=== PATIENT | male | born 1960 | race Caucasian/White ===

== ENCOUNTER 2019-11-01 19:48 | Emergency (ER) | payer MEDICARE, MEDICAID, SELFPAY ==
[2019-11-01 20:39] LABS: Basophils # 0.1 10^3/uL (0.0-0.1); Basophils % 1.2 %; Eosinophils # 0.1 10^3/uL (0.0-0.8); Eosinophils % 1.8 %; Hematocrit 47.7 % (42.0-52.0); Lymphocytes # 1.3 10^3/uL (0.8-4.8); Lymphocytes % 30.9 %; Mean Corpuscular HGB Conc 29.4 g/dL (30.0-36.0); Mean Corpuscular Hemoglobin 24.9 pg (28.0-34.0); Mean Corpuscular Volume 84.9 fL (80-94); Mean Platelet Volume 9.5 fL (7.4-10.4); Monocytes # 0.8 10^3/uL (0.2-0.9); Monocytes % 17.6 %; Neutrophils # 2.1 10^3/uL (1.8-7.7); Neutrophils % 48.3 %; Nucleated Red Blood Cells % 0 %; Platelet Count 266 10^3/cmm (130-400); Red Blood Count 5.62 10^6/uL (4.1-5.3); Red Cell Distribution Width 18.4 % (12.1-15.1); White Blood Count 4.3 10^3/uL (4.0-10.0)
[2019-11-01 20:47] VITALS: BP 120/90; PULSE 116; RESP 16; TEMP 37.1; O2SAT 93; BMI 28.0
--- NOTE | 2019-11-01 20:59 | ED_ITS ---
Entered by Nyasia Dolan, acting as scribe for Tori Aguirre Nov 01, 2019 19:48 HPI - Psych General: Chief Complaint: Abdominal Pain Stated Complaint: abd pain Time Seen by Provider: 11/01/19 20:58 Source: patient, family and RN notes reviewed Mode of arrival: ambulatory Limitations: no limitations History of Present Illness: HPI Narrative: 59 yo male presents to ED with complaints of abdominal pain, due to heavy drinking. The patient states he has been drinking heavy all his life. He said he can't stop drinking, that he needs help. He said he has tried to quit for years but he gets so sick with hallucinations, vomiting, shaking, nervousness and anger. He has run out of money and can buy no more alcohol so he needs help now. He states he has a hiata l hernia that is causing him pain. He said he normally drinks a 5th or more of whiskey every day by 1000 every morning but he has not drank as much today as he normally does, this confirmed by his son. MD complaint: feels depressed and other (wants to stop drinking) Onset (ago): day(s) (2) Duration: constant, changing over time and getting worse History of same: Yes Relieving factors: none Exacerbating factors: alcohol Context: recent alcohol abuse Associated psychiatric symptoms: depression, visual hallucinations and other (abdominal pain) Associated symptoms: Reports visual hallucinations, depression and other (abdominal pain) Treatments prior to arrival: none Review of Systems General: Reports: other (negative unless marked) Const: Denies: fever, chills, body aches, fatigue, malaise or diaphoresis Eyes: Denies: change in vision or blurry vision ENMT: Denies: throat pain, painful swallowing, hoarseness, ear pain, ear discharge, Change in hearing or nasal discharge Card: Denies: chest pain, palpitations, irregular heart rhythm, syncope, pre- syncope, shortness of breath on exertion or shortness of breath when lying down Resp: Denies: shortness of breath, productive cough, non-productive cough, wheezing, coughing up blood or chest congestion GI: Denies: nausea, vomiting, vomiting blood, coffee grounds in vomit, diarrhea, constipation, cramping, blood in stool or black tarry stool : Denies: flank pain, difficulty urinating, painful urination, urinary frequency, urinary urgency, decreased urine ouput, urinary incontinence or blood in urine Musc: Denies: neck pain, back pain, extremity pain, extremity swelling, joint pain, joint swelling, joint warmth or joint stiffness Skin/Breast: Denies: rash, skin tenderness or yellow skin Neuro: Denies: headache, numbness in extremities, weakness in extremities, changes in sensation, lack of coordination, difficulty walking, dizziness, vertigo or confusion Psych: Reports: depression and visual hallucinations Endo: Denies: excessive thirst, tired all the time, cold intolerance, excessive sweating, flushing or hot flashes Garrick/Lymph: Denies: easy bruising, easy bleeding, petechiae or enlarged lymph nodes All/Imm: Denies: hives, throat swelling, tongue swelling, facial swelling or acute wheezing PFSH ED PFSH: Social History Smoking and tobacco status: current every day smoker MDM - Psych MDM Narrative: Medical decision making narrative: Mr. Coronel is a 59-year-old male who comes in requesting to stop drinking. I have offered inpatient stay but he refuses. He states he had not had any alcohol since early this morning but I believe this to be a lie. He was given 1 mg of Ativan IV but does not appear any more intoxicated than when he arrived. Ultimately I do not believe he truly wants to quit drinking but is scared as he may be out of money to buy alcohol. I do believe he is at risk but he states in the past when he is tried to stop drinking he is not had symptoms of DTs only had anxiety. I will discharge him home with Ativan but his son who is with him agrees to controlled Ativan and will not let him have access to this. He will give it to him as I have prescribed and they will watch him so that he does not drink while taking it. There are multiple family members that live with him that can observe him. I did advise that if he does develop tremulousness, hallucinations or has a se izure he needs to be brought back to the ER immediately and they understand this. Lab Data: Attestation: I reviewed the patient's lab results. Labs: Lab Results 11/01/19 11/01/19 11/01/19 Range/Units 20:20 20:20 20:20 WBC 4.3 (4.0-10.0) 10^3/ uL RBC 5.62 H (4.1-5.3) 10^6/u L Hgb 14.0 (11.7-16.6) g/dL Hct 47.7 (42.0-52.0) % MCV 84.9 (80-94) fL MCH 24.9 L (28.0-34.0) pg MCHC 29.4 L (30.0-36.0) g/dL RDW 18.4 H (12.1-15.1) % Plt Count 266 (130-400) 10^3/c mm MPV 9.5 (7.4-10.4) fL Neut % (Auto) 48.3 % Lymph % (Auto) 30.9 % Davison % (Auto) 17.6 % Eos % (Auto) 1.8 % Baso % (Auto) 1.2 % Neut # (Auto) 2.1 (1.8-7.7) 10^3/u L Lymph # (Auto) 1.3 (0.8-4.8) 10^3/u L Davison # (Auto) 0.8 (0.2-0.9) 10^3/u L Eos # (Auto) 0.1 (0.0-0.8) 10^3/u L Baso # (Auto) 0.1 (0.0-0.1) 10^3/u L Nucleated RBC % (a uto) 0 % Nucleated RBCs # 0.0 /100WBC PT 13.10 (10.5-13.3) SECO NDS INR 0.99 (0.8-1.2) Sodium 143 (136-145) mmol/L Potassium 3.8 (3.5-5.1) mmol/L Chloride 103 (98-107) mmol/L Carbon Dioxide 27 (22-29) mmol/L Anion Gap 16.8 (5-19) BUN 9 (6-20) mg/dL Creatinine 0.9 (0.7-1.2) mg/dL GFR Calculation 86.7 L (90-130) mL/min Glucose 114 (65-115) mg/dL Calculated Osmolal ity 293 (285-295) mOsm/k g Calcium 9.0 (8.5-10.5) mg/dL Total Bilirubin 0.3 (0.15-1.2) mg/dL AST 93 H (0-40) U/L ALT 39 (0-41) U/L Alkaline Phosphata se 99 (40-130) IU/L Total Protein 7.5 (6.6-8.7) g/dL Albumin 4.1 (3.5-5.2) g/dL Globulin 3.4 (1.3-4.6) g/dL Lipase 21 (13-60) U/L Urine Opiates Scre en (Negative) ng/mL Ur Barbiturates Sc reen (Negative) ng/mL Ur Phencyclidine S crn (Negative) ng/mL Ur Amphetamines Sc reen (Negative) ng/mL U Benzodiazepines Scrn (Negative) ng/mL Urine Cocaine Scre en (Negative) ng/mL U Marijuana (THC) Screen (Negative) ng/mL Ethyl Alcohol (0-10) mg/dL 11/01/19 11/01/19 Range/Units 20:20 22:15 WBC (4.0-10.0) 10^3/ uL RBC (4.1-5.3) 10^6/u L Hgb (11.7-16.6) g/dL Hct (42.0-52.0) % MCV (80-94) fL MCH (28.0-34.0) pg MCHC (30.0-36.0) g/dL RDW (12.1-15.1) % Plt Count (130-400) 10^3/c mm MPV (7.4-10.4) fL Neut % (Auto) % Lymph % (Auto) % Davison % (Auto) % Eos % (Auto) % Baso % (Auto) % Neut # (Auto) (1.8-7.7) 10^3/u L Lymph # (Auto) (0.8-4.8) 10^3/u L Davison # (Auto) (0.2-0.9) 10^3/u L Eos # (Auto) (0.0-0.8) 10^3/u L Baso # (Auto) (0.0-0.1) 10^3/u L Nucleated RBC % (a uto) % Nucleated RBCs # /100WBC PT (10.5-13.3) SECO NDS INR (0.8-1.2) Sodium (136-145) mmol/L Potassium (3.5-5.1) mmol/L Chloride (98-107) mmol/L Carbon Dioxide (22-29) mmol/L Anion Gap (5-19) BUN (6-20) mg/dL Creatinine (0.7-1.2) mg/dL GFR Calculation (90-130) mL/min Glucose (65-115) mg/dL Calculated Osmolal ity (285-295) mOsm/k g Calcium (8.5-10.5) mg/dL Total Bilirubin (0.15-1.2) mg/dL AST (0-40) U/L ALT (0-41) U/L Alkaline Phosphata se (40-130) IU/L Total Protein (6.6-8.7) g/dL Albumin (3.5-5.2) g/dL Globulin (1.3-4.6) g/dL Lipase (13-60) U/L Urine Opiates Scre en Negative (Negative) ng/mL Ur Barbiturates Sc reen Negative (Negative) ng/mL Ur Phencyclidine S crn Negative (Negative) ng/mL Ur Amphetamines Sc reen Negative (Negative) ng/mL U Benzodiazepines Scrn Positive H (Negative) ng/mL Urine Cocaine Scre en Negative (Negative) ng/mL U Marijuana (THC) Screen Negative (Negative) ng/mL Ethyl Alcohol 339 H* (0-10) mg/dL Discharge Plan Discharge Patient Disposition: Home, Self-Care Clinical Impression: Alcohol intoxication Qualifiers: Complication of substance-induced condition: uncomplicated Qualified Code(s): F10.920 - Alcohol use, unspecified with intoxication, uncomplicated Condition: Stable Prescriptions: New Ativan 1 mg tablet 1 mg PO Q6H PRN (Reason: alcohol withdrawal) Qty: 20 RF: 0 Zofran 4 mg tablet 4 mg PO Q6H PRN (Reason: nausea and vomiting) Qty: 20 RF: 0 No Action doxepin 50 mg capsule 50 mg PO DAILY RF: 0 ropinirole 1 mg tablet 1 mg PO DAILY RF: 0 tramadol 50 mg tablet 50 - 100 mg PO Q4H PRN (Reason: Pain) RF: 0 lorazepam 0.5 mg tablet 0.5 mg PO DAILY RF: 0 tamsulosin 0.4 mg capsule 0.4 mg PO DAILY RF: 0 pantoprazole 40 mg tablet,delayed release (DR/EC) 40 mg PO DAILY RF: 0 albuterol sulfate 90 mcg/actuation HFA aerosol inhaler 1 puff INHALATION Q4H PRN (Reason: Shortness Of Breath) RF: 0 lisinopril 2.5 mg tablet 2.5 mg PO DAILY RF: 0 Referrals: Kamron Deshpande MD [Primary Care Provider] - 1-3 days Discharge Diet: Advance as tolerated Discharge Activity: Increase activity as tolerated Patient Instructions: Alcohol Intoxication (ED), Abuse of Alcohol (ED), Alcohol Withdrawal (ED) Activity Restrictions/Additional Instructions: Please return to the ER immediately for any of the signs or symptoms listed on your discharge instruction sheets, worsening/changing of your symptoms, you are not getting better as quickly as expected, or for ANY other cause or concerns. Be certain that family controls your Ativan as it is dangerous if you take Ativan and drink together. Be certain to follow-up with your doctor as soon as possible for recheck and further evaluation and care. Coding Level of Care Code ED Human Resources Benefits Coordinator for Bg Ramírez The documentation recorded by the Kelsi beasley Valerie R, accurately reflects the service I personally performed and the decisions made by , Tori Aguirre Nov 01, 2019 19:48
--- NOTE | 2019-11-01 21:07 | US_ITS ---
WS: [id number] Complete ABDOMINAL ULTRASOUND HISTORY: Abdominal Pain COMPARISON: 10/06/2018 Liver: 13.6 cm in length. Liver is normal size and echogenicity with no mass or intrahepatic dilatati on. Gallbladder: Prior cholecystectomy. Pancreas: Normal size and echogenicity. Anterior to the pancreas is mixed echogenic material. Could b e increasing fat or fluid-filled stomach with gastroparesis as there is no peristalsis noted. CBD: 0.5 cm. Right kidney: 11.9 cm x 6.3 cm x 5.8 cm. Normal size kidney. Simple cyst upper pole measures 2.9 cm maximum diameter. Left kidney: 11.0 cm x 6.1 cm x 6.6 cm. Normal size kidney. Calcification in the upper pole. Spleen: Not visualized. 1. Status post cholecystectomy. 2. Increasing mixed echogenic material anterior to the pancreas. This could be increasing omental fa t or material within the stomach and gastroparesis. No peristalsis was evident. For further evaluatio n CT of the abdomen may be helpful. 3. Stable RIGHT renal cyst. No ascites. US/US abdomen complete* [id number] IMPRESSION: Normal complete abdomen ultrasound.
[2019-11-01 21:09] LABS: Alanine Aminotransferase 39 U/L (0-41); Albumin Level 4.1 g/dL (3.5-5.2); Alkaline Phosphatase 99 IU/L (40-130); Anion Gap 16.8 (5-19); Aspartate Amino Transferase 93 U/L (0-40); Blood Urea Nitrogen 9 mg/dL (6-20); Carbon Dioxide 27 mmol/L (22-29); Chloride 103 mmol/L (98-107); Globulin 3.4 g/dL (1.3-4.6); Glomerular Filtration Rate 86.7 mL/min (90-130); Glucose 114 mg/dL (65-115); Lipase 21 U/L (13-60); Osmolality Calculated 293 mOsm/kg (285-295); Potassium 3.8 mmol/L (3.5-5.1); Sodium 143 mmol/L (136-145); Total Bilirubin 0.3 mg/dL (0.15-1.2); Total Protein 7.5 g/dL (6.6-8.7)
[2019-11-01 21:46] LABS: INR 0.99 (0.8-1.2)
[2019-11-01] MEDS: ondansetron 2 mg/ML SDV 2 mL 4 MG IVP ×2 (21:49)
[2019-11-01] MEDS: pantoprazole 40 mg SDV 80 MG IVP (21:49)
[2019-11-01] MEDS: famotidine 20 mg/2 mL INJ 40 MG IVP (21:49)
[2019-11-01] MEDS: LORazepam 2 mg/mL INJ 1 mL 1 MG IVP (21:50)
[2019-11-01] MEDS: folic acid 1 MG, multivitamin inj 10 ML, thiamine 100 MG in sodium chloride 0.9% 1,000 ML 252.8 MG IV (21:53)
[2019-11-01 22:02] LABS: Alcohol Level 339 mg/dL (0-10)
[2019-11-01 22:31] LABS: Amphetamines Screen Urine Negative (Negative); Barbiturates Screen Urine Negative (Negative); Benzodiazepines Screen Urine Positive (Negative); Cocaine Screen Urine Negative (Negative); Opiate Screen Urine Negative (Negative); PCP Screen Urine Negative (Negative); THC Screen Urine Negative (Negative)
[2019-11-01 22:34] LABS: Add Urine Culture? No; Bacteria Urine TRACE; Bilirubin Urine Neg (NEGATIVE); Blood Urine Neg (Negative); Glucose Urine UA Norm (Normal); Ketones Urine Negative (Negative); Leukocyte Esterase Urine Negative (Negative); Nitrate Urine Negative (Negative); Protein Urine Neg (Negative); RBC Urine RARE /hpf (0-2); Squamous Epithelial Cell Urine RARE (0-5); Urine Appearance Clear (CLEAR); Urine Color Yellow (Yellow); Urobilinogen Urine Norm (Negative); WBC Urine RARE /hpf (0-5); pH Urine 7 (5-7)
[2019-11-01 22:55] VITALS: BP 149/100; PULSE 101; RESP 16; O2SAT 98
[2019-11-01 23:24] VITALS: BP 170/135; PULSE 111; RESP 16; O2SAT 92
== END 2019-11-01 23:27 | disposition home or self-care (01) ==
PROVIDERS: Emergency Medicine; Emergency Provider Emergency Medicine; Family Provider Internal Medicine; PCP Internal Medicine
DX: F10.129 Alcohol abuse with intoxication, unspecified (principal); Y90.8 Blood alcohol level of 240 mg/100 ml or more; F17.200 Nicotine dependence, unspecified, uncomplicated; Z79.891 Long term (current) use of opiate analgesic
CPT/HCPCS: 12345; 36415; 76700; 80053; 80306; 80307; 81001; 83690; 85025; 85610; 96365; 96366; 96375; 99283; 99284; C9113; J2060; J2405; J3411; J3490; J7030

== ENCOUNTER 2019-11-25 14:01 | Inpatient (IN) | payer MEDICARE, MEDICAID, SELFPAY ==
[2019-11-25] VITALS (8 sets, daily range): BP systolic 134–158; BP diastolic 98–99; PULSE 72–92; RESP 17–20; TEMP 36.3–36.9; O2SAT 92–98; BMI 28.0
--- NOTE | 2019-11-25 14:06 | CT_ITS ---
WS: [id number] CT ABDOMEN AND PELVIS WITH CONTRAST HISTORY: Abdominal Pain TECHNIQUE: Imaging performed of the abdomen and pelvis with IV contrast. Single phase imaging of the abdomen. Coronal and sagittal reformats are submitted. All CT scans at [facility] use at least one of these dose optimization techniques: automated exposure control; mA and/or kV adjustment per patient size (includes targeted exams where dose is matched to clinical indication); or iterativ e reconstruction. IV CONTRAST: Omnipaque 300; 95 mL IV. Oral contrast: No DLP: 1484.37 mGy.cm COMPARISON: 03/26/2017 Lower thorax: Lung bases are clear. Heart is normal size. Large incarcerated hiatal hernia has been p resent on prior studies. No ischemic changes within the hernia. Liver/biliary system: Mild hepatic steatosis. No mass or bile duct dilatation. Gallbladder: Prior cholecystectomy. Pancreas: Normal. Spleen: Normal. Adrenal glands: Normal. Right kidney: Normal size kidney. There is a complex cyst in the upper pole measuring 2.[address] Very slight increase in size since 03/26/2017. There is also calcification in the wall of the cys t. There are numerous additional too small to characterize hypodensities throughout the kidney. No ob struction. RIGHT ureter is normal size. Left kidney: Normal size kidney. Exophytic complex cyst measuring 2.6 cm from the mid lateral kidney has slightly increased in size since 2017. There are additional too small to characterize scattered h ypodensities throughout the kidney. No obstruction. Aorta: Mild atherosclerosis with no aneurysm. Lymphadenopathy: None. Free fluid: None. GI tract: Numerous diverticula in the descending and sigmoid colon. There is also diffuse wall thicke max in the sigmoid measuring up to 9 mm in diameter. This has progressed since the prior study. Not a lot of adjacent infiltration fat. There is no fluid collection. The appendix is been removed. Abdominal wall: Unremarkable abdominal wall. No hernia. Pelvis: Well-distended urinary bladder. Bones: Slight increase in lumbar lordosis. T12, 50% compression fracture is stable. CT/CT abdomen pelvis w con* [id number] IMPRESSION: 1. Descending and sigmoid diverticulosis. No evidence for diverticulitis. 2. There is diffuse wall thickening which has progressed within the descending and sigmoid colon. Probably related to colitis or prior inflammatory changes o f diverticulitis. 3. Prior appendectomy. 4. Bilateral complex renal cysts. 5. Large hiatal hernia. 6. Prior cholecystectomy.
--- NOTE | 2019-11-25 14:06 | XR_ITS ---
WS: [id number] RIGHT HUMERUS: 2 VIEW(S) TECHNIQUE: AP and lateral. HISTORY: injury COMPARISON: None available. Incomplete visualization of the elbow. The remaining humerus is negative for fracture. Enchondroma in the proximal humerus. No foreign bodies and visualized upper thorax is unremarkable. XR/[place] [id number] IMPRESSION: No RIGHT humerus fracture.
--- NOTE | 2019-11-25 14:06 | XR_ITS ---
WS: [id number] PORTABLE CHEST HISTORY: cough COMPARISON: 02/01/2019 Lungs are clear and well expanded. No pleural effusion or pneumothorax. Cardiac size: Normal. Mediastinum/Aorta: Mild atherosclerosis aorta. No osseous abnormality seen. Small hiatal hernia. XR/XR chest 1V portable [id number] IMPRESSION: Small hiatal hernia. No acute cardiopulmonary disease.
--- NOTE | 2019-11-25 14:06 | CT_ITS ---
WS: [id number] CT HEAD NONCONTRAST HISTORY: MONGE/AMS TECHNIQUE: Contiguous axial imaging performed through the brain in 2.5 mm imaging. Bone and soft tiss ue windows. Sagittal and coronal reformats reviewed. All CT scans at [facility] use at ast one of these dose optimization techniques: automated exposure control; mA and/or kV adjustment pe r patient size (includes targeted exams where dose is matched to clinical indication); or iterative r econstruction. DLP: 1556.79 mGy.cm COMPARISON: 02/01/2019 No acute intracranial hemorrhage, midline shift or mass effect. Mild atrophy and mild chronic microvascular ischemic disease. Carrero-white matter differentiation is in tact. Ventricles: Normal size with no hydrocephalus. Paranasal sinuses: As visualized are clear. Mastoid air cells: Well pneumatized. Calvarium and scalp: Skull is intact with no soft tissue edema or swelling. CT/CT head wo con* [id number] IMPRESSION: 1. No acute intracranial hemorrhage. 2. Mild atrophy and chronic ischemic disease.
--- NOTE | 2019-11-25 14:06 | XR_ITS ---
WS: [id number] RIGHT SHOULDER: 3 VIEW(S) TECHNIQUE: Internal and external rotation with Y view. HISTORY: injury COMPARISON: 2014 No fracture or dislocation or soft tissue abnormality. Glenohumeral and AC joints are unremarkable. Sclerotic lesion proximal RIGHT humerus has been stable over multiple prior examinations and most lik henry an enchondroma. XR/XR shoulder RT min 2V* [id number] IMPRESSION: Negative RIGHT shoulder for fracture.
--- NOTE | 2019-11-25 14:08 | ECG_ITS ---
Measurements Intervals [place] Rate: 92 P: 51 OK: 155 QRS: -45 QRSD: 117 T: 15 QT: 394 QTc: 489 ELECTRONIC VENTRICULAR PACEMAKER ABNORMAL RHYTHM ECG Compared to ECG 12/25/2018 00:15:14 Sinus rhythm no longer present Left anterior fascicular block no longer present Electronically Signed On 11-25-2019 18:25:29 CDT by Festus Clemente M.D. [email or web address]
[2019-11-25 14:21] LABS: ABG PCO2 41.1 mmHg (35-45); ABG PH Result 7.33 (7.35-7.45); Arterial Blood Gas Hematocrit 42.3 % (42-52); Base Excess ABG -4.2 mmol/L (-2.0-2.0); Blood Gas Allen Test Pos; Blood Gas Sample Site Radial, left; Blood Gas Sample Type Arterial; HCO3 ABG 21.5 mmol/L (22-26); Oxygen Device NC; PO2 ABG 75.5 mmHg (80.0-100.0)
[2019-11-25 14:24] LABS: Basophils % 0.5 %; Eosinophils % 0.2 %; Hematocrit 48.2 % (42.0-52.0); Hemoglobin 13.9 g/dL (11.7-16.6); Lymphocytes # 1.5 10^3/uL (0.8-4.8); Lymphocytes % 22.4 %; Mean Corpuscular HGB Conc 28.8 g/dL (30.0-36.0); Mean Corpuscular Volume 86.8 fL (80-94); Monocytes % 14.9 %; Neutrophils % 61.4 %; Nucleated Red Blood Cells % 0 %; Platelet Count 225 10^3/cmm (130-400); Red Blood Count 5.55 10^6/uL (4.1-5.3); Red Cell Distribution Width 18.6 % (12.1-15.1); White Blood Count 6.5 10^3/uL (4.0-10.0)
[2019-11-25] MEDS: sodium chloride 0.9% 1,000 ML 999 ML IV (14:39)
[2019-11-25 14:40] LABS: INR 1.05 (0.8-1.2)
[2019-11-25] MEDS: metoclopramide 5 mg/mL SDV 2 mL 10 MG IV (14:41)
[2019-11-25] MEDS: pantoprazole 40 mg SDV 80 MG IVP (14:42)
[2019-11-25] MEDS: LORazepam 2 mg/mL INJ 1 mL 1 MG IVP (14:44)
[2019-11-25] MEDS: morphine 4 mg/mL SDV 1 mL IVP ×2 (14:46→17:40)
[2019-11-25 14:51] LABS: Alanine Aminotransferase 40 U/L (0-41); Albumin Level 4.3 g/dL (3.5-5.2); Alkaline Phosphatase 102 IU/L (40-130); Anion Gap 30.7 (5-19); Blood Urea Nitrogen 8 mg/dL (6-20); Calcium 9.3 mg/dL (8.5-10.5); Carbon Dioxide 14 mmol/L (22-29); Chloride 95 mmol/L (98-107); Creatine Phosphokinase 175 U/L (39-308); Globulin 3.5 g/dL (1.3-4.6); Glomerular Filtration Rate 76.7 mL/min (90-130); Glucose 181 mg/dL (65-115); Lipase 24 U/L (13-60); Magnesium 1.7 mg/dL (1.7-2.3); Osmolality Calculated 282 mOsm/kg (285-295); Potassium 3.7 mmol/L (3.5-5.1); Sodium 136 mmol/L (136-145); Total Bilirubin 1.1 mg/dL (0.15-1.2); Total Protein 7.8 g/dL (6.6-8.7)
[2019-11-25 14:53] LABS: Troponin(5th) Baseline 18 ng/mL (0-15)
[2019-11-25 15:02] LABS: Alcohol Level < 10 mg/dL (0-10); Aspartate Amino Transferase 98 U/L (0-40)
--- NOTE | 2019-11-25 15:03 | CT_ITS ---
WS: [id number] CT CERVICAL SPINE HISTORY: PAIN TECHNIQUE: Contiguous 2.5 mm axial imaging performed through the entire cervical spine. Sagittal and coronal reformats also performed. All CT scans at [facility] use at least one of these do se optimization techniques: automated exposure control; mA and/or kV adjustment per patient size (inc ludes targeted exams where dose is matched to clinical indication); or iterative reconstruction. DLP: 1308.16 mGy.cm COMPARISON: None available. Slight increase in cervical lordosis. C3 retrolisthesis by 2.6 cm. Craniocervical junction is intact. Lateral masses of C1 and C2 are aligned. The odontoid is normal. C2-C3: Normal. C3-C4: Mild osteophytic ridging with mild LEFT foraminal stenosis. C4-C5: Normal. C5-C6: Mild osteophytic ridging and bilateral foraminal narrowing. C6-C7: Mild osteophytic ridging with mild narrowing of the foramen. C7-T1: Normal. Emphysematous changes at the lung apices. No adenopathy along the cervical chains. CT/CT cervical spin wo con* [id number] IMPRESSION: 1. No cervical spine fracture. 2. 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
[2019-11-25 15:11] LABS: Lactic Sepsis W/Reflex 2.9 mmol/L (0.5-2.2)
[2019-11-25] MEDS: iohexol 300 mg/mL 100 mL Btl IV (15:16)
--- NOTE | 2019-11-25 15:30 | W.ED.GENADLT ---
HPI - General Adult General: Chief complaint: General Medical Stated complaint: SYNCOPE Time Seen by Provider: 11/25/19 14:02 History of Present Illness: HPI narrative: Mr. Coronel is a nice 59-year-old male who comes in complaining of right arm pain and left upper quadrant abdominal pain. Patient states that he woke up about 1 AM feeling sick to the stomach and then began vomiting about 5 AM. His pain is been in the left upper quadrant and is cramping and intermittent. He denies any diarrhea. He denies any fevers or chills. He states he got weak and lightheaded and fell hitting his right arm but denies any head or neck injury. He states it hurts to move his right arm since. Patient states he normally drinks a liter of alcohol daily but did not have anything since about 10:00 this morning. Drinking that alcohol made things worse. He denies any blood in his stools, black tarry stools, blood in his vomit or otherwise. Denies any chest pain or shortness of breath. Associated symptoms: Deny chest pain, confusion, diaphoresis, dyspnea, headache(s), malaise, rash, palpitations or syncope Review of Systems General: Reports: other (negative unless marked) Const: Denies: fever, chills, body aches, fatigue, malaise or diaphoresis Eyes: Denies: change in vision or blurry vision ENMT: Denies: throat pain, painful swallowing, hoarseness, ear pain, ear discharge, Change in hearing or nasal discharge Card: Denies: chest pain, palpitations, irregular heart rhythm, syncope, pre-syncope, shortness of breath on exertion or shortness of breath when lying down Resp: Denies: shortness of breath, productive cough, non-productive cough, wheezing, coughing up blood or chest congestion GI: Denies: vomiting blood, coffee grounds in vomit, diarrhea, constipation, cramping, blood in stool or black tarry stool : Denies: flank pain, difficulty urinating, painful urination, urinary frequency, urinary urgency, decreased urine ouput, urinary incontinence or blood in urine Musc: Denies: neck pain, back pain, extremity pain, extremity swelling, joint swelling, joint warmth or joint stiffness Skin/Breast: Denies: rash, skin tenderness or yellow skin Neuro: Denies: headache, numbness in extremities, weakness in extremities, changes in sensation, lack of coordination, difficulty walking, dizziness, vertigo or confusion Endo: Denies: excessive thirst, tired all the time, cold intolerance, excessive sweating, flushing or hot flashes Garrick/Lymph: Denies: easy bruising, easy bleeding, petechiae or enlarged lymph nodes All/Imm: Denies: hives, throat swelling, tongue swelling, facial swelling or acute wheezing PFSH ED PFSH: Medical History Alcoholism Anemia BPH (benign prostatic hyperplasia) COPD (chronic obstructive pulmonary disease) GERD (gastroesophageal reflux disease) Hiatal hernia Hypertension Restless leg syndrome Tobacco abuse Social History Smoking and tobacco status: current every day smoker Physical Exam Const: COMMON NORMALS: oriented x3, no limitations, healthy appearing and well nourished EXAM LIMITATIONS: no altered mental status GENERAL APPEARANCE: cooperative, well kempt and well developed ORIENTATION/CONSCIOUSNESS: Yes awake HENMT: COMMON NORMALS: normocephalic, head/scalp atraumatic, hearing grossly normal bilaterally, external ears normal, EAC's normal, external nose normal and moist oral mucous membranes HEAD & SCALP: normal to inspection, normocephalic and atraumatic FACE & SINUS: normal facial exam and face symmetric NOSE: external nose normal and nares normal EXTERNAL EAR: Yes external ears normal EXTERNAL AUDITORY CANAL: EAC's normal MOUTH: oral and palatal mucosa normal and tongue normal Eye: COMMON NORMALS: PERRL, EOMs intact bilaterally, conjunctivae normal and no scleral icterus GENERAL EYE: normal appearance of both eyes and normal light reflex CONJUNCTIVA: Yes conjunctivae normal SCLERA: sclerae normal CORNEA: Yes corneas normal PUPIL: Yes PERRL DIRECT OPHTHALMOSCOPY: Yes normal light reflex Neck/C-Spine: COMMON NORMALS: full ROM, no lymphadenopathy, supple, no meningeal signs and no JVD GENERAL: Yes normal visual inspection and Yes trachea midline CERVICAL SPINE: Yes cervical ROM normal Chest: COMMONS NORMALS: inspection of chest normal and palpation of chest normal Resp: COMMON NORMALS: normal respiratory effort, no retractions, no use of accessory muscles and clear to auscultation bilaterally EFFORT & INSPECTION: Yes able to speak in complete sentences AUSCULTATION: clear to auscultation bilaterally Cardio: COMMON NORMALS: no JVD, regular rate, regular rhythm, S1 normal heart sound, S2 normal heart sound, no gallops, no clicks, no murmurs and no rub JUGULAR VENOUS DISTENTION: no JVD RATE: regular rate RHYTHM: regular rhythm HEART SOUNDS: S1 normal and S2 normal GI: COMMON NORMALS: soft to palpation, no hepatosplenomegaly and no masses PALPATION: Yes soft, Yes tender Details: LUQ and Yes no hepatosplenomegaly : COMMON NORMALS: Yes no CVA tenderness BLADDER/KIDNEY EXAM: Yes no CVA tenderness Back/Pelvis: COMMON NORMALS: no CVA tenderness, thoracic and lumbar spine normal to inspection, no thoracic nor lumbar tenderness and thoraco-lumbar ROM normal Extremity: COMMON NORMALS: normal capillary refill, no joint enlargement, no clubbing, cyanosis or edema and no calf tenderness RIGHT UPPER EXTREMITY: Yes upper arm (Tender to palpation and with range of motion over the upper lateral and posterior shoulder) Neuro: COMMON NORMALS: oriented x3, CN's II-XII intact bilaterally, moves all extremities, no focal motor deficits and no sensory deficits noted MENINGEAL SIGNS: Yes no meningeal signs Psych: COMMON NORMALS: mental status grossly normal, thought process normal, cooperative, affect normal, speech normal and activity/motor behavior normal APPEARANCE: Yes well kempt SPEECH: Yes normal speech THOUGHT PROCESS: normal thought process Skin: COMMON NORMALS: no rashes or lesions noted, skin turgor normal, no jaundice, no petechiae and no mottling GENERAL SKIN EXAM: no rashes or lesions noted and turgor normal Course Vital Signs: Vital signs: Vital Signs Temperature 97.4 F L 11/25/19 20:00 Pulse Rate 87 11/25/19 20:00 Respiratory Rate 18 11/25/19 20:00 Blood Pressure 158/98 11/25/19 20:00 Pulse Oximetry 92 11/25/19 20:00 MDM - General Adult MDM Narrative: Medical decision making narrative: Patient comes in with a lactic acidosis. It is possible this is a ketoacidosis or just from being hypotensive as he has lost quite a bit of fluid. We are replacing his fluid losses with IV normal saline and banana bag. The patient is currently feeling much better after Ativan and morphine for his arm. We will give him a dose of Zosyn here in the case has been endorsed to Dr. Nash. He agrees to accept the patient on the floor we will place him on [facility] protocol Lab Data: Labs: Lab Results 11/25/19 11/25/19 11/25/19 Range/Units 13:22 13:22 13:22 WBC 6.5 (4.0-10.0) 10^3/ uL RBC 5.55 H (4.1-5.3) 10^6/u L Hgb 13.9 (11.7-16.6) g/dL Hct 48.2 (42.0-52.0) % MCV 86.8 (80-94) fL MCH 25.0 L (28.0-34.0) pg MCHC 28.8 L (30.0-36.0) g/dL RDW 18.6 H (12.1-15.1) % Plt Count 225 (130-400) 10^3/c mm MPV 11.0 H (7.4-10.4) fL Neut % (Auto) 61.4 % Lymph % (Auto) 22.4 % Blount % (Auto) 14.9 % Eos % (Auto) 0.2 % Baso % (Auto) 0.5 % Neut # (Auto) 4.0 (1.8-7.7) 10^3/u L Lymph # (Auto) 1.5 (0.8-4.8) 10^3/u L Blount # (Auto) 1.0 H (0.2-0.9) 10^3/u L Eos # (Auto) 0.0 (0.0-0.8) 10^3/u L Baso # (Auto) 0.0 (0.0-0.1) 10^3/u L Nucleated RBC % (a uto) 0 % Nucleated RBCs # 0.0 /100WBC PT 14.00 H (10.5-13.3) SECO NDS INR 1.05 (0.8-1.2) Specimen Type Sample Site ABG pH (7.35-7.45) ABG pCO2 (35-45) mmHg ABG pO2 (80.0-100.0) mmH g ABG HCO3 (22-26) mmol/L ABG Base Excess (-2.0-2.0) mmol/ L Tyler Test Hematocrit (42-52) % O2 Delivery Device O2 Liters/Min % FiO2 % Industrial [employer] Sales Assistant ID Sodium 136 (136-145) mmol/L Potassium 3.7 (3.5-5.1) mmol/L Chloride 95 L (98-107) mmol/L Carbon Dioxide 14 L (22-29) mmol/L Anion Gap 30.7 H (5-19) BUN 8 (6-20) mg/dL Creatinine 1.0 (0.7-1.2) mg/dL GFR Calculation 76.7 L (90-130) mL/min Glucose 181 H (65-115) mg/dL Calculated Osmolal ity 282 L (285-295) mOsm/k g Lactic Acid (0.5-2.2) mmol/L Calcium 9.3 (8.5-10.5) mg/dL Magnesium 1.7 (1.7-2.3) mg/dL Total Bilirubin 1.1 (0.15-1.2) mg/dL AST 98 H (0-40) U/L ALT 40 (0-41) U/L Alkaline Phosphata se 102 (40-130) IU/L Creatine Kinase 175 (39-308) U/L Troponin T Baselin e (0-15) ng/mL Troponin T 120 Min [place] (0-15) ng/mL Delta Troponin T (0-10) ABS# Total Protein 7.8 (6.6-8.7) g/dL Albumin 4.3 (3.5-5.2) g/dL Globulin 3.5 (1.3-4.6) g/dL Lipase 24 (13-60) U/L Urine Color (Yellow) Urine Appearance (CLEAR) Urine pH (5-7) Ur Specific Gravit y (1.005-1.030) Urine Protein (Negative) Urine Glucose (UA) (Normal) Urine Ketones (Negative) Urine Blood (Negative) Urine Nitrate (Negative) Urine Bilirubin (NEGATIVE) Urine Urobilinogen (Negative) mg/dL Ur Leukocyte Hollie ase (Negative) Urine RBC (0-2) /hpf Urine WBC (0-5) /hpf Ur Squamous Epith Cells (0-5) Urine Bacteria (NONE) Urine Opiates Scre en (Negative) ng/mL Ur Barbiturates Sc reen (Negative) ng/mL Ur Phencyclidine S crn (Negative) ng/mL Ur Amphetamines Sc reen (Negative) ng/mL U Benzodiazepines Scrn (Negative) ng/mL Urine Cocaine Scre en (Negative) ng/mL U Marijuana (THC) Screen (Negative) ng/mL Ethyl Alcohol < 10 (0-10) mg/dL Serum Ketones (Negative) 11/25/19 11/25/19 11/25/19 Range/Units 13:22 13:22 14:10 WBC (4.0-10.0) 10^3/ uL RBC (4.1-5.3) 10^6/u L Hgb (11.7-16.6) g/dL Hct (42.0-52.0) % MCV (80-94) fL MCH (28.0-34.0) pg MCHC (30.0-36.0) g/dL RDW (12.1-15.1) % Plt Count (130-400) 10^3/c mm MPV (7.4-10.4) fL Neut % (Auto) % Lymph % (Auto) % Blount % (Auto) % Eos % (Auto) % Baso % (Auto) % Neut # (Auto) (1.8-7.7) 10^3/u L Lymph # (Auto) (0.8-4.8) 10^3/u L Blount # (Auto) (0.2-0.9) 10^3/u L Eos # (Auto) (0.0-0.8) 10^3/u L Baso # (Auto) (0.0-0.1) 10^3/u L Nucleated RBC % (a uto) % Nucleated RBCs # /100WBC PT (10.5-13.3) SECO NDS INR (0.8-1.2) Specimen Type Arterial Sample Site Radial, left ABG pH 7.33 L (7.35-7.45) ABG pCO2 41.1 (35-45) mmHg ABG pO2 75.5 L (80.0-100.0) mmH g ABG HCO3 21.5 L (22-26) mmol/L ABG Base Excess -4.2 L (-2.0-2.0) mmol/ L Tyler Test Pos Hematocrit 42.3 (42-52) % O2 Delivery Device Nc O2 Liters/Min 2.0 % FiO2 28.0 % Industrial H[employer] Sales Assistant ID cak Sodium (136-145) mmol/L Potassium (3.5-5.1) mmol/L Chloride (98-107) mmol/L Carbon Dioxide (22-29) mmol/L Anion Gap (5-19) BUN (6-20) mg/dL Creatinine (0.7-1.2) mg/dL GFR Calculation (90-130) mL/min Glucose (65-115) mg/dL Calculated Osmolal ity (285-295) mOsm/k g Lactic Acid (0.5-2.2) mmol/L Calcium (8.5-10.5) mg/dL Magnesium (1.7-2.3) mg/dL Total Bilirubin (0.15-1.2) mg/dL AST (0-40) U/L ALT (0-41) U/L Alkaline Phosphata se (40-130) IU/L Creatine Kinase (39-308) U/L Troponin T Baselin e 18 H (0-15) ng/mL Troponin T 120 Min [place] (0-15) ng/mL Delta Troponin T (0-10) ABS# Total Protein (6.6-8.7) g/dL Albumin (3.5-5.2) g/dL Globulin (1.3-4.6) g/dL Lipase (13-60) U/L Urine Color (Yellow) Urine Appearance (CLEAR) Urine pH (5-7) Ur Specific Gravit y (1.005-1.030) Urine Protein (Negative) Urine Glucose (UA) (Normal) Urine Ketones (Negative) Urine Blood (Negative) Urine Nitrate (Negative) Urine Bilirubin (NEGATIVE) Urine Urobilinogen (Negative) mg/dL Ur Leukocyte Hollie ase (Negative) Urine RBC (0-2) /hpf Urine WBC (0-5) /hpf Ur Squamous Epith Cells (0-5) Urine Bacteria (NONE) Urine Opiates Scre en (Negative) ng/mL Ur Barbiturates Sc reen (Negative) ng/mL Ur Phencyclidine S crn (Negative) ng/mL Ur Amphetamines Sc reen (Negative) ng/mL U Benzodiazepines Scrn (Negative) ng/mL Urine Cocaine Scre en (Negative) ng/mL U Marijuana (THC) Screen (Negative) ng/mL Ethyl Alcohol (0-10) mg/dL Serum Ketones Negative (Negative) 11/25/19 11/25/19 11/25/19 Range/Units 14:38 15:33 15:33 WBC (4.0-10.0) 10^3/ uL RBC (4.1-5.3) 10^6/u L Hgb (11.7-16.6) g/dL Hct (42.0-52.0) % MCV (80-94) fL MCH (28.0-34.0) pg MCHC (30.0-36.0) g/dL RDW (12.1-15.1) % Plt Count (130-400) 10^3/c mm MPV (7.4-10.4) fL Neut % (Auto) % Lymph % (Auto) % Blount % (Auto) % Eos % (Auto) % Baso % (Auto) % Neut # (Auto) (1.8-7.7) 10^3/u L Lymph # (Auto) (0.8-4.8) 10^3/u L Blount # (Auto) (0.2-0.9) 10^3/u L Eos # (Auto) (0.0-0.8) 10^3/u L Baso # (Auto) (0.0-0.1) 10^3/u L Nucleated RBC % (a uto) % Nucleated RBCs # /100WBC PT (10.5-13.3) SECO NDS INR (0.8-1.2) Specimen Type Sample Site ABG pH (7.35-7.45) ABG pCO2 (35-45) mmHg ABG pO2 (80.0-100.0) mmH g ABG HCO3 (22-26) mmol/L ABG Base Excess (-2.0-2.0) mmol/ L Tyler Test Hematocrit (42-52) % O2 Delivery Device O2 Liters/Min % FiO2 % [employer] Sales Assistant ID Sodium (136-145) mmol/L Potassium (3.5-5.1) mmol/L Chloride (98-107) mmol/L Carbon Dioxide (22-29) mmol/L Anion Gap (5-19) BUN (6-20) mg/dL Creatinine (0.7-1.2) mg/dL GFR Calculation (90-130) mL/min Glucose (65-115) mg/dL Calculated Osmolal ity (285-295) mOsm/k g Lactic Acid 2.9 H (0.5-2.2) mmol/L Calcium (8.5-10.5) mg/dL Magnesium (1.7-2.3) mg/dL Total Bilirubin (0.15-1.2) mg/dL AST (0-40) U/L ALT (0-41) U/L Alkaline Phosphata se (40-130) IU/L Creatine Kinase (39-308) U/L Troponin T Baselin e (0-15) ng/mL Troponin T 120 Min [place] (0-15) ng/mL Delta Troponin T (0-10) ABS# Total Protein (6.6-8.7) g/dL Albumin (3.5-5.2) g/dL Globulin (1.3-4.6) g/dL Lipase (13-60) U/L Urine Color Yellow (Yellow) Urine Appearance Hazy A (CLEAR) Urine pH 6.5 (5-7) Ur Specific Gravit y 1.010 (1.005-1.030) Urine Protein 1+ H (Negative) Urine Glucose (UA) Norm (Normal) Urine Ketones Negative (Negative) Urine Blood Neg (Negative) Urine Nitrate Negative (Negative) Urine Bilirubin Neg (NEGATIVE) Urine Urobilinogen Norm (Negative) mg/dL Ur Leukocyte Hollie ase Negative (Negative) Urine RBC None (0-2) /hpf Urine WBC 0-4 H (0-5) /hpf Ur Squamous Epith Cells 0-4 H (0-5) Urine Bacteria Trace (NONE) Urine Opiates Scre en Negative (Negative) ng/mL Ur Barbiturates Sc reen Negative (Negative) ng/mL Ur Phencyclidine S crn Negative (Negative) ng/mL Ur Amphetamines Sc reen Negative (Negative) ng/mL U Benzodiazepines Scrn Negative (Negative) ng/mL Urine Cocaine Scre en Negative (Negative) ng/mL U Marijuana (THC) Screen Negative (Negative) ng/mL Ethyl Alcohol (0-10) mg/dL Serum Ketones (Negative) 11/25/19 11/25/19 Range/Units 15:38 15:38 WBC (4.0-10.0) 10^3/ uL RBC (4.1-5.3) 10^6/u L Hgb (11.7-16.6) g/dL Hct (42.0-52.0) % MCV (80-94) fL MCH (28.0-34.0) pg MCHC (30.0-36.0) g/dL RDW (12.1-15.1) % Plt Count (130-400) 10^3/c mm MPV (7.4-10.4) fL Neut % (Auto) % Lymph % (Auto) % Blount % (Auto) % Eos % (Auto) % Baso % (Auto) % Neut # (Auto) (1.8-7.7) 10^3/u L Lymph # (Auto) (0.8-4.8) 10^3/u L Blount # (Auto) (0.2-0.9) 10^3/u L Eos # (Auto) (0.0-0.8) 10^3/u L Baso # (Auto) (0.0-0.1) 10^3/u L Nucleated RBC % (a uto) % Nucleated RBCs # /100WBC PT (10.5-13.3) SECO NDS INR (0.8-1.2) Specimen Type Sample Site ABG pH (7.35-7.45) ABG pCO2 (35-45) mmHg ABG pO2 (80.0-100.0) mmH g ABG HCO3 (22-26) mmol/L ABG Base Excess (-2.0-2.0) mmol/ L Tyler Test Hematocrit (42-52) % O2 Delivery Device O2 Liters/Min % FiO2 % [employer] Sales Assistant ID Sodium (136-145) mmol/L Potassium (3.5-5.1) mmol/L Chloride (98-107) mmol/L Carbon Dioxide (22-29) mmol/L Anion Gap (5-19) BUN (6-20) mg/dL Creatinine (0.7-1.2) mg/dL GFR Calculation (90-130) mL/min Glucose (65-115) mg/dL Calculated Osmolal ity (285-295) mOsm/k g Lactic Acid (0.5-2.2) mmol/L Calcium (8.5-10.5) mg/dL Magnesium (1.7-2.3) mg/dL Total Bilirubin (0.15-1.2) mg/dL AST (0-40) U/L ALT (0-41) U/L Alkaline Phosphata se (40-130) IU/L Creatine Kinase 180 (39-308) U/L Troponin T Baselin e (0-15) ng/mL Troponin T 120 Min [place] 17.71 H (0-15) ng/mL Delta Troponin T -0.29 L (0-10) ABS# Total Protein (6.6-8.7) g/dL Albumin (3.5-5.2) g/dL Globulin (1.3-4.6) g/dL Lipase (13-60) U/L Urine Color (Yellow) Urine Appearance (CLEAR) Urine pH (5-7) Ur Specific Gravit y (1.005-1.030) Urine Protein (Negative) Urine Glucose (UA) (Normal) Urine Ketones (Negative) Urine Blood (Negative) Urine Nitrate (Negative) Urine Bilirubin (NEGATIVE) Urine Urobilinogen (Negative) mg/dL Ur Leukocyte Hollie ase (Negative) Urine RBC (0-2) /hpf Urine WBC (0-5) /hpf Ur Squamous Epith Cells (0-5) Urine Bacteria (NONE) Urine Opiates Scre en (Negative) ng/mL Ur Barbiturates Sc reen (Negative) ng/mL Ur Phencyclidine S crn (Negative) ng/mL Ur Amphetamines Sc reen (Negative) ng/mL U Benzodiazepines Scrn (Negative) ng/mL Urine Cocaine Scre en (Negative) ng/mL U Marijuana (THC) Screen (Negative) ng/mL Ethyl Alcohol (0-10) mg/dL Serum Ketones (Negative) Imaging Data^: CT Head: Radiologist's impression: [address] [address] [address] Scan Report Signed Patient: Raymond Coronel Unit #: [id number] : 1960 Age/Sex: 59 / M ADM Date: 11/25/19 Loc: ER Room/Bed: Attending Dr: Ordering Provider/Ordering MD: Tmiothy,Tori N DO Date of Service: 11/25/19 Procedure(s): CT head wo con* [id number] Accession Number(s): [id number] Report Number: [id number] WS: [id number] CT HEAD NONCONTRAST HISTORY: MONGE/AMS TECHNIQUE: Contiguous axial imaging performed through the brain in 2.5 mm imaging. Bone and soft tissue windows. Sagittal and coronal reformats reviewed. All CT scans at [facility] use at least one of these dose optimization techniques: automated exposure control; mA and/or kV adjustment per patient size (includes targeted exams where dose is matched to clinical indication); or iterative reconstruction. DLP: 1556.79 mGy.cm COMPARISON: 02/01/2019 No acute intracranial hemorrhage, midline shift or mass effect. Mild atrophy and mild chronic microvascular ischemic disease. Carrero-white matter differentiation is intact. Ventricles: Normal size with no hydrocephalus. Paranasal sinuses: As visualized are clear. Mastoid air cells: Well pneumatized. Calvarium and scalp: Skull is intact with no soft tissue edema or swelling. CT/CT head wo con* [id number] IMPRESSION: 1. No acute intracranial hemorrhage. 2. Mild atrophy and chronic ischemic disease. Dictated By: Danielle Espinosa DO Signed By: Danielle Espinosa DO Signed Date/Time: 11/25/191517 DD/ 151 CT Cervical Spine: Radiologist's impression: [address] [address] [address] Scan Report Signed Patient: Raymond Coronel Unit #: [id number] : 1960 Age/Sex: 59 / M ADM Date: 11/25/19 Loc: ER Room/Bed: Attending Dr: Ordering Provider/Ordering MD: Tori Aguirre DO Date of Service: 11/25/19 Procedure(s): CT cervical spin wo con* [id number] Accession Number(s): [id number] Report Number: [id number] WS: [id number] CT CERVICAL SPINE HISTORY: PAIN TECHNIQUE: Contiguous 2.5 mm axial imaging performed through the entire cervical spine. Sagittal and coronal reformats also performed. All CT scans at [facility] use at least one of these dose optimization techniques: automated exposure control; mA and/or kV adjustment per patient size (includes targeted exams where dose is matched to clinical indication); or iterative reconstruction. DLP: 1308.16 mGy.cm COMPARISON: None available. Slight increase in cervical lordosis. C3 retrolisthesis by 2.6 cm. Craniocervical junction is intact. Lateral masses of C1 and C2 are aligned. The odontoid is normal. C2-C3: Normal. C3-C4: Mild osteophytic ridging with mild LEFT foraminal stenosis. C4-C5: Normal. C5-C6: Mild osteophytic ridging and bilateral foraminal narrowing. C6-C7: Mild osteophytic ridging with mild narrowing of the foramen. C7-T1: Normal. Emphysematous changes at the lung apices. No adenopathy along the cervical chains. CT/CT cervical spin wo con* [id number] IMPRESSION: 1. No cervical spine fracture. 2. 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 Dictated By: Danielle Espinosa DO Signed By: Danielle Espinosa DO Signed Date/Time: 11/25/19 1522 DD/ 1518 CXR: My impression: Borderline cardiomegaly, no acute cardiopulmonary findings. EKG Data^: EKG 1: Attestation: I personally reviewed and interpreted this EKG as follows: EKG interpretation date: 11/25/19 EKG interpretation time: 14:16 Interpretation: Normal sinus rhythm at 92 beats a minute, left axis deviation, no acute ST or T wave changes. Computer generated interpretation: Abdomen/Pelvis CT 11/25/19 14:06 IMPRESSION: 1. Descending and sigmoid diverticulosis. No evidence for diverticulitis. 2. There is diffuse wall thickening which has progressed within the descending and sigmoid colon. Probably related to colitis or prior inflammatory changes of diverticulitis. 3. Prior appendectomy. 4. Bilateral complex renal cysts. 5. Large hiatal hernia. 6. Prior cholecystectomy. Chest X-Ray 11/25/19 14:06 IMPRESSION: Small hiatal hernia. No acute cardiopulmonary disease. Head CT 11/25/19 14:06 IMPRESSION: 1. No acute intracranial hemorrhage. 2. Mild atrophy and chronic ischemic disease. Humerus X-Ray 11/25/19 14:06 IMPRESSION: No RIGHT humerus fracture. Shoulder X-Ray 11/25/19 14:06 IMPRESSION: Negative RIGHT shoulder for fracture. Cervical Spine CT 11/25/19 15:03 IMPRESSION: 1. No cervical spine fracture. 2. 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 Venous Duplex 11/25/19 16:57 IMPRESSION: No acute findings. No evidence of deep vein thrombosis. 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
[2019-11-25 15:39] LABS: Ketone (Acetest) Serum Negative (Negative)
[2019-11-25] MEDS: folic acid 1 MG, multivitamin inj 10 ML, thiamine 100 MG in sodium chloride 0.9% 1,000 ML 252.8 MG IV (16:05)
--- NOTE | 2019-11-25 16:08 | ECG_ITS ---
Measurements Intervals [place] Rate: 83 P: 64 OR: 166 QRS: -38 QRSD: 122 T: -3 QT: 402 QTc: 474 SINUS RHYTHM LEFT AXIS DEVIATION [QRS AXIS < -30] MINIMAL VOLTAGE CRITERIA FOR LVH, CONSIDER NORMAL VARIANT [MEETS CRITERIA IN ONE OF: R(aVL), S(V1), R(V5), R(V5/V6)+S(V1)] PROBABLE LATERAL MYOCARDIAL INFARCTION , OF INDETERMINATE AGE [35 ms Q WAVE IN I/ I/aVL/V5/V6] Compared to ECG 12/25/2018 00:15:14 Left-axis deviation now present Myocardial infarct finding now present Left anterior fascicular block no longer present Electronically Signed On 11-25-2019 18:27:08 CDT by Festus Clemente M.D. [email or web address]
[2019-11-25 16:30] LABS: Add Urine Culture? No; Bacteria Urine TRACE; Bilirubin Urine Neg (NEGATIVE); Blood Urine Neg (Negative); Glucose Urine UA Norm (Normal); Ketones Urine Negative (Negative); Leukocyte Esterase Urine Negative (Negative); Nitrate Urine Negative (Negative); Protein Urine 1+ (Negative); Squamous Epithelial Cell Urine 0-4 (0-5); Urine Appearance Hazy (CLEAR); Urine Color Yellow (Yellow); Urobilinogen Urine Norm (Negative); WBC Urine 0-4 /hpf (0-5); pH Urine 6.5 (5-7)
[2019-11-25 16:31] LABS: Reflex Lactate Order REFLEX LACTIC ORDERD
--- NOTE | 2019-11-25 16:45 | P.HP_ITS ---
Providers/Chief Complaint Admitting Physician: Jason aMbry Primary Care Provider: Kamron Deshpande MD Chief Complaint: COLITIS History of Present Illness Raymond Coronel is a 59 year old male presents to emergency room with complaints of generalized abdominal pain and several episodes of vomiting since early this morning. CT of the abdomen revealed the followin. Descending and sigmoid diverticulosis. No evidence for diverticulitis. 2. There is diffuse wall thickening which has progressed within the descending and sigmoid colon. Probably related to colitis or prior inflammatory changes of diverticulitis. 3. Prior appendectomy. 4. Bilateral complex renal cysts. 5. Large hiatal hernia. 6. Prior cholecystectomy. The patient reports that the pain is well controlled currently. He denies fever, chills, diarrhea. He had 3 or 4 episodes of vomiting since this morning. Mostly liquids. No blood. The patient denies any similar episodes in the past. He denies associated chest pain, palpitations, diaphoresis. The patient drinks alcohol every day. Drinks large amount of liquor on daily basis. His last drink of was last night. The patient probably was intoxicated when his symptoms begun. He does not remember, however there was a report by the ED staff that the patient probably had seizure. The patient fell. Due to complaints of right shoulder pain several imaging studies were performed. No fractures or dislocations were identified. Also, CT of the head and neck were without any acute findings. Review of systems otherwise is unremarkable. Review of Systems General: Reports: 10 or more systems reviewed and unremarkable except in HPI and below Medications/Allergies Allergies Allergy/AdvReac Type Severity Reaction Status Date / Time No Known Allergies Allergy Verified 11/25/19 14:10 PFSH Acute PFSH: Medical History Alcoholism Anemia BPH (benign prostatic hyperplasia) COPD (chronic obstructive pulmonary disease) GERD (gastroesophageal reflux disease) Hiatal hernia Hypertension Restless leg syndrome Tobacco abuse Social History Smoking and tobacco status: current every day smoker Vitals/I&O/Wt Last Vital Signs Temp 98.4 F 11/25/19 14:04 Pulse 92 11/25/19 14:04 Resp 17 11/25/19 14:46 BP 143/98 11/25/19 14:04 Pulse Ox 98 11/25/19 14:46 Weight last 48 hrs Weight 86.183 kg Physical Exam Narrative: EXAM NARRATIVE: The patient is currently awake alert and oriented x3. No acute distress. Mood and affect are appropriate. Responses are adequate. Skin is warm and dry. Moist mucous membranes. Eyes PERRLA, extraocular muscles intact. No icterus. Neck is supple. No JVD. Lungs clear bilaterally. No respiratory distress Heart S1, S2, regular. Abdomen is obese, nontender, bowel sounds are present, no guarding. Extremities right upper extremity is in sling. Palpation does not reveal any significant swelling. Area in the mid and proximal humeral area is slightly tender. He reports decreased range of motion's. Peripheral pulses are sym metric and normal. Normal capillary refill. He has chronic venous stasis changes and pedal edema. No peripheral cyanosis. Nonfocal neuro exam. Data : 11/25/19 13:22 11/25/19 13:22 Other Labs: Laboratory Results WBC 6.5 10^3/uL (4.0-10.0) 11/25/19 13:22 RBC 5.55 10^6/uL (4.1-5.3) H 11/25/19 13:22 Hgb 13.9 g/dL (11.7-16.6) 11/25/19 13:22 Hct 48.2 % (42.0-52.0) 11/25/19 13:22 MCV 86.8 fL (80-94) 11/25/19 13:22 MCH 25.0 pg (28.0-34.0) L 11/25/19 13:22 MCHC 28.8 g/dL (30.0-36.0) L 11/25/19 13:22 RDW 18.6 % (12.1-15.1) H 11/25/19 13:22 Plt Count 225 10^3/cmm (130-400) 11/25/19 13:22 MPV 11.0 fL (7.4-10.4) H 11/25/19 13:22 Neut % (Auto) 61.4 % 11/25/19 13:22 Lymph % (Auto) 22.4 % 11/25/19 13:22 Floyd % (Auto) 14.9 % 11/25/19 13:22 Eos % (Auto) 0.2 % 11/25/19 13:22 Baso % (Auto) 0.5 % 11/25/19 13:22 Neut # (Auto) 4.0 10^3/uL (1.8-7.7) 11/25/19 13:22 Lymph # (Auto) 1.5 10^3/uL (0.8-4.8) 11/25/19 13:22 Floyd # (Auto) 1.0 10^3/uL (0.2-0.9) H 11/25/19 13:22 Eos # (Auto) 0.0 10^3/uL (0.0-0.8) 11/25/19 13:22 Baso # (Auto) 0.0 10^3/uL (0.0-0.1) 11/25/19 13: Nucleated RBC % (auto) 0 % 11/25/19 13: Nucleated RBCs # 0.0 /100WBC 11/25/19 13: PT 14.00 SECONDS (10.5-13.3) H 11/25/19 13:22 INR 1.05 (0.8-1.2) 11/25/19 13:22 Specimen Type Arterial 11/25/19 14:10 Sample Site Radial, left 11/25/19 14:10 ABG pH 7.33 (7.35-7.45) L 11/25/19 14:10 ABG pCO2 41.1 mmHg (35-45) 11/25/19 14:10 ABG pO2 75.5 mmHg (80.0-100.0) L 11/25/19 14:10 ABG HCO3 21.5 mmol/L (22-26) L 11/25/19 14:10 ABG Base Excess -4.2 mmol/L (-2.0-2.0) L 11/25/19 14:10 Tyler Test Pos 11/25/19 14:10 Hematocrit 42.3 % (42-52) 11/25/19 14:10 O2 Delivery Device Nc 11/25/19 14:10 O2 Liters/Min 2.0 % 11/25/19 14:10 FiO2 28.0 % 11/25/19 14:10 Wafer Fabrication Technician ID cak 11/25/19 14:10 Sodium 136 mmol/L (136-145) 11/25/19 13:22 Potassium 3.7 mmol/L (3.5-5.1) 11/25/19 13:22 Chloride 95 mmol/L (98-107) L 11/25/19 13:22 Carbon Dioxide 14 mmol/L (22-29) L 11/25/19 13:22 Anion Gap 30.7 (5-19) H 11/25/19 13:22 BUN 8 mg/dL (6-20) 11/25/19 13:22 Creatinine 1.0 mg/dL (0.7-1.2) 11/25/19 13:22 GFR Calculation 76.7 mL/min (90-130) L 11/25/19 13:22 Glucose 181 mg/dL (65-115) H 11/25/19 13:22 Calculated Osmolality 282 mOsm/kg (285-295) L 11/25/19 13:22 Lactic Acid 2.9 mmol/L (0.5-2.2) H 11/25/19 14:38 Calcium 9.3 mg/dL (8.5-10.5) 11/25/19 13:22 Magnesium 1.7 mg/dL (1.7-2.3) 11/25/19 13:22 Total Bilirubin 1.1 mg/dL (0.15-1.2) 11/25/19 13:22 AST 98 U/L (0-40) H 11/25/19 13:22 ALT 40 U/L (0-41) 11/25/19 13:22 Alkaline Phosphatase 102 IU/L (40-130) 11/25/19 13:22 Creatine Kinase 175 U/L (39-308) 11/25/19 13:22 Troponin T Baseline 18 ng/mL (0-15) H 11/25/19 13:22 Total Protein 7.8 g/dL (6.6-8.7) 11/25/19 13:22 Albumin 4.3 g/dL (3.5-5.2) 11/25/19 13:22 Globulin 3.5 g/dL (1.3-4.6) 11/25/19 13:22 Lipase 24 U/L (13-60) 11/25/19 13:22 Urine Color Yellow (Yellow) 11/25/19 15:33 Urine Appearance Hazy (CLEAR) A 11/25/19 15:33 Urine pH 6.5 (5-7) 11/25/19 15:33 Ur Specific [place] 1.010 (1.005-1.030) 11/25/19 15:33 Urine Protein 1+ (Negative) H 11/25/19 15:33 Urine Glucose (UA) Norm (Normal) 11/25/19 15:33 Urine Ketones Negative (Negative) 11/25/19 15:33 Urine Blood Neg (Negative) 11/25/19 15:33 Urine Nitrate Negative (Negative) 11/25/19 15:33 Urine Bilirubin Neg (NEGATIVE) 11/25/19 15:33 Urine Urobilinogen Norm mg/dL (Negative) 11/25/19 15:33 Ur Leukocyte Esterase Negative (Negative) 11/25/19 15:33 Urine RBC None /hpf (0-2) 11/25/19 15:33 Urine WBC 0-4 /hpf (0-5) H 11/25/19 15:33 Ur Squamous Epith Cells 0-4 (0-5) H 11/25/19 15:33 Urine Bacteria Trace (NONE) 11/25/19 15:33 Ethyl Alcohol < 10 mg/dL (0-10) 11/25/19 13:22 Serum Ketones Negative (Negative) 11/25/19 13:22 Impressions Abdomen/Pelvis CT 11/25/19 14:06 IMPRESSION: 1. Descending and sigmoid diverticulosis. No evidence for diverticulitis. 2. There is diffuse wall thickening which has progressed within the descending and sigmoid colon. Probably related to colitis or prior inflammatory changes of diverticulitis. 3. Prior appendectomy. 4. Bilateral complex renal cysts. 5. Large hiatal hernia. 6. Prior cholecystectomy. Chest X-Ray 11/25/19 14:06 IMPRESSION: Small hiatal hernia. No acute cardiopulmonary disease. Head CT 11/25/19 14:06 IMPRESSION: 1. No acute intracranial hemorrhage. 2. Mild atrophy and chronic ischemic disease. Humerus X-Ray 11/25/19 14:06 IMPRESSION: No RIGHT humerus fracture. Shoulder X-Ray 11/25/19 14:06 IMPRESSION: Negative RIGHT shoulder for fracture. Cervical Spine CT 11/25/19 15:03 IMPRESSION: 1. No cervical spine fracture. 2. 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 Micro: Microbiology 11/25/19 14:38 Blood Culture - Preliminary Blood SPECIMEN COLLECTED 11/25/19 14:41 Blood Culture - Preliminary Blood SPECIMEN COLLECTED A&P Additional A&P Information Colitis or diverticulitis. Started on Rocephin and metronidazole. Clear liquid diet. Pain medications as needed. Acute problem metabolic acidosis probably secondary to EtOH. Will manage with IV fluids. Will recheck in the morning. Probable seizures/EtOH withdrawals. Received lorazepam in ED. Currently seems to be stable. He wants to quit. I will start him on Librium and CIWA protocol. Vitamin replacement. Will monitor and replace electrolytes as needed. DVT prophylaxis. Teds and SCDs. No anticoagulation due to concerns of fall or trauma leading to bleeding complications. Right shoulder pain. Will ask PT OT evaluate him. I will also order Doppler ultrasound to rule out DVT. It is possible that the patient passed out and his right upper extremity got trapped between the floor and his body. I will also check CPK level. Pain medications as needed. History of GERD. We will continue his home PPI. Sclerotic lesion proximal RIGHT humerus has been stable over multiple prior examinations and most likely an enchondroma. Will be deferred to primary care team for outpatient follow-up and additional testing if necessary. The patient was to be full code. The plan of care was discussed with the patient. He verbalized understanding and agreement. Attestations Medical Necessity Statement*: I expect that the patient will require more than 2 midnights in the hospital. He meets criteria for inpatient hospitalization. Coding Level of Care Code Acute Electronic Intelligence Officer for Bg Ramírez
--- NOTE | 2019-11-25 16:57 | USR_ITS ---
PROCEDURE INFORMATION: Exam: US Duplex Right Lower Extremity Veins, Limited Exam date and time: 11/25/2019 5:03 PM Age: 59 years old Clinical indication: Swelling (edema) of limb; Upper extremity, left; Additional info: Rue dvt? Pain and swelling TECHNIQUE: Imaging protocol: Real-time Duplex ultrasound of the Right Lower Extremity with 2-D thomas scale, color Doppler flow and spectral waveform analysis with image documentation. Limited exam was focused on the right lower extremity veins. COMPARISON: No relevant prior studies available. FINDINGS: Right deep veins: Unremarkable. The common femoral, femoral, proximal profunda femoral and popliteal veins are patent without thrombus. Normal Doppler waveforms. Normal compressibility and/or augmentation response. Right superficial veins: Unremarkable. Saphenofemoral junction is patent without thrombus. Soft tissues: Unremarkable. US/[place] [id number] IMPRESSION: No acute findings. No evidence of deep vein thrombosis.
[2019-11-25] MEDS: piperacillin-tazobactam 3.375 GM in sodium chloride 0.9% (plus) 50 ML IV (17:17)
[2019-11-25] MEDS: cefTRIAXone 1,000 MG in sodium chloride 0.9% (plus) 50 ML 100 MG IV (17:22)
[2019-11-25 17:46] LABS: Troponin 5 2HR 17.71 ng/mL (0-15)
[2019-11-25 17:55] LABS: Amphetamines Screen Urine Negative (Negative); Barbiturates Screen Urine Negative (Negative); Benzodiazepines Screen Urine Negative (Negative); Cocaine Screen Urine Negative (Negative); Opiate Screen Urine Negative (Negative); PCP Screen Urine Negative (Negative); THC Screen Urine Negative (Negative)
[2019-11-25 18:00] LABS: Creatine Phosphokinase 180 U/L (39-308)
[2019-11-25 18:05] LABS: Troponin 5 2HR Delta -0.29 ABS# (0-10)
[2019-11-25] MEDS: sodium chloride 0.9% 1,000 ML 100 ML IV (18:24)
[2019-11-25 18:40] LABS: Influenza A by IFA Negative (Negative); Influenza B by IFA Negative (Negative)
[2019-11-25] MEDS: chlordiazePOXIDE 25 mg Capsule 50 MG PO ×2 (18:48→21:59)
[2019-11-25] MEDS: oxyCODONE-APAP 5-325 mg Tablet 1 TAB PO (18:48)
[2019-11-25] MEDS: docusate sodium 100 mg Capsule PO (18:48)
[2019-11-25] MEDS: metroNIDAZOLE IV 500 MG/100 ML PREMIX 100 MG IV (18:49)
--- NOTE | 2019-11-25 19:38 | PC.NURSE ---
Med Rec Home med bottles are in pyxis. Pt stated he is not taking Ativan aymore for about a week. Pt stated i need to throw it away. 15 capsules noted in the bottle. I told pt i cannot throw away his Ativan bottle but Notified pt that all his med bottles are locked in his pyxis. Pt verbalizes understanding.
[2019-11-25] MEDS: dextrose 5%-sod chloride 0.45% 1,000 ML 125 ML IV (19:49)
--- NOTE | 2019-11-25 20:08 | ECG_ITS ---
Measurements Intervals [place] Rate: 69 P: 46 KS: 178 QRS: -34 QRSD: 119 T: -10 QT: 409 QTc: 439 SINUS RHYTHM POSSIBLE LEFT ATRIAL ENLARGEMENT [-0.1mV P WAVE IN V1/V2] MARKED LEFT AXIS DEVIATION [QRS AXIS < -30] POSSIBLE LEFT VENTRICULAR HYPERTROPHY [VOLTAGE CRITERIA PLUS LAE OR QRS WIDENING] POSSIBLE LATERAL MYOCARDIAL INFARCTION [30 ms Q WAVE IN I/aVL/V5/V6], PROBABLY OLD artifact Compared to ECG 11/25/2019 16:31:09 Ventricular premature complex(es) now present Myocardial infarct finding still present Electronically Signed On 11-26-2019 14:05:34 CDT by Debi Arroyo M.D. [email or web address]
[2019-11-25 20:56] LABS: Lactic Acid level (Lactate) 2.4 mmol/L (0.5-2.2); Lactic Sepsis W/Reflex 2.4 mmol/L (0.5-2.2); Troponin 5 6HR 18.18 ng/mL (0-15); Troponin 5 6HR Delta 0.18 ng/L (0-12)
[2019-11-25 21:51] LABS: Reflex Lactate Order REFLEX LACTIC ORDERD
[2019-11-25] MEDS: morphine 4 mg/mL SDV 1 mL 2 MG IVP (21:51)
[2019-11-26] VITALS (19 sets, daily range): BP systolic 120–143; BP diastolic 77–83; PULSE 78–104; RESP 14–20; TEMP 36.6–36.9; O2SAT 89–96
[2019-11-26] MEDS: oxyCODONE-APAP 5-325 mg Tablet 1 TAB PO ×4 (01:15→23:35)
[2019-11-26] MEDS: metroNIDAZOLE IV 500 MG/100 ML PREMIX 100 MG IV ×3 (01:16→17:40)
[2019-11-26] MEDS: morphine 4 mg/mL SDV 1 mL 2 MG IVP ×2 (02:15→06:14)
[2019-11-26] MEDS: chlordiazePOXIDE 25 mg Capsule 50 MG PO ×4 (04:52→23:29)
[2019-11-26 06:08] LABS: Basophils % 0.3 %; Eosinophils # 0.1 10^3/uL (0.0-0.8); Eosinophils % 2.1 %; Hematocrit 39.7 % (42.0-52.0); Hemoglobin 11.3 g/dL (11.7-16.6); Lymphocytes # 1.1 10^3/uL (0.8-4.8); Lymphocytes % 16.3 %; Mean Corpuscular HGB Conc 28.5 g/dL (30.0-36.0); Mean Corpuscular Hemoglobin 24.9 pg (28.0-34.0); Mean Corpuscular Volume 87.6 fL (80-94); Mean Platelet Volume 10.2 fL (7.4-10.4); Monocytes # 0.7 10^3/uL (0.2-0.9); Monocytes % 9.9 %; Neutrophils # 4.8 10^3/uL (1.8-7.7); Nucleated Red Blood Cells % 0 %; Platelet Count 183 10^3/cmm (130-400); Red Blood Count 4.53 10^6/uL (4.1-5.3); Red Cell Distribution Width 18.3 % (12.1-15.1); White Blood Count 6.8 10^3/uL (4.0-10.0)
[2019-11-26] MEDS: dextrose 5%-sod chloride 0.45% 1,000 ML 125 ML IV (06:14)
[2019-11-26 06:57] LABS: Alanine Aminotransferase 32 U/L (0-41); Albumin Level 3.5 g/dL (3.5-5.2); Alkaline Phosphatase 71 IU/L (40-130); Anion Gap 13.6 (5-19); Blood Urea Nitrogen 4 mg/dL (6-20); Calcium 8.3 mg/dL (8.5-10.5); Carbon Dioxide 23 mmol/L (22-29); Chloride 101 mmol/L (98-107); Globulin 2.8 g/dL (1.3-4.6); Glomerular Filtration Rate 138.4 mL/min (90-130); Glucose 111 mg/dL (65-115); Osmolality Calculated 274 mOsm/kg (285-295); Potassium 3.6 mmol/L (3.5-5.1); Sodium 134 mmol/L (136-145); Total Bilirubin 1.1 mg/dL (0.15-1.2); Total Protein 6.3 g/dL (6.6-8.7)
[2019-11-26 07:05] LABS: Aspartate Amino Transferase 72 U/L (0-40)
[2019-11-26 07:18] LABS: Magnesium 1.6 mg/dL (1.7-2.3); Phosphorus 2.9 mg/dL (2.5-4.5)
[2019-11-26] MEDS: ipratropium-albuterol 3 mL Neb INHALATION ×2 (08:51→14:23)
[2019-11-26] MEDS: tamsulosin 0.4 mg Capsule PO (08:55)
[2019-11-26] MEDS: folic acid 1 mg Tablet PO (08:55)
[2019-11-26] MEDS: docusate sodium 100 mg Capsule PO ×2 (08:55→17:35)
[2019-11-26] MEDS: lisinopril 2.5 mg Tablet PO (08:55)
[2019-11-26] MEDS: multivitamin therapeutic Tablet 1 TAB PO (08:55)
[2019-11-26] MEDS: pantoprazole DR 40 mg Tablet PO (08:55)
[2019-11-26] MEDS: thiamine 100 mg Tablet PO (08:55)
--- NOTE | 2019-11-26 12:46 | P.PN_ITS ---
Subjective Subjective: Interval history: The patient reports feeling well. Complains off pain in the right shoulder and difficulties with movements in the right shoulder area due to pain. Denies swelling or redness in the right upper extremity. He denies any chest pain, shortness of breath, diaphoresis, palpitations. No dizziness or lightheadedness. No nausea or vomiting. No tremors or seizures. Denies diarrhea. Abdominal pain is much improved. Medications: Reviewed: Yes Medication Review Details: Generic Name Dose Route Start Last Admin Trade Name Delores PRN Reason Stop Dose Admin Albuterol/Ipratrop ium 3 ml 11/25/19 22:25 11/26/19 08:51 Duoneb INHALATION 3 ml Q6H.RESPIRATORY P RN Administration SHORTNESS OF KELLY TH Chlordiazepoxide 50 mg 11/25/19 16:45 11/26/19 11:27 Librium PO 50 mg Q6H VICKEY Administration Docusate Sodium 100 mg 11/25/19 18:00 11/26/19 08:55 Colace PO 100 mg BID VICKEY Administration Folic Acid 1 mg 11/26/19 09:00 11/26/19 08:55 Folic Acid PO 1 mg DAILY VICKEY Administration Ceftriaxone Sodium 1,000 mg/ 50 mls @ 100 mls/ hr 11/25/19 16:45 11/25/19 17:22 Sodium Chloride IV 100 mls/hr Q24H VICKEY Administration Protocol Metronidazole 500 mg in 100 mls @ 100 mls/hr 11/25/19 16:45 11/26/19 08:55 Flagyl Iv IV 100 mls/hr Q8H VICKEY Administration Protocol Dextrose/Sodium Ch loride 1,000 mls @ 125 m ls/hr 11/25/19 18:11 11/26/19 06:14 Dextrose 5%-Sod Chloride 0.45% IV 125 mls/hr .Q8H VICKEY Administration Lisinopril 2.5 mg 11/26/19 09:00 11/26/19 08:55 Prinivil PO 2.5 mg DAILY VICKEY Administration Morphine Sulfate 2 mg 11/25/19 16:32 11/26/19 06:14 Morphine IVP 2 mg Q4H PRN Administration SEVERE PAIN Multivitamins Ther apeutic 1 tab 11/26/19 09:00 11/26/19 08:55 Multivitamin Tab PO 1 tab DAILY VICKEY Administration Oxycodone/Acetamin ophen 1 tab 11/25/19 16:32 11/26/19 08:55 Percocet 5-325 M g PO 1 tab Q4H PRN Administration SEVERE PAIN Pantoprazole Sodiu m 40 mg 11/26/19 09:00 11/26/19 08:55 Protonix PO 40 mg DAILY VICKEY Administration Tamsulosin HCl 0.4 mg 11/26/19 09:00 11/26/19 08:55 Flomax PO 0.4 mg DAILY VICKEY Administration Thiamine Mononitra te 100 mg 11/26/19 09:00 11/26/19 08:55 Vitamin B-1 PO 100 mg DAILY VICKEY Administration Vitals/I&O/Wt Last Vital Signs Temp 97.8 F 11/26/19 11:54 Pulse 85 11/26/19 11:54 Resp 18 11/26/19 11:54 BP 137/83 11/26/19 11:54 Pulse Ox 91 11/26/19 11:54 11/25/19 11/26/19 11/26/19 22:59 06:59 14:59 Intake Total 1100 / 1100 1100 / 2200 240 / 240 Output Total 0 / 0 1350 / 1350 400 / 400 Balance 1100 / 1100 -250 / 850 -160 / -160 Weight last 48 hrs Weight 86.183 kg Physical Exam Narrative: EXAM NARRATIVE: Colitis or diverticulitis. Started on Rocephin and metronidazole. Pain is well controlled. We will start advancing the diet. Acute problem metabolic acidosis probably secondary to EtOH. Improving. Continue hydration. Monitor. Probable seizures/EtOH withdrawals. Received lorazepam in ED. Currently seems to be stable. He wants to quit. Continue Librium and CIWA protocol. No evidence of withdrawal at this time. DVT prophylaxis. Teds and SCDs. Will start Lovenox Right shoulder pain. Probably rotator cuff injury. Will refer him to see orthopedic surgeon after discharge. History of GERD. We will continue his home PPI. Abnormal troponin. Currently no chest pain. He also has frequent PVCs. Starting the patient on aspirin and small dose of beta-ole. We will check his fasting lipids in the morning. Hypomagnesemia. Will replace and monitor. Sclerotic lesion proximal RIGHT humerus has been stable over multiple prior exam inations and most likely an enchondroma. Will be deferred to primary care team for outpatient follow-up and additional testing if necessary. Full code. The plan of care was discussed with the patient. He verbalized understanding and agreement. Data : 11/26/19 05:31 11/26/19 05:31 Micro: Microbiology 11/25/19 14:38 Blood Culture - Preliminary Blood SPECIMEN COLLECTED 11/25/19 14:41 Blood Culture - Preliminary Blood SPECIMEN COLLECTED Attestations Medical Necessity Statement*: I expect that the patient will need to stay another day or 2. Coding Level of Care Code Acute Java [id number] Application Developer for Bg Ramírez
[2019-11-26] MEDS: magnesium sulfate premix 2 GM/50 ML PIGGYBACK IV (14:31)
[2019-11-26] MEDS: aspirin 81 mg EC Tablet PO (14:32)
[2019-11-26] MEDS: enoxaparin 40 mg/0.4 mL Syringe SUBCUT (14:32)
--- NOTE | 2019-11-26 14:37 | PC.CHAP ---
Pastoral Care Encounter/Spiritual Assessment Type of Contact [] Declined careers counsellor visit [] Patient/Family/Request visit [] Outpatient visit [] Follow-up visit [] Physician referral [] Code/Alert [X] Routine visit [] Staff referral [] Actively dying [] Patient sleeping [] Family support [] [] Out of room [] Palliative care [] [] Receiving care in room [] Pre-surgical visit [] Trauma [] Long length of stay [] ICU visit [] Other: Relational/Emotional Strength [] Patient feels connected with others/family/visitors/staff [] Distress [] Loneliness/isolation [] Abandonment Spirituality of Patient [] Person of Felisa [] Attends Taoist of their Felisa [] Believes in Prayer [] Reads Bible or Mormon materials [] There are Spiritual issues to be addressed Senior Controls Analyst Interventions [] Prayer [] Active listening [] Non-anxious presence [] Spiritual/emotional support [] Crisis/trauma care [] Spiritual counseling [] Bereavement support [] Provided bereavement packet [] Provided Bible/devotional materials [] Provided toy/stuffed animal, coloring book to patient or family member [] Provided Communion [] Anointing/[place] [] Salvation [] Completed spiritual assessment [] Other: Impact on Illness or Injury [] Angry [] Fearful [] Anxious [] Often cries [] Exhaustion [] Unable to work [] Unable to attend buddhist [] Unable to walk/stand [] Unable to read [] Unable to drive [] Unable to eat/drink [] Unable to sleep [] Unable to be with family [] Patient intubated [] Other: Summary Time spent with patient
[2019-11-26] MEDS: cefTRIAXone 1,000 MG in sodium chloride 0.9% (plus) 50 ML 100 MG IV (17:36)
[2019-11-26] MEDS: metoprolol tartrate 25 mg Tablet PO (18:22)
[2019-11-27] VITALS (7 sets, daily range): BP systolic 126–151; BP diastolic 80–90; PULSE 75–87; RESP 17–18; TEMP 36.4–37.1; O2SAT 93–96
[2019-11-27] MEDS: metroNIDAZOLE IV 500 MG/100 ML PREMIX 100 MG IV ×2 (00:04→08:15)
[2019-11-27] MEDS: chlordiazePOXIDE 25 mg Capsule 50 MG PO ×2 (05:43→11:19)
[2019-11-27 05:51] LABS: Basophils % 0.5 %; Eosinophils # 0.2 10^3/uL (0.0-0.8); Eosinophils % 2.7 %; Hematocrit 39.9 % (42.0-52.0); Hemoglobin 11.6 g/dL (11.7-16.6); Lymphocytes # 1.3 10^3/uL (0.8-4.8); Lymphocytes % 19.8 %; Mean Corpuscular HGB Conc 29.1 g/dL (30.0-36.0); Mean Corpuscular Hemoglobin 25.9 pg (28.0-34.0); Mean Corpuscular Volume 89.1 fL (80-94); Mean Platelet Volume 10.8 fL (7.4-10.4); Monocytes # 0.9 10^3/uL (0.2-0.9); Monocytes % 12.9 %; Neutrophils # 4.2 10^3/uL (1.8-7.7); Neutrophils % 63.8 %; Nucleated Red Blood Cells % 0 %; Platelet Count 168 10^3/cmm (130-400); Red Blood Count 4.48 10^6/uL (4.1-5.3); Red Cell Distribution Width 18.6 % (12.1-15.1); White Blood Count 6.7 10^3/uL (4.0-10.0)
[2019-11-27 06:20] LABS: Albumin Level 3.7 g/dL (3.5-5.2); Anion Gap 13.7 (5-19); Blood Urea Nitrogen 3 mg/dL (6-20); Calcium 8.8 mg/dL (8.5-10.5); Carbon Dioxide 27 mmol/L (22-29); Chloride 104 mmol/L (98-107); Chol HDL Ratio 2.38 mg/dL (1.0-5.00); Cholesterol 138 mg/dL (0-200); Glomerular Filtration Rate 138.4 mL/min (90-130); Glucose 99 mg/dL (65-115); HDL Cholesterol 58 mg/dL (60-100); LDL Cholesterol Calculated 67 mg/dL (50-129); LDL HDL Ratio 1.16 RATIO (0.00-3.22); Potassium 3.7 mmol/L (3.5-5.1); Sodium 141 mmol/L (136-145); Triglycerides 65 mg/dL (0-150)
[2019-11-27 06:23] LABS: Anion Gap 12.6 (5-19); Blood Urea Nitrogen 3 mg/dL (6-20); Calcium 8.9 mg/dL (8.5-10.5); Carbon Dioxide 27 mmol/L (22-29); Chloride 105 mmol/L (98-107); Glomerular Filtration Rate 138.4 mL/min (90-130); Glucose 103 mg/dL (65-115); Magnesium 2.1 mg/dL (1.7-2.3); Osmolality Calculated 288 mOsm/kg (285-295); Potassium 3.6 mmol/L (3.5-5.1); Sodium 141 mmol/L (136-145)
[2019-11-27] MEDS: oxyCODONE-APAP 5-325 mg Tablet 1 TAB PO (08:13)
[2019-11-27] MEDS: lisinopril 2.5 mg Tablet PO (08:13)
[2019-11-27] MEDS: thiamine 100 mg Tablet PO (08:13)
[2019-11-27] MEDS: folic acid 1 mg Tablet PO (08:14)
[2019-11-27] MEDS: aspirin 81 mg EC Tablet PO (08:14)
[2019-11-27] MEDS: tamsulosin 0.4 mg Capsule PO (08:14)
[2019-11-27] MEDS: metoprolol tartrate 25 mg Tablet PO (08:14)
[2019-11-27] MEDS: docusate sodium 100 mg Capsule PO (08:14)
[2019-11-27] MEDS: pantoprazole DR 40 mg Tablet PO (08:14)
[2019-11-27] MEDS: multivitamin therapeutic Tablet 1 TAB PO (08:14)
--- NOTE | 2019-11-27 11:28 | PM.DCS ---
Discharge Providers Date of Admission: 11/25/19 15:52 Date of Discharge: November 27, 2019 Attending Provider at Admission: Jason Mabry Attending Provider at Discharge: Jason Mabry Primary Care Provider: Kamron Deshpande MD Reason for Visit Reason for Visit: Reason For Visit: COLITIS Hospital Course Discharge Summary: The patient is a 59-year-old gentleman with past medical history of alcohol use, COPD, hypertension, BPH who was admitted to [facility] due to the following problems: Colitis or diverticulitis. Was started on Rocephin and metronidazole. At discharge he is switched to Cipro and metronidazole p.o. for additional 5 days. Currently he is doing very well. Pain is well controlled. No diarrhea, nausea or vomiting, fever or chills. No problems with tolerating diet. Acute problem metabolic acidosis probably secondary to EtOH. Resolved with hydration. Probable seizures/EtOH withdrawals. Received lorazepam in ED. Currently seems to be stable. He wants to quit. No evidence of withdrawal symptoms on Librium. He is being discharged with Librium taper. He is instructed to follow-up with his primary care physician after discharge. DVT prophylaxis. Teds and SCDs. Received Lovenox. Right shoulder pain. Probably rotator cuff injury. He is referred to see Dr. Noyola after discharge. Lidocaine patch for pain management. History of GERD. We will continue his home PPI. Abnormal troponin. No complaints of chest pain, or other cardiac symptoms. He also had transient frequent PVCs. Was started on aspirin and beta-ole. Discussed the findings with Dr. Pearson. She did not feel that the patient had any acute cardiac issues. I provided him with a referral to see Dr. Arroyo in a week or so. Asked him to come back to emergency room if he develops any chest pain or other cardiac symptoms. He verbalized understanding. Hypomagnesemia. Replaced. Sclerotic lesion proximal RIGHT humerus has been stable over multiple prior examinations and most likely an enchondroma. Will be deferred to primary care team for outpatient follow-up and additional testing if necessary. Today the patient is doing well. Eager to go home. Denies any active complaints. Denies any chest pain, shortness of breath, cough, palpitations, nausea or vomiting, diarrhea, rectal blood, fever or chills, seizures or anxiety. No tremors. Physical Exam Narrative: EXAM NARRATIVE: The patient is awake alert and oriented x4. No acute distress. Mood and affect are appropriate. Responses are adequate. Skin warm and dry. Moist mucous membranes. No JVD. Eyes PERRLA, extraocular muscles intact. Normal speech. Neck supple. Lungs clear bilaterally Heart S1, S2, regular Abdomen soft, nontender, bowel sounds are present Extremities no edema, cyanosis, calf tenderness bilaterally. Normal capillary refill. No tremors. Discharge Data Data Completed and Pending: Completed Studies During Hospitalization Category Date Time Status CT abdomen pelvis w con* [id number] Urge nt Cat Scan 11/25/19 14:[address] cervical spin wo con* [id number] Urge nt Cat Scan 11/25/19 15:[address] head wo con* 7 [id number] Urgent Cat Scan 11/25/19 14:06 Completed XR chest 1V mark ble [id number] Stat Exams 11/25/19 14:06 Completed XR humerus RT 730 60 Stat Exams 11/25/19 14:06 Completed XR shoulder RT mi n 2V* [id number] Stat Exams 11/25/19 14:06 [place] [id number] Routin e Ultrasound 11/25/19 16:57 Completed Pending at discharge Category Date Time Status Basic Metabolic P alcon AM LABS Lab 11/28/19 04:00 Ordered Blood Culture Sta t Lab 11/25/19 14:41 Results Complete Blood Co unt w/Auto AM LABS Lab 11/28/19 04:00 Ordered Magnesium AM LABS Lab 11/28/19 04:00 Ordered Phosphorus AM LAB S Lab 11/28/19 04:00 Ordered Labs from last 24 hours 11/27/19 11/27/19 11/27/19 05:30 05:30 05:30 WBC 6.7 RBC 4.48 Hgb 11.6 L Hct 39.9 L MCV 89.1 MCH 25.9 L MCHC 29.1 L RDW 18.6 H Plt Count 168 MPV 10.8 H Neut % (Auto) 63.8 Lymph % (Auto) 19.8 [place] % (Auto) 12.9 Eos % (Auto) 2.7 Baso % (Auto) 0.5 Neut # (Auto) 4.2 Lymph # (Auto) 1.3 [place] # (Auto) 0.9 Eos # (Auto) 0.2 Baso # (Auto) 0.0 Nucleated RBC % (a uto) 0 Nucleated RBCs # 0.0 Sodium 141 141 Potassium 3.7 3.6 Chloride 104 105 Carbon Dioxide 27 27 Anion Gap 13.7 12.6 BUN 3 L 3 L Creatinine 0.6 L 0.6 L GFR Calculation 138.4 H 138.4 H Glucose 99 103 Calculated Osmolal ity 288 Calcium 8.8 8.9 Phosphorus 3.0 Magnesium 2.1 Albumin 3.7 Triglycerides 65 Cholesterol 138 LDL Cholesterol, C alc 67 HDL Cholesterol 58 L LDL/HDL Ratio 1.16 Cholesterol/HDL Ra fiona 2.38 Vitals: Last Vital Signs Temp 97.5 F L 11/27/19 08:00 Pulse 87 11/27/19 08:00 Resp 18 11/27/19 08:13 BP 133/84 11/27/19 08:00 Pulse Ox 96 11/27/19 04:00 Discharge Plan Discharge Patient Disposition: Home, Self-Care Condition: Stable Prescriptions: New aspirin 81 mg Tablet,Delayed Release (Dr/Ec) 81 mg PO DAILY Qty: 30 RF: 0 chlordiazepoxide HCl 25 mg Capsule 50 mg PO Q6H Qty: 66 RF: 0 metronidazole 500 mg Tablet 500 mg PO TID Qty: 15 RF: 0 ciprofloxacin HCl 500 mg Tablet 500 mg PO BID Qty: 10 RF: 0 Lidoderm 5 % Adhesive Patch,Medicated 1 patch topical O12O12 PRN (Reason: pain) Qty: 14 RF: 0 docusate sodium 100 mg Capsule 100 mg PO BID Qty: 20 RF: 0 folic acid 1 mg Tablet 1 mg PO DAILY Qty: 30 RF: 0 metoprolol tartrate 25 mg Tablet 25 mg PO BID Qty: 60 RF: 0 Vitamin B-1 (mononitrate) 100 mg Tablet 100 mg PO DAILY Qty: 60 RF: 0 Thera 400 mcg Tablet 1 tab PO DAILY Qty: 30 RF: 0 Continued ropinirole 1 mg tablet 1 - 2 mg PO BEDTIME PRN (Reason: Cramps) RF: 0 tramadol 50 mg tablet 50 - 100 mg PO Q4H PRN (Reason: Pain) RF: 0 tamsulosin 0.4 mg capsule 0.4 mg PO DAILY RF: 0 pantoprazole 40 mg tablet,delayed release (DR/EC) 40 mg PO DAILY RF: 0 albuterol sulfate 90 mcg/actuation HFA aerosol inhaler 1 puff INHALATION Q4H PRN (Reason: Shortness Of Breath) RF: 0 lisinopril 2.5 mg tablet 2.5 mg PO DAILY RF: 0 Discontinued doxepin 50 mg capsule 50 mg PO BEDTIME PRN (Reason: Itching) RF: 0 ondansetron HCl [Zofran] 4 mg tablet 4 mg PO Q6H PRN (Reason: nausea and vomiting) Qty: 20 RF: 0 Discharge Orders: Discharge Order (Routine); Ordered 11/27/19 Ordered By: Jason Mabry Referrals: Kamron Deshpande MD [Primary Care Provider] - 2 weeks Kashmir Doherty MD [Physician] - 1 week Debi Arroyo MD [Physician] - 1 week Discharge Diet: Cardiac Discharge Activity: Increase activity as tolerated and Limit activity as instructed Patient Instructions: Abuse of Alcohol (DC), Alcohol Withdrawal (DC) Activity Restrictions/Additional Instructions: Please see heart doctor as instructed. You might need additional testing. Referral is provided. Please see guest experience specialist. Referral is provided. Please see your primary care physician. Please return to emergency room if develop any chest pain, shortness of breath, palpitations, dizziness or lightheadedness, increased anxiety or agitation, tremors, sweats, fever or chills, diarrhea, nausea or vomiting, blood in the stool, or any other new complaints. Discharge Attestations Time Spent in Discharge Care*: greater than 30 min Quality Metrics Clinical Quality Measures During this hospital stay, did patient experience: None Coding Level of Care Code Acute Clutch Mechanic for Bg Ramírez
== END 2019-11-27 12:23 | disposition home or self-care (01) | DRG 392 ==
LOC: ER 14:27 → MEDSURG 16:37
PROVIDERS: Admitting Provider Internal Medicine; Emergency Provider Emergency Medicine; Family Provider Internal Medicine; PCP Internal Medicine; Visit Provider Internal Medicine
DX: K52.9 Noninfective gastroenteritis and colitis, unspecified (principal); E87.2 Acidosis; F10.239 Alcohol dependence with withdrawal, unspecified; J44.9 Chronic obstructive pulmonary disease, unspecified; I10 Essential (primary) hypertension; N40.0 Benign prostatic hyperplasia without lower urinary tract symptoms; K21.9 Gastro-esophageal reflux disease without esophagitis; E83.42 Hypomagnesemia; K44.9 Diaphragmatic hernia without obstruction or gangrene; K57.90 Diverticulosis of intestine, part unspecified, without perforation or abscess without bleeding; F17.210 Nicotine dependence, cigarettes, uncomplicated; G25.81 Restless legs syndrome; F10.229 Alcohol dependence with intoxication, unspecified; M25.80 Other specified joint disorders, unspecified joint
CPT/HCPCS: 12345; 36415; 36600; 70450; 71045; 72125; 73030; 73060; 74177; 80048; 80053; 80061; 80069; 80306; 80307; 81001; 82009; 82550; 82803; 83605; 83690; 83735; 84100; 84484; 85025; 85610; 87040; 87804; 93005; 93971; 94640; 94664; 96361; 96372; 96374; 96375; 97161; 97165; 97530; 99283; 99285; C9113; J0696; J1650; J2060; J2270; J2543; J2765; J3411; J3475; J3490; J7030; J7799; Q9967; S0030

== ENCOUNTER 2019-12-21 09:57 | Outpatient (CLI) | payer MEDICARE, MEDICAID, SELFPAY ==
--- NOTE | 2019-12-21 | MR_ITS ---
WS: [id number] MRI RIGHT SHOULDER NONCONTRAST TECHNIQUE: Sagittal T2, coronal T1, T2 and proton density imaging. Axial gradient PDE imaging. CLINICAL INFORMATION: UNSPECIFIED ROTATOR CUFF TEAR OR RUPTURE COMPARISON: None. FINDINGS: Moderate degenerative arthritis at the AC joint with edema and fluid. Subacromial/subdeltoid fluid. R otator cuff arthropathy with loss of the subacromial space. Benign enchondroma right humerus. Diffuse edema involving the right humeral head and neck medially with a nondisplaced impacted fractur e. Humeral head is subluxed posteriorly with impaction on the posterior rim of the glenoid. Proximal humeral shaft otherwise appears normal. Small amount of edema in the impacted posterior glenoid. Diff use edema in the rotator cuff. Diffuse chronic thinning of the supraspinatus appears intact. Infraspi natus appears grossly intact with edema in the infraspinous muscle belly heart. Atrophic but grossly intact teres minor. Edema along the teres minor muscle belly and tendon. Diffuse edema with intrasubstance partial tear with diffuse edema involving the subscapularis. Biceps tendon appears intact within the bicipital groove. Soft tissue edema in the surrounding rotator cuff and shoulder soft tissues. Small joint effusion. Coracoid appears intact. MR/MR shoulder RT wo con* [id number] IMPRESSION: 1. Impacted humeral head and neck fracture along the medial and posterior susana ral head articular surface. Humeral head is subluxed and impacted on the casting operator ior rim of the glenoid described above. 2. Diffuse edema in the humeral head and neck. Small amount of edema in the gl enoid. 3. Diffuse soft tissue edema surrounding rotator cuff with a small joint effus ion. 4. Chronic thinning of the supraspinatus which appears grossly intact. Partial intrasubstance tear involving the subscapularis. 5. Biceps tendon appears intact in the bicipital groove. 6. Moderate degenerative arthritis AC joint with a small amount of edema.
== END 2019-12-21 09:58 | disposition home or self-care (01) ==
LOC: RADWPI 10:02
PROVIDERS: Family Provider Internal Medicine; PCP Internal Medicine; Visit Provider Orthopaedic Surgery
DX: M75.101 Unspecified rotator cuff tear or rupture of right shoulder, not specified as traumatic (principal); M19.011 Primary osteoarthritis, right shoulder; R60.9 Edema, unspecified; M25.411 Effusion, right shoulder
CPT/HCPCS: 73221

== ENCOUNTER 2020-01-04 10:00 | Observation (INO) | payer MEDICARE, MEDICAID, SELFPAY ==
[2020-01-03 13:38] VITALS: BMI 27.3
[2020-01-04] VITALS (21 sets, daily range): BP systolic 112–155; BP diastolic 72–100; PULSE 60–112; RESP 14–27; TEMP 36.4–37.5; O2SAT 88–97
--- NOTE | 2020-01-04 11:47 | ANES.PREANE2 ---
Pre-Anesthetic Assessment Pre-Anesthetic Assessment: Height/Weight: Height 1.75 m Weight 83.915 kg Temp Pulse Resp BP Pulse Ox 98.1 F 84 18 134/81 96 01/04/20 11:09 01/04/20 11:09 01/04/20 11:09 01/04/20 11:09 01/04/20 11:09 Preop Diagnosis: Right humeral head from Proposed Procedure: Operation Date: 01/04/20 12:25 Proposed Procedures p Total Shoulder Arthroplasty(Right) - Kashmir Doherty MD Last intake: Intake Last Liquid Date 01/03/20 Last Liquid Time 19:30 Last Solid Date 01/03/20 Last Solid Time 19:30 Social: Social History: Alcohol (daily) and Tobacco Exam: Pre-Anes Outpt Exam: alert, oriented x 3, clear to auscultation bilaterally and regular rate & rhythm Airway: Submandibular: WNL Cervical ROM: WNL MP: 3 Dentition: False (upper and lower) History/ROS: No significant history except as noted Pulmonary: Pulmonary: COPD and MARQUEZ CV/HEM: CV/HEM: HTN : : None reported Hepatic: Hepatic: None reported GI: GI: GERD (controlled) Metabolic: Metabolic: None reported Musc/skel: Musc/skel: Lower Back Pain and OA/DJD Neuropsych: Neuropsych: None reported Anesthetic Plan: ASA status: 3 Anesthesia: Anesthesia Evaluation, Eval. for regional block, General and Regional (specify below) (Right ISB) Risk of > 500 ml blood loss (7ml/kg in children): No PFSH Anesthesia PFSH: Medical History Alcoholism Anemia BPH (benign prostatic hyperplasia) COPD (chronic obstructive pulmonary disease) GERD (gastroesophageal reflux disease) Hiatal hernia Hypertension Restless leg syndrome Tobacco abuse Social History Smoking and tobacco status: current every day smoker Data Anesthesia Cardiac Studies: No Data to Display
[2020-01-04] MEDS: fentaNYL 50 mcg/mL INJ 2mL 100 MCG IVP (11:55)
[2020-01-04] MEDS: midazolam 1 mg/mL INJ 5 ML 5 MG IVP (12:11)
--- NOTE | 2020-01-04 12:29 | W.PM.OPSUD ---
Surgery/Procedure H&P Update DATE OF PROCEDURE: January 04, 2020 DATE H&P PERFORMED: 12/27/19 PREOP DIAGNOSIS: Right humeral head from PLANNED PROCEDURE: Operation Date: 01/04/20 12:25 Proposed Procedures p Total Shoulder Arthroplasty(Right) - Kashmir Doherty MD
--- NOTE | 2020-01-04 12:47 | ANES.PROC ---
Anesthesia Procedures Procedure/Date: 01/04/20 Nerve Block ^: Nerve Block 1: Main Anesthesia: general anesthesia Time Out Performed: Yes Consent: requested by attending/covering physician, risks and benefits reviewed and patient agrees to proceed Nerve block location: interscalene (right) Anesthesia monitors applied: pulse oximetry, EKG, BP cuff and oxygen Nerve block position: semi sitting Anesthetic Used: ropivicaine 0.5% and with decadron (4mg) Amount of anesthesia used (mL): 30 Ultrasound used to: recognize landmarks Nerve Stimulator Used?: Yes Interscalene/Femoral BLK: 2 stimuplex 22 g needle used for position and inplane approach, visualize local anesthetic spread and no vascular puncture identified Injection: neg aspiration of heme Patient Tolerated Procedure: well and no complications Complications: none
--- NOTE | 2020-01-04 14:25 | P.OP_ITS ---
Operative Report Date of procedure: January 04, 2020 Pre-op Diagnosis: Right humeral head fracture/dislocation Post-op diagnosis: same Post-op Findings: Patient had a large impacted humeral head fracture involving approximately 40% of the anterior humeral head with approximately a centimeter of depression Procedure Done: HI arthroplasty right shoulder Implants: Torgustaboer Jesikai size 2 stem and 48?21 head 4 hole 2.7 mm Synthes plate Pathology: none sent Anesthesia: General and Nerve Block (Interscalene) Estimated blood loss (mL): 200 Complications: None Findings: The patient had an impacted humeral head fracture involving approximately 40% of the anterior humeral head with a centimeter of depression. With internal rotation the defect would reengage with the posterior glenoid and lock Condition: stable Disposition: PACU Procedure: An interscalene block was provided by the anesthesia department the patient was taken to the operating room and given 2 g of Ancef.. He was positioned in the beachchair position with his right arm free. He was draped and a timeout performed. A 8 cm long deltopectoral incision was made. The interval between the pectoralis major and deltoid was identified and a split. The fascia along the lateral conjoined tendon was divided. The biceps tendon was identified distally at the top of the pectoralis major dissected free proximally to the level of the rotator interval. It would later be released at the superior glenoid for later tenodesis. A subscapularis peel was accomplished with electrocautery beginning in the biceps groove and extending medially elevating the subscapularis and underlying capsule together. A Madhu tractor then could be placed underneath the humeral head disengaging the defect from the posterior glenoid allowing further rotation of the humeral head. The large impacted fracture was seen over the anterior g lenoid. A saw was then passed along the anatomic neck of the humerus and an estimated 30 degrees of retroversion, in line with his normal anatomy. This involves removal of thin sliver of the depressed articular cartilage exposing subchondral bone. The resection of course was much greater posteriorly. Guidepin was placed, the calcar planed, and the calcar prepared for the stem. The size 2 stem and 48 x 21 mm head provided excellent coverage and was placed. The shoulder was reduced. 3 ultra tape sutures were plastic passed in a mattress fashion with sutures exiting the anterior surface of the subscapularis. 4 drill holes were made in the bicipital groove and each end of the each suture were passed through adjacent holes and through a 4-hole plate over the greater tuberosity. With the arm in approximately 30 degrees of external rotation the sutures were secured repairing the subscapularis to the lesser tuberosity and a tension band fashion The shoulder was brought through gentle motion and the subscap repair felt to be stable. Lateral rotator interval was closed with a ultra tape suture. The biceps was tenodesed with Ultratape to the leading edge of the pectoralis major. The shoulder was irrigated with saline antibiotic solution. The deltopectoral interval was closed with 0 Vicryl, subcutaneous tissues with 2-0 Vicryl, the skin was closed with skin celio. Sterile dressings were applied. The patient was placed in a sling, extubated, and taken recovery in stable condition.
--- NOTE | 2020-01-04 14:50 | XR_ITS ---
WS: [id number] RIGHT SHOULDER: 2 VIEW(S) TECHNIQUE: 2 views. HISTORY: Postoperative COMPARISON: 11/25/2019 Partial humeral head replacement. Soft tissue celio are present. Mild narrowing of the AC joint. Mixed sclerotic lytic changes in the proximal humerus likely an enchondroma. XR/XR shoulder RT min 2V* [id number] IMPRESSION: Partial replacement RIGHT humeral head. Prosthesis in good position and alignme nt on this single radiographic series.
--- NOTE | 2020-01-04 14:57 | SUR.PHASEI ---
1435 PT HAS SENSATION/MOVEMENT TO R. HAND, RADIAL PULSE PALPATED, CAP REFILL <3 SEC
--- NOTE | 2020-01-04 15:15 | SUR.PHASEI ---
1515 22 GA IV INSERTED IN L. FOREARM, FLUSHED WITH 10CC NS, SECURED. PT DC'ED ORIGINAL 20 GA IN L ARM, CATHER IN TACT AND BLEEDING CONTROLLED AND DRESSING APPLIED
[2020-01-04] MEDS: sodium chlor 0.9% + KCl 20 mEq 20 MEQ/1,000 ML BAG 80 MEQ IV (15:50)
[2020-01-04] MEDS: CELEcoxib 200 mg Capsule PO (17:29)
[2020-01-04] MEDS: metoprolol tartrate 25 mg Tablet PO (17:29)
[2020-01-04] MEDS: oxyCODONE 5 mg IR Tab/Cap PO (17:29)
[2020-01-04] MEDS: ceFAZolin 1,000 MG in sodium chloride 0.9% (plus) 50 ML 100 MG IV (20:10)
[2020-01-04] MEDS: morphine 4 mg/mL SDV 1 mL 2 MG IVP (20:14)
[2020-01-05 00:40] VITALS: RESP 19
[2020-01-05] MEDS: oxyCODONE 5 mg IR Tab/Cap PO ×2 (00:40→04:44)
[2020-01-05 03:39] VITALS: BP 145/77; PULSE 62; RESP 17; TEMP 36.6; O2SAT 95
[2020-01-05] MEDS: ceFAZolin 1,000 MG in sodium chloride 0.9% (plus) 50 ML 100 MG IV (03:55)
[2020-01-05] MEDS: sodium chlor 0.9% + KCl 20 mEq 20 MEQ/1,000 ML BAG 80 MEQ IV (03:56)
[2020-01-05 04:44] VITALS: RESP 20
[2020-01-05 07:30] VITALS: BP 136/86; PULSE 69; RESP 16; TEMP 36.7; O2SAT 95
[2020-01-05] MEDS: tamsulosin 0.4 mg Capsule PO (08:46)
[2020-01-05] MEDS: metoprolol tartrate 25 mg Tablet PO (08:46)
[2020-01-05] MEDS: lisinopril 2.5 mg Tablet PO (08:46)
[2020-01-05] MEDS: aspirin 325 mg EC Tablet PO (08:46)
[2020-01-05] MEDS: pantoprazole DR 40 mg Tablet PO (08:46)
[2020-01-05] MEDS: CELEcoxib 200 mg Capsule PO (08:47)
[2020-01-05] MEDS: thiamine 100 mg Tablet PO (08:48)
[2020-01-05] MEDS: multivitamin therapeutic Tablet 1 TAB PO (08:48)
[2020-01-05] MEDS: folic acid 1 mg Tablet PO (08:48)
--- NOTE | 2020-01-05 11:21 | PC.CHAP ---
Pastoral Care Encounter/Spiritual Assessment Type of Contact [] Declined head start director visit [] Patient/Family/Request visit [] Outpatient visit [] Follow-up visit [] Physician referral [] Code/Alert [x] Routine visit [] Staff referral [] Actively dying [] Patient sleeping [] Family support [] [] Out of room [] Palliative care [] [] Receiving care in room [] Pre-surgical visit [] Trauma [] Long length of stay [] ICU visit [] Other: Relational/Emotional Strength [x] Patient feels connected with others/family/visitors/staff [] Distress [] Loneliness/isolation [] Abandonment Spirituality of Patient [x] Person of Felisa [] Attends [facility] of their Felisa [] Believes in Prayer [] Reads Bible or Islam materials [x] There are Spiritual issues to be addressed Director Audience Marketing Interventions [x] Prayer [x] Active listening [x] Non-anxious presence [x] Spiritual/emotional support [] Crisis/trauma care [x] Spiritual counseling [] Bereavement support [] Provided bereavement packet [] Provided Bible/devotional materials [] Provided toy/stuffed animal, coloring book to patient or family member [] Provided Communion [] Anointing/[place] [] Salvation [x] Completed spiritual assessment [] Other: Impact on Illness or Injury [] Angry [] Fearful [] Anxious [] Often cries [] Exhaustion [] Unable to work [] Unable to attend baptism [] Unable to walk/stand [] Unable to read [] Unable to drive [] Unable to eat/drink [] Unable to sleep [] Unable to be with family [] Patient intubated [x] Other: n/a Summary Time spent with patient 5 minutes
[2020-01-05 12:13] VITALS: BP 136/86; PULSE 69; RESP 16; TEMP 36.7; O2SAT 95
--- NOTE | 2020-01-05 15:41 | PM.DCS ---
Discharge Providers Date of Admission: 01/04/20 10:00 Date of Discharge: January 05, 2020 Attending Provider at Admission: Kashmir Doherty MD Attending Provider at Discharge: Kashmir Doherty MD Primary Care Provider: Kamron Deshpande MD Diagnoses at Discharge Discharge Diagnosis (1) Fracture of humeral head, left, closed: Status: Resolved (2) Status post left shoulder hemiarthroplasty: Status: Acute Reason for Visit Reason for Visit: Reason For Visit: Right proximal humerus fx Hospital Course Hospital Course: Patient was admitted to the hospital after an elective left shoulder hemiarthroplasty for pain control. He did well. He was seen by Occupational Therapy for home exercise program and discharged the following day Physical Exam Narrative: EXAM NARRATIVE: The day of discharge the patient's left shoulder dressing was clean and dry. He had no distal neurological or vascular deficits Discharge Data Data Completed and Pending: Completed Studies During Hospitalization Category Date Time Status XR shoulder RT mi n 2V* [id number] Routin e Exams 01/04/20 14:50 Completed Vitals: Last Vital Signs Temp 98.1 F 01/05/20 12:13 Pulse 69 01/05/20 12:13 Resp 16 01/05/20 12:13 BP 136/86 01/05/20 12:13 Pulse Ox 95 01/05/20 12:13 Discharge Plan Discharge Patient Disposition: Home, Self-Care Condition: Stable Prescriptions: New oxycodone 5 mg tablet 5 mg PO Q4H PRN (Reason: pain) Qty: 40 RF: 0 Continued celecoxib [Celebrex] 200 mg capsule 200 mg PO BID Qty: 60 RF: 3 ropinirole 1 mg tablet 1 - 2 mg PO BEDTIME PRN (Reason: Cramps) RF: 0 tramadol 50 mg tablet 50 - 100 mg PO Q4H PRN (Reason: Pain) RF: 0 tamsulosin 0.4 mg capsule 0.4 mg PO DAILY RF: 0 pantoprazole 40 mg tablet,delayed release (DR/EC) 40 mg PO DAILY RF: 0 albuterol sulfate 90 mcg/actuation HFA aerosol inhaler 1 puff INHALATION Q4H PRN (Reason: Shortness Of Breath) RF: 0 lisinopril 2.5 mg tablet 2.5 mg PO DAILY RF: 0 aspirin 81 mg Tablet,Delayed Release (Dr/Ec) 81 mg PO DAILY Qty: 30 RF: 0 lidocaine [Lidoderm] 5 % Adhesive Patch,Medicated 1 patch topical O12O12 PRN (Reason: pain) Qty: 14 RF: 0 folic acid 1 mg Tablet 1 mg PO DAILY Qty: 30 RF: 0 metoprolol tartrate 25 mg Tablet 25 mg PO BID Qty: 60 RF: 0 thiamine mononitrate (vit B1) [Vitamin B-1 (mononitrate)] 100 mg Tablet 100 mg PO DAILY Qty: 60 RF: 0 Thera 400 mcg Tablet 1 tab PO DAILY Qty: 30 RF: 0 Discharge Orders: Discharge Order (Routine); Ordered 01/05/20 Ordered By: Kashmir Doherty Referrals: Kashmir Doherty MD [Physician] - 01/17/20 10:45 am Discharge Diet: Advance as tolerated Discharge Activity: Limit activity as instructed Patient Instructions: Oxycodone/Acetaminophen (By mouth), Shoulder Arthroplasty (DC) Activity Restrictions/Additional Instructions: Perform pendulum exercises and range of motion elbow as instructed Take Oxycodone for sever pain Remove dressing in 48hrs and replace with light dressing OK to shower and get inceision wet as long as incision free of drainage Discharge Date/Time: 01/05/20 12:15 Discharge Attestations Time Spent in Discharge Care*: other Quality Metrics Clinical Quality Measures During this hospital stay, did patient experience: None Coding Level of Care Code Acute Home Economics Extension Worker for Shannong Fwd Diagnoses Fracture of humeral head, left, closed S42.292A Status post left shoulder hemiarthroplasty Z96.612
== END 2020-01-05 12:15 | disposition home or self-care (01) ==
LOC: OR 10:03 → MEDSURG 17:02
PROVIDERS: Admitting Provider Orthopaedic Surgery; PCP Internal Medicine; Visit Provider Orthopaedic Surgery
PROC: (CPT 23470; 2020-01-04 12:20)
DX: S42.291A Other displaced fracture of upper end of right humerus, initial encounter for closed fracture (principal); I10 Essential (primary) hypertension; J44.9 Chronic obstructive pulmonary disease, unspecified; K21.9 Gastro-esophageal reflux disease without esophagitis; N40.0 Benign prostatic hyperplasia without lower urinary tract symptoms; F17.210 Nicotine dependence, cigarettes, uncomplicated; M19.90 Unspecified osteoarthritis, unspecified site; Z79.82 Long term (current) use of aspirin; X58.XXXA Exposure to other specified factors, initial encounter
CPT/HCPCS: 23470; 12345; 73030; 96374; 96375; 97166; C1713; C1776; G0378; J0690; J1100; J1580; J2001; J2250; J2270; J2370; J2405; J2704; J2765; J2795; J3010; J3490

== ENCOUNTER 2020-01-18 08:15 | Outpatient (RCR) | payer MEDICARE, SELFPAY | END 2020-02-07 23:59 | disposition home or self-care (01) | LOC: SPT 08:15 | PROVIDERS: PCP Internal Medicine; Referring Provider Orthopaedic Surgery; Visit Provider Orthopaedic Surgery | DX: Z47.1 Aftercare following joint replacement surgery (principal); Z96.611 Presence of right artificial shoulder joint | CPT/HCPCS: 97110; 97140; 97161 ==

== ENCOUNTER 2020-02-08 06:00 | Outpatient (RCR) | payer MEDICARE, MEDICAID, SELFPAY | END 2020-03-09 23:59 | disposition home or self-care (01) | LOC: SPT 06:00 | PROVIDERS: PCP Internal Medicine; Referring Provider Orthopaedic Surgery; Visit Provider Orthopaedic Surgery | DX: Z47.1 Aftercare following joint replacement surgery (principal); Z96.611 Presence of right artificial shoulder joint | CPT/HCPCS: 97110 ==

== ENCOUNTER → 2020-02-14 13:57 | Outpatient (BNVA) | payer MEDICARE, MEDICAID, SELFPAY | PROVIDERS: PCP Internal Medicine; Visit Provider Orthopaedic Surgery | DX: Z96.612 Presence of left artificial shoulder joint (principal) | CPT/HCPCS: 73030 ==

== ENCOUNTER 2020-03-10 06:00 | Outpatient (RCR) | payer MEDICARE, MEDICAID, SELFPAY | END 2020-04-09 23:59 | disposition home or self-care (01) | LOC: SPT 06:00 | PROVIDERS: PCP Internal Medicine; Referring Provider Orthopaedic Surgery; Visit Provider Orthopaedic Surgery | DX: Z47.1 Aftercare following joint replacement surgery (principal); Z96.611 Presence of right artificial shoulder joint | CPT/HCPCS: 97110; 97112 ==

== ENCOUNTER 2020-04-10 06:00 | Outpatient (RCR) | payer MEDICARE, MEDICAID, SELFPAY | END 2020-05-09 23:59 | disposition home or self-care (01) | LOC: SPT 06:00 | PROVIDERS: PCP Internal Medicine; Referring Provider Orthopaedic Surgery; Visit Provider Orthopaedic Surgery | DX: Z47.1 Aftercare following joint replacement surgery (principal); Z96.612 Presence of left artificial shoulder joint | CPT/HCPCS: 97032; 97110; 97112 ==

== ENCOUNTER 2020-05-10 06:00 | Outpatient (RCR) | payer MEDICARE, MEDICAID, SELFPAY | END 2020-05-24 11:58 | disposition home or self-care (01) | LOC: SPT 06:00 | PROVIDERS: PCP Internal Medicine; Referring Provider Orthopaedic Surgery; Visit Provider Orthopaedic Surgery | DX: Z47.1 Aftercare following joint replacement surgery (principal); Z96.611 Presence of right artificial shoulder joint | CPT/HCPCS: 97110; 97112 ==

== ENCOUNTER → 2020-06-22 08:48 | Outpatient (BNVA) | payer MEDICARE, MEDICAID, SELFPAY | PROVIDERS: PCP Internal Medicine; Visit Provider Surgery | DX: Z11.59 Encounter for screening for other viral diseases (principal); Z86.010 Personal history of colon polyps | CPT/HCPCS: 87635 ==

== ENCOUNTER 2020-06-27 09:23 | Day surgery (SDC) | payer MEDICARE, MEDICAID, SELFPAY ==
[2020-06-27 09:45] VITALS: BMI 29.5
[2020-06-27 10:03] VITALS: BP 123/92; PULSE 104; RESP 18; TEMP 36.3; O2SAT 92
[2020-06-27] MEDS: sodium chloride 0.9% 1,000 ML 30 ML IV (10:26)
--- NOTE | 2020-06-27 10:50 | ANES.PREANE2 ---
Pre-Anesthetic Assessment Pre-Anesthetic Assessment: Height/Weight: Height 1.75 m Weight 90.718 kg Temp Pulse Resp BP Pulse Ox 97.4 F L 104 H 18 123/92 92 06/27/20 10:03 06/27/20 10:03 06/27/20 10:03 06/27/20 10:03 06/27/20 10:03 Preop Diagnosis: History of colon polyps Proposed Procedure: Operation Date: 06/27/20 10:15 Proposed Procedures p Colonoscopy 32300 Z86.010(Not Applicable) - Chuckie Chang MD Familial anesthetic complications: none Was Beta Dominique taken within 24 hours: N/A Last intake: Intake Last Liquid Date 06/26/20 Last Liquid Time 20:30 Last Solid Date 06/26/20 Last Solid Time 06:30 Social: Social History: Alcohol and Tobacco Exam: Pre-Anes Outpt Exam: alert, oriented x 3, clear to auscultation bilaterally and regular rate & rhythm Airway: MP: 3 Dentition: False Pulmonary: Pulmonary: COPD (wear o2 at night) CV/HEM: CV/HEM: HTN GI: GI: GERD and Hiatus hernia Metabolic: Metabolic: Morbid obesity Anesthetic Plan: ASA status: 4 Anesthesia: MAC Risk of > 500 ml blood loss (7ml/kg in children): No Meds/Allergies Current Medications: Current Medications Generic Name Dose Route Start Last Admin Trade Name Freq PRN Reason Stop Dose Admin Sodium Chloride 1,000 mls @ 30 ml s/hr 06/27/20 09:45 06/27/20 10:26 Sodium Chloride 0.9% IV 30 mls/hr .Q24H VICKEY Administration PFSH Anesthesia PFSH: Medical History (Updated 06/04/20 @ 10:18 by Chuckie Chang MD) Alcoholism Anemia BPH (benign prostatic hyperplasia) COPD (chronic obstructive pulmonary disease) GERD (gastroesophageal reflux disease) Hiatal hernia Hypertension Restless leg syndrome Tobacco abuse Social History Smoking and tobacco status: current every day smoker Data Anesthesia Cardiac Studies: No Data to Display
--- NOTE | 2020-06-27 12:08 | W.PM.OPSUD ---
Surgery/Procedure H&P Update DATE OF PROCEDURE: June 27, 2020 DATE H&P PERFORMED: 06/04/20 H&P UPDATE INFORMATION: I have reviewed H&P completed within last 30 days, I have examined patient prior to procedure and No changes to prior documentation PREOP DIAGNOSIS: History of colon polyps PRIMARY INDICATION FOR PROCEDURE: The same PLANNED PROCEDURE: Operation Date: 06/27/20 10:15 Proposed Procedures p Colonoscopy 01781 Z86.010(Not Applicable) - Chuckie Chang MD
[2020-06-27 12:25] VITALS: BP 131/92; PULSE 96; RESP 16; TEMP 36.8; O2SAT 95
[2020-06-27 12:40] VITALS: BP 135/84; PULSE 83; RESP 18; O2SAT 97
--- NOTE | 2020-06-27 21:09 | ANE.PACU2 ---
Inpatient post-anesthesia follow up: Airway intact: Yes Vital signs: Temperature 98.2 F Pulse Rate 83 Respiratory Rate 18 Blood Pressure 135/84 Pulse Oximetry 97 Oxygen Delivery Me thod Nasal Cannula Oxygen Flow Rate 3 Fraction of Inspir ed Oxygen Hydration adequate: Yes Nausea and vomiting: No Pain level: 1 Mental status: Baseline
== END 2020-06-27 13:56 | disposition home or self-care (01) ==
PROVIDERS: PCP Internal Medicine; Visit Provider Surgery
PROC: 0DJD8ZZ Inspection of Lower Intestinal Tract, Via Natural or Artificial Opening Endoscopic (ICD-10-PCS; CPT 45378; principal; 2020-06-27 10:15)
DX: Z12.11 Encounter for screening for malignant neoplasm of colon (principal); K62.1 Rectal polyp; K57.30 Diverticulosis of large intestine without perforation or abscess without bleeding; Z86.010 Personal history of colon polyps; J44.9 Chronic obstructive pulmonary disease, unspecified; I10 Essential (primary) hypertension; K21.9 Gastro-esophageal reflux disease without esophagitis; K44.9 Diaphragmatic hernia without obstruction or gangrene; E66.01 Morbid (severe) obesity due to excess calories; Z68.29 Body mass index [BMI] 29.0-29.9, adult; N40.0 Benign prostatic hyperplasia without lower urinary tract symptoms; F17.200 Nicotine dependence, unspecified, uncomplicated; Z79.82 Long term (current) use of aspirin; Z79.891 Long term (current) use of opiate analgesic; G25.81 Restless legs syndrome
CPT/HCPCS: 12345; 45380; 88305; J2704; J7030

== ENCOUNTER 2020-07-02 15:02 | Emergency (ER) | payer MEDICARE, MEDICAID, SELFPAY ==
[2020-07-02 15:04] VITALS: BP 106/70; PULSE 111; RESP 20; TEMP 37.2; O2SAT 90; BMI 28.8
--- NOTE | 2020-07-02 15:10 | CT_ITS ---
WS: [id number] CT head wo con* [id number] REASON FOR EXAM: new sz onset IV CONTRAST ADMINISTERED: Noncontrast. TOTAL EXAM DLP: 754.[address] scans at [facility] use at least one of these dose optimization techniques: automat ed exposure control; mA and/or kV adjustment per patient size (includes targeted exams where dose is matched to clinical indication); or iterative reconstruction. FINDINGS: Current examination is unchanged compared to previous study 11/25/2019. There is no midline shift or other mass effect. The calvarium is intact. There are no findings of intracranial hemorrhage and no extra-axial fluid collection. No focal brain parenchymal abnormality is identified. There is mild global atrophy with a somewhat central predominance. CT/CT head wo con* [id number] IMPRESSION: Stable examination with no acute abnormality identified.
--- NOTE | 2020-07-02 15:11 | ECG_ITS ---
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 Measurements Intervals [place] Rate: 113 P: 62 AR: 158 QRS: -46 QRSD: 114 T: 48 QT: 358 QTc: 491 Interpretive Statements SINUS TACHYCARDIA LEFT ANTERIOR FASCICULAR BLOCK [QRS AXIS <= -45, QR IN I, RS IN II] POSSIBLE LATERAL MYOCARDIAL INFARCTION , PROBABLY OLD [30 ms Q WAVE IN I/aVL/V5/V6] Compared to ECG 11/25/2019 23:16:50 Left anterior fascicular block now present Sinus rhythm no longer present Left-axis deviation no longer present Myocardial infarct finding still present Electronically Signed On 07-02-2020 16:37:04 [employer] by Kwaku Newman M.D. [id number] f
--- NOTE | 2020-07-02 15:11 | XR_ITS ---
WS: [id number] PORTABLE CHEST HISTORY: syncope COMPARISON: 11/25/2019 Hyperinflated lungs with emphysema. No pneumonia. No pleural effusion or pneumothorax. Cardiac size: Mildly enlarged cardiac silhouette. Mediastinum/Aorta: Mild atherosclerosis aorta. Prior RIGHT humeral head replacement. XR/XR chest 1V portable [id number] IMPRESSION: Mild atherosclerosis aorta and cardiomegaly. No pneumonia.
[2020-07-02] MEDS: LORazepam 1 mg Tablet PO (15:39)
[2020-07-02 15:41] LABS: Basophils % 0.4 %; Eosinophils % 0.3 %; Hematocrit 37.4 % (42.0-52.0); Hemoglobin 10.1 g/dL (11.7-16.6); Lymphocytes # 0.9 10^3/uL (0.8-4.8); Lymphocytes % 9.8 %; Mean Corpuscular Volume 81.3 fL (80-94); Mean Platelet Volume 10.5 fL (7.4-10.4); Monocytes # 1.2 10^3/uL (0.2-0.9); Monocytes % 13.3 %; Neutrophils % 75.6 %; Nucleated Red Blood Cells # 0.1 /100WBC; Nucleated Red Blood Cells % 0.5 %; Platelet Count 326 10^3/cmm (130-400); White Blood Count 9.3 10^3/uL (4.0-10.0)
--- NOTE | 2020-07-02 15:59 | W.ED.SEIZURE ---
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 (0-41) U/L Alkaline Phosphata se (40-130) IU/L Creatine Kinase (39-308) U/L Troponin T Baselin e 20 H (0-15) ng/L Troponin T 120 Min sun'aq (0-15) ng/L Delta Troponin T (0-10) ABS# C-Reactive Protein (0.0-4.9) mg/L Total Protein (6.6-8.7) g/dL Albumin (3.5-5.2) g/dL Globulin (1.3-4.6) g/dL Urine Color (Yellow) Urine Appearance (CLEAR) Urine pH (5-7) Ur Specific Gravit y (1.005-1.030) Urine Protein (Negative) Urine Glucose (UA) (Normal) Urine Ketones (Negative) Urine Blood (Negative) Urine Nitrate (Negative) Urine Bilirubin (Negative) Urine Urobilinogen (Negative) mg/dL Ur Leukocyte Hollie ase (Negative) Urine RBC (0-2) /hpf Urine WBC (0-5) /hpf Ur Squamous Epith Cells (0-5) /hpf Amorphous Sediment Urine Bacteria (NONE) /hpf Urine Opiates Scre en (Negative) ng/mL Ur Barbiturates Sc reen (Negative) ng/mL Ur Phencyclidine S crn (Negative) ng/mL Ur Amphetamines Sc reen (Negative) ng/mL U Benzodiazepines Scrn (Negative) ng/mL Urine Cocaine Scre en (Negative) ng/mL U Marijuana (THC) Screen (Negative) ng/mL 07/02/20 07/02/20 07/02/20 Range/Units 15:24 17:22 17:22 WBC (4.0-10.0) 10^3/ uL RBC (4.1-5.3) 10^6/u L Hgb (11.7-16.6) g/dL Hct (42.0-52.0) % MCV (80-94) fL MCH (28.0-34.0) pg MCHC (30.0-36.0) g/dL RDW (12.1-15.1) % Plt Count (130-400) 10^3/c mm MPV (7.4-10.4) fL Neut % (Auto) % Lymph % (Auto) % [place] % (Auto) % Eos % (Auto) % Baso % (Auto) % Neut # (Auto) (1.8-7.7) 10^3/u L Lymph # (Auto) (0.8-4.8) 10^3/u L [place] # (Auto) (0.2-0.9) 10^3/u L Eos # (Auto) (0.0-0.8) 10^3/u L Baso # (Auto) (0.0-0.1) 10^3/u L Nucleated RBC % (a uto) % Nucleated RBCs # /100WBC ESR 14 H (0-10) mm/hr PT (12.1-14.9) SECO NDS INR (0.8-1.2) APTT (23.9-36.7) SECO NDS Sodium (136-145) mmol/L Potassium (3.5-5.1) mmol/L Chloride (98-107) mmol/L Carbon Dioxide (22-29) mmol/L Anion Gap (5-19) BUN (6-20) mg/dL Creatinine (0.7-1.2) mg/dL GFR Calculation (90-130) mL/min Glucose (65-115) mg/dL Calculated Osmolal ity (285-295) mOsm/k g Lactate (0.5-2.2) mmol/L Calcium (8.5-10.5) mg/dL Magnesium (1.7-2.3) mg/dL Total Bilirubin (0.15-1.2) mg/dL AST (0-40) U/L ALT (0-41) U/L Alkaline Phosphata se (40-130) IU/L Creatine Kinase (39-308) U/L Troponin T Baselin e (0-15) ng/L Troponin T 120 Min sun'aq (0-15) ng/L Delta Troponin T (0-10) ABS# C-Reactive Protein (0.0-4.9) mg/L Total Protein (6.6-8.7) g/dL Albumin (3.5-5.2) g/dL Globulin (1.3-4.6) g/dL Urine Color Yellow (Yellow) Urine Appearance Clear (CLEAR) Urine pH 6 (5-7) Ur Specific Gravit y 1.010 (1.005-1.030) Urine Protein Trace (Negative) Urine Glucose (UA) Norm (Normal) Urine Ketones Negative (Negative) Urine Blood Neg (Negative) Urine Nitrate Negative (Negative) Urine Bilirubin Neg (Negative) Urine Urobilinogen 1 H (Negative) mg/dL Ur Leukocyte Hollie ase Negative (Negative) Urine RBC 0-4 H (0-2) /hpf Urine WBC 0-4 H (0-5) /hpf Ur Squamous Epith Cells 0-4 H (0-5) /hpf Amorphous Sediment Not Reportable Urine Bacteria Trace (NONE) /hpf Urine Opiates Scre en Negative (Negative) ng/mL Ur Barbiturates Sc reen Negative (Negative) ng/mL Ur Phencyclidine S crn Negative (Negative) ng/mL Ur Amphetamines Sc reen Negative (Negative) ng/mL U Benzodiazepines Scrn Positive H (Negative) ng/mL Urine Cocaine Scre en Negative (Negative) ng/mL U Marijuana (THC) Screen Negative (Negative) ng/mL Discharge Plan Discharge Patient Disposition: Home Clinical Impression: Generalized seizure Condition: Stable Prescriptions: No Action ropinirole 1 mg tablet 1 - 2 mg PO BEDTIME PRN (Reason: Cramps) RF: 0 tramadol 50 mg tablet 50 - 100 mg PO Q4H PRN (Reason: Pain) RF: 0 tamsulosin 0.4 mg capsule 0.4 mg PO DAILY RF: 0 pantoprazole 40 mg tablet,delayed release (DR/EC) 40 mg PO DAILY RF: 0 albuterol sulfate 90 mcg/actuation HFA aerosol inhaler 1 puff INHALATION Q4H PRN (Reason: Shortness Of Breath) RF: 0 lisinopril 2.5 mg tablet 2.5 mg PO DAILY RF: 0 aspirin 81 mg Tablet,Delayed Release (Dr/Ec) 81 mg PO DAILY Qty: 30 RF: 0 Hold Instructions: Resume on 06/30/20. lidocaine [Lidoderm] 5 % Adhesive Patch,Medicated 1 patch topical O12O12 PRN (Reason: pain) Qty: 14 RF: 0 folic acid 1 mg Tablet 1 mg PO DAILY Qty: 30 RF: 0 metoprolol tartrate 25 mg Tablet 25 mg PO BID Qty: 60 RF: 0 thiamine mononitrate (vit B1) [Vitamin B-1 (mononitrate)] 100 mg Tablet 100 mg PO DAILY Qty: 60 RF: 0 Thera 400 mcg Tablet 1 tab PO DAILY Qty: 30 RF: 0 doxepin 50 mg capsule 50 mg PO BEDTIME PRN (Reason: unknown) RF: 0 tizanidine 4 mg tablet 4 mg PO TID PRN (Reason: muscle cramps) RF: 0 Vitamin B-12 1,000 mcg Tablet 1,000 mcg PO DAILY RF: 0 lorazepam 0.5 mg tablet 0.5 - 1 mg PO DAILY PRN (Reason: Anxiety) RF: 0 Discharge Orders: Discharge Order (Routine); Ordered 07/02/20 Ordered By: Kerwin Marquez Referrals: Kamron Deshpande MD [Primary Care Provider] - Discharge Diet: Regular Discharge Activity: Limit activity as instructed Patient Instructions: Epilepsy (ED), New-Onset Seizure in Adults (ED) Activity Restrictions/Additional Instructions: Follow-up with medical provider as directed. Case management should be contacting you in the next several days to set up an appointment with neurology. You cannot drive until you have been evaluated and seen by neurology. Continue taking home medications as previously prescribed. Return to the ER or your medical provider if condition worsens. Please read and understand discharge instructions. If any questions, please ask. Sign Out Sign Out Data: Patient Sign Out occurred on 07/02/20 at 17:13. Patient's care was discussed, and care was transferred from REI Harper to NIKUNJ Giraldo. Sign Out Comment: change of shift, transfer of care to NIKUNJ Giraldo - labs pending at this time, CT head negative for acute process. Last updated by Chasidy Carbajal ARNP at 07/02/20 16:53 Coding Level of Care Code ED Mangle Roll Operator for Chg Fwd Exam Comprehensive
[2020-07-02 16:03] LABS: INR 1.06 (0.8-1.2); Partial Thromboplastin Time 22.2 SECONDS (23.9-36.7)
[2020-07-02 16:05] LABS: Alanine Aminotransferase 24 U/L (0-41); Albumin Level 4.2 g/dL (3.5-5.2); Alkaline Phosphatase 84 IU/L (40-130); Aspartate Amino Transferase 34 U/L (0-40); Blood Urea Nitrogen 10 mg/dL (6-20); C Reactive Protein 2.6 mg/L (0.0-4.9); Calcium 9.2 mg/dL (8.5-10.5); Carbon Dioxide 27 mmol/L (22-29); Chloride 90 mmol/L (98-107); Creatine Phosphokinase 66 U/L (39-308); Globulin 2.4 g/dL (1.3-4.6); Glomerular Filtration Rate 98.9 mL/min (90-130); Glucose 170 mg/dL (65-115); Magnesium 1.6 mg/dL (1.7-2.3); Osmolality Calculated 281 mOsm/kg (285-295); Sodium 134 mmol/L (136-145); Total Bilirubin 0.7 mg/dL (0.15-1.2); Total Protein 6.6 g/dL (6.6-8.7)
[2020-07-02 16:08] LABS: Troponin(5th) Baseline 20 ng/L (0-15)
[2020-07-02 16:09] LABS: Lactate (Lactic Acid level) 4.9 mmol/L (0.5-2.2)
[2020-07-02 16:10] LABS: Anion Gap 20.8 (5-19); Potassium 3.8 mmol/L (3.5-5.1)
[2020-07-02 16:34] LABS: Erythrocyte Sedimentation Rate 14 mm/hr (0-10)
[2020-07-02] MEDS: folic acid 1 MG, multivitamin inj 10 ML, thiamine 100 MG in sodium chloride 0.9% 1,000 ML 250 MG IV (16:36)
--- NOTE | 2020-07-02 17:11 | ECG_ITS ---
[facility] Test Date: 2020-07-02 Pat Name: Raymond Coronel Department: Room: Gender: Male Gas Producer: : 1960 Requested By: Chasidy Musa Order Number: [id number] Carrera MD: Kwaku Newman M.D. Measurements Intervals [place] Rate: 113 P: 62 KS: 158 QRS: -46 QRSD: 114 T: 48 QT: 358 QTc: 491 Interpretive Statements SINUS TACHYCARDIA LEFT ANTERIOR FASCICULAR BLOCK [QRS AXIS <= -45, QR IN I, RS IN II] POSSIBLE LATERAL MYOCARDIAL INFARCTION , PROBABLY OLD [30 ms Q WAVE IN I/aVL/V5/V6] Compared to ECG 11/25/2019 23:16:50 Left anterior fascicular block now present Sinus rhythm no longer present Left-axis deviation no longer present Myocardial infarct finding still present Electronically Signed On 07-02-2020 16:42:21 COMMERCIAL [employer]ONE SOFTWARE DEVELOPER by Kwaku Newman M.D. [id number]
[2020-07-02 18:01] LABS: Amphetamines Screen Urine Negative (Negative); Barbiturates Screen Urine Negative (Negative); Benzodiazepines Screen Urine Positive (Negative); Cocaine Screen Urine Negative (Negative); Opiate Screen Urine Negative (Negative); PCP Screen Urine Negative (Negative); THC Screen Urine Negative (Negative)
[2020-07-02 18:08] LABS: Add Urine Microscopic? YES; Bilirubin Urine Neg (Negative); Blood Urine Neg (Negative); Glucose Urine UA Norm (Normal); Ketones Urine Negative (Negative); Leukocyte Esterase Urine Negative (Negative); Nitrate Urine Negative (Negative); Protein Urine Trace (Negative); Urine Appearance Clear (CLEAR); Urine Color Yellow (Yellow); Urobilinogen Urine 1 mg/dL (Negative); pH Urine 6 (5-7)
[2020-07-02 18:09] LABS: Add Urine Culture? No; Bacteria Urine TRACE /hpf; RBC Urine 0-4 /hpf (0-2); Squamous Epithelial Cell Urine 0-4 /hpf (0-5); WBC Urine 0-4 /hpf (0-5)
[2020-07-02 18:30] LABS: Troponin 5 2HR 21.48 ng/L (0-15); Troponin 5 2HR Delta 1.48 ABS# (0-10)
[2020-07-02] MEDS: magnesium sulfate premix 2 GM/50 ML PIGGYBACK IV (18:59)
[2020-07-02 19:07] VITALS: BP 108/78; PULSE 82; RESP 18; O2SAT 93
--- NOTE | 2020-07-03 10:50 | DCPLANNER ---
it program manager had message to schedule a follow up appointment for patient with Dr. Renteria. it program manager called technical support coordinator, Selena Mendieta, left a voicemail with patients information. Patients information will be printed and reviewed. Clinic will call patient with appointment information.
--- NOTE | 2020-07-11 10:46 | DCPLANNER ---
Patient has a follow up appointment scheduled for Thursday, July 30, 2020 at 12:[address] Renteria. Clinic will call patient with appointment information.
--- NOTE | 2020-08-29 15:02 | DCPLANNER ---
Patient had a follow up appointment scheduled for 07.30.[address] Munoz office - patient did not attend appointment.
== END 2020-07-02 19:47 | disposition home or self-care (01) ==
PROVIDERS: Nurse Practitioner Family; Emergency Provider Physician Assistant; PCP Internal Medicine
DX: G40.89 Other seizures (principal); Z79.82 Long term (current) use of aspirin; J44.9 Chronic obstructive pulmonary disease, unspecified; I10 Essential (primary) hypertension; F17.210 Nicotine dependence, cigarettes, uncomplicated; I70.0 Atherosclerosis of aorta
CPT/HCPCS: 12345; 70450; 71045; 80053; 80306; 81001; 82550; 83605; 83735; 84484; 85025; 85610; 85651; 85730; 86140; 87040; 93005; 96361; 96365; 99283; 99284; J3411; J3475; J3490; J7030

== ENCOUNTER → 2020-07-17 14:05 | Outpatient (BNVA) | payer MEDICARE, MEDICAID, SELFPAY | PROVIDERS: PCP Internal Medicine; Visit Provider Orthopaedic Surgery | DX: Z96.612 Presence of left artificial shoulder joint (principal) | CPT/HCPCS: 73030 ==

== ENCOUNTER 2021-03-22 06:13 | Observation (INO) | payer MEDICARE, MEDICAID, SELFPAY ==
[2021-03-22] VITALS (12 sets, daily range): BP systolic 115–155; BP diastolic 80–119; PULSE 92–128; RESP 15–22; TEMP 36.6–37.1; O2SAT 93–100; BMI 24.7
--- NOTE | 2021-03-22 07:00 | W.ED.ABDPA2 ---
HPI - Abdominal Pain General: Chief Complaint: ER Hold Stated Complaint: n,v,d x 2 days Time Seen by Provider: 03/22/21 06:59 History of Present Illness: HPI narrative: Mr. Coronel is a 61-year-old gentleman with significant past medical history of COPD, alcohol abuse, remote history of mumps, and tobaccoism who presents the emergency department due to abdominal pain and vomiting. Symptom onset was subacute on Thursday evening. He initially reported that he thinks that he ate too much spaghetti and at times if he eats too much he gets similar symptoms. He reports numerous episodes of nausea and vomiting with dark color. He does have associated abdominal discomfort which is generalized, aching, and moderate to severe in intensity. He does have a history of abdominal surgeries (cholecystectomy). Overall the course of symptoms has been worsening. His symptoms are worse with movement, eating, and palpation but did not go with rest. He denies other focal infectious arches. No other specific exacerbating or alleviating factors identified. Review of Systems General: Reports: 10 or more systems reviewed and unremarkable except in HPI and below Narrative: CONSTITUTIONAL: Generalized malaise, fatigue. EYES - denies pain, denies loss of vision EARS - denies ear issues. NOSE - denies congestion or rhinorrhea. THROAT - denies sore throat or difficulty swallowing. CARDIOVASCULAR - denies chest pain and palpitations RESPIRATORY - denies shortness of breath and cough GASTROINTESTINAL -see HPI GENITOURINARY - denies dysuria or urinary frequency MUSCULOSKELETAL- denies deformity or pain SKIN - denies rashes or new changed skin lesions NEUROLOGIC - denies focal weakness or sensory changes HEMATOLOGIC/LYMPHATIC - denies easy bruising or lymphadenopathy. [facility] ED PFSH: Medical History Alcoholism Anemia BPH (benign prostatic hyperplasia) COPD (chronic obstructive pulmonary disease) Diverticulosis GERD (gastroesophageal reflux disease) Hiatal hernia History of colon polyps Hypertension Restless leg syndrome Tobacco abuse Surgical History History of cholecystectomy History of colonoscopy with polypectomy (~2016) 2019- dr. jeffries History of right shoulder replacement (~12/2019) Family History (Updated 03/22/21 @ 18:24 by Festus Holden MD) Denies family history of Chronic kidney disease (CKD) Social History (Updated 03/22/21 @ 18:24 by Festus Holden MD) Smoking and tobacco status: current every day smoker Alcohol intake: current Household members: family Housing: House Physical Exam Narrative: EXAM NARRATIVE: GENERAL/CONSTITUTIONAL -somewhat ill-appearing. No acute distress. Eyes - PERRL, no conjunctival injection ENMT - Atraumatic external nose and ears. Moist mucous membranes NECK - supple. trachea midline CARDIOVASCULAR - regular rate and rhythm. Peripheral pulses 2+ and equal RESPIRATORY -clear to auscultation bilaterally. No retractions or accessory muscle use. ABDOMEN/GI - generalized tenderness to light palpation. No tenderness to percussion or evidence of peritonitis MSK - Extremities without obvious deformity or tenderness to palpation SKIN - Warm, Dry NEURO - alert and appropriately oriented. strength and sensation intact. Moves all extremities equally. PSYCH - Appropriate mood and affect Course ED course: - Patient was seen and evaluated by me at bedside - Patient placed on cardiac monitors, IV access obtained - Initial evaluation notable for somewhat ill-appearing, no acute distress. Patient is tachycardic. - Labs and imaging obtained and reviewed - Fluids given - Labs notable for leukocytosis, near baseline microcytic anemia. Metabolic panel similar to prior. Delta troponin negative. - Imaging notable for no lobar consolidation per ED read of chest x-ray. CT abdomen pelvis with large hiatal hernia which is fluid-filled and has mild thickening of the wall. - Despite fluid resuscitation the patient remained SIRS positive with unclear source of infection so therefore not meeting sepsis criteria. The patient does have a history of alcohol abuse with last drink 2 days ago. I gave the patient Ativan to treat any component of alcohol withdrawal though aside from tachycardia the patient does not appear to be in significant withdrawal clinically. There was little to no improvement in patient's heart rate despite patient resting comfortably. - Upon serial reexamination after treatment the patient was similar - Based on patient history, evaluation, labs, and imaging as interpreted the most likely cause of the patient's condition is unclear. He does have a component of upper GI bleed with stable hemoglobin, he has not had significant hematemesis since being in the emergency department. The patient remained SIRS positive of unclear etiology. Given the combination of these factors patient warrants observation in the hospital. - The results of ED evaluation were discussed with the patient including plan for admission due to requirement for level of care not available if discharged to prevent significant worsening/deterioration. - Hospitalist service was contacted and agreed to admit the patient. - Patient was admitted without further deterioration or significant events. Vital Signs: Vital signs: Vital Signs Temperature 97.8 F 03/23/21 04:38 Pulse Rate 126 H 03/23/21 04:38 Respiratory Rate 16 03/23/21 04:45 Blood Pressure 117/85 03/23/21 04:38 Pulse Oximetry 93 03/23/21 04:38 MDM - Abdominal Pain Medical Records: Attestation: I reviewed the patient's medical records. Lab Data: Attestation: I reviewed the patient's lab results. Labs: Lab Results 03/22/21 03/22/21 03/22/21 Range/Units 06:45 06:45 06:45 WBC 15.0 H (4.0-10.0) 10^3/ uL RBC 4.99 (4.1-5.3) 10^6/u L Hgb 11.2 L (11.7-16.6) g/dL Hct 39.2 L (42.0-52.0) % MCV 78.6 L (80-94) fL MCH 22.4 L (28.0-34.0) pg MCHC 28.6 L (30.0-36.0) g/dL RDW 19.8 H (12.1-15.1) % Plt Count 409 H (130-400) 10^3/c mm MPV 10.6 H (7.4-10.4) fL Neut % (Auto) 83.5 % Lymph % (Auto) 6.0 % [place] % (Auto) 9.9 % Eos % (Auto) 0.0 % Baso % (Auto) 0.2 % Neut # (Auto) 12.55 H (1.8-7.7) 10^3/u L Lymph # (Auto) 0.9 (0.8-4.8) 10^3/u L [place] # (Auto) 1.5 H (0.2-0.9) 10^3/u L Eos # (Auto) 0.0 (0.0-0.8) 10^3/u L Baso # (Auto) 0.0 (0.0-0.1) 10^3/u L Nucleated RBC % (a uto) 0 % Nucleated RBCs # 0.0 /100WBC Sodium 135 L (136-145) mmol/L Potassium 3.9 (3.5-5.1) mmol/L Chloride 95 L (98-107) mmol/L Carbon Dioxide 25 (22-29) mmol/L Anion Gap 18.9 (5-19) BUN 7 L (8-23) mg/dL Creatinine 0.6 L (0.7-1.2) mg/dL GFR Calculation 137.4 H (90-130) mL/min Glucose 125 H (65-115) mg/dL Calculated Osmolal ity 279 L (285-295) mOsm/k g Lactate (0.5-2.2) mmol/L Calcium 9.9 (8.5-10.5) mg/dL Total Bilirubin 1.4 H (0.15-1.2) mg/dL AST 25 (0-40) U/L ALT 19 (0-41) U/L Alkaline Phosphata se 139 H (40-130) IU/L Troponin T Baselin e 16 H (0-15) ng/L Troponin T 120 Min [place] (0-15) ng/L Delta Troponin T (0-10) ABS# Total Protein 7.3 (6.6-8.7) g/dL Albumin 4.2 (3.5-5.2) g/dL Globulin 3.1 (1.3-4.6) g/dL Lipase 12 L (13-60) U/L Procalcitonin (0-0.5) ng/mL Urine Color (Yellow) Urine Appearance (CLEAR) Urine pH (5-7) Ur Specific Gravit y (1.005-1.030) Urine Protein (Negative) Urine Glucose (UA) (Normal) Urine Ketones (Negative) Urine Blood (Negative) Urine Nitrate (Negative) Urine Bilirubin (Negative) Prot Sulfosalicyli c Acd (Negative) Urine Urobilinogen (Negative) mg/dL Ur Leukocyte Hollie ase (Negative) Urine RBC (0-2) /hpf Urine WBC (0-5) /hpf Ur Squamous Epith Cells (0-5) /hpf Amorphous Sediment Urine Bacteria (NONE) /hpf Ethyl Alcohol (0-10) mg/dL 03/22/21 03/22/21 03/22/21 Range/Units 06:45 07:35 09:55 WBC (4.0-10.0) 10^3/ uL RBC (4.1-5.3) 10^6/u L Hgb (11.7-16.6) g/dL Hct (42.0-52.0) % MCV (80-94) fL MCH (28.0-34.0) pg MCHC (30.0-36.0) g/dL RDW (12.1-15.1) % Plt Count (130-400) 10^3/c mm MPV (7.4-10.4) fL Neut % (Auto) % Lymph % (Auto) % [place] % (Auto) % Eos % (Auto) % Baso % (Auto) % Neut # (Auto) (1.8-7.7) 10^3/u L Lymph # (Auto) (0.8-4.8) 10^3/u L [place] # (Auto) (0.2-0.9) 10^3/u L Eos # (Auto) (0.0-0.8) 10^3/u L Baso # (Auto) (0.0-0.1) 10^3/u L Nucleated RBC % (a uto) % Nucleated RBCs # /100WBC Sodium (136-145) mmol/L Potassium (3.5-5.1) mmol/L Chloride (98-107) mmol/L Carbon Dioxide (22-29) mmol/L Anion Gap (5-19) BUN (8-23) mg/dL Creatinine (0.7-1.2) mg/dL GFR Calculation (90-130) mL/min Glucose (65-115) mg/dL Calculated Osmolal ity (285-295) mOsm/k g Lactate 1.6 (0.5-2.2) mmol/L Calcium (8.5-10.5) mg/dL Total Bilirubin (0.15-1.2) mg/dL AST (0-40) U/L ALT (0-41) U/L Alkaline Phosphata se (40-130) IU/L Troponin T Baselin e (0-15) ng/L Troponin T 120 Min [place] (0-15) ng/L Delta Troponin T (0-10) ABS# Total Protein (6.6-8.7) g/dL Albumin (3.5-5.2) g/dL Globulin (1.3-4.6) g/dL Lipase (13-60) U/L Procalcitonin 0.07 (0-0.5) ng/mL Urine Color Yellow (Yellow) Urine Appearance Clear (CLEAR) Urine pH 9 H (5-7) Ur Specific Gravit y 1.010 (1.005-1.030) Urine Protein Trace (Negative) Urine Glucose (UA) Norm (Normal) Urine Ketones Negative (Negative) Urine Blood Neg (Negative) Urine Nitrate Negative (Negative) Urine Bilirubin 1+ H (Negative) Prot Sulfosalicyli c Acd Negative (Negative) Urine Urobilinogen 4 H (Negative) mg/dL Ur Leukocyte Hollie ase Negative (Negative) Urine RBC None (0-2) /hpf Urine WBC 0-4 H (0-5) /hpf Ur Squamous Epith Cells 0-4 H (0-5) /hpf Amorphous Sediment Not Reportable Urine Bacteria Trace (NONE) /hpf Ethyl Alcohol (0-10) mg/dL 03/22/21 03/22/21 Range/Units 09:56 09:56 WBC (4.0-10.0) 10^3/ uL RBC (4.1-5.3) 10^6/u L Hgb (11.7-16.6) g/dL Hct (42.0-52.0) % MCV (80-94) fL MCH (28.0-34.0) pg MCHC (30.0-36.0) g/dL RDW (12.1-15.1) % Plt Count (130-400) 10^3/c mm MPV (7.4-10.4) fL Neut % (Auto) % Lymph % (Auto) % [place] % (Auto) % Eos % (Auto) % Baso % (Auto) % Neut # (Auto) (1.8-7.7) 10^3/u L Lymph # (Auto) (0.8-4.8) 10^3/u L [place] # (Auto) (0.2-0.9) 10^3/u L Eos # (Auto) (0.0-0.8) 10^3/u L Baso # (Auto) (0.0-0.1) 10^3/u L Nucleated RBC % (a uto) % Nucleated RBCs # /100WBC Sodium (136-145) mmol/L Potassium (3.5-5.1) mmol/L Chloride (98-107) mmol/L Carbon Dioxide (22-29) mmol/L Anion Gap (5-19) BUN (8-23) mg/dL Creatinine (0.7-1.2) mg/dL GFR Calculation (90-130) mL/min Glucose (65-115) mg/dL Calculated Osmolal ity (285-295) mOsm/k g Lactate (0.5-2.2) mmol/L Calcium (8.5-10.5) mg/dL Total Bilirubin (0.15-1.2) mg/dL AST (0-40) U/L ALT (0-41) U/L Alkaline Phosphata se (40-130) IU/L Troponin T Baselin e (0-15) ng/L Troponin T 120 Min [place] 17.68 H (0-15) ng/L Delta Troponin T 1.68 (0-10) ABS# Total Protein (6.6-8.7) g/dL Albumin (3.5-5.2) g/dL Globulin (1.3-4.6) g/dL Lipase (13-60) U/L Procalcitonin (0-0.5) ng/mL Urine Color (Yellow) Urine Appearance (CLEAR) Urine pH (5-7) Ur Specific Gravit y (1.005-1.030) Urine Protein (Negative) Urine Glucose (UA) (Normal) Urine Ketones (Negative) Urine Blood (Negative) Urine Nitrate (Negative) Urine Bilirubin (Negative) Prot Sulfosalicyli c Acd (Negative) Urine Urobilinogen (Negative) mg/dL Ur Leukocyte Hollie ase (Negative) Urine RBC (0-2) /hpf Urine WBC (0-5) /hpf Ur Squamous Epith Cells (0-5) /hpf Amorphous Sediment Urine Bacteria (NONE) /hpf Ethyl Alcohol < 10 (0-10) mg/dL Imaging Data ^: CXR: Attestation: I personally reviewed and interpreted this imaging study as follows: My impression: No pneumothorax. No lobar consolidation. Radiologist's impression: Negative chest EKG Data ^: EKG 1: EKG interpretation date: 03/22/21 EKG interpretation time: 07:41 Prior EKG tracings: available for review Ischemic changes: non-specific ST-T wave changes Interpretation: Twelve-lead EKG shows a regular sinus rhythm at a rate of 124. [place] interval 149. QRS duration 112. QTc 398 Left axis deviation. Interpretation: Sinus tachycardia. No STEMI. EKG 2: Attestation: I personally reviewed and interpreted this EKG as follows: EKG interpretation date: 03/22/21 EKG interpretation time: 09:45 Prior EKG tracings: available for review Ischemic changes: non-specific ST-T wave changes Interpretation: Twelve-lead EKG shows regular sinus rhythm at a rate of 107. [place] interval 164. QRS duration 114. QTc 426. Left axis deviation. Interpretation: Sinus tachycardia. Similar to prior. No STEMI. EKG 3: Attestation: I personally reviewed and interpreted this EKG as follows: EKG interpretation date: 03/22/21 EKG interpretation time: 14:12 Prior EKG tracings: available for review Ischemic changes: non-specific ST-T wave changes Interpretation: Twelve-lead EKG shows regular sinus rhythm at a rate of 104. [place] interval 132. QRS duration 113. QTc 446. Left axis deviation. Interpretation: Sinus tachycardia. Similar to prior. No STEMI. Discharge Plan Discharge Admit Provider: Festus Holden Coding Level of Care Code ED Associate Financial Representative for Chg Darrell
--- NOTE | 2021-03-22 07:05 | CT_ITS ---
WS: [id number] CT ABDOMEN AND PELVIS WITH CONTRAST HISTORY: abdominal pain TECHNIQUE: Imaging performed of the abdomen and pelvis with IV contrast. Single phase imaging of the abdomen. Coronal and sagittal reformats are submitted. All CT scans at [facility] use at least one of these dose optimization techniques: automated exposure control; mA and/or kV adjustment per patient size (includes targeted exams where dose is matched to clinical indication); or iterativ e reconstruction. IV CONTRAST: Omnipaque 300; 95 mL IV. Oral contrast: No DLP: 1547.09 mGy.cm COMPARISON: 11/25/2019 Lower thorax: Lung bases are hyperinflated secondary to emphysema. Heart is normal size. Large incarc erated hiatal hernia is distended with fluid. There is air adjacent to the wall within the hernia but similar pattern to the prior study. No air within the wall of the stomach in a nondependent location . Mild thickening of the gastric folds at the site of the hernia. Liver/biliary system: Mild hepatic steatosis. Stable area of decreased attenuation towards the RIGHT lateral lobe of the liver is probably diaphragmatic slip or cyst. No interval change since the prior study. Gallbladder: Status post cholecystectomy. Pancreas: Normal size pancreas and pancreatic duct. No adjacent inflammation. Spleen: Normal size spleen. No mass or infarct. Adrenal glands: Normal. Right kidney: Multiple cortical cysts scattered throughout the renal cortex. Some of these are too sm all to characterize. The largest in the upper pole is stable at 2.2 cm. Numerous nonobstructing calci fications in the central kidney. The RIGHT ureter is not dilated. Left kidney: Numerous low-attenuation masses associated with the renal cortex. Some of these are too small to characterize. The largest is a cyst extending exophytic from the mid kidney measuring 2.9 cm . Additional nonobstructing renal calcifications. LEFT ureter is normal size. Aorta: Moderate atherosclerosis with no aneurysm. Lymphadenopathy: None. Free fluid: None. GI tract: Prior appendectomy. Distal colonic diverticular disease. No acute diverticulitis. Abdominal wall: Unremarkable abdominal wall. No hernia. Pelvis: No free fluid or adenopathy within the pelvis. Prostate contains central calcifications. Bones: Partial fusion between T11 and T12 Prior anterior compression fracture of T12. CT/CT abdomen pelvis w con* [id number] IMPRESSION: 1. Large incarcerated hiatal hernia is fluid-filled with mild thickening of th e wall. Gastritis or varices should be considered. 2. No free air or free fluid. 3. Prior appendectomy and cholecystectomy. 4. Multiple bilateral renal hypodensities, cysts and calcifications. No renal obstruction.
--- NOTE | 2021-03-22 07:05 | XR_ITS ---
WS: [id number] Portable AP upright chest, 03/22/2021 Clinical Data: abnormal lung sounds Comparison: Portable chest, 07/02/2020. Findings: No nodules, masses or effusions are seen. The heart is normal. The pulmonary vascularity is not increased. No pneumonia or pneumothorax is seen. There is a hiatal hernia behind the heart. Ther e is a right shoulder prosthesis. XR/XR chest 1V portable [id number] Impression: Negative chest.
--- NOTE | 2021-03-22 07:06 | ECG_ITS ---
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 Measurements Intervals [place] Rate: 124 P: 73 AL: 149 QRS: -48 QRSD: 112 T: 30 QT: 325 QTc: 467 Interpretive Statements SINUS TACHYCARDIA LEFT ANTERIOR FASCICULAR BLOCK [QRS AXIS <= -45, QR IN I, RS IN II] MODERATE VOLTAGE CRITERIA FOR LVH, CONSIDER NORMAL VARIANT [MEETS CRITERIA IN ONE OF: R(aVL), S(V1), R(V5), R(V5/V6)+S(V1)] POSSIBLE LATERAL MYOCARDIAL INFARCTION [30 ms Q WAVE IN I/aVL/V5/V6], PROBABLY OLD Compared to ECG 07/02/2020 15:06:52 No significant changes Electronically Signed On 03-26-2021 16:13:19 CDT by Debi Arroyo M.D. [id number] natali
[2021-03-22 07:21] LABS: Basophils % 0.2 %; Hematocrit 39.2 % (42.0-52.0); Hemoglobin 11.2 g/dL (11.7-16.6); Lymphocytes # 0.9 10^3/uL (0.8-4.8); Mean Corpuscular HGB Conc 28.6 g/dL (30.0-36.0); Mean Corpuscular Hemoglobin 22.4 pg (28.0-34.0); Mean Corpuscular Volume 78.6 fL (80-94); Mean Platelet Volume 10.6 fL (7.4-10.4); Monocytes # 1.5 10^3/uL (0.2-0.9); Monocytes % 9.9 %; Neutrophils # 12.55 10^3/uL (1.8-7.7); Neutrophils % 83.5 %; Nucleated Red Blood Cells % 0 %; Platelet Count 409 10^3/cmm (130-400); Red Blood Count 4.99 10^6/uL (4.1-5.3); Red Cell Distribution Width 19.8 % (12.1-15.1)
[2021-03-22 07:28] LABS: Alanine Aminotransferase 19 U/L (0-41); Albumin Level 4.2 g/dL (3.5-5.2); Alkaline Phosphatase 139 IU/L (40-130); Anion Gap 18.9 (5-19); Aspartate Amino Transferase 25 U/L (0-40); Blood Urea Nitrogen 7 mg/dL (8-23); Calcium 9.9 mg/dL (8.5-10.5); Carbon Dioxide 25 mmol/L (22-29); Chloride 95 mmol/L (98-107); Globulin 3.1 g/dL (1.3-4.6); Glomerular Filtration Rate 137.4 mL/min (90-130); Glucose 125 mg/dL (65-115); Lipase 12 U/L (13-60); Osmolality Calculated 279 mOsm/kg (285-295); Potassium 3.9 mmol/L (3.5-5.1); Sodium 135 mmol/L (136-145); Total Bilirubin 1.4 mg/dL (0.15-1.2); Total Protein 7.3 g/dL (6.6-8.7)
[2021-03-22 07:29] LABS: Troponin(5th) Baseline 16 ng/L (0-15)
[2021-03-22] MEDS: ondansetron 2 mg/ML SDV 2 mL 4 MG IVP ×2 (07:45→19:50)
[2021-03-22] MEDS: morphine 4 mg/mL SDV 1 mL IM (07:45)
[2021-03-22] MEDS: sodium chloride 0.9% 500 ML IV (07:45)
[2021-03-22] MEDS: iohexol 300 mg/mL 100 mL Btl IV (07:56)
[2021-03-22 08:00] LABS: Lactate (Lactic Acid level) 1.6 mmol/L (0.5-2.2)
--- NOTE | 2021-03-22 09:06 | ECG_ITS ---
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
[2021-03-22] MEDS: metoclopramide 5 mg/mL SDV 2 mL 10 MG IVP (09:11)
[2021-03-22] MEDS: LORazepam 2 mg/mL INJ 1 mL 1 MG IVP (09:57)
[2021-03-22] MEDS: pantoprazole 40 mg SDV 80 MG IVP (09:57)
[2021-03-22] MEDS: cefTRIAXone 1,000 MG in sodium chloride 0.9% (plus) 50 ML 100 MG IV (09:57)
[2021-03-22 10:19] LABS: Add Urine Microscopic? YES; Bilirubin Urine 1+ (Negative); Blood Urine Neg (Negative); Glucose Urine UA Norm (Normal); Ketones Urine Negative (Negative); Leukocyte Esterase Urine Negative (Negative); Nitrate Urine Negative (Negative); Protein Urine Trace (Negative); Sulfosalicylic Acid Urine Negative (Negative); Urine Appearance Clear (CLEAR); Urine Color Yellow (Yellow); Urobilinogen Urine 4 mg/dL (Negative); pH Urine 9 (5-7)
[2021-03-22 10:23] LABS: Squamous Epithelial Cell Urine 0-4 /hpf (0-5); WBC Urine 0-4 /hpf (0-5)
[2021-03-22 10:24] LABS: Add Urine Culture? No; Bacteria Urine TRACE /hpf
[2021-03-22 10:27] LABS: Troponin 5 2HR 17.68 ng/L (0-15); Troponin 5 2HR Delta 1.68 ABS# (0-10)
--- NOTE | 2021-03-22 10:39 | PC.PHAR ---
PT STATES HE TAKES CARE OF HIS OWN MEDICATIONS-PT STATES HE NORMALLY TAKES 81MG OF ASPIRIN QAM PT STATES HE HASNT TAKEN FOR 2-3 WEEKS-PT STATES HE TAKES HIS LISINOPRIL 2.5MG PRN RX FILLED ON 03/12/21 30D/S FOR 2.5MG BID-PT GOT A RX FOR BUPROPION SR 150MG FILLED ON 03/12/21 TAKE 150MG DAILY FOR 7 DAYS THEN 150MG BID PT STATES HE IS ON THE 150MG BID DOSE NOW
[2021-03-22 12:05] LABS: Procalcitonin 0.07 ng/mL (0-0.5)
[2021-03-22] MEDS: metroNIDAZOLE IV 500 MG/100 ML PREMIX 100 MG IV (12:20)
[2021-03-22 13:01] LABS: Alcohol Level < 10 mg/dL (0-10)
--- NOTE | 2021-03-22 13:06 | ECG_ITS ---
[facility] Test Date: 2021-03-22 Pat Name: Raymond Coronel Department: Room: Gender: Male Tread Builder: : 1960 Requested By: Honorio Campbell Order Number: [id number] Reading MD: JAVIER AYALA Measurements Intervals [place] Rate: 104 P: 44 VT: 132 QRS: -39 QRSD: 113 T: 11 QT: 385 QTc: 508 Interpretive Statements SINUS TACHYCARDIA LEFT AXIS DEVIATION [QRS AXIS < -30] POSSIBLE LEFT VENTRICULAR HYPERTROPHY [VOLTAGE CRITERIA PLUS LAE OR QRS WIDENING] POSSIBLE LATERAL MYOCARDIAL INFARCTION , PROBABLY OLD [30 ms Q WAVE IN I/aVL/V5/V6] Compared to ECG 03/22/2021 09:41:47 Left-axis deviation now present Myocardial infarct finding now present Ventricular-paced complex(es) or rhythm no longer present Electronically Signed On 03-22-2021 19:27:26 CDT by JAVIER AYALA [id number]
[2021-03-22] MEDS: sodium chloride 0.9% 500 ML 1000 ML IV (13:14)
[2021-03-22 13:58] LABS: SARS Covid-2 Antigen Negative (Negative)
--- NOTE | 2021-03-22 18:20 | PM.HP ---
Providers/Chief Complaint Admitting Physician: Festus Holden MD Primary Care Provider: Hali Mcneal APN Chief Complaint: n,v,d x 2 days History of Present Illness Raymond Coronel is a 61 year old male who presented today with chief complaint of recurrent nausea and vomiting. Patient is stating that for last 3 to 4 days he has not been able to eat anything because of his abdominal pain, recurrent nausea and vomiting. He is an alcoholic who drinks whiskey about 50 cc every day, he is not sure whether he was diagnosed with any variceal bleed in the past. Patient is stating that his first episode of vomiting contained bilious color with turned to bright red. Before starting of his symptoms he was eating spaghetti with sauce. Diagnosis in the ER revealed leukocytosis, tachycardia, tachypnea, he was given broad-spectrum antibiotics in the ER, CT abdomen revealed incarcerated hiatal hernia, sodium 135, he was given Ativan for his tachycardia, his heart rate was in 1 10-1 20s, at the time my evaluation he was asymptomatic with heart rate in 90s, normal blood pressure he was not complaining of any abdominal pain or vomiting Consulted Dr. Mayen Made him n.p.o. requested NG tube placement Start Zosyn and Protonix Review of Systems Const: Reports: chills, body aches and fatigue; Denies: fever(s) Eyes: Denies: change in vision ENMT: Denies: throat pain Card: Denies: chest pain Resp: Denies: dyspnea GI: Reports: abdominal pain, nausea and vomiting; Denies: diarrhea or constipation : Denies: flank pain Musc: Denies: neck pain Skin/Breast: Denies: rash Neuro: Denies: headache(s) Psych: Denies: anxiety Endo: Denies: polyuria Garrick/Lymph: Denies: easy bruising All/Imm: Denies: urticaria Medications/Allergies Home Medications Medication Instructions Recorded Confirmed Last Taken Type albuterol sulfate 2 puff INHALATION QID PRN 11/01/19 03/22/21 07/02/20 History lisinopril 2.5 mg PO BID PRN 11/01/19 03/22/21 07/01/20 History pantoprazole 40 mg PO BID 11/01/19 03/22/21 07/02/20 History ropinirole 1 - 2 mg PO BEDTIME PRN 11/01/19 03/22/21 06/24/20 History tamsulosin 0.4 mg PO BID 11/01/19 03/22/21 07/02/20 History tramadol 50 mg PO Q4H PRN 11/01/19 03/22/21 07/01/20 History doxepin 50 mg PO BEDTIME PRN 07/02/20 03/22/21 Unknown History lorazepam 0.5 - 1 mg PO TID PRN 07/02/20 03/22/21 07/01/20 History tizanidine 4 mg PO TID PRN 07/02/20 03/22/21 06/29/20 History aspirin 81 mg PO QAM 03/22/21 03/22/21 Unknown History bupropion HCl 150 mg PO BID 03/22/21 03/22/21 Unknown History cyanocobalamin (vitamin B-12) 1,000 mcg IM Q30D 03/22/21 03/22/21 03/12/21 History ergocalciferol (vitamin D2) 50,000 unit PO Q7D 03/22/21 03/22/21 03/20/21 History escitalopram oxalate 20 mg PO DAILY 03/22/21 03/22/21 Unknown History ondansetron 4 mg PO Q4H PRN 03/22/21 03/22/21 03/21/21 History Allergies Allergy/AdvReac Type Severity Reaction Status Date / Time No Known Allergies Allergy Verified 03/22/21 10:39 PFSH Acute PFSH: Medical History Alcoholism Anemia BPH (benign prostatic hyperplasia) COPD (chronic obstructive pulmonary disease) Diverticulosis GERD (gastroesophageal reflux disease) Hiatal hernia History of colon polyps Hypertension Restless leg syndrome Tobacco abuse Surgical History History of cholecystectomy History of colonoscopy with polypectomy (~2016) 2019- dr. jeffries History of right shoulder replacement (~12/2019) Family History (Updated 03/22/21 @ 18:24 by Festus Holden MD) Denies family history of Chronic kidney disease (CKD) Social History (Updated 03/22/21 @ 18:24 by Festus Holden MD) Smoking and tobacco status: current every day smoker Alcohol intake: current Substance/Drug Use: never Household members: family Housing: House Vitals/I&O/Wt Last Vital Signs Temp 98 F 03/22/21 15:39 Pulse 92 03/22/21 16:11 Resp 16 03/22/21 16:11 BP 115/84 03/22/21 16:11 Pulse Ox 95 03/22/21 16:11 03/22/21 03/22/21 03/22/21 06:59 14:59 22:59 Intake Total 550 / 550 Balance 550 / 550 Weight last 48 hrs Weight 76.204 kg Physical Exam Narrative: EXAM NARRATIVE: Middle-age male who is comfortable saturating well on 2 L nasal cannula No active chest pain or shortness of breath Bilateral diminished breath sounds no active wheezing or crackles S1, S2 no murmur or heart failure Distended abdomen with obesity epigastric tenderness on deep palpation, bowel sounds present No active signs of peritonitis Lower extremity no edema EOMI, PERRLA No neurological deficit No signs of anxiety or alcohol withdrawal at this point Data : 03/22/21 06:45 03/22/21 06:45 A&P Assessment and plan (1) Hiatal hernia: Status: Acute (2) Tobacco abuse: Status: Acute (3) Sepsis: Status: Acute (4) Alcoholism: Status: Acute (5) COPD (chronic obstructive pulmonary disease): Status: Acute Additional A&P Information Incarcerated hiatal hernia Sepsis criteria met with leukocytosis, tachypnea, tachycardia Received septic bolus, started on antibiotics, we will keep him on Zosyn for now Place NG tube and keep him n.p.o. Consulted Dr. Mayen Hemodynamically stable at the time of my evaluation Alcohol abuse Patient is not sure if he was diagnosed with any varices in the past however endorsing hematemesis currently hemoglobin stable with normal hemodynamics N.p.o. Continue Protonix CIWA protocol Alcohol level undetectable last drink was on Thursday Previous history of seizures secondary to alcohol withdrawal COPD currently requiring 2 L nasal cannula oxygen No acute signs of pneumonia Full code N.p.o. 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
[2021-03-22] MEDS: enoxaparin 40 mg/0.4 mL Syringe SUBCUT (19:47)
[2021-03-22] MEDS: piperacillin-tazobactam 3.375 GM in sodium chloride 0.9% (plus) 50 ML IV (19:48)
[2021-03-22] MEDS: HYDROmorphone 1 mg/mL INJ 1 mL 0.4 MG IVP (19:49)
[2021-03-22] MEDS: dextrose 5%-sod chloride 0.45% 1,000 ML 75 ML IV (20:06)
--- NOTE | 2021-03-22 20:22 | PC.NURSE ---
Patient reports back pain is now 4/10 and tolerable.
--- NOTE | 2021-03-22 20:51 | PC.NURSE ---
2 attempts were made at 14fr NG tube down each nare, unable to feed tubing to stomach. Patient reports they have never been able to get one of those down because the way my nose is. He does not want any other attempts at this time stating, give me a little bit .
[2021-03-22] MEDS: LORazepam 2 mg/mL INJ 1 mL IVP (21:07)
[2021-03-22] MEDS: pantoprazole 40 mg SDV IVP (21:09)
[2021-03-23] VITALS (12 sets, daily range): BP systolic 117–148; BP diastolic 76–99; PULSE 81–126; RESP 16–18; TEMP 36.6–37.4; O2SAT 93–97
[2021-03-23] MEDS: piperacillin-tazobactam 3.375 GM in sodium chloride 0.9% (plus) 50 ML IV ×3 (02:56→17:44)
--- NOTE | 2021-03-23 03:30 | XRR_ITS ---
PROCEDURE INFORMATION: Exam: XR Chest Exam date and time: 03/23/2021 3:30 AM Age: 61 years old Clinical indication: Device placement; Ng tube; Prior surgery; Surgery type: Gb; Patient HX: Check for ng placement. History of hiatal hernia. ; Additional info: Verify ng tube placement TECHNIQUE: Imaging protocol: XR of the chest. Views: 1 view. COMPARISON: CR XR chest 1V portable [id number] 03/22/2021 7:45 AM FINDINGS: Tubes, catheters and devices: There is a moderate hiatal hernia which contains the stomach with NG tube. Lungs: Unremarkable. No consolidation. Pleural spaces: Unremarkable. No pleural effusion. No pneumothorax. Heart/Mediastinum: Unremarkable. No cardiomegaly. Bones/joints: Unremarkable. XR/XR chest 1V portable [id number] IMPRESSION: There is a moderate hiatal hernia which contains the stomach with NG tube.
[2021-03-23] MEDS: ondansetron 2 mg/ML SDV 2 mL 4 MG IVP (03:32)
[2021-03-23] MEDS: LORazepam 2 mg/mL INJ 1 mL IVP (03:52)
[2021-03-23] MEDS: HYDROmorphone 1 mg/mL INJ 1 mL 0.4 MG IVP ×3 (04:45→20:49)
--- NOTE | 2021-03-23 06:27 | PC.NURSE ---
Nurse inserted 16 Fr NG tube to patient's left nare, insertion was difficult. This was the 3rd attempt, 2 prior failed attempts in ER. 30 mls clear fluid aspirated from NG tube, Nurse and charge nurse checked placement by injecting air into NG and auscultating the ABD. Chest Xray ordered for positive placement. Chest x ray report shows NG tube is within the patient's hiatal hernia, Nurse did not connect pt to suction. Nurse notified Dr. Murcia the night time hospitalist of the Chest x ray result. Dr. Murcia's orders were to leave patient NG tube in place but clamped until surgery consult with Dr. Mayen.
[2021-03-23 06:37] LABS: Basophils # 0.1 10^3/uL (0.0-0.1); Basophils % 0.5 %; Eosinophils # 0.2 10^3/uL (0.0-0.8); Eosinophils % 1.4 %; Hematocrit 35.4 % (42.0-52.0); Lymphocytes # 1.3 10^3/uL (0.8-4.8); Lymphocytes % 8.5 %; Mean Corpuscular HGB Conc 28.2 g/dL (30.0-36.0); Mean Corpuscular Volume 81.6 fl (80-94); Mean Platelet Volume 11.1 fL (7.4-10.4); Monocytes # 1.6 10^3/uL (0.2-0.9); Neutrophils # 11.58 10^3/uL (1.8-7.7); Neutrophils % 78.1 %; Nucleated Red Blood Cells % 0 %; Platelet Count 327 10^3/cmm (130-400); Red Blood Count 4.34 10^6/uL (4.1-5.3); Red Cell Distribution Width 19.7 % (12.1-15.1); White Blood Count 14.9 10^3/uL (4.0-10.0)
[2021-03-23 07:41] LABS: Anion Gap 18.6 (5-19); Blood Urea Nitrogen 10 mg/dL (8-23); Calcium 8.6 mg/dL (8.5-10.5); Carbon Dioxide 23 mmol/L (22-29); Chloride 99 mmol/L (98-107); Glomerular Filtration Rate 98.6 mL/min (90-130); Glucose 85 mg/dL (65-115); Magnesium 1.6 mg/dL (1.7-2.3); Osmolality Calculated 282 mOsm/kg (285-295); Potassium 3.6 mmol/L (3.5-5.1); Sodium 137 mmol/L (136-145)
[2021-03-23] MEDS: pantoprazole 40 mg SDV IVP ×2 (08:40→20:35)
--- NOTE | 2021-03-23 08:56 | P.CONIM_ITS ---
Providers/Reason For Consult Consulting Physician/Specialty*: General Surgery Dr. Mayen Reason for Consult*: Hiatal hernia with nausea and vomiting Attending Physician: Festus Holden MD Primary Care Provider: Hali Mcneal APN History of Present Illness History of Present Illness Raymond Coronel is a 61 year old male with history of chronic alcoholism where he drinks whiskey every night. Patient states that he has not had a drink over the last 3 days. He presented to the ER yesterday with complaints of nausea, vomiting and small amount of blood. He also had some abdominal pain. A CT scan the ER showed a large incarcerated hiatal hernia and he was therefore admitted. He is currently on Protonix and Zosyn. On evaluation this morning patient had an NG tube placed since he had 2 more episodes of emesis last night but he states that his nausea and abdominal pain has resolved and he is mainly complaining of discomfort from the NG tube. Patient had a colonoscopy last year which showed a small rectal polyp and diverticulosis. Review of Systems General: Reports: 10 or more systems reviewed and unremarkable except in HPI and below Meds/Allergies Home Medications and Allergies Home Medications Medication Instructions Recorded Confirmed Last Taken Type albuterol sulfate 2 puff INHALATION QID PRN 11/01/19 03/22/21 07/02/20 History lisinopril 2.5 mg PO BID PRN 11/01/19 03/22/21 07/01/20 History pantoprazole 40 mg PO BID 11/01/19 03/22/21 07/02/20 History ropinirole 1 - 2 mg PO BEDTIME PRN 11/01/19 03/22/21 06/24/20 History tamsulosin 0.4 mg PO BID 11/01/19 03/22/21 07/02/20 History tramadol 50 mg PO Q4H PRN 11/01/19 03/22/21 07/01/20 History doxepin 50 mg PO BEDTIME PRN 07/02/20 03/22/21 Unknown History lorazepam 0.5 - 1 mg PO TID PRN 07/02/20 03/22/21 07/01/20 History tizanidine 4 mg PO TID PRN 07/02/20 03/22/21 06/29/20 History aspirin 81 mg PO QAM 03/22/21 03/22/21 Unknown History bupropion HCl 150 mg PO BID 03/22/21 03/22/21 Unknown History cyanocobalamin (vitamin B-12) 1,000 mcg IM Q30D 03/22/21 03/22/21 03/12/21 History ergocalciferol (vitamin D2) 50,000 unit PO Q7D 03/22/21 03/22/21 03/20/21 History escitalopram oxalate 20 mg PO DAILY 03/22/21 03/22/21 Unknown History ondansetron 4 mg PO Q4H PRN 03/22/21 03/22/21 03/21/21 History Allergies Allergy/AdvReac Type Severity Reaction Status Date / Time No Known Allergies Allergy Verified 03/22/21 10:39 Current Medications Current Medications Generic Name Dose Route Start Last Admin Trade Name Freq PRN Reason Stop Dose Admin Enoxaparin Sodium 40 mg 03/22/21 18:30 03/22/21 19:47 Enoxaparin 40 Mg/0.4 Ml Syringe SUBCUT 40 mg Q24H VICKEY Administration Hydromorphone HCl 0.4 mg 03/22/21 18:12 03/23/21 08:40 Hydromorphone 1 Mg/Ml Inj 1 Ml IVP 0.4 mg Q4H PRN Administration SEVERE pain Dextrose/Sodium Chloride 1,000 mls @ 75 mls/hr 03/22/21 18:15 03/22/21 20:06 Dextrose 5%-Sod Chloride 0.45% IV 75 mls/hr .[id number] VICKEY Administration Piperacillin Sod/Tazobactam 50 mls @ 12.5 mls/hr 03/22/21 18:30 03/23/21 02:56 Sod 3.375 gm/ Sodium Chloride IV 12.5 mls/hr Q8H VICKEY Administration Protocol Lorazepam 2 mg 03/22/21 18:18 03/23/21 03:52 Lorazepam 2 Mg/Ml Inj 1 Ml IVP 2 mg PRN PRN Administration WITHDRAWAL Protocol Ondansetron HCl 4 mg 03/22/21 18:12 03/23/21 03:32 Ondansetron 2 Mg/Ml Sdv 2 Ml IVP 4 mg Q6H PRN Administration NAUSEA AND VOMITING Pantoprazole Sodium 40 mg 03/22/21 21:00 03/23/21 08:40 Pantoprazole 40 Mg Sdv IVP 40 mg BID@0900,2100 VICKEY Administration PFSH Acute PFSH: Medical History Alcoholism Anemia BPH (benign prostatic hyperplasia) COPD (chronic obstructive pulmonary disease) Diverticulosis GERD (gastroesophageal reflux disease) Hiatal hernia History of colon polyps Hypertension Restless leg syndrome Tobacco abuse Surgical History History of cholecystectomy History of colonoscopy with polypectomy (~2019- dr. jeffries History of right shoulder replacement (~12/2019) Family History (Updated 03/22/21 @ 18:24 by Festus Holden MD) Denies family history of Chronic kidney disease (CKD) Social History (Updated 03/22/21 @ 18:24 by Festus Holden MD) Smoking and tobacco status: current every day smoker Alcohol intake: current Household members: family Housing: House Vitals/I&O/Wt Last Vital Signs Temp 98.5 F 03/23/21 07:36 Pulse 116 H 03/23/21 07:37 Resp 18 03/23/21 08:40 BP 133/88 03/23/21 07:36 Pulse Ox 94 03/23/21 07:36 03/22/21 03/23/21 03/23/21 22:59 06:59 14:59 Intake Total 50 / 600 Output Total 700 / 700 Balance -700 / -100 50 / -100 Weight last 48 hrs Weight 181 lb 4.8 oz Weight 168 lb Physical Exam Narrative: EXAM NARRATIVE: HEENT: Normocephalic Eye: Sclera /conjunctiva normal Abdomen: Soft to palpation Neurological: Oriented to place person and time Skin: Intact, no lesions appreciated on gross exam A&P Assessment and plan (1) Hiatal hernia: Patient has a large incarcerated hiatal hernia, I reviewed the CT scan from last year and there is no significant change noted from prior scans. Patient is not aware of his incarcerated hernia. He denies any chest pain and no further work-up is indicated. Status: Acute (2) Nausea and vomiting: Patient is a chronic alcoholic and he has been dealing with nausea and vomiting but his nausea is now improved. I suspect is likely secondary to gastritis/peptic ulcer disease. Continue Protonix 40 mg twice daily, add sucralfate 1 g 3 times daily. If he continues to have persistent nausea and vomiting with conservative measures then we can plan for EGD under [facility] on 03/25/2021 or sooner if he has significant changes in status. Patient did not have distended small bowel loops and therefore there may not be much benefit from an NG tube which can be discontinued. 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
--- NOTE | 2021-03-23 10:34 | P.PN_ITS ---
Subjective Subjective: Interval history: NG tube was discontinued as it was an hiatal hernia Patient did not sense any recurrence of nausea or vomiting Denies previous history of hiatal hernia No active abdominal pain chest pain or shortness of breath NG tube discontinued Diet advanced Appreciate general surgery recommendation Continue Zosyn Vitals/I&O/Wt Last Vital Signs Temp 98.5 F 03/23/21 07:36 Pulse 116 H 03/23/21 07:37 Resp 18 03/23/21 08:40 BP 133/88 03/23/21 07:36 Pulse Ox 94 03/23/21 07:36 03/22/21 03/23/21 03/23/21 22:59 06:59 14:59 Intake Total 50 / 600 Output Total 700 / 700 Balance -700 / -150 50 / -100 Weight last 48 hrs Weight 82.236 kg Weight 76.204 kg Physical Exam Narrative: EXAM NARRATIVE: Patient lying comfortably NG tube removed Abdomen soft nontender no signs of peritonitis bowel sounds present S1, S2 sinus rhythm no signs of heart failure or murmur Low symmetry no edema Currently saturating well on 2 L home regimen No neurological deficit Data : 03/23/21 05:31 03/23/21 05:31 A&P Assessment and plan (1) Sepsis: Status: Acute (2) Nausea and vomiting: Status: Acute (3) Incarcerated hernia: Status: Acute (4) Alcohol abuse: Status: Acute Additional A&P Information Sepsis Has not resolved yet he still has leukocytosis with tachycardia Continue Zosyn, advance diet to full liquid Chest x-ray unremarkable Incarcerated hernia however no active signs of peritonitis Concern for gastritis, GERD, hemoglobin stable Appreciate general surgery recommendation Alcohol abuse Currently on [facility] protocol Hypomagnesemia: Repleted Potassium borderline low: Repleted Advance diet NG tube removed Full code DVT prophylaxis Lovenox Plan to discharge tomorrow morning if he is able to tolerate diet Conservative/supportive treatment Covid PCR is still pending Attestations Medical Necessity Statement*: Anticipating discharge tomorrow morning Time Spent in Patient Care: 16 - 35 minutes Coding Level of 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
[2021-03-23] MEDS: thiamine 100 mg Tablet PO (10:57)
[2021-03-23] MEDS: multivitamin therapeutic Tablet 1 TAB PO (10:57)
[2021-03-23] MEDS: folic acid 1 mg Tablet PO (10:57)
[2021-03-23] MEDS: lactated ringers 1,000 ML 999 ML IV (11:02)
--- NOTE | 2021-03-23 11:18 | PC.NURSE ---
Dr Holden ordered for pt NG tube to be removed that was placed last night by Yu UMAÑA, NG was reported to nurse in hiatal hernia when viewed by x-ray, Dr Holden informed and ordered for nurse to remove NG tube and for Pt to stay NPO until Dr. Mayen seen pt. pt NG tube removed, pt tolerated well.
[2021-03-23 11:59] LABS: D Dimer 1.46 ug/mIFEU (0-0.59)
[2021-03-23] MEDS: sucralfate 1 gm/10 mL Oral Liq UDC PO ×2 (14:15→20:35)
[2021-03-23] MEDS: enoxaparin 40 mg/0.4 mL Syringe SUBCUT (17:45)
[2021-03-23 21:27] LABS: Quest SARS-CoV-2 RNA NOT DETECTED (NOT DETECTED)
[2021-03-24] MEDS: piperacillin-tazobactam 3.375 GM in sodium chloride 0.9% (plus) 50 ML IV (03:22)
[2021-03-24 03:27] VITALS: BP 124/80; PULSE 82; RESP 17; TEMP 37.1; O2SAT 96
[2021-03-24 06:26] LABS: Basophils # 0.1 10^3/uL (0.0-0.1); Basophils % 0.6 %; Eosinophils # 0.4 10^3/uL (0.0-0.8); Eosinophils % 3.2 %; Hematocrit 30.7 % (42.0-52.0); Hemoglobin 8.5 g/dL (11.7-16.6); Lymphocytes # 1.8 10^3/uL (0.8-4.8); Lymphocytes % 16.6 %; Mean Corpuscular HGB Conc 27.7 g/dL (30.0-36.0); Mean Corpuscular Hemoglobin 22.9 pg (28.0-34.0); Mean Corpuscular Volume 82.7 fl (80-94); Mean Platelet Volume 10.6 fL (7.4-10.4); Monocytes # 1.2 10^3/uL (0.2-0.9); Monocytes % 10.7 %; Neutrophils % 68.3 %; Nucleated Red Blood Cells % 0 %; Platelet Count 257 10^3/cmm (130-400); Red Blood Count 3.71 10^6/uL (4.1-5.3); Red Cell Distribution Width 19.9 % (12.1-15.1); White Blood Count 10.8 10^3/uL (4.0-10.0)
[2021-03-24 06:59] LABS: Anion Gap 15.3 (5-19); Blood Urea Nitrogen 6 mg/dL (8-23); Calcium 8.6 mg/dL (8.5-10.5); Carbon Dioxide 23 mmol/L (22-29); Chloride 100 mmol/L (98-107); Creatinine Clr Calc Pharmacy 119.5467; Glucose 66 mg/dL (65-115); Magnesium 1.7 mg/dL (1.7-2.3); Osmolality Calculated 276 mOsm/kg (285-295); Potassium 3.3 mmol/L (3.5-5.1); Sodium 135 mmol/L (136-145)
[2021-03-24 07:35] VITALS: BP 127/78; PULSE 74; RESP 17; TEMP 37.5; O2SAT 96
--- NOTE | 2021-03-24 07:52 | CTR_ITS ---
PROCEDURE INFORMATION: Exam: CTA Chest With Contrast Exam date and time: 03/24/2021 7:52 AM Age: 61 years old Clinical indication: Shortness of breath; Patient HX: 20 g in wrist very limited; Additional info: Hypoxia TECHNIQUE: Imaging protocol: Computed tomographic angiography of the chest with contrast. 3D rendering (Not supervised by radiologist): MIP and/or 3D reconstructed images were created by the technologist. Radiation optimization: All CT scans at this facility use at least one of these dose optimization techniques: automated exposure control; mA and/or kV adjustment per patient size (includes targeted exams where dose is matched to clinical indication); or iterative reconstruction. Contrast material: OMNI 350; Contrast volume: 66 ml; Contrast route: INTRAVENOUS (IV); COMPARISON: CTA Chest-Pulmonary Emb [id number] 06/09/2017 10:37 PM RADIATION DOSE METRICS: Total DLP (mGy-cm): 656.87 FINDINGS: Pulmonary arteries: Bilateral pulmonary emboli are present with multiple small filling defects in the left upper lobe pulmonary arteries and peripheral branch a right lower lobe pulmonary artery. No large central emboli are seen. Aorta: There is atherosclerotic calcification of the aorta. There is no aneurysm. Lungs: Unremarkable. No consolidation. No masses. Pleural spaces: Unremarkable. No pneumothorax. No pleural effusion. Heart: The heart is not enlarged. The RV LV ratio is normal. There is calcification of the coronary arteries. Lymph nodes: Unremarkable. No enlarged lymph nodes. Gallbladder and bile ducts: Cholecystectomy. Kidneys and ureters: There is a stable benign appearing cyst on the lateral aspect of the left kidney. Stomach and bowel: There is a large hiatal hernia containing the stomach fundus. Bones/joints: Chronic degenerative changes are present in the spine with scattered sclerosis and osteophytes. There is old compression fracture of T12. Soft tissues: Unremarkable. CT/CT angio chest PE protcl [id number] IMPRESSION: 1. Multiple small pulmonary emboli to the left upper lobe and right lower lobe. 2. Large hiatal hernia. 3. Coronary artery calcification. Radiation Dose CTDIVOL = (mGy): DLP = 656.87 (mGy-cm)
[2021-03-24] MEDS: thiamine 100 mg Tablet PO (08:42)
[2021-03-24] MEDS: multivitamin therapeutic Tablet 1 TAB PO (08:42)
[2021-03-24] MEDS: potassium chloride oral liq 20 mEq/15 mL UDC 40 MEQ PO (08:42)
[2021-03-24] MEDS: folic acid 1 mg Tablet PO (08:42)
[2021-03-24] MEDS: sucralfate 1 gm/10 mL Oral Liq UDC PO ×2 (08:43→14:09)
[2021-03-24 09:15] VITALS: PULSE 103; RESP 17; O2SAT 97
[2021-03-24 10:10] LABS: Hematocrit 33.6 % (42.0-52.0); Hemoglobin 9.4 g/dL (11.7-16.6)
--- NOTE | 2021-03-24 10:19 | P.DS_ITS ---
Discharge Providers Date of Admission: 03/22/21 12:31 Date of Discharge: March 24, 2021 Attending Provider at Admission: Festus Holden MD Attending Provider at Discharge: Festus Holden MD Primary Care Provider: Hali Mcneal APN Diagnoses at Discharge Discharge Diagnosis (1) Sepsis: Status: Acute (2) Nausea and vomiting: Status: Acute (3) Incarcerated hernia: Status: Acute (4) Alcohol abuse: Status: Acute Reason for Visit Reason for Visit: n,v,d x 2 days Hospital Course Hospital Course 61-year-old male who was admitted for management of recurrent episodes of nausea and vomiting, he has history of alcohol abuse, no previous history of variceal bleed, he did notice hematemesis however hemoglobin stayed stable, hemodynamical ly he stayed stable diagnostic work-up in the ER revealed incarcerated hernia however from the presentation a look chronic in nature, NG tube was placed which landed in his hiatal hernia which was removed. Patient was kept n.p.o. overnight and his diet was advanced next day he was able to tolerate diet no active nausea or vomiting, on day of discharge he was able to tolerate full liquid diet, he had 2 bowel movements, he did not show any signs of alcohol withdrawal during hospitalization, General surgery was consulted who recommended conservative management. He will be discharged home with thiamine, folic acid and Protonix. He was counseled to eat small meals to avoid recurrence of symptoms. He is planning to quit alcohol. He did not show any alcohol withdrawal signs hence not required any benzodiazepine taper dose on discharge. His D-dimer came back high I am requesting CTA before I send him home, he uses 2 L of oxygen at home his oxygen requirement has not increased. Physical Exam Narrative: EXAM NARRATIVE: Patient lying comfortably Able to tolerate diet, abdomen soft Abdomen soft nontender no signs of peritonitis bowel sounds present S1, S2 sinus rhythm no signs of heart failure or murmur Currently saturating well on 2 L home regimen No neurological deficit Discharge Data Data Completed and Pending: Completed Studies During Hospitalization Category Date Time Status CT abdomen pelvis w con* [id number] Urge nt Cat Scan 03/22/21 07:05 Completed CXRP [XR chest 1V portable [id number]] S tat Exams 03/23/21 03:30 Completed XR chest 1V mark ble [id number] Urgent Exams 03/22/21 07:05 Completed Pending at discharge Category Date Time Status CT angio chest PE protcl [id number] Stat Cat Scan 03/24/21 07:52 Ordered Labs from last 24 hours 03/24/21 03/24/21 03/24/21 09:25 04:57 04:57 WBC 10.8 H RBC 3.71 L Hgb 9.4 L 8.5 L Hct 33.6 L 30.7 L MCV 82.7 MCH 22.9 L MCHC 27.7 L RDW 19.9 H Plt Count 257 MPV 10.6 H Neut % (Auto) 68.3 Lymph % (Auto) 16.6 [place] % (Auto) 10.7 Eos % (Auto) 3.2 Baso % (Auto) 0.6 Neut # (Auto) 7.40 Lymph # (Auto) 1.8 [place] # (Auto) 1.2 H Eos # (Auto) 0.4 Baso # (Auto) 0.1 Nucleated RBC % (a uto) 0 Nucleated RBCs # 0.0 D-Dimer Sodium 135 L Potassium 3.3 L Chloride 100 Carbon Dioxide 23 Anion Gap 15.3 BUN 6 L Creatinine 0.7 GFR Calculation 115.0 Glucose 66 Calculated Osmolal ity 276 L Calcium 8.6 Magnesium 1.7 SARS-CoV-2 RNA (RT -PCR) 03/23/21 03/22/21 11:30 13:20 WBC RBC Hgb Hct MCV MCH MCHC RDW Plt Count MPV Neut % (Auto) Lymph % (Auto) [place] % (Auto) Eos % (Auto) Baso % (Auto) Neut # (Auto) Lymph # (Auto) [place] # (Auto) Eos # (Auto) Baso # (Auto) Nucleated RBC % (a uto) Nucleated RBCs # D-Dimer 1.46 H Sodium Potassium Chloride Carbon Dioxide Anion Gap BUN Creatinine GFR Calculation Glucose Calculated Osmolal ity Calcium Magnesium SARS-CoV-2 RNA (RT -PCR) Not detected Vitals: Last Vital Signs Temp 99.5 F 03/24/21 07:35 Pulse 103 H 03/24/21 09:15 Resp 17 03/24/21 09:15 BP 127/78 03/24/21 07:35 Pulse Ox 97 03/24/21 09:15 Discharge Plan Discharge Patient Disposition: Home Condition: Stable Prescriptions: New thiamine HCl (vitamin B1) 100 mg tablet 100 mg PO DAILY Qty: 30 RF: 0 folic acid 1 mg tablet 1,000 mcg PO DAILY Qty: 30 RF: 0 Continued ropinirole 1 mg tablet 1 - 2 mg PO BEDTIME PRN (Reason: Restless Leg(S)) RF: 0 tramadol 50 mg tablet 50 mg PO Q4H PRN (Reason: Pain) RF: 0 tamsulosin 0.4 mg capsule 0.4 mg PO BID RF: 0 pantoprazole 40 mg tablet,delayed release (DR/EC) 40 mg PO BID RF: 0 albuterol sulfate 90 mcg/actuation HFA aerosol inhaler 2 puff INHALATION QID PRN (Reason: Shortness Of Breath) RF: 0 lisinopril 2.5 mg tablet 2.5 mg PO BID PRN (Reason: Blood Pressure) RF: 0 doxepin 50 mg capsule 50 mg PO BEDTIME PRN (Reason: Sleep) RF: 0 tizanidine 4 mg tablet 4 mg PO TID PRN (Reason: muscle cramps) RF: 0 lorazepam 0.5 mg tablet 0.5 - 1 mg PO TID PRN (Reason: Anxiety) RF: 0 cyanocobalamin (vitamin B-12) 1,000 mcg/mL solution 1,000 mcg IM Q30D RF: 0 ondansetron 4 mg tablet,disintegrating 4 mg PO Q4H PRN (Reason: Nausea) RF: 0 bupropion HCl 150 mg tablet sustained-release 12 hr 150 mg PO BID RF: 0 ergocalciferol (vitamin D2) 1,250 mcg (50,000 unit) capsule 50,000 unit PO Q7D RF: 0 escitalopram oxalate 20 mg tablet 20 mg PO DAILY RF: 0 aspirin 81 mg tablet,delayed release (DR/EC) 81 mg PO QAM RF: 0 Discharge Orders: Discharge Order (Routine); Ordered 03/24/21 Ordered By: Festus Holden Referrals: Mcneal,HAL Lal [Primary Care Provider] - 1 week Discharge Diet: Cardiac Discharge Activity: Increase activity as tolerated Patient Instructions: Opioid Safety Discharge Attestations Time Spent in Discharge Care*: less than 30 min Quality Metrics Clinical Quality Measures During this hospital stay, did patient experience: None Coding Level of Care Code Acute Chg FW DC note Diagnoses Sepsis A41.9 Nausea and vomiting R11.2 Incarcerated hernia K46.0 Alcohol abuse F10.10
[2021-03-24] MEDS: ondansetron 2 mg/ML SDV 2 mL 4 MG IVP (10:30)
[2021-03-24 12:00] VITALS: BP 145/85; PULSE 94; RESP 16; TEMP 36.3; O2SAT 94
[2021-03-24] MEDS: iohexol 350 mg/mL 100 mL Btl IV (12:29)
[2021-03-24] MEDS: enoxaparin 80 mg/0.8 mL Syringe SUBCUT (14:09)
[2021-03-24 15:15] VITALS: BP 145/85; PULSE 94; RESP 16; TEMP 36.3; O2SAT 94
--- NOTE | 2021-03-25 16:54 | PC.RESP ---
SMOKING CESSATION AND PULMONARY REHAB INFORMATION SENT TO PATIENT.
--- NOTE | 2021-03-27 09:40 | PC.SOCIAL ---
discharge follow up call made, no answer, message left.
== END 2021-03-24 14:45 | disposition home or self-care (01) ==
LOC: ER 15:32 → MEDSURG 17:56
PROVIDERS: Admitting Provider Internal Medicine; Emergency Provider Emergency Medicine; PCP Nurse Practitioner Family; Visit Provider Internal Medicine
DX: A41.9 Sepsis, unspecified organism (principal); R11.2 Nausea with vomiting, unspecified; F10.10 Alcohol abuse, uncomplicated; K44.0 Diaphragmatic hernia with obstruction, without gangrene; N40.0 Benign prostatic hyperplasia without lower urinary tract symptoms; J44.9 Chronic obstructive pulmonary disease, unspecified; I10 Essential (primary) hypertension; I26.99 Other pulmonary embolism without acute cor pulmonale
CPT/HCPCS: 36415; 71045; 71275; 74177; 80048; 80053; 80307; 81001; 83605; 83690; 83735; 84145; 84484; 85014; 85018; 85025; 85378; 87426; 87635; 93005; 96365; 96367; 96372; 96375; 96376; 99291; C9113; G0378; J0696; J1170; J1650; J2060; J2270; J2405; J2543; J2765; J3411; J3475; J7040; J7799; Q9967; S0030

== ENCOUNTER 2021-04-03 12:28 | Outpatient (CLI) | payer MEDICARE, MEDICAID, SELFPAY ==
--- NOTE | 2021-04-03 12:45 | USCV_ITS ---
Raymond Coronel Age: 61 Gender: M : 1960 Exam Date: 04/03/2021 12:51 Ordering Phys: Festus Holden MD Technologist: Alba Murrieta [place]am [place] [facility] [place]ication: Bilateral PE HISTORY: Pulmonary embolism. PROCEDURES: Venous duplex imaging was performed in bilateral lower extremities. The following venous structures were evaluated: common femoral vein, profunda vein, proximal portion of the greater saphenous vein, superficial femoral vein, and the popliteal vein. In addition, the posterior tibial and peroneal trunk were evaluated. FINDINGS: The right lower extremity appears free of thrombus at this time. There appears to be thrombus present in the left GSV from the ankle to below the knee. The left GSV from bhupinder's canal to the left CFV junction appears compressible and free of thrombus. CONCLUSIONS No evidence of right lower extremity DVT. No evidence of left lower extremity DVT. Superficial thrombus Left GSV from just below the knee to ankle Wayne Mcdonald MD (Electronically Signed) Final Date: 03 April 2021 18:04 S
== END 2021-04-03 12:29 | disposition home or self-care (01) ==
LOC: RAD 12:33
PROVIDERS: PCP Nurse Practitioner Family; Visit Provider Internal Medicine
DX: I26.99 Other pulmonary embolism without acute cor pulmonale (principal)
CPT/HCPCS: 93970

== ENCOUNTER 2021-04-20 15:11 | Emergency (ER) | payer MEDICARE, MEDICAID, SELFPAY ==
[2021-04-20 15:16] VITALS: BP 137/89; PULSE 109; RESP 18; TEMP 36.9; O2SAT 92; BMI 25.1
--- NOTE | 2021-04-20 16:47 | ECG_ITS ---
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 Measurements Intervals [place] Rate: 100 P: 68 MN: 160 QRS: -42 QRSD: 108 T: 12 QT: 353 QTc: 456 Interpretive Statements SINUS TACHYCARDIA LEFT AXIS DEVIATION [QRS AXIS < -30] MINIMAL VOLTAGE CRITERIA FOR LVH, CONSIDER NORMAL VARIANT [MEETS CRITERIA IN ONE OF: R(aVL), S(V1), R(V5), R(V5/V6)+S(V1)] Compared to ECG 03/22/2021 14:10:25 Myocardial infarct finding no longer present Electronically Signed On 04-22-2021 19:15:26 CDT by Debi Arroyo M.D. [id number]
--- NOTE | 2021-04-20 16:47 | XRR_ITS ---
PROCEDURE INFORMATION: Exam: XR Chest Exam date and time: 04/20/2021 4:47 PM Age: 61 years old Clinical indication: Cough and dyspnea; Additional info: Dyspnea/cough TECHNIQUE: Imaging protocol: XR of the chest. Views: 1 view. COMPARISON: CR (CHEST, ) 03/23/2021 3:45 AM FINDINGS: Lungs: Moderate emphysema. No focal airspace consolidation. Pleural spaces: Unremarkable. No pleural effusion. No pneumothorax. Heart/Mediastinum: Unremarkable. No cardiomegaly. Bones/joints: Right shoulder arthroplasty. XR/XR chest 1V portable [id number] IMPRESSION: No focal acute pulmonary disease.
--- NOTE | 2021-04-20 16:48 | CTR_ITS ---
PROCEDURE INFORMATION: Exam: CT Abdomen And Pelvis With Contrast Exam date and time: 04/20/2021 4:48 PM Age: 61 years old Clinical indication: Abdominal pain; Generalized; Prior surgery; Surgery date: 6+ months; Surgery type: Gb, appy; Patient HX: C/O abd pain w n/v TECHNIQUE: Imaging protocol: Computed tomography of the abdomen and pelvis with contrast. Radiation optimization: All CT scans at this facility use at least one of these dose optimization techniques: automated exposure control; mA and/or kV adjustment per patient size (includes targeted exams where dose is matched to clinical indication); or iterative reconstruction. Contrast material: OMNI 300; Contrast volume: 95 ml; Contrast route: INTRAVENOUS (IV); COMPARISON: CT abdomen pelvis w con* [id number] 03/22/2021 7:52 AM RADIATION DOSE METRICS: Total DLP (mGy-cm): 1650.58 FINDINGS: Mediastinal space: Large hiatal hernia. Liver: Normal. No mass. Gallbladder and bile ducts: Cholecystectomy. Nondilated biliary system. Pancreas: Normal. No ductal dilation. Spleen: Normal. No splenomegaly. Adrenal glands: Normal. No mass. Kidneys and ureters: Negative for hydronephrosis. Bilateral simple renal cortical cysts. In the upper pole the right kidney there is a circumscribed homogeneous intermediate density lesion stable from comparison most likely representing a proteinaceous cyst measuring 3.1 cm diameter. Small bilateral nonobstructing upper pole renal stones. Stomach and bowel: Negative for small bowel obstruction. Negative for bowel perforation. Diverticulosis coli. No focal bowel wall inflammatory change. No focal bowel wall mass. Appendix: No evidence of appendicitis. Intraperitoneal space: No intraperitoneal fluid collection. No free intraperitoneal air. Vasculature: Scattered atherosclerosis. Negative for aneurysm. No acute vascular occlusion changes. Lymph nodes: Unremarkable. No enlarged lymph nodes. Urinary bladder: Unremarkable as visualized. Reproductive: Unremarkable as visualized. Bones/joints: Unremarkable. No acute fracture. Soft tissues: Unremarkable. CT/CT abdomen pelvis w con* [id number] IMPRESSION: 1. Negative for acute abdominopelvic pathology. 2. No significant changes from comparison imaging identified. COMMENTS: Consistent with the [employer]'s Incidental Findings Committee white paper (J Am Gavino Radiol 2018): Any incidental renal lesion less than 1 cm or classified as too small to characterize, or any incidental cystic renal lesion characterized as simple-appearing, is likely benign. No follow-up imaging is recommended for these lesions per consensus recommendations based on imaging criteria. Radiation Dose CTDIVOL = (mGy): DLP = 1650.58 (mGy-cm)
--- NOTE | 2021-04-20 16:50 | ED_ITS ---
Documented by User: Roberto Shea DO 04/22/21 06:20 HPI - Nausea/Vomiting/Diarrhea General: Chief complaint: Nausea/Vomiting/Diarrhea Stated complaint: vomiting Time Seen by Provider: 04/20/21 16:41 History of Present Illness: HPI Narrative: 61-year-old male presents emergency room nausea vomiting and diarrhea mild cough. He has been vomiting bile overnight. He has previously been vaccinated for Covid. He states he has been trying to cut back on drinking. He has not drank since yesterday morning. He is not previously had seizures. MD elicited complaint: nausea, vomiting and abdominal pain Onset (ago): hour(s) Description of vomiting: watery, bilious and bloody Associated nausea: Yes Associated abdominal pain: Yes Location of pain: Periumbilical Pain consistency: constant Severity: moderate Quality: cramping Exacerbating factors: none Relieving factors: none Associated symtoms: Reports bloating, cough, anorexia and nausea; Denies altered mental status, anxiety, change in vision, chest pain, diaphoresis, decreased urine output, dizziness, dysuria, epistaxis, fatigue, fecal incontinence, fevers/chills, headache(s), malaise, myalgias, numbness, palpitations, rash, short of breath, syncope, tenesmus, tinnitus or weakness Review of Systems Const: Denies: fatigue, malaise or diaphoresis Eyes: Denies: change in vision ENMT: Denies: tinnitus or epistaxis Card: Denies: chest pain, palpitations or syncope Resp: Denies: dyspnea, productive cough or non-productive cough GI: Reports: nausea and bloating; Denies: fecal incontinence : Denies: dysuria Skin/Breast: Denies: rash or pruritus Neuro: Denies: headache(s) or dizziness Psych: Denies: anxiety PFSH ED PFSH: Medical History Alcohol abuse Alcoholism Anemia BPH (benign prostatic hyperplasia) COPD (chronic obstructive pulmonary disease) Diverticulosis GERD (gastroesophageal reflux disease) Hiatal hernia History of colon polyps Hypertension Incarcerated hernia Restless leg syndrome Tobacco abuse Surgical History History of cholecystectomy History of colonoscopy with polypectomy (~2016) 2019- dr. jeffries History of right shoulder replacement (~12/2019) Family History Denies family history of Chronic kidney disease (CKD) Social History Smoking and tobacco status: current every day smoker Alcohol intake: current Household members: family Housing: House Physical Exam Const: COMMON NORMALS: no acute distress EXAM LIMITATIONS: no altered mental status GENERAL APPEARANCE: cooperative and comfortable ORIENTATION/CONSCIOUSNESS: Yes awake, Yes oriented to person, Yes oriented to place and Yes oriented to time HENMT: COMMON NORMALS: normocephalic, atraumatic and hearing grossly normal bilaterally HEAD & SCALP: normocephalic and atraumatic Neck/C-Spine: COMMON NORMALS: no JVD Resp: COMMON NORMALS: normal respiratory effort, No retractions, No use of accessory muscles and clear to auscultation bilaterally AUSCULTATION: clear to auscultation bilaterally Cardio: COMMON NORMALS: no JVD, regular rate, regular rhythm and No murmurs present (Cardio) RATE: regular rate RHYTHM: regular rhythm GI: COMMON NORMALS: No hepatosplenomegaly present AUSCULTATION: Yes normoactive bowel sounds PALPATION: Yes Tenderness to palpation present (GI) (Periumbilical), No Guarding due to palpation present (GI) and Yes No hepatosplenomegaly present Extremity: COMMON NORMALS: normal to inspection, capillary refill normal, no clubbing, cyanosis or edema, no calf tenderness and no pedal edema Neuro: SENSORIUM/ORIENTATION: Yes oriented to person, Yes oriented to place and Yes oriented to time Skin: COMMON NORMALS: no rashes or lesions noted GENERAL SKIN EXAM: no rashes or lesions noted Course Vital Signs: Vital signs: Vital Signs Temperature 98.5 F 04/20/21 15:16 Pulse Rate 78 04/20/21 23:59 Respiratory Rate 18 04/20/21 23:59 Blood Pressure 147/89 04/20/21 23:59 Pulse Oximetry 93 04/20/21 23:59 MDM - Nausea/Vomiting/Diarrhea MDM Narrative: Medical decision making narrative: Care turned over to Dr. Campbell at change of shift see his notes for final diagnosis and disposition. Lab Data: Labs: Lab Results 04/20/21 04/20/21 04/20/21 Range/Units 17:15 17:42 17:42 WBC 8.1 (4.0-10.0) 10^3/ uL RBC 4.45 (4.1-5.3) 10^6/u L Hgb 9.8 L (11.7-16.6) g/dL Hct 35.2 L (42.0-52.0) % MCV 79.1 L (80-94) fl MCH 22.0 L (28.0-34.0) pg MCHC 27.8 L (30.0-36.0) g/dL RDW 20.2 H (12.1-15.1) % Plt Count 234 (130-400) 10^3/c mm MPV 10.5 H (7.4-10.4) fL Neut % (Auto) 73.8 % Lymph % (Auto) 11.8 % [place] % (Auto) 13.3 % Eos % (Auto) 0.1 % Baso % (Auto) 0.5 % Neut # (Auto) 5.98 (1.8-7.7) 10^3/u L Lymph # (Auto) 1.0 (0.8-4.8) 10^3/u L [place] # (Auto) 1.1 H (0.2-0.9) 10^3/u L Eos # (Auto) 0.0 (0.0-0.8) 10^3/u L Baso # (Auto) 0.0 (0.0-0.1) 10^3/u L Nucleated RBC % (a uto) 0.4 % Nucleated RBCs # 0.0 /100WBC Sodium 141 (136-145) mmol/L Potassium 3.6 (3.5-5.1) mmol/L Chloride 103 (98-107) mmol/L Carbon Dioxide 26 (22-29) mmol/L Anion Gap 15.6 (5-19) BUN 8 (8-23) mg/dL Creatinine 0.5 L (0.7-1.2) mg/dL GFR Calculation 169.6 H (90-130) mL/min Glucose 93 (65-115) mg/dL Calculated Osmolal ity 290 (285-295) mOsm/k g Calcium 7.9 L (8.5-10.5) mg/dL Total Bilirubin 0.7 (0.15-1.2) mg/dL AST 37 (0-40) U/L ALT 16 (0-41) U/L Alkaline Phosphata se 91 (40-130) IU/L Creatine Kinase 54 (39-308) U/L Total Protein 6.6 (6.6-8.7) g/dL Albumin 3.6 (3.5-5.2) g/dL Globulin 3.0 (1.3-4.6) g/dL Lipase 27 (13-60) U/L Urine Color (Yellow) Urine Appearance (CLEAR) Urine pH (5-7) Ur Specific Gravit y (1.005-1.030) Urine Protein (Negative) Urine Glucose (UA) (Normal) Urine Ketones (Negative) Urine Blood (Negative) Urine Nitrate (Negative) Urine Bilirubin (Negative) Urine Urobilinogen (Negative) mg/dL Ur Leukocyte Hollie ase (Negative) Nasal/Oral COVID-1 9 PCR SARS-CoV-2 Ag (Rap id) Negative (Negative) 04/20/21 04/20/21 Range/Units 18:48 20:31 WBC (4.0-10.0) 10^3/ uL RBC (4.1-5.3) 10^6/u L Hgb (11.7-16.6) g/dL Hct (42.0-52.0) % MCV (80-94) fl MCH (28.0-34.0) pg MCHC (30.0-36.0) g/dL RDW (12.1-15.1) % Plt Count (130-400) 10^3/c mm MPV (7.4-10.4) fL Neut % (Auto) % Lymph % (Auto) % [place] % (Auto) % Eos % (Auto) % Baso % (Auto) % Neut # (Auto) (1.8-7.7) 10^3/u L Lymph # (Auto) (0.8-4.8) 10^3/u L [place] # (Auto) (0.2-0.9) 10^3/u L Eos # (Auto) (0.0-0.8) 10^3/u L Baso # (Auto) (0.0-0.1) 10^3/u L Nucleated RBC % (a uto) % Nucleated RBCs # /100WBC Sodium (136-145) mmol/L Potassium (3.5-5.1) mmol/L Chloride (98-107) mmol/L Carbon Dioxide (22-29) mmol/L Anion Gap (5-19) BUN (8-23) mg/dL Creatinine (0.7-1.2) mg/dL GFR Calculation (90-130) mL/min Glucose (65-115) mg/dL Calculated Osmolal ity (285-295) mOsm/k g Calcium (8.5-10.5) mg/dL Total Bilirubin (0.15-1.2) mg/dL AST (0-40) U/L ALT (0-41) U/L Alkaline Phosphata se (40-130) IU/L Creatine Kinase (39-308) U/L Total Protein (6.6-8.7) g/dL Albumin (3.5-5.2) g/dL Globulin (1.3-4.6) g/dL Lipase (13-60) U/L Urine Color Yellow (Yellow) Urine Appearance Clear (CLEAR) Urine pH 7 (5-7) Ur Specific Gravit y 1.005 (1.005-1.030) Urine Protein Neg (Negative) Urine Glucose (UA) Norm (Normal) Urine Ketones Negative (Negative) Urine Blood Neg (Negative) Urine Nitrate Negative (Negative) Urine Bilirubin Neg (Negative) Urine Urobilinogen Norm (Negative) mg/dL Ur Leukocyte Hollie ase Negative (Negative) Nasal/Oral COVID-1 9 PCR Cancelled SARS-CoV-2 Ag (Rap id) (Negative) Discharge Plan Discharge Patient Disposition: Home Clinical Impression: Nausea & vomiting, Hypertension Condition: Stable Prescriptions: No Action ropinirole 1 mg tablet 1 - 2 mg PO BEDTIME PRN (Reason: Restless Leg(S)) RF: 0 tramadol 50 mg tablet 50 mg PO Q4H PRN (Reason: Pain) RF: 0 tamsulosin 0.4 mg capsule 0.4 mg PO BID RF: 0 pantoprazole 40 mg tablet,delayed release (DR/EC) 40 mg PO BID RF: 0 albuterol sulfate 90 mcg/actuation HFA aerosol inhaler 2 puff INHALATION QID PRN (Reason: Shortness Of Breath) RF: 0 lisinopril 2.5 mg tablet 2.5 mg PO BID PRN (Reason: Blood Pressure) RF: 0 doxepin 50 mg capsule 50 mg PO BEDTIME PRN (Reason: Sleep) RF: 0 tizanidine 4 mg tablet 4 mg PO TID PRN (Reason: muscle cramps) RF: 0 lorazepam 0.5 mg tablet 0.5 - 1 mg PO TID PRN (Reason: Anxiety) RF: 0 cyanocobalamin (vitamin B-12) 1,000 mcg/mL solution 1,000 mcg IM Q30D RF: 0 ondansetron 4 mg tablet,disintegrating 4 mg PO Q4H PRN (Reason: Nausea) RF: 0 bupropion HCl 150 mg tablet sustained-release 12 hr 150 mg PO BID RF: 0 ergocalciferol (vitamin D2) 1,250 mcg (50,000 unit) capsule 50,000 unit PO Q7D RF: 0 escitalopram oxalate 20 mg tablet 20 mg PO DAILY RF: 0 aspirin 81 mg tablet,delayed release (DR/EC) 81 mg PO QAM RF: 0 thiamine HCl (vitamin B1) 100 mg tablet 100 mg PO DAILY Qty: 30 RF: 0 folic acid 1 mg tablet 1,000 mcg PO DAILY Qty: 30 RF: 0 Eliquis 5 mg tablet 5 mg PO BID Qty: 60 RF: 4 potassium chloride 20 mEq tablet extended release 20 meq PO DAILY Qty: 3 RF: 0 Discharge Orders: Discharge ED (Routine); Ordered 04/21/21 Ordered By: Honorio Campbell Referrals: Hali Mcneal APN [Primary Care Provider] - Discharge Diet: Usual diet Discharge Activity: Resume usual activity Patient Instructions: Acute Nausea and Vomiting (ED), Abdominal Pain (ED), Opioid Safety Activity Restrictions/Additional Instructions: Thank you for visiting the emergency department. You were seen and evaluated for nausea and vomiting. The exact cause of your symptoms is somewhat unclear. Please ensure that you are staying hydrated and we recommend clear liquid diet until symptoms begin to improve and then you can advance as tolerated. Please return to the emergency department for inability tolerate oral intake or anything else that you are concerned about and feel needs emergency department evaluation. Sign Out Sign Out Data: Patient Sign Out occurred on 04/20/21 at 19:04. Patient's care was discussed, and care was transferred from to Honorio Campbell MD. Coding Level of Care Code ED Child Care Development Specialist for Chg Fwd Exam Comprehensive Documented by User: Honorio Campbell MD 04/21/21 21:07 HPI - Nausea/Vomiting/Diarrhea General: Chief complaint: Nausea/Vomiting/Diarrhea Stated complaint: vomiting Time Seen by Provider: 04/20/21 16:41 PFSH ED PFSH: Medical History Alcohol abuse Alcoholism Anemia BPH (benign prostatic hyperplasia) COPD (chronic obstructive pulmonary disease) Diverticulosis GERD (gastroesophageal reflux disease) Hiatal hernia History of colon polyps Hypertension Incarcerated hernia Restless leg syndrome Tobacco abuse Surgical History History of cholecystectomy History of colonoscopy with polypectomy (~2016) 2019- dr. jeffries History of right shoulder replacement (~12/2019) Family History Denies family history of Chronic kidney disease (CKD) Social History Smoking and tobacco status: current every day smoker Alcohol intake: current Household members: family Housing: House Course Vital Signs: Vital signs: Vital Signs Temperature 98.5 F 04/20/21 15:16 Pulse Rate 78 04/20/21 23:59 Respiratory Rate 18 04/20/21 23:59 Blood Pressure 147/89 04/20/21 23:59 Pulse Oximetry 93 04/20/21 23:59 MDM - Nausea/Vomiting/Diarrhea MDM Narrative: Medical decision making narrative: Patient care handoff received from day ED physician Dr. Shea pending CT and reevaluation. Patient felt improved with treatment. CT negative for acute findings. No evidence of acute alcohol withdrawal on clinical exam. Patient given discharge information and felt safe for discharge. Honorio Campbell MD Emergency Medicine Lab Data: Labs: Lab Results 04/20/21 04/20/21 04/20/21 Range/Units 17:15 17:42 17:42 WBC 8.1 (4.0-10.0) 10^3/ uL RBC 4.45 (4.1-5.3) 10^6/u L Hgb 9.8 L (11.7-16.6) g/dL Hct 35.2 L (42.0-52.0) % MCV 79.1 L (80-94) fl MCH 22.0 L (28.0-34.0) pg MCHC 27.8 L (30.0-36.0) g/dL RDW 20.2 H (12.1-15.1) % Plt Count 234 (130-400) 10^3/c mm MPV 10.5 H (7.4-10.4) fL Neut % (Auto) 73.8 % Lymph % (Auto) 11.8 % [place] % (Auto) 13.3 % Eos % (Auto) 0.1 % Baso % (Auto) 0.5 % Neut # (Auto) 5.98 (1.8-7.7) 10^3/u L Lymph # (Auto) 1.0 (0.8-4.8) 10^3/u L [place] # (Auto) 1.1 H (0.2-0.9) 10^3/u L Eos # (Auto) 0.0 (0.0-0.8) 10^3/u L Baso # (Auto) 0.0 (0.0-0.1) 10^3/u L Nucleated RBC % (a uto) 0.4 % Nucleated RBCs # 0.0 /100WBC Sodium 141 (136-145) mmol/L Potassium 3.6 (3.5-5.1) mmol/L Chloride 103 (98-107) mmol/L Carbon Dioxide 26 (22-29) mmol/L Anion Gap 15.6 (5-19) BUN 8 (8-23) mg/dL Creatinine 0.5 L (0.7-1.2) mg/dL GFR Calculation 169.6 H (90-130) mL/min Glucose 93 (65-115) mg/dL Calculated Osmolal ity 290 (285-295) mOsm/k g Calcium 7.9 L (8.5-10.5) mg/dL Total Bilirubin 0.7 (0.15-1.2) mg/dL AST 37 (0-40) U/L ALT 16 (0-41) U/L Alkaline Phosphata se 91 (40-130) IU/L Creatine Kinase 54 (39-308) U/L Total Protein 6.6 (6.6-8.7) g/dL Albumin 3.6 (3.5-5.2) g/dL Globulin 3.0 (1.3-4.6) g/dL Lipase 27 (13-60) U/L Urine Color (Yellow) Urine Appearance (CLEAR) Urine pH (5-7) Ur Specific Gravit y (1.005-1.030) Urine Protein (Negative) Urine Glucose (UA) (Normal) Urine Ketones (Negative) Urine Blood (Negative) Urine Nitrate (Negative) Urine Bilirubin (Negative) Urine Urobilinogen (Negative) mg/dL Ur Leukocyte Hollie ase (Negative) Nasal/Oral COVID-1 9 PCR SARS-CoV-2 Ag (Rap id) Negative (Negative) 04/20/21 04/20/21 Range/Units 18:48 20:31 WBC (4.0-10.0) 10^3/ uL RBC (4.1-5.3) 10^6/u L Hgb (11.7-16.6) g/dL Hct (42.0-52.0) % MCV (80-94) fl MCH (28.0-34.0) pg MCHC (30.0-36.0) g/dL RDW (12.1-15.1) % Plt Count (130-400) 10^3/c mm MPV (7.4-10.4) fL Neut % (Auto) % Lymph % (Auto) % [place] % (Auto) % Eos % (Auto) % Baso % (Auto) % Neut # (Auto) (1.8-7.7) 10^3/u L Lymph # (Auto) (0.8-4.8) 10^3/u L [place] # (Auto) (0.2-0.9) 10^3/u L Eos # (Auto) (0.0-0.8) 10^3/u L Baso # (Auto) (0.0-0.1) 10^3/u L Nucleated RBC % (a uto) % Nucleated RBCs # /100WBC Sodium (136-145) mmol/L Potassium (3.5-5.1) mmol/L Chloride (98-107) mmol/L Carbon Dioxide (22-29) mmol/L Anion Gap (5-19) BUN (8-23) mg/dL Creatinine (0.7-1.2) mg/dL GFR Calculation (90-130) mL/min Glucose (65-115) mg/dL Calculated Osmolal ity (285-295) mOsm/k g Calcium (8.5-10.5) mg/dL Total Bilirubin (0.15-1.2) mg/dL AST (0-40) U/L ALT (0-41) U/L Alkaline Phosphata se (40-130) IU/L Creatine Kinase (39-308) U/L Total Protein (6.6-8.7) g/dL Albumin (3.5-5.2) g/dL Globulin (1.3-4.6) g/dL Lipase (13-60) U/L Urine Color Yellow (Yellow) Urine Appearance Clear (CLEAR) Urine pH 7 (5-7) Ur Specific Gravit y 1.005 (1.005-1.030) Urine Protein Neg (Negative) Urine Glucose (UA) Norm (Normal) Urine Ketones Negative (Negative) Urine Blood Neg (Negative) Urine Nitrate Negative (Negative) Urine Bilirubin Neg (Negative) Urine Urobilinogen Norm (Negative) mg/dL Ur Leukocyte Hollie ase Negative (Negative) Nasal/Oral COVID-1 9 PCR Cancelled SARS-CoV-2 Ag (Rap id) (Negative) Discharge Plan Discharge Patient Disposition: Home Clinical Impression: Nausea & vomiting, Hypertension Condition: Stable Prescriptions: No Action ropinirole 1 mg tablet 1 - 2 mg PO BEDTIME PRN (Reason: Restless Leg(S)) RF: 0 tramadol 50 mg tablet 50 mg PO Q4H PRN (Reason: Pain) RF: 0 tamsulosin 0.4 mg capsule 0.4 mg PO BID RF: 0 pantoprazole 40 mg tablet,delayed release (DR/EC) 40 mg PO BID RF: 0 albuterol sulfate 90 mcg/actuation HFA aerosol inhaler 2 puff INHALATION QID PRN (Reason: Shortness Of Breath) RF: 0 lisinopril 2.5 mg tablet 2.5 mg PO BID PRN (Reason: Blood Pressure) RF: 0 doxepin 50 mg capsule 50 mg PO BEDTIME PRN (Reason: Sleep) RF: 0 tizanidine 4 mg tablet 4 mg PO TID PRN (Reason: muscle cramps) RF: 0 lorazepam 0.5 mg tablet 0.5 - 1 mg PO TID PRN (Reason: Anxiety) RF: 0 cyanocobalamin (vitamin B-12) 1,000 mcg/mL solution 1,000 mcg IM Q30D RF: 0 ondansetron 4 mg tablet,disintegrating 4 mg PO Q4H PRN (Reason: Nausea) RF: 0 bupropion HCl 150 mg tablet sustained-release 12 hr 150 mg PO BID RF: 0 ergocalciferol (vitamin D2) 1,250 mcg (50,000 unit) capsule 50,000 unit PO Q7D RF: 0 escitalopram oxalate 20 mg tablet 20 mg PO DAILY RF: 0 aspirin 81 mg tablet,delayed release (DR/EC) 81 mg PO QAM RF: 0 thiamine HCl (vitamin B1) 100 mg tablet 100 mg PO DAILY Qty: 30 RF: 0 folic acid 1 mg tablet 1,000 mcg PO DAILY Qty: 30 RF: 0 Eliquis 5 mg tablet 5 mg PO BID Qty: 60 RF: 4 potassium chloride 20 mEq tablet extended release 20 meq PO DAILY Qty: 3 RF: 0 Discharge Orders: Discharge ED (Routine); Ordered 04/21/21 Ordered By: Honorio Campbell Referrals: Hali Mcneal APN [Primary Care Provider] - Discharge Diet: Usual diet Discharge Activity: Resume usual activity Patient Instructions: Acute Nausea and Vomiting (ED), Abdominal Pain (ED), Opioid Safety Activity Restrictions/Additional Instructions: Thank you for visiting the emergency department. You were seen and evaluated for nausea and vomiting. The exact cause of your symptoms is somewhat unclear. Please ensure that you are staying hydrated and we recommend clear liquid diet until symptoms begin to improve and then you can advance as tolerated. Please return to the emergency department for inability tolerate oral intake or anything else that you are concerned about and feel needs emergency department evaluation. Sign Out Sign Out Data: Patient Sign Out occurred on 04/20/21 at 19:04. Patient's care was discussed, and care was transferred from to Honorio Campbell MD. Coding Level of Care Code ED Child Care Development Specialist for g Fwd Exam Comprehensive
[2021-04-20] MEDS: ondansetron 2 mg/ML SDV 2 mL 4 MG IVP (17:45)
[2021-04-20 17:49] LABS: Basophils % 0.5 %; Eosinophils % 0.1 %; Hematocrit 35.2 % (42.0-52.0); Hemoglobin 9.8 g/dL (11.7-16.6); Lymphocytes % 11.8 %; Mean Corpuscular HGB Conc 27.8 g/dL (30.0-36.0); Mean Corpuscular Volume 79.1 fl (80-94); Mean Platelet Volume 10.5 fL (7.4-10.4); Monocytes # 1.1 10^3/uL (0.2-0.9); Monocytes % 13.3 %; Neutrophils # 5.98 10^3/uL (1.8-7.7); Neutrophils % 73.8 %; Nucleated Red Blood Cells % 0.4 %; Platelet Count 234 10^3/cmm (130-400); Red Blood Count 4.45 10^6/uL (4.1-5.3); Red Cell Distribution Width 20.2 % (12.1-15.1); White Blood Count 8.1 10^3/uL (4.0-10.0)
[2021-04-20 18:04] LABS: SARS Covid-2 Antigen Negative (Negative)
[2021-04-20 18:06] LABS: Alanine Aminotransferase 16 U/L (0-41); Albumin Level 3.6 g/dL (3.5-5.2); Alkaline Phosphatase 91 IU/L (40-130); Anion Gap 15.6 (5-19); Aspartate Amino Transferase 37 U/L (0-40); Blood Urea Nitrogen 8 mg/dL (8-23); Calcium 7.9 mg/dL (8.5-10.5); Carbon Dioxide 26 mmol/L (22-29); Chloride 103 mmol/L (98-107); Creatinine Clr Calc Pharmacy 162.8098; Glomerular Filtration Rate 169.6 mL/min (90-130); Glucose 93 mg/dL (65-115); Lipase 27 U/L (13-60); Osmolality Calculated 290 mOsm/kg (285-295); Potassium 3.6 mmol/L (3.5-5.1); Sodium 141 mmol/L (136-145); Total Bilirubin 0.7 mg/dL (0.15-1.2); Total Protein 6.6 g/dL (6.6-8.7)
[2021-04-20] MEDS: sodium chloride 0.9% 500 ML 999 ML IV ×2 (18:37→22:08)
[2021-04-20] MEDS: LORazepam 2 mg/mL INJ 1 mL IVP (18:41)
[2021-04-20] MEDS: iohexol 300 mg/mL 100 mL Btl IV (19:00)
[2021-04-20 19:34] VITALS: BP 157/102; PULSE 121; RESP 20; O2SAT 96
[2021-04-20 20:54] LABS: Add Urine Microscopic? NO; Charge for UA Resulting for Rev
[2021-04-20 21:08] LABS: Bilirubin Urine Neg (Negative); Blood Urine Neg (Negative); Glucose Urine UA Norm (Normal); Ketones Urine Negative (Negative); Leukocyte Esterase Urine Negative (Negative); Nitrate Urine Negative (Negative); Protein Urine Neg (Negative); Specific Gravity, Urine 1.005 (1.005-1.030); Urine Appearance Clear (CLEAR); Urine Color Yellow (Yellow); Urobilinogen Urine Norm (Negative); pH Urine 7 (5-7)
[2021-04-20 22:23] VITALS: BP 181/102; PULSE 86; RESP 18; O2SAT 93
[2021-04-20 23:13] LABS: Creatine Phosphokinase 54 U/L (39-308)
[2021-04-20 23:59] VITALS: BP 147/89; PULSE 78; RESP 18; O2SAT 93
[2021-04-22 14:02] LABS: Quest SARS-CoV-2 RNA NOT DETECTED (NOT DETECTED)
== END 2021-04-20 23:59 | disposition home or self-care (01) ==
PROVIDERS: Family Medicine; Emergency Provider Emergency Medicine; PCP Nurse Practitioner Family
DX: R11.2 Nausea with vomiting, unspecified (principal); I10 Essential (primary) hypertension; Z79.82 Long term (current) use of aspirin; Z79.01 Long term (current) use of anticoagulants; J44.9 Chronic obstructive pulmonary disease, unspecified; F17.210 Nicotine dependence, cigarettes, uncomplicated; Z20.822 Contact with and (suspected) exposure to COVID-19
CPT/HCPCS: 36415; 71045; 74177; 80053; 81003; 82550; 83690; 85025; 87426; 87635; 93005; 96374; 96375; 99284; J2060; J2405; J7040; Q9967

== ENCOUNTER 2021-06-04 12:32 | Inpatient (IN) | payer MEDICARE, MEDICAID, SELFPAY ==
[2021-06-04 12:49] VITALS: RESP 20; BMI 26.6
[2021-06-04 14:24] LABS: Basophils # 0.1 10^3/uL (0.0-0.1); Basophils % 0.8 %; Eosinophils # 0.1 10^3/uL (0.0-0.8); Eosinophils % 1.9 %; Hematocrit 37.4 % (42.0-52.0); Hemoglobin 10.5 g/dL (11.7-16.6); Lymphocytes # 2.3 10^3/uL (0.8-4.8); Lymphocytes % 30.7 %; Mean Corpuscular HGB Conc 28.1 g/dL (30.0-36.0); Mean Corpuscular Hemoglobin 21.2 pg (28.0-34.0); Mean Corpuscular Volume 75.6 fl (80-94); Mean Platelet Volume 9.7 fL (7.4-10.4); Monocytes # 0.8 10^3/uL (0.2-0.9); Monocytes % 11.2 %; Neutrophils # 4.14 10^3/uL (1.8-7.7); Nucleated Red Blood Cells % 0 %; Platelet Count 401 10^3/cmm (130-400); Red Blood Count 4.95 10^6/uL (4.1-5.3); Red Cell Distribution Width 21.2 % (12.1-15.1); White Blood Count 7.5 10^3/uL (4.0-10.0)
[2021-06-04 14:27] VITALS: BP 130/94; PULSE 129; RESP 18; TEMP 37.1; O2SAT 98
[2021-06-04 14:46] LABS: Alanine Aminotransferase 34 U/L (0-41); Albumin Level 3.8 g/dL (3.5-5.2); Alkaline Phosphatase 142 IU/L (40-130); Anion Gap 17.7 (5-19); Aspartate Amino Transferase 113 U/L (0-40); Blood Urea Nitrogen 4 mg/dL (8-23); Calcium 8.3 mg/dL (8.5-10.5); Carbon Dioxide 26 mmol/L (22-29); Chloride 102 mmol/L (98-107); Globulin 3.6 g/dL (1.3-4.6); Glomerular Filtration Rate 137.4 mL/min (90-130); Glucose 130 mg/dL (65-115); Osmolality Calculated 293 mOsm/kg (285-295); Potassium 3.7 mmol/L (3.5-5.1); Sodium 142 mmol/L (136-145); Total Bilirubin 0.4 mg/dL (0.15-1.2); Total Protein 7.4 g/dL (6.6-8.7)
[2021-06-04 14:47] LABS: Ammonia 29 umol/L (16-60)
[2021-06-04 14:48] LABS: Acetaminophen < 5.0 ug/mL (10-30); Salicylate < 0.3 mg/dL (3-10)
[2021-06-04 15:54] VITALS: PULSE 101; O2SAT 88
--- NOTE | 2021-06-04 15:55 | W.ED.PSYCH ---
HPI - Psych General: Chief Complaint: Psychiatric Symptoms Stated Complaint: si/hi Time Seen by Provider: 06/04/21 12:45 History of Present Illness: HPI Narrative: 61-year-old male presents emergency room with suicidal ideation. Patient is extremely depressed. He admits to being a heavy drinker for several decades. His several years ago and he is estranged from all of his children. He admits to have been drinking earlier today. He was here earlier today left with his brother because he was frustrated by his perception that he would not get the help he wanted. He had seen one of the other ER physicians and then left with his brother. 96-hour hold paperwork was started based on the triage nurse and his interaction with the other physician. We were able to make contact with the patient and his brother and they agreed to come back. On arrival he is very agreeable. He is somewhat tearful but he is awake and conversant admits to having been drinking in the interim. He denies having done anything specifically to harm himself today. Patient states he had plan to harm himself or running out into traffic. MD complaint: suicidal ideation and feels depressed Onset (ago): unknown Duration: constant History of same: Yes Relieving factors: none Exacerbating factors: alcohol Context: recent alcohol abuse Associated psychiatric symptoms: depression and suicidal ideation Associated symptoms: Reports depression and suicidal ideation; Deny auditory hallucinations, visual hallucinations, delusions, homicidal ideation or racing thoughts Treatments prior to arrival: placed on mental health hold If self harm: admits thoughts of self harm and has plan Review of Systems Const: Denies: fever(s), chills, body aches, change in appetite, fatigue or malaise ENMT: Denies: throat pain, ear or mastoid pain, nasal discharge or nasal congestion Card: Denies: chest pain, edema, dyspnea on exertion or orthopnea Resp: Denies: dyspnea, productive cough or non-productive cough GI: Denies: abdominal pain, nausea, vomiting, hematemesis, coffee ground emesis, diarrhea, constipation, bloating, hematochezia or melena : Denies: flank pain, dysuria, urinary frequency or urinary urgency Skin/Breast: Denies: rash or pruritus Psych: Reports: depression and suicidal ideation; Denies: visual hallucinations, auditory hallucinations or homicidal ideation PFSH ED PFSH: Medical History Alcohol abuse Alcoholism Anemia BPH (benign prostatic hyperplasia) COPD (chronic obstructive pulmonary disease) Diverticulosis GERD (gastroesophageal reflux disease) Hiatal hernia History of colon polyps Hypertension Incarcerated hernia Restless leg syndrome Tobacco abuse Surgical History History of cholecystectomy History of colonoscopy with polypectomy (~2016) 2019- dr. jeffries History of right shoulder replacement (~12/2019) Family History Denies family history of Chronic kidney disease (CKD) Social History Smoking and tobacco status: current every day smoker Alcohol intake: current Household members: family Housing: House Physical Exam Const: COMMON NORMALS: no acute distress GENERAL APPEARANCE: cooperative and comfortable ORIENTATION/CONSCIOUSNESS: Yes awake HENMT: COMMON NORMALS: normocephalic, atraumatic and hearing grossly normal bilaterally HEAD & SCALP: normocephalic and atraumatic Eye: COMMON NORMALS: Equal, round and reactive pupils present, EOMs intact bilaterally, conjunctivae normal and no scleral icterus CONJUNCTIVA: Yes conjunctivae normal PUPIL: Yes Equal, round and reactive pupils present Neck/C-Spine: COMMON NORMALS: no JVD Resp: COMMON NORMALS: normal respiratory effort, No retractions, No use of accessory muscles and clear to auscultation bilaterally AUSCULTATION: clear to auscultation bilaterally Cardio: COMMON NORMALS: no JVD, regular rate, regular rhythm and No murmurs present (Cardio) RATE: regular rate RHYTHM: regular rhythm GI: COMMON NORMALS: Soft to palpation and No hepatosplenomegaly present AUSCULTATION: Yes normoactive bowel sounds PALPATION: Yes Soft to palpation, No Tenderness to palpation present (GI), No Guarding due to palpation present (GI) and Yes No hepatosplenomegaly present Extremity: COMMON NORMALS: normal to inspection, capillary refill normal, no clubbing, cyanosis or edema, no calf tenderness and no pedal edema Psych: THOUGHT CONTENT: No delusions Skin: COMMON NORMALS: no rashes or lesions noted GENERAL SKIN EXAM: no rashes or lesions noted Course Vital Signs: Vital signs: Vital Signs Temperature 98.7 F 06/04/21 14:27 Pulse Rate 101 H 06/04/21 15:54 Respiratory Rate 18 06/04/21 14:27 Blood Pressure 130/94 06/04/21 14:27 Pulse Oximetry 88 L 06/04/21 15:54 MDM - Psych MDM Narrative: Medical decision making narrative: Suicidal ideation in concert with longstanding alcohol abuse. Discussed Dr. Ríos patient on a 96-hour hold is admitted to the [facility] with [facility] protocol. Orders written. Lab Data: Labs: Lab Results 06/04/21 06/04/21 06/04/21 14:17 14:17 14:17 WBC 7.5 10^3/uL 10^3/ uL (4.0-10.0) RBC 4.95 10^6/uL 10^6 /uL (4.1-5.3) Hgb 10.5 g/dL L g/dL (11.7-16.6) Hct 37.4 % L % (42.0-52.0) MCV 75.6 fl L fl (80-94) MCH 21.2 pg L pg (28.0-34.0) MCHC 28.1 g/dL L g/dL (30.0-36.0) RDW 21.2 % H % (12.1-15.1) Plt Count 401 10^3/cmm H 10 ^3/cmm (130-400) MPV 9.7 fL fL (7.4-10.4) Neut % (Auto) 55.0 % % Lymph % (Auto) 30.7 % % [place] % (Auto) 11.2 % % Eos % (Auto) 1.9 % % Baso % (Auto) 0.8 % % Neut # (Auto) 4.14 10^3/uL 10^3 /uL (1.8-7.7) Lymph # (Auto) 2.3 10^3/uL 10^3/ uL (0.8-4.8) [place] # (Auto) 0.8 10^3/uL 10^3/ uL (0.2-0.9) Eos # (Auto) 0.1 10^3/uL 10^3/ uL (0.0-0.8) Baso # (Auto) 0.1 10^3/uL 10^3/ uL (0.0-0.1) Nucleated RBC % (a uto) 0 % % Nucleated RBCs # 0.0 /100WBC /100W BC Sodium 142 mmol/L mmol/L (136-145) Potassium 3.7 mmol/L mmol/L (3.5-5.1) Chloride 102 mmol/L mmol/L (98-107) Carbon Dioxide 26 mmol/L mmol/L (22-29) Anion Gap 17.7 (5-19) BUN 4 mg/dL L mg/dL (8-23) Creatinine 0.6 mg/dL L mg/dL (0.7-1.2) GFR Calculation 137.4 mL/min H mL /min (90-130) Glucose 130 mg/dL H mg/dL (65-115) Calculated Osmolal ity 293 mOsm/kg mOsm/ kg (285-295) Calcium 8.3 mg/dL L mg/dL (8.5-10.5) Total Bilirubin 0.4 mg/dL mg/dL (0.15-1.2) AST 113 U/L H U/L (0-40) ALT 34 U/L U/L (0-41) Alkaline Phosphata se 142 IU/L H IU/L (40-130) Ammonia 29 umol/L umol/L (16-60) Total Protein 7.4 g/dL g/dL (6.6-8.7) Albumin 3.8 g/dL g/dL (3.5-5.2) Globulin 3.6 g/dL g/dL (1.3-4.6) Salicylates < 0.3 mg/dL L mg/ dL (3-10) Acetaminophen < 5.0 ug/mL L ug/ mL (10-30) Discharge Plan Discharge Patient Disposition: Admitted As Inpatient Admit Provider: Gonzalo Ríos Clinical Impression: Suicidal ideation, ETOH abuse Condition: Stable Coding Level of Care Code ED Shaker Out for Bg Fwd Exam Comprehensive
[2021-06-04] MEDS: acetaminophen 325 mg Tablet 650 MG PO (16:42)
[2021-06-04] MEDS: ondansetron 4 MG Tablet PO (16:44)
--- NOTE | 2021-06-04 16:46 | PC.NURSE ---
PRN ZOFRAN 4 MG GIVEN PO PER PT C/O NAUSEA
[2021-06-04] MEDS: LORazepam 2 mg/mL INJ 1 mL IM (19:58)
[2021-06-04 20:02] VITALS: BP 110/70; PULSE 81; RESP 19; TEMP 36.8; O2SAT 96
[2021-06-05] MEDS: acetaminophen 325 mg Tablet 650 MG PO (00:43)
--- NOTE | 2021-06-05 01:37 | PC.NURSE ---
Patient resting in bed at start of shift. Denies SI/HI or AVH. Denied anxiety and depression at start of shift. Remains one to one d/t being on continuous O2. 1999 CIWA-23. Significant tremors noted, continuous nausea with intermittent dry heaves. IM Ativan 2 mg given per CIWA protocol. Patient cooperative, apologetic for irritation while not feeling well. Ativan effective. CIWA 4 at 2100. Reported feeling much better and was able to drink some fluids without return of nausea. At 0043 patient took PRN Tylenol for c/o back pain rated at 8. Reports chronic back pain but that also has new knot that has come up. Nurse assessed and patient is noted to have small soft knot on left lower back. Tender to touch. Patient has been napping off and on throughout night to this time. Calm and cooperative.
[2021-06-05] MEDS: LORazepam 2 mg Tablet PO (04:45)
--- NOTE | 2021-06-05 04:49 | PC.NURSE ---
Patient complained of not feeling well and feeling short of breath. Patient's O2 sat 97% Reports feeling somewhat nauseated but not as much as earlier. Denied any urges to vomit. CIWA score of 12. Ativan 2 mg given PO per protocol. Patient vomited minutes after taking PO Ativan. Pill visualized by nurse in junior. Ativan 2 mg IM given at that time per protocol. Patient lying in bed at this time. Will reassess for effectiveness.
[2021-06-05] MEDS: LORazepam 2 mg/mL INJ 1 mL IM (04:57)
[2021-06-05 06:00] VITALS: PULSE 105; RESP 19; TEMP 36.6; O2SAT 94
--- NOTE | 2021-06-05 08:04 | PHA.FALL ---
A Pharmacy Consult Was Conducted For Raymond Coronel Due To: Jett Fall Scale Risk Level: High Fall Risk On 06/05/21 07:50 And A Medication Fall Risk Score Greater Than 10. The Recommendations Are As Follows;the medications listed below have sedation/somnolence/dizziness adverse reactions. Concomitant administration of these medications may lead to an increased/compounded risk of falls and it is recommended to avoid administration together if possible. Many of the offending medications are listed as PRN therefore extra caution must be taken when the need arises for a particular agent. - Benztropine PRN: Confusion - Trazodone PRN:somnolence - Benadryl PRN: dizziness, sedation - Haloperidol PRN: somnolence - Hydroxyzine PRN: somnolence - Loperamide PRN: somnolence, dizziness - Lorazepam PRN: Dizziness (6.9% ), Sedated (15.9% - Olanzapine PRN: dizziness, somnolence
[2021-06-05] MEDS: folic acid 1 mg Tablet PO (09:29)
[2021-06-05] MEDS: multivitamin therapeutic Tablet 1 TAB PO (09:29)
[2021-06-05] MEDS: thiamine 100 mg Tablet PO (09:29)
--- NOTE | 2021-06-05 11:18 | NPU.GN ---
[facility] Topic: Stress Map General Mood of Group: Raymond did not attend group today he was sleeping.
[2021-06-05 12:55] VITALS: BP 148/103; PULSE 107; RESP 17; TEMP 37.1; O2SAT 95
--- NOTE | 2021-06-05 14:23 | PM.NHP ---
Providers/Chief Complaint Admitting Physician: Gonzalo Ríos MD Primary Care Provider: Hali Mcneal APN Chief Complaint: si/hi HPI NPU History of Present Illness Raymond Coronel is a 61 year old male with a history of COPD, anemia, diverticulosis, BPH, GERD, hiatal hernia, hypertension, restless leg syndrome, heavy alcohol use, and depression, who was admitted for suicidal ideation in the context of alcohol intoxication. The ED note states: 61-year-old male presents emergency room with suicidal ideation. Patient is extremely depressed. He admits to being a heavy drinker for several decades. His several years ago and he is estranged from all of his children. He admits to have been drinking earlier today. He was here earlier today left with his brother because he was frustrated by his perception that he would not get the help he wanted. He had seen one of the other ER physicians and then left with his brother. 96-hour hold paperwork was started based on the triage nurse and his interaction with the other physician. We were able to make contact with the patient and his brother and they agreed to come back. On arrival he is very agreeable. He is somewhat tearful but he is awake and conversant admits to having been drinking in the interim. He denies having done anything specifically to harm himself today. Patient states he had plan to harm himself or running out into traffic. The patient confirms the above information. He describes having been depressed for a number of months. He also says he has been using alcohol heavily, drinking 1/5 of whiskey a day for a number of years. He has had 5 DUIs in his life and attended rehab once in [place], [place] in the . His longest sobriety has been a few months. He has had 1 seizure when withdrawing from alcohol a little more than a year ago. No alcohol withdrawal hallucinosis. He denies drug use. He has been smoking about 1/2 pack of cigarettes per day, but is planning on quitting now. No other history of auditory or visual hallucinations or paranoia. The patient confirms that he left the ED yesterday because he was agitated and unable to sit in one place any longer. He says he did not want to , but he did want to get rid of this feeling, and that was making him act erratically. He says he is now feeling more comfortable, although he has had some alcohol withdrawal symptoms, such as anxiety, insomnia, sweating, shaking, and nausea. The Ativan has been helpful for him. Psychiatric history: He denies ever having had a psychiatric evaluation, psychiatric medication, therapy, or psychiatric hospitalization. Substance use history: As above. Family history: The patient says his brothers have used alcohol heavily in the past. He denies mental health issues on either side of the family and denies suicide attempts or completions in the family. Psychosocial history: The patient says he was born in [place], [place] and graduated from high school in [place], [place]. He has been and 3 times. His son is 30 years old and his daughter is 29 years old. He says he has a good relationship with them and they are infrequent contact. 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 He says he is on disability for back issues. Legal history: No legal difficulties. Meds NPU Home Medications Medication Instructions Recorded Confirmed Last Taken Type albuterol sulfate 2 puff INHALATION QID PRN 11/01/19 06/05/21 07/02/20 History lisinopril 2.5 mg PO BID PRN 11/01/19 06/05/21 07/01/20 History pantoprazole 40 mg PO BID 11/01/19 06/05/21 07/02/20 History ropinirole 1 - 2 mg PO BEDTIME PRN 11/01/19 06/05/21 06/24/20 History tamsulosin 0.4 mg PO BID 11/01/19 06/05/21 07/02/20 History tramadol 50 mg PO Q4H PRN 11/01/19 06/05/21 07/01/20 History doxepin 50 mg PO BEDTIME PRN 07/02/20 06/05/21 Unknown History lorazepam 0.5 - 1 mg PO TID PRN 07/02/20 06/05/21 07/01/20 History tizanidine 4 mg PO TID PRN 07/02/20 06/05/21 06/29/20 History bupropion HCl 150 mg PO BID 03/22/21 06/05/21 Unknown History cyanocobalamin (vitamin B-12) 1,000 mcg IM Q30D 03/22/21 06/05/21 05/15/21 History ergocalciferol (vitamin D2) 50,000 unit PO Q7D 03/22/21 06/05/21 03/20/21 History escitalopram oxalate 20 mg PO DAILY 03/22/21 06/05/21 Unknown History apixaban [Eliquis] 5 mg PO BID #60 tab 03/24/21 06/05/21 Unknown Rx Allergies Allergy/AdvReac Type Severity Reaction Status Date / Time No Known Allergies Allergy Verified 04/12/21 11:32 PFSH NPU PFSH: Medical History Alcohol abuse Alcoholism Anemia BPH (benign prostatic hyperplasia) COPD (chronic obstructive pulmonary disease) Diverticulosis GERD (gastroesophageal reflux disease) Hiatal hernia History of colon polyps Hypertension Incarcerated hernia Restless leg syndrome Tobacco abuse Surgical History History of cholecystectomy History of colonoscopy with polypectomy (~2016) 2019- dr. jeffries History of right shoulder replacement (~12/2019) Family History Denies family history of Chronic kidney disease (CKD) Social History Smoking and tobacco status: current every day smoker Alcohol intake: current Household members: family Housing: House Mental Status Exam MSE Comments: I met with the patient in his room, and he was on oxygen, dressed in hospital scrubs and somewhat sloppily groomed. He was calm, cooperative, interactive, and made good eye contact. Some psychomotor agitation Speech is at a regular rate and rhythm, normal volume, good articulation, not pressured Alert, oriented to person, place, time, and situation Attention and concentration were intact to exam Memory is adequate for the interview Mood is depressed. Affect is pleasant. Thought process is logical and goal-directed. Thought content: No auditory or visual hallucinations, no suicidal ideation or homicidal ideation. No delusions or paranoia are noted. Insight and judgment are fair. Impulse control is fair as well. Vitals/I&O/Wt Last Vital Signs Temp 98.7 F 06/05/21 12:55 Pulse 107 H 06/05/21 12:55 Resp 17 06/05/21 12:55 BP 148/103 06/05/21 12:55 Pulse Ox 95 06/05/21 12:55 06/04/21 06/05/21 06/05/21 22:59 06:59 14:59 Intake Total 240 / 240 Balance 240 / 240 Weight last 48 hrs Weight 81.647 kg Data NPU : 06/04/21 14:17 06/04/21 14:17 A&P Assessment and plan (1) Major depressive disorder, recurrent, moderate: Status: Acute (2) Suicidal ideation: Status: Acute (3) ETOH abuse: Status: Acute (4) Restless leg syndrome: Status: Acute (5) BPH (benign prostatic hyperplasia): Status: Acute (6) Anemia: Status: Acute (7) GERD (gastroesophageal reflux disease): Status: Acute (8) Hypertension: Status: Acute (9) Right shoulder injury: Status: Acute (10) Status post left shoulder hemiarthroplasty: Status: Acute (11) Pulmonary emboli: Status: Acute Additional A&P Information Raymond Coronel is a 61 year old male with a history of COPD, anemia, diverticulosis, BPH, GERD, hiatal hernia, hypertension, restless leg syndrome, heavy alcohol use, and depression, who was admitted for suicidal ideation in the context of alcohol intoxication. He says he finally is committed to stopping drinking, and wants assistance withdrawing from alcohol and finding rehab support. RECOMMENDATION AND PLAN: 1. Continue current medication. On CIWA protocol for alcohol withdrawal. 2. Continue every 15 minute checks for safety. 3. Encourage individual, group and milieu therapies. 4. Encourage sober living treatment after discharge at the highest level of care to which he is willing to commit. Involuntary Hold Information 96 Hour Hold: 96 Hour Involuntary Admission: Yes 96 Hour Hold Ending Date: 06/10/21 96 Hour Hold Ending Time: 13:00 Attestations NPU Medical Necessity Statement*: Psychiatric hospitalization is medically necessary to prevent access to lethal means, to reevaluate medication, and to coordinate a safe discharge. Patient will be in the hospital for over 2 midnights. Likely length of stay is 3 to 5 days. Coding Level of Care Code Acute Sawmilling Operator for [facility] Fwd Diagnoses Major depressive disorder, recurrent, moderate F33.1 Suicidal ideation R45.851 ETOH abuse F10.10 Restless leg syndrome G25.81 BPH (benign prostatic hyperplasia) N40.0 Anemia D64.9 GERD (gastroesophageal reflux disease) K21.9 Hypertension I10 Right shoulder injury S49.91XA Status post left shoulder hemiarthroplasty Z96.612 Pulmonary emboli I26.99
--- NOTE | 2021-06-05 16:28 | PC.NURSE ---
PATIENTS SON VISITED WITH THIS HOTBED LEVER OPERATOR DURING VISITING HOURS. HE REPORTS THAT HIS FATHER HAS BEEN STRUGGLING ALL OF HIS LIFE WITH ALCOHOL AND OTHER DRUGS WELL MOST OF HIS FAMILY. ALSO REPORTS AN EXTENSIVE PSYCHIATRIC HX. STATES THAT HES BEEN TRYING TO HELP HIS DAD FOR THE PAST FIVE YEARS WITH MINIMAL LUCK AND HOPES WE CAN HELP HIM GET TO A INTERMEDIATE TREATMENT PROGRAM. RELAYED THIS TO PHYSICIAN
[2021-06-05] MEDS: pantoprazole DR 40 mg Tablet PO (17:17)
[2021-06-05] MEDS: buPROPion SR (12 HR) 150 mg Tablet PO (17:17)
[2021-06-05] MEDS: tamsulosin 0.4 mg Capsule PO (17:17)
[2021-06-05] MEDS: apixaban 5 mg Tablet PO (17:17)
[2021-06-05 19:38] VITALS: BP 134/89; PULSE 101; RESP 18; TEMP 36.7; O2SAT 96
[2021-06-06] MEDS: acetaminophen 325 mg Tablet 650 MG PO ×2 (00:40→15:23)
--- NOTE | 2021-06-06 04:22 | PC.NURSE ---
Patient calm and cooperative in evening. Reported feeling better today. Denied any SI/HI as well as AVH. Has been in bed resting throughout night with poor sleep. Does wake frequently. Complained of back pain. Took PRN Tylenol with some effect. CIWA scores have remained low. Tremors only sign noted this shift.
[2021-06-06 05:57] VITALS: BP 109/78; PULSE 119; RESP 20; TEMP 36.9; O2SAT 96
[2021-06-06] MEDS: apixaban 5 mg Tablet PO ×2 (09:30→18:21)
[2021-06-06] MEDS: buPROPion SR (12 HR) 150 mg Tablet PO ×2 (09:30→18:22)
[2021-06-06] MEDS: folic acid 1 mg Tablet PO (09:30)
[2021-06-06] MEDS: thiamine 100 mg Tablet PO (09:30)
[2021-06-06] MEDS: tamsulosin 0.4 mg Capsule PO ×2 (09:30→18:22)
[2021-06-06] MEDS: pantoprazole DR 40 mg Tablet PO ×2 (09:30→18:21)
[2021-06-06] MEDS: escitalopram 10 mg Tablet 20 MG PO (09:30)
[2021-06-06] MEDS: multivitamin therapeutic Tablet 1 TAB PO (09:30)
--- NOTE | 2021-06-06 11:46 | NPU.GN ---
[facility] Topic:My Favorite Things General Mood of Group: Raymond did attend group today with his O2. Raymond did very well and participated by sharing with the group his favorite things that he likes to do that he find therapeutic to him.
--- NOTE | 2021-06-06 12:30 | P.PN_ITS ---
Subjective NPU Subjective: Interval history: The patient says he is doing better. He has less shaking. He was able to eat. Breathing is better. No nausea. He is still sweating at night. He says his mood is better. He denies auditory and visual hallucinations. No suicidal ideation. No medication side effects. He says it makes him sick to think about drinking again. Mental Status Exam MSE Comments: I met with the patient in his room, and he was on oxygen, dressed in hospital scrubs and somewhat sloppily groomed. He was calm, cooperative, interactive, and made good eye contact. Some psychomotor agitation Speech is at a regular rate and rhythm, normal volume, good articulation, not pressured Alert, oriented to person, place, time, and situation Attention and concentration were intact to exam Memory is adequate for the interview Mood is depressed. Affect is pleasant. Thought process is logical and goal-directed. Thought content: No auditory or visual hallucinations, no suicidal ideation or homicidal ideation. No delusions or paranoia are noted. Insight and judgment are fair. Impulse control is fair as well. Vitals/I&O/Wt Last Vital Signs Temp 98.4 F 06/06/21 05:57 Pulse 119 H 06/06/21 05:57 Resp 20 H 06/06/21 05:57 BP 109/78 06/06/21 05:57 Pulse Ox 96 06/06/21 05:57 Weight last 48 hrs Weight 81.647 kg Data NPU : 06/04/21 14:17 06/04/21 14:17 A&P Assessment and plan (1) Major depressive disorder, recurrent, moderate: Status: Acute (2) Suicidal ideation: Status: Acute (3) ETOH abuse: Status: Acute (4) Pulmonary emboli: Status: Acute (5) Status post left shoulder hemiarthroplasty: Status: Acute (6) Right shoulder injury: Status: Acute (7) Restless leg syndrome: Status: Acute (8) BPH (benign prostatic hyperplasia): Status: Acute (9) Anemia: Status: Acute (10) GERD (gastroesophageal reflux disease): Status: Acute (11) Hypertension: Status: Acute Additional A&P Information Raymond Coronel is a 61 year old male with a history of COPD, anemia, diverticulosis, BPH, GERD, hiatal hernia, hypertension, restless leg syndrome, h eavy alcohol use, and depression, who was admitted for suicidal ideation in the context of alcohol intoxication. He says he finally is committed to stopping drinking, and wants assistance withdrawing from alcohol and finding rehab support. RECOMMENDATION AND PLAN: 1. Continue current medication. On CINM protocol for alcohol withdrawal. 2. Continue every 15 minute checks for safety. 3. Encourage individual, group and milieu therapies. 4. Encourage sober living treatment after discharge at the highest level of care to which he is willing to commit. Involuntary Hold Information 96 Hour Hold: 96 Hour Involuntary Admission: Yes 96 Hour Hold Ending Date: 06/10/21 96 Hour Hold Ending Time: 13:00 Attestations NPU Medical Necessity Statement*: Psychiatric hospitalization is medically necessary to prevent access to lethal means, to reevaluate medication, and to coordinate a safe discharge. Likely length of stay is 1-3 days. Coding Level of Care Code Acute Director Sanitation Bureau for [facility] Fwd Diagnoses Major depressive disorder, recurrent, moderate F33.1 Suicidal ideation R45.851 ETOH abuse F10.10 Pulmonary emboli I26.99 Status post left shoulder hemiarthroplasty Z96.612 Right shoulder injury S49.91XA Restless leg syndrome G25.81 BPH (benign prostatic hyperplasia) N40.0 Anemia D64.9 GERD (gastroesophageal reflux disease) K21.9 Hypertension I10
[2021-06-06 13:18] VITALS: PULSE 135; O2SAT 98
[2021-06-06 13:52] VITALS: BP 94/67; PULSE 122; RESP 20; TEMP 36.9; O2SAT 97
[2021-06-06] MEDS: TRAMadol 50 mg Tablet PO ×2 (15:23→20:32)
--- NOTE | 2021-06-06 20:00 | PC.NURSE ---
Upon assessment patient sitting on bed. Patient alert/oriented x 3. Patient smiling and cooperative. Patient on Oxygen 3lnc. Patient has sitter in room due to oxygen. Patient states he attended group today. He denies any depression, anxiety, SI/HI, hallucinations. He does c/o chronic pain to right shoulder and back. Will continue to monitor and follow plan of care. q 15 min safety checks per protocol.
[2021-06-06] MEDS: hyDROXYzine 25 mg Capsule 50 MG PO (20:32)
[2021-06-06 21:28] VITALS: BP 121/80; PULSE 101; RESP 18; TEMP 36.7; O2SAT 98
[2021-06-07] MEDS: acetaminophen 325 mg Tablet 650 MG PO ×2 (02:03→06:01)
[2021-06-07 06:00] VITALS: BP 121/77; PULSE 80; RESP 18; TEMP 36.6; O2SAT 97
[2021-06-07] MEDS: lisinopril 5 mg Tablet 2.5 MG PO (08:29)
[2021-06-07] MEDS: multivitamin therapeutic Tablet 1 TAB PO (08:29)
[2021-06-07] MEDS: folic acid 1 mg Tablet PO (08:29)
[2021-06-07] MEDS: buPROPion SR (12 HR) 150 mg Tablet PO (08:30)
[2021-06-07] MEDS: thiamine 100 mg Tablet PO (08:30)
[2021-06-07] MEDS: TRAMadol 50 mg Tablet PO (08:30)
[2021-06-07] MEDS: pantoprazole DR 40 mg Tablet PO (08:30)
[2021-06-07] MEDS: escitalopram 10 mg Tablet 20 MG PO (08:30)
[2021-06-07] MEDS: tamsulosin 0.4 mg Capsule PO (08:30)
[2021-06-07] MEDS: apixaban 5 mg Tablet PO (08:30)
[2021-06-07 08:49] LABS: INR 1.34 (0.8-1.2)
[2021-06-07 10:20] VITALS: PULSE 102; O2SAT 97
--- NOTE | 2021-06-07 11:27 | P.DS_ITS ---
Diagnoses at Discharge Discharge Diagnosis (1) Major depressive disorder, recurrent, moderate: Status: Chronic (2) Suicidal ideation: Status: Resolved (3) ETOH abuse: Status: Chronic (4) Pulmonary emboli: Status: Resolved (5) Status post left shoulder hemiarthroplasty: Status: Chronic (6) Right shoulder injury: Status: Chronic (7) Restless leg syndrome: Status: Chronic (8) BPH (benign prostatic hyperplasia): Status: Chronic (9) Anemia: Status: Chronic (10) GERD (gastroesophageal reflux disease): Status: Chronic (11) Hypertension: Status: Chronic Reason for Visit Reason for Visit: si/hi Brief History: Raymond Coronel is a 61 year old male with a history of COPD, anemia, diverticulosis, BPH, GERD, hiatal hernia, hypertension, restless leg syndrome, heavy alcohol use, and depression, who was admitted for suicidal ideation in the context of alcohol intoxication. The ED note states: 61-year-old male presents emergency room with suicidal ideation. Patient is extremely depressed. He admits to being a heavy drinker for several decades. His several years ago and he is estranged from all of his children. He admits to have been drinking earlier today. He was here earlier today left with his brother because he was frustrated by his perception that he would not get the help he wanted. He had seen one of the other ER physicians and then left with his brother. 96-hour hold paperwork was started based on the triage nurse and his interaction with the other physician. We were able to make contact with the patient and his brother and they agreed to come back. On arrival he is very agreeable. He is somewhat tearful but he is awake and conversant admits to having been drinking in the interim. He denies having done anything specifically to harm himself today. Patient states he had plan to harm himself or running out into traffic. The patient confirms the above information. He describes having been depressed for a number of months. He also says he has been using alcohol heavily, drinking 1/5 of whiskey a day for a number of years. He has had 5 DUIs in his life and attended rehab once in [place], [place] in the . His longest sobriety has been a few months. He has had 1 seizure when withdrawing from alcohol a little more than a year ago. No alcohol withdrawal hallucinosis. He denies drug use. He has been smoking about 1/2 pack of cigarettes per day, but is planning on quitting now. No other history of auditory or visual hallucinations or paranoia. The patient confirms that he left the ED yesterday because he was agitated and unable to sit in one place any longer. He says he did not want to , but he did want to get rid of this feeling, and that was making him act erratically. He says he is now feeling more comfortable, although he has had some alcohol withdrawal symptoms, such as anxiety, insomnia, sweating, shaking, and nausea. The Ativan has been helpful for him. Psychiatric history: He denies ever having had a psychiatric evaluation, psychiatric medication, therapy, or psychiatric hospitalization. Substance use history: As above. Family history: The patient says his brothers have used alcohol heavily in the past. He denies mental health issues on either side of the family and denies suicide attempts or completions in the family. Psychosocial history: The patient says he was born in [place], [place] and graduated from high school in [place], [place]. He has been and 3 times. His son is 30 years old and his daughter is 29 years old. He says he has a good relationship with them and they are infrequent contact. 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 He says he is on disability for back issues. Legal history: No legal difficulties. Hospital Course Hospital Course The patient was admitted to the neuropsychiatric unit for definitive treatment of these issues. On the unit he slowly acclimated to the individual, group and milieu therapies. He had alcohol withdrawal symptoms and was placed on a CIWA protocol, with eventual resolution of the withdrawal. He was restarted on his psychiatric medications. We talked with him about attending rehab. He would like to do that, and has filled out an application for [facility]. It will be several weeks before there is a bed. He was receptive to treatment team recommendations and showed modest improvement and was able to contract for safety prior to discharge. During the hospitalization, patient had routine laboratory studies which were within normal limits except for few outliers. Additionally there was a general medical evaluation which was also within normal limits and revealed no new acute processes. Discharge Summary: At the time of discharge, psychosis and lethality were denied. Mood and anxiety were well managed. Patient endorsed a plan to avoid all drugs of abuse and follow-up with the aftercare recommendations of the treatment team. Patient was evaluated and deemed to be absent credible lethality, and had achieved the maximum benefit from an inpatient hospitalization, so was discharged. Involuntary Hold Information 96 Hour Hold: 96 Hour Involuntary Admission: Yes 96 Hour Hold Ending Date: 06/10/21 96 Hour Hold Ending Time: 13:00 Mental Status Exam MSE Comments: I met with the patient in his room, and he was on oxygen, dressed in hospital scrubs and somewhat sloppily groomed. He was calm, cooperative, interactive, and made good eye contact. Some psychomotor agitation Speech is at a regular rate and rhythm, normal volume, good articulation, not pressured Alert, oriented to person, place, time, and situation Attention and concentration were intact to exam Memory is adequate for the interview Mood is improved. Affect is pleasant. Thought process is logical and goal-directed. Thought content: No auditory or visual hallucinations, no suicidal ideation or homicidal ideation. No delusions or paranoia are noted. Insight and judgment are fair. Impulse control is fair as well. Discharge Data Data Completed and Pending: Labs from last 24 hours 06/07/21 08:11 PT 16.90 H INR 1.34 H Vitals: Last Vital Signs Temp 97.9 F 06/07/21 06:00 Pulse 80 06/07/21 06:00 Resp 18 06/07/21 06:00 BP 121/77 06/07/21 06:00 Pulse Ox 97 06/07/21 06:00 Discharge Plan Discharge Patient Disposition: Home Condition: Stable Prescriptions: Continued ropinirole 1 mg tablet 1 - 2 mg PO BEDTIME PRN (Reason: Restless Leg(S)) RF: 0 tramadol 50 mg tablet 50 mg PO Q4H PRN (Reason: Pain) RF: 0 tamsulosin 0.4 mg capsule 0.4 mg PO BID RF: 0 pantoprazole 40 mg tablet,delayed release (DR/EC) 40 mg PO BID RF: 0 albuterol sulfate 90 mcg/actuation HFA aerosol inhaler 2 puff INHALATION QID PRN (Reason: Shortness Of Breath) RF: 0 lisinopril 2.5 mg tablet 2.5 mg PO BID PRN (Reason: Blood Pressure) RF: 0 lorazepam 0.5 mg tablet 0.5 - 1 mg PO TID PRN (Reason: Anxiety) RF: 0 cyanocobalamin (vitamin B-12) 1,000 mcg/mL solution 1,000 mcg IM Q30D RF: 0 ergocalciferol (vitamin D2) 1,250 mcg (50,000 unit) capsule 50,000 unit PO Q7D RF: 0 Eliquis 5 mg tablet 5 mg PO BID Qty: 60 RF: 4 doxepin 50 mg capsule 50 mg PO BEDTIME PRN (Reason: Sleep) 30 Days Qty: 30 RF: 0 bupropion HCl 150 mg tablet sustained-release 12 hr 150 mg PO BID 30 Days Qty: 60 RF: 0 escitalopram oxalate 20 mg tablet 20 mg PO DAILY 30 Days Qty: 30 RF: 0 Held tizanidine 4 mg tablet 4 mg PO TID PRN (Reason: muscle cramps) RF: 0 Hold Instructions: Resume on 06/17/21. Review with primary care doctor during visit Discharge Orders: Discharge Order (Routine); Ordered 06/07/21 Ordered By: Gonzalo Ríos Referrals: [facility] [Other] - 2 weeks (Call to check on status of malena tment plan 1 to 2 weeks after completing SUDs application.) [facility] [Outside] - 4-7 days (Walk in on Tuesdays and from 7:30am to 3:00pm to complete and initial assessment. ) Mcneal,HAL Lal [Primary Care Provider] - 06/17/21 9:30 am (Appointment with [facility] Mcneal on 06/17/21 at 9:30am.) Discharge Diet: Usual diet Discharge Activity: Resume usual activity Patient Instructions: Opioid Safety Activity Restrictions/Additional Instructions: See your primary care physician on June 17, 2021. Discharge Attestations NPU Time Spent in Discharge Care*: less than 30 min Specific Discharge Activities: Specific discharge activities: educating patient, discussing with supportive employment case manager/social workers/dc planners, documenting/other paperwork and evaluating patient/reviewing data Status at Discharge: Cognitive status at discharge: cognitively intact , Behavioral status at discharge: cooperative , Functional status at discharge: independent ambulation Overall status at discharge: patient is back to baseline Coding Level of Care Code Acute Chg FW DC note Diagnoses Major depressive disorder, recurrent, moderate F33.1 Suicidal ideation R45.851 ETOH abuse F10.10 Pulmonary emboli I26.99 Status post left shoulder hemiarthroplasty Z96.612 Right shoulder injury S49.91XA Restless leg syndrome G25.81 BPH (benign prostatic hyperplasia) N40.0 Anemia D64.9 GERD (gastroesophageal reflux disease) K21.9 Hypertension I10
[2021-06-07 11:38] VITALS: BP 121/77; PULSE 80; RESP 18; TEMP 36.6; O2SAT 97
--- NOTE | 2021-06-07 12:02 | NPU.GN ---
[facility] Topic:Claudia General Mood of Group: Raymond did not attend group this morning as he was having tests done on his oxygen level stats.
--- NOTE | 2021-06-07 14:25 | DCPLANNER ---
IMM completed with pt on 06/07/21 @ 12:46pm.
--- NOTE | 2021-06-10 15:10 | PC.RESP ---
SMOKING CESSATION AND PULMONARY REHAB INFORMATION SENT TO PATIENT.
== END 2021-06-07 13:23 | disposition home or self-care (01) | DRG 885 ==
LOC: ER 13:48 → NP 14:21
PROVIDERS: Admitting Provider Psychiatry & Neurology Child & Adolescent Psychiatry; Emergency Provider Family Medicine; PCP Nurse Practitioner Family; Visit Provider Psychiatry & Neurology Child & Adolescent Psychiatry
DX: F33.1 Major depressive disorder, recurrent, moderate (principal); R45.851 Suicidal ideations; F10.24 Alcohol dependence with alcohol-induced mood disorder; F10.229 Alcohol dependence with intoxication, unspecified; N40.0 Benign prostatic hyperplasia without lower urinary tract symptoms; J44.9 Chronic obstructive pulmonary disease, unspecified; K57.90 Diverticulosis of intestine, part unspecified, without perforation or abscess without bleeding; K21.9 Gastro-esophageal reflux disease without esophagitis; K44.9 Diaphragmatic hernia without obstruction or gangrene; I10 Essential (primary) hypertension; G25.81 Restless legs syndrome; Z96.611 Presence of right artificial shoulder joint; F17.210 Nicotine dependence, cigarettes, uncomplicated; Z86.711 Personal history of pulmonary embolism; Z79.51 Long term (current) use of inhaled steroids; Z79.01 Long term (current) use of anticoagulants
CPT/HCPCS: 36415; 80053; 80307; 82140; 85025; 85610; 96372; 97150; 97165; 99285; J2060; Q0162

== ENCOUNTER 2021-11-23 18:33 | Inpatient (IN) | payer MEDICARE, MEDICAID, SELFPAY ==
[2021-11-23] VITALS (8 sets, daily range): BP systolic 99–122; BP diastolic 36–75; PULSE 92–102; RESP 22–29; O2SAT 97–100; BMI 25.1
--- NOTE | 2021-11-23 18:35 | ECG_ITS ---
[facility] Test Date: 2021-11-23 Pat Name: Raymond Coronel Department: Room: Gender: Male Children'S Author: : [id number] Requested By: Abeba Berg Order Number: [id number] Debi MD: Debi Arroyo M.D. Measurements Intervals [place] Rate: 104 P: 2 LA: 144 QRS: -51 QRSD: 133 T: 113 QT: 327 QTc: 430 Interpretive Statements SINUS TACHYCARDIA WITH OCCASIONAL SUPRAVENTRICULAR PREMATURE COMPLEXES INTRAVENTRICULAR CONDUCTION DELAY [130+ ms QRS DURATION] SEPTAL MYOCARDIAL INFARCTION , OF INDETERMINATE AGE [40+ ms Q WAVE IN V1/V2] LATERAL MYOCARDIAL INFARCTION , OF INDETERMINATE AGE Compared to ECG 04/20/2021 17:13:33 Intraventricular conduction delay now present Myocardial infarct finding now present Left-axis deviation no longer present Electronically Signed On 11-24-2021 16:12:21 CDT by Debi Arroyo M.D. [id number]
--- NOTE | 2021-11-23 18:35 | XRR_ITS ---
PROCEDURE INFORMATION: Exam: XR Chest Exam date and time: 11/23/2021 7:40 PM Age: 61 years old Clinical indication: Other: AMS TECHNIQUE: Imaging protocol: XR of the chest. Views: 1 view. COMPARISON: CR XR chest 1V portable [id number] 04/20/2021 6:11 PM FINDINGS: Lungs: Unremarkable. No consolidation. Pleural spaces: Unremarkable. No pleural effusion. No pneumothorax. Heart/Mediastinum: Unremarkable. No cardiomegaly. Bones/joints: Incidental partially visualized right shoulder arthroplasty. Soft tissues: Probable hiatus hernia measuring up to 9 cm is unchanged. XR/XR chest 1V portable [id number] IMPRESSION: 1. Lungs clear 2. Chronic hiatus hernia
--- NOTE | 2021-11-23 18:35 | CTR_ITS ---
PROCEDURE INFORMATION: Exam: CT Head Without Contrast Exam date and time: 11/23/2021 7:57 PM Age: 61 years old Clinical indication: Altered mental status/memory loss; Confusion or disorientation; Patient HX: AMS w dizziness and weakness TECHNIQUE: Imaging protocol: Computed tomography of the head without contrast. Radiation optimization: All CT scans at this facility use at least one of these dose optimization techniques: automated exposure control; mA and/or kV adjustment per patient size (includes targeted exams where dose is matched to clinical indication); or iterative reconstruction. COMPARISON: CT head wo con* [id number] 07/02/2020 4:06 PM RADIATION DOSE METRICS: Total DLP (mGy-cm): 1682.81 FINDINGS: Brain: No CT evidence for acute ischemia, mass or hemorrhage. No extra-axial fluid collection, midline shift or hydrocephalus. Chronic right occipital lobe deep sulcus versus small chronic infarct. Cerebral ventricles: No ventriculomegaly. Paranasal sinuses: Visualized sinuses are unremarkable. No fluid levels. Mastoid air cells: Visualized mastoid air cells are well aerated. Bones/joints: Chronic deformity of the nasal bone. Soft tissues: Unremarkable. CT/CT head wo con* [id number] IMPRESSION: No acute intracranial findings.
--- NOTE | 2021-11-23 18:46 | ED_ITS ---
HPI - General Adult General: Chief complaint: Dizziness Stated complaint: WEAKNESS/DIZZY Time Seen by Provider: 11/23/21 18:35 History of Present Illness: Patient is a 61-year-old male with a history of COPD on 2 L oxygen, anemia, alcohol abuse who presents the emergency room for concerns of generalized weakness, lightheadedness and fall. Patient tells me that this morning he was walking to the bathroom when he fell. Since then he has not been able to get up. EMS was called and patient was brought to the emergency room for further evaluation. On arrival, patient denies any active chest pain, shortness breath, palpitation, vertigo sensation, focal weakness in the arms or legs, vision changes, diplopia, slurring of speech, nausea/vomiting, diarrhea/melena/hematochezia or urinary complaints. Onset: 6am Duration:ongoing Location:home Severity:moderate Associated symptoms: Deny chest pain, dyspnea, nausea, rash, palpitations or vomiting Review of Systems Const: Reports: other (+generalized weakness); Denies: fever(s) or chills Eyes: Denies: change in vision ENMT: Denies: mouth pain Card: Denies: chest pain or palpitations Resp: Denies: dyspnea or non-productive cough GI: Denies: abdominal pain, nausea, vomiting or diarrhea : Denies: dysuria Musc: Denies: extremity pain Skin/Breast: Denies: rash or new lesions Neuro: Reports: other (+light-headedness); Denies: weakness in extremities Psych: Reports: other (Normal mood) Garrick/Lymph: Denies: easy bruising PFSH ED PFSH: Medical History Alcohol abuse Alcoholism Anemia BPH (benign prostatic hyperplasia) COPD (chronic obstructive pulmonary disease) Diverticulosis GERD (gastroesophageal reflux disease) Hiatal hernia History of colon polyps Hypertension Incarcerated hernia Pulmonary emboli Restless leg syndrome Tobacco abuse Surgical History History of cholecystectomy History of colonoscopy with polypectomy (~2016) 2019- dr. jeffries History of right shoulder replacement (~12/2019) Status post left shoulder hemiarthroplasty Family History Denies family history of Chronic kidney disease (CKD) Social History Smoking and tobacco status: current every day smoker Alcohol intake: current Household members: family Housing: House Physical Exam Const: COMMON NORMALS: alert HENMT: COMMON NORMALS: atraumatic HEAD & SCALP: atraumatic MOUTH: moist mucous membranes not abnormal Eye: COMMON NORMALS: EOMs intact bilaterally and conjunctivae normal CONJUNCTIVA: Yes conjunctivae normal Neck/C-Spine: COMMON NORMALS: full ROM and supple Resp: COMMON NORMALS: normal respiratory effort and clear to auscultation bilaterally AUSCULTATION: clear to auscultation bilaterally Cardio: COMMON NORMALS: regular rate RATE: regular rate GI: COMMON NORMALS: Soft to palpation and non-tender PALPATION: Yes Soft to palpation Extremity: COMMON NORMALS: full ROM Neuro: SENSORIUM/ORIENTATION: Yes alert MOTOR EXAM: No Abnormal motor strength present and Other motor observations present (no focal motor deficits) Psych: COMMON NORMALS: speech normal SPEECH: Yes normal speech MOOD & AFFECT: Yes euthymic mood Course Vital Signs: Vital signs: Vital Signs Temperature 98.1 F 11/25/21 12:00 Pulse Rate 89 11/25/21 12:00 Respiratory Rate 20 H 11/25/21 12:00 Blood Pressure 113/68 11/25/21 12:00 Pulse Oximetry 97 11/25/21 12:00 [facility] - General Adult Medical Decision Making 61-year-old male history anemia, alcohol abuse, COPD on 2 L oxygen presenting to the emergency room with generalized weakness, lightheadedness, and fall. Patient has no focal complaints of pain anywhere. Patient is hemodynamically stable. Neuro exam is intact. WBC of 20.9K. Sodium 117, potassium 2.0. Patient received 1 L of NS and is currently ordered with 80 mEq of potassium over 8 hours. Bilirubin is elevated at 3.7 with baseline of 1. Right upper quadrant ultrasound did not show cholelithiasis. CT of pelvis showed enterocolitis. No signs of ascending cholangitis or CBD stone. Patient will be admated to the hospital for rehydration, enterocolitis, hyponatremia, hypokalemia. Disposition: admission Lab Data : 11/25/21 04:55 11/25/21 04:55 Radiology Impressions Chest X-Ray 11/23/21 18:35 IMPRESSION: 1. Lungs clear 2. Chronic hiatus hernia Head CT 11/23/21 18:35 IMPRESSION: No acute intracranial findings. Abdomen/Pelvis CT 11/23/21 20:49 IMPRESSION: 1. Inflammatory changes of the ascending colon and very distal small bowel. Overall most consistent with enterocolitis. 2. No obstruction or generalized ileus. 3. Moderate ascites. 4. Hepatic steatosis. 5. Other chronic and incidental findings as described COMMENTS: Consistent with the [place] [employer]'s Incidental Findings Committee white paper (J Am Gavino Radiol 2018): Any incidental renal lesion less than 1 cm or classified as too small to characterize, or any incidental cystic renal lesion characterized as simple-appearing, is likely benign. No follow-up imaging is recommended for these lesions per consensus recommendations based on imaging criteria. Gallbladder Ultrasound 11/23/21 20:49 IMPRESSION: 1. Extensive cholelithiasis. However no wall thickening or biliary distention. 2. Small upper abdominal ascites Laboratory Results WBC 20.9 10^3/uL (4.0-10.0) H 11/23/21 18:40 RBC 3.69 10^6/uL (4.1-5.3) L 11/23/21 18:40 Hgb 10.2 g/dL (11.7-16.6) L 11/23/21 18:40 Hct 31.7 % (42.0-52.0) L 11/23/21 18:40 MCV 85.9 fl (80-94) 11/23/21 18:40 MCH 27.6 pg (28.0-34.0) L 11/23/21 18:40 MCHC 32.2 g/dL (30.0-36.0) 11/23/21 18:40 RDW 20.4 % (12.1-15.1) H 11/23/21 18:40 Plt Count 301 10^3/cmm (130-400) 11/23/21 18:40 MPV 11.4 fL (7.4-10.4) H 11/23/21 18:40 Neut % (Auto) 90.6 % 11/23/21 18:40 Lymph % (Auto) 3.0 % 11/23/21 18:40 [place] % (Auto) 3.4 % 11/23/21 18:40 Eos % (Auto) 1.2 % 11/23/21 18:40 Baso % (Auto) 0.4 % 11/23/21 18:40 Neut # (Auto) 18.90 10^3/uL (1.8-7.7) H 11/23/21 18:40 Lymph # (Auto) 0.6 10^3/uL (0.8-4.8) L 11/23/21 18:40 [place] # (Auto) 0.7 10^3/uL (0.2-0.9) 11/23/21 18:40 Eos # (Auto) 0.3 10^3/uL (0.0-0.8) 11/23/21 18:40 Baso # (Auto) 0.1 10^3/uL (0.0-0.1) 11/23/21 18:40 Nucleated RBC % (auto) 0.9 % 11/23/21 18:40 Nucleated RBCs # 0.2 /100WBC 11/23/21 18:40 PT 16.40 SECONDS (12.1-14.9) H 11/23/21 18:40 INR 1.28 (0.8-1.2) H 11/23/21 18:40 Sodium 117 mmol/L (136-145) L* 11/23/21 18:40 Potassium 2.0 mmol/L (3.5-5.1) L* 11/23/21 18:40 Chloride 74 mmol/L (98-107) L 11/23/21 18:40 Carbon Dioxide 16 mmol/L (22-29) L 11/23/21 18:40 Anion Gap 29.0 (5-19) H 11/23/21 18:40 BUN 14 mg/dL (8-23) 11/23/21 18:40 Creatinine 0.7 mg/dL (0.7-1.2) 11/23/21 18:40 GFR Calculation 115.0 mL/min (90-130) 11/23/21 18:40 Glucose 126 mg/dL (65-115) H 11/23/21 18:40 Calculated Osmolality 246 mOsm/kg (285-295) L 11/23/21 18:40 Calcium 8.2 mg/dL (8.5-10.5) L 11/23/21 18:40 Magnesium 1.6 mg/dL (1.7-2.3) L 11/23/21 18:40 Iron Cancelled 11/23/21 18:40 Iron Cancelled 11/23/21 18:40 TIBC Cancelled 11/23/21 18:40 % Saturation Cancelled 11/23/21 18:40 Unsat Iron Binding Cancelled 11/23/21 18:40 Ferritin 499 ng/mL (30-400) H 11/23/21 18:40 Total Bilirubin 3.9 mg/dL (0.15-1.2) H 11/23/21 18:40 AST 43 U/L (0-40) H 11/23/21 18:40 ALT 18 U/L (0-41) 11/23/21 18:40 Alkaline Phosphatase 152 IU/L (40-130) H 11/23/21 18:40 Creatine Kinase 37 U/L (39-308) L 11/23/21 18:40 Troponin T Baseline 40 ng/L (0-15) H 11/23/21 18:40 Troponin T 120 Minute 30.77 ng/L (0-15) H 11/23/21 20:57 Delta Troponin T -9.23 ABS# (0-10) L 11/23/21 20:57 Total Protein 6.8 g/dL (6.6-8.7) 11/23/21 18:40 Albumin 3.0 g/dL (3.5-5.2) L 11/23/21 18:40 Globulin 3.8 g/dL (1.3-4.6) 11/23/21 18:40 Lipase 35 U/L (13-60) 11/23/21 18:40 TSH 0.92 uIU/mL (0.27-4.20) 11/23/21 18:40 Free T4 1.05 ng/dL (0.82-1.77) 11/23/21 18:40 Urine Color Yellow (Yellow) 11/23/21 19:30 Urine Appearance Clear (CLEAR) 11/23/21 19:30 Urine pH 5 (5-7) 11/23/21 19:30 Ur Specific [place] 1.015 (1.005-1.030) 11/23/21 19:30 Urine Protein Trace (Negative) 11/23/21 19:30 Urine Glucose (UA) Norm (Normal) 11/23/21 19:30 Urine Ketones Negative (Negative) 11/23/21 19:30 Urine Blood Neg (Negative) 11/23/21 19:30 Urine Nitrate Negative (Negative) 11/23/21 19:30 Urine Bilirubin Neg (Negative) 11/23/21 19:30 Urine Urobilinogen 4+ mg/dL (Negative) H 11/23/21 19:30 Ur Leukocyte Esterase Negative (Negative) 11/23/21 19:30 Urine RBC 0-4 /hpf (0-2) H 11/23/21 19:30 Urine WBC 0-4 /hpf (0-5) H 11/23/21 19:30 Ur Squamous Epith Cells 0-4 /hpf (0-5) H 11/23/21 19:30 Amorphous Sediment Trace /hpf 11/23/21 19:30 Urine Bacteria Trace /hpf (NONE) 11/23/21 19:30 Hyaline Casts 0-4 /lpf H 11/23/21 19:30 Urine Mucus Trace /hpf 11/23/21 19:30 Imaging Data Other Imaging: Radiologist's impression: [address] [address] Ultrasound Report Signed Patient: Raymond Coronel Unit #: [id number] : 1960 Age/Sex: 61 / M ADM Date: 11/23/21 Loc: ER Room/Bed: Attending Dr: Ordering Provider/Ordering MD: Abeba Berg MD Date of Service: 11/23/21 Procedure(s): US gall bladder 18335 Accession Number(s): [id number] Report Number: [id number] PROCEDURE INFORMATION: Exam: US Abdomen, Limited; Right Upper Quadrant Exam date and time: 11/23/2021 9:27 PM Age: 61 years old Clinical indication: Nausea; Other: Patient claims of back pain; Additional info: Eval stone TECHNIQUE: Imaging protocol: US abdomen. Real time ultrasound with image documentation. Limited exam focused on the right upper quadrant. COMPARISON: US abdomen complete* [id number] 11/01/2019 9:36 PM FINDINGS: Liver: Normal. No masses. Gallbladder: The gallbladder is moderately distended and contains numerous shadowing stones. However no wall thickening or surrounding edema. Common bile duct: The common bile duct could not be identified. However there is no dilatation of the biliary tree. Pancreas: Visualized pancreas is unremarkable. Right kidney: The right kidney is not seen. Intraperitoneal space: Small right upper quadrant perihepatic ascites. US/US gall bladder [id number] IMPRESSION: 1. Extensive cholelithiasis. However no wall thickening or biliary distention. 2. Small upper abdominal ascites ? Dictated By: Benji Chinchilla MD Signed By: Benji Chinchilla MD Signed Date/Time: 11/23/212147 DD/ [address] [address] [address] Scan Report Signed Patient: Raymond Coronel Unit #: [id number] : 1960 Age/Sex: 61 / M ADM Date: 11/23/21 Loc: ER Room/Bed: Attending Dr: Ordering Provider/Ordering MD: Abeba Berg MD Date of Service: 11/23/21 Procedure(s): CT abdomen pelvis w con* [id number] Accession Number(s): [id number] Report Number: [id number] PROCEDURE INFORMATION: Exam: CT Abdomen And Pelvis With Contrast Exam date and time: 11/23/2021 9:49 PM Age: 61 years old Clinical indication: Prior surgery; Surgery date: 6+ months; Surgery type: Gb; Patient HX: C/O weakness and diarrhea; Additional info: Eval for patohlogies TECHNIQUE: Imaging protocol: Computed tomography of the abdomen and pelvis with contrast. Radiation optimization: All CT scans at this facility use at least one of these dose optimization techniques: automated exposure control; mA and/or kV adjustment per patient size (includes targeted exams where dose is matched to clinical indication); or iterative reconstruction. Contrast material: OMNI 300; Contrast volume: 95 ml; Contrast route: INTRAVENOUS (IV);? COMPARISON: CT abdomen pelvis w con* [id number] 04/20/2021 6:45 PM RADIATION DOSE METRICS: Total DLP (mGy-cm): 1723.69 FINDINGS: Tubes, catheters and devices: The urinary bladder is decompressed by a catheter. Lungs: The lung bases are clear. Heart: There are scattered calcified plaques in the coronary arteries. Liver: The liver is severely fatty but is not enlarged. Gallbladder and bile ducts: Normal. No calcified stones. No ductal dilation. Pancreas: Normal. No ductal dilation. Spleen: Normal. No splenomegaly. Adrenal glands: Normal. No mass. Kidneys and ureters: There are several simple cysts in each kidney measuring up to 2.8 cm. There are several calcifications in each kidney, some of which may be intraparenchymal and a few of which could be in the collecting systems. Nevertheless no obstruction. Stomach and bowel: Distal colonic diverticula are not inflamed. There is wall thickening in the ascending colon but without obstruction. Also wall thickening in the distal small bowel. The finding suggests enterocolitis.? No mechanical obstruction. Appendix: No evidence of appendicitis. Intraperitoneal space: Small to moderate generalized ascites. Arteries: The mesenteric arteries and veins are patent. Lymph nodes: Unremarkable. No enlarged lymph nodes. Urinary bladder: Unremarkable as visualized. Reproductive: Unremarkable as visualized. Bones/joints: Chronic fracture of T12 which is fused with T11. Soft tissues: 8.5 cm hiatus hernia contains nonobstructive stomach. CT/CT abdomen pelvis w con* [id number] IMPRESSION: 1. Inflammatory changes of the ascending colon and very distal small bowel. Overall most consistent with enterocolitis. 2. No obstruction or generalized ileus. 3. Moderate ascites. 4. Hepatic steatosis. 5. Other chronic and incidental findings as described ? COMMENTS: Consistent with the [place] [employer]'s Incidental Findings Committee white paper (J Am Gavino Radiol 2018): Any incidental renal lesion less than 1 cm or classified as too small to characterize, or any incidental cystic renal lesion characterized as simple-appearing, is likely benign. No follow-up imaging is recommended for these lesions per consensus recommendations based on imaging criteria. ? Dictated By: Benji Chinchilla MD Signed By: Benji Chinchilla MD Signed Date/Time: 11/23/212208 DD/ [address] [address] [address] Scan Report Signed Patient: Raymond Coronel Unit #: [id number] : 1960 Age/Sex: 61 / M ADM Date: 11/23/21 Loc: ER Room/Bed: Attending Dr: Ordering Provider/Ordering MD: Abeba Berg MD Date of Service: 11/23/21 Procedure(s): CT head wo con* [id number] Accession Number(s): [id number] Report Number: [id number] PROCEDURE INFORMATION: Exam: CT Head Without Contrast Exam date and time: 11/23/2021 7:57 PM Age: 61 years old Clinical indication: Altered mental status/memory loss; Confusion or disorientation; Patient HX: AMS w dizziness and weakness TECHNIQUE: Imaging protocol: Computed tomography of the head without contrast. Radiation optimization: All CT scans at this facility use at least one of these dose optimization techniques: automated exposure control; mA and/or kV adjustment per patient size (includes targeted exams where dose is matched to clinical indication); or iterative reconstruction. COMPARISON: CT head wo con* [id number] 07/02/2020 4:06 PM RADIATION DOSE METRICS: Total DLP (mGy-cm): 1682.81 FINDINGS: Brain: No CT evidence for acute ischemia, mass or hemorrhage. No extra-axial fluid collection, midline shift or hydrocephalus. Chronic right occipital lobe deep sulcus versus small chronic infarct. Cerebral ventricles: No ventriculomegaly. Paranasal sinuses: Visualized sinuses are unremarkable. No fluid levels. Mastoid air cells: Visualized mastoid air cells are well aerated. Bones/joints: Chronic deformity of the nasal bone. Soft tissues: Unremarkable. CT/CT head wo con* [id number] IMPRESSION: No acute intracranial findings. ? Dictated By: Benji Chinchilla MD Signed By: Benji Chinchilla MD Signed Date/Time: 11/23/212016 DD/ 56 Discharge Plan Discharge Patient Disposition: Admitted As Inpatient Admit Provider: Mariana Chavez Clinical Impression: Light headedness, Fall, Acute hyponatremia, Acute hypokalemia, Enterocolitis, Elevated bilirubin Condition: Stable Coding Level of Care Code ED Supply Chain Coordinator for Chg Fwd Exam Comprehensive
[2021-11-23 18:50] LABS: Basophils # 0.1 10^3/uL (0.0-0.1); Basophils % 0.4 %; Eosinophils # 0.3 10^3/uL (0.0-0.8); Eosinophils % 1.2 %; Hematocrit 31.7 % (42.0-52.0); Hemoglobin 10.2 g/dL (11.7-16.6); Lymphocytes # 0.6 10^3/uL (0.8-4.8); Mean Corpuscular HGB Conc 32.2 g/dL (30.0-36.0); Mean Corpuscular Hemoglobin 27.6 pg (28.0-34.0); Mean Corpuscular Volume 85.9 fl (80-94); Mean Platelet Volume 11.4 fL (7.4-10.4); Monocytes # 0.7 10^3/uL (0.2-0.9); Monocytes % 3.4 %; Neutrophils % 90.6 %; Nucleated Red Blood Cells # 0.2 /100WBC; Nucleated Red Blood Cells % 0.9 %; Platelet Count 301 10^3/cmm (130-400); Red Blood Count 3.69 10^6/uL (4.1-5.3); Red Cell Distribution Width 20.4 % (12.1-15.1); White Blood Count 20.9 10^3/uL (4.0-10.0)
[2021-11-23 19:10] LABS: Troponin(5th) Baseline 40 ng/L (0-15)
[2021-11-23 19:12] LABS: Creatine Phosphokinase 37 U/L (39-308)
[2021-11-23 19:18] LABS: Alanine Aminotransferase 18 U/L (0-41); Alkaline Phosphatase 152 IU/L (40-130); Aspartate Amino Transferase 43 U/L (0-40); Blood Urea Nitrogen 14 mg/dL (8-23); Calcium 8.2 mg/dL (8.5-10.5); Carbon Dioxide 16 mmol/L (22-29); Chloride 74 mmol/L (98-107); Globulin 3.8 g/dL (1.3-4.6); Glucose 126 mg/dL (65-115); Lipase 35 U/L (13-60); Osmolality Calculated 246 mOsm/kg (285-295); Thyroid Stimulating Hormone 0.92 uIU/mL (0.27-4.20); Total Bilirubin 3.9 mg/dL (0.15-1.2); Total Protein 6.8 g/dL (6.6-8.7)
[2021-11-23 19:27] LABS: Sodium 117 mmol/L (136-145)
--- NOTE | 2021-11-23 19:27 | PC.NURSE ---
Critical lab result: Sodium 117; Potassium 1.[address] Berg.
[2021-11-23] MEDS: sodium chloride 0.9% 1,000 ML 999 ML IV (19:34)
[2021-11-23] MEDS: potassium chloride premix 100 ML 25 MEQ IV ×2 (19:42→23:25)
[2021-11-23 20:05] LABS: Add Urine Microscopic? YES; Bilirubin Urine Neg (Negative); Blood Urine Neg (Negative); Glucose Urine UA Norm (Normal); Ketones Urine Negative (Negative); Leukocyte Esterase Urine Negative (Negative); Nitrate Urine Negative (Negative); Protein Urine Trace (Negative); Specific Gravity, Urine 1.015 (1.005-1.030); Urine Appearance Clear (CLEAR); Urine Color Yellow (Yellow); Urobilinogen Urine 4+ mg/dL (Negative); pH Urine 5 (5-7)
[2021-11-23 20:17] LABS: Add Urine Culture? No; Amorphous Sediment Urine TRACE /hpf; Bacteria Urine TRACE /hpf; Hyaline Casts Urine 0-4 /lpf; Mucus Urine TRACE /hpf; RBC Urine 0-4 /hpf (0-2); Squamous Epithelial Cell Urine 0-4 /hpf (0-5); WBC Urine 0-4 /hpf (0-5)
--- NOTE | 2021-11-23 20:35 | ECG_ITS ---
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 Measurements Intervals [place] Rate: 97 P: 70 [place]: 168 QRS: -59 QRSD: 124 T: 99 QT: 357 QTc: 454 Interpretive Statements SINUS RHYTHM POSSIBLE LEFT ATRIAL ENLARGEMENT [-0.1mV P-WAVE IN V1/V2] LEFT ANTERIOR FASCICULAR BLOCK [QRS AXIS <= -45, QR IN I, RS IN II] SEPTAL MYOCARDIAL INFARCTION , OF INDETERMINATE AGE [40+ ms Q WAVE IN V1/V2] LATERAL MYOCARDIAL INFARCTION , OF INDETERMINATE AGE [40+ ms Q WAVE AND/OR ST/T ABNORMALITY IN I/aVL/V5/V6] Compared to ECG 11/23/2021 18:45:15 Left anterior fascicular block now present Sinus tachycardia no longer present Intraventricular conduction delay no longer present Myocardial infarct finding still present Electronically Signed On 11-24-2021 16:22:17 CDT by Debi Arroyo M.D. [id number]
--- NOTE | 2021-11-23 20:49 | CTR_ITS ---
PROCEDURE INFORMATION: Exam: CT Abdomen And Pelvis With Contrast Exam date and time: 11/23/2021 9:49 PM Age: 61 years old Clinical indication: Prior surgery; Surgery date: 6+ months; Surgery type: Gb; Patient HX: C/O weakness and diarrhea; Additional info: Eval for patohlogies TECHNIQUE: Imaging protocol: Computed tomography of the abdomen and pelvis with contrast. Radiation optimization: All CT scans at this facility use at least one of these dose optimization techniques: automated exposure control; mA and/or kV adjustment per patient size (includes targeted exams where dose is matched to clinical indication); or iterative reconstruction. Contrast material: OMNI 300; Contrast volume: 95 ml; Contrast route: INTRAVENOUS (IV); COMPARISON: CT abdomen pelvis w con* [id number] 04/20/2021 6:45 PM RADIATION DOSE METRICS: Total DLP (mGy-cm): 1723.69 FINDINGS: Tubes, catheters and devices: The urinary bladder is decompressed by a catheter. Lungs: The lung bases are clear. Heart: There are scattered calcified plaques in the coronary arteries. Liver: The liver is severely fatty but is not enlarged. Gallbladder and bile ducts: Normal. No calcified stones. No ductal dilation. Pancreas: Normal. No ductal dilation. Spleen: Normal. No splenomegaly. Adrenal glands: Normal. No mass. Kidneys and ureters: There are several simple cysts in each kidney measuring up to 2.8 cm. There are several calcifications in each kidney, some of which may be intraparenchymal and a few of which could be in the collecting systems. Nevertheless no obstruction. Stomach and bowel: Distal colonic diverticula are not inflamed. There is wall thickening in the ascending colon but without obstruction. Also wall thickening in the distal small bowel. The finding suggests enterocolitis. No mechanical obstruction. Appendix: No evidence of appendicitis. Intraperitoneal space: Small to moderate generalized ascites. Arteries: The mesenteric arteries and veins are patent. Lymph nodes: Unremarkable. No enlarged lymph nodes. Urinary bladder: Unremarkable as visualized. Reproductive: Unremarkable as visualized. Bones/joints: Chronic fracture of T12 which is fused with T11. Soft tissues: 8.5 cm hiatus hernia contains nonobstructive stomach. CT/CT abdomen pelvis w con* [id number] IMPRESSION: 1. Inflammatory changes of the ascending colon and very distal small bowel. Overall most consistent with enterocolitis. 2. No obstruction or generalized ileus. 3. Moderate ascites. 4. Hepatic steatosis. 5. Other chronic and incidental findings as described COMMENTS: Consistent with the [place] [employer]'s Incidental Findings Committee white paper (J Am Gavino Radiol 2018): Any incidental renal lesion less than 1 cm or classified as too small to characterize, or any incidental cystic renal lesion characterized as simple-appearing, is likely benign. No follow-up imaging is recommended for these lesions per consensus recommendations based on imaging criteria.
--- NOTE | 2021-11-23 20:49 | USR_ITS ---
PROCEDURE INFORMATION: Exam: US Abdomen, Limited; Right Upper Quadrant Exam date and time: 11/23/2021 9:27 PM Age: 61 years old Clinical indication: Nausea; Other: Patient claims of back pain; Additional info: Eval stone TECHNIQUE: Imaging protocol: US abdomen. Real time ultrasound with image documentation. Limited exam focused on the right upper quadrant. COMPARISON: US abdomen complete* [id number] 11/01/2019 9:36 PM FINDINGS: Liver: Normal. No masses. Gallbladder: The gallbladder is moderately distended and contains numerous shadowing stones. However no wall thickening or surrounding edema. Common bile duct: The common bile duct could not be identified. However there is no dilatation of the biliary tree. Pancreas: Visualized pancreas is unremarkable. Right kidney: The right kidney is not seen. Intraperitoneal space: Small right upper quadrant perihepatic ascites. US/US gall bladder [id number] IMPRESSION: 1. Extensive cholelithiasis. However no wall thickening or biliary distention. 2. Small upper abdominal ascites
[2021-11-23 21:40] LABS: Troponin 5 2HR 30.77 ng/L (0-15)
[2021-11-23] MEDS: iohexol 300 mg/mL 100 mL Btl IV (21:59)
[2021-11-23] MEDS: morphine 4 mg/mL SDV 1 mL 2 MG IVP (22:38)
--- NOTE | 2021-11-23 22:45 | ECG_ITS ---
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 Measurements Intervals [place] Rate: 98 P: 64 [place]: 168 QRS: -52 QRSD: 117 T: 114 QT: 391 QTc: 501 Interpretive Statements SINUS RHYTHM POSSIBLE LEFT ATRIAL ENLARGEMENT [-0.1mV P-WAVE IN V1/V2] LEFT ANTERIOR FASCICULAR BLOCK [QRS AXIS <= -45, QR IN I, RS IN II] SEPTAL MYOCARDIAL INFARCTION , OF INDETERMINATE AGE [40+ ms Q WAVE IN V1/V2] PROBABLE LATERAL MYOCARDIAL INFARCTION , OF INDETERMINATE AGE Compared to ECG 11/23/2021 20:15:34 No significant changes Electronically Signed On 11-24-2021 16:11:29 CDT by Debi Arroyo M.D. [id number]
--- NOTE | 2021-11-23 22:51 | PM.HP ---
Providers/Chief Complaint Primary Care Provider: Hali Mcneal APN Chief Complaint: WEAKNESS/DIZZY History of Present Illness The patient is a 7-year-old male who presents with chief complaint of 5 day history of weakness. He denies fever, rigors, nausea, vomiting, cough, wheeze, abdominal pain, diarrhea, myalgia, dysuria, chest pain, dyspnea, lightheaded, dizziness, diaphoresis, palpitations, sensation of rapid heartbeat, sensation knee regular heartbeat. In the emergency department he is found to be hyponatremic and hypokalemic. He presents for further evaluation Review of Systems General: Reports: 10 or more systems reviewed and unremarkable except in HPI and below Medications/Allergies Home Medications Medication Instructions Recorded Confirmed Last Taken Type albuterol sulfate 90 mcg/actuation 2 puff INHALATION QID PRN 11/01/19 06/05/21 07/02/20 History aerosol inhaler lisinopril 2.5 mg tablet 2.5 mg PO BID PRN 11/01/19 06/05/21 07/01/20 History pantoprazole 40 mg tablet,delayed 40 mg PO BID 11/01/19 06/05/21 07/02/20 History release ropinirole 1 mg tablet 1 - 2 mg PO BEDTIME PRN 11/01/19 06/05/21 06/24/20 History tamsulosin 0.4 mg capsule 0.4 mg PO BID 11/01/19 06/05/21 07/02/20 History tramadol 50 mg tablet 50 mg PO Q4H PRN 11/01/19 06/05/21 07/01/20 History lorazepam 0.5 mg tablet 0.5 - 1 mg PO TID PRN 07/02/20 06/05/21 07/01/20 History tizanidine 4 mg tablet 4 mg PO TID PRN 07/02/20 06/05/21 06/29/20 History cyanocobalamin (vitamin B-12) 1,000 mcg IM Q30D 03/22/21 06/05/21 05/15/21 History 1,000 mcg/mL injection solution ergocalciferol (vitamin D2) 1,250 50,000 unit PO Q7D 03/22/21 06/05/21 03/20/21 History mcg (50,000 unit) capsule apixaban 5 mg tablet (Eliquis) 5 mg PO BID #60 tab 03/24/21 06/05/21 Unknown Rx bupropion HCl 150 mg tablet,12 hr 150 mg PO BID 30 Days #60 tab 06/07/21 Unknown Rx sustained-release doxepin 50 mg capsule 50 mg PO BEDTIME PRN 30 Days #30 06/07/21 Unknown Rx cap escitalopram oxalate 20 mg tablet 20 mg PO DAILY 30 Days #30 tab 06/07/21 Unknown Rx Allergies Allergy/AdvReac Type Severity Reaction Status Date / Time No Known Allergies Allergy Verified 11/23/21 18:36 PFSH Acute PFSH: Medical History Alcohol abuse Alcoholism Anemia BPH (benign prostatic hyperplasia) COPD (chronic obstructive pulmonary disease) Diverticulosis GERD (gastroesophageal reflux disease) Hiatal hernia History of colon polyps Hypertension Incarcerated hernia Pulmonary emboli Restless leg syndrome Tobacco abuse Surgical History History of cholecystectomy History of colonoscopy with polypectomy (~2016) 2019- dr. jeffries History of right shoulder replacement (~12/2019) Status post left shoulder hemiarthroplasty Family History Denies family history of Chronic kidney disease (CKD) Social History Smoking and tobacco status: current every day smoker Alcohol intake: current Household members: family Housing: House Vitals/I&O/Wt Last Vital Signs Pulse 100 11/23/21 22:30 Resp 24 H 11/23/21 22:38 BP 104/75 11/23/21 22:30 Pulse Ox 99 11/23/21 22:38 Weight last 48 hrs Weight 77.111 kg Physical Exam Narrative: General: -Alert -No acute distress -No dyspnea -No tachypnea Head: -Atraumatic -Normocephalic Eyes: -Pupils equally round and reactive to light and accommodation -Extraocular muscles intact Neurological: -Cranial nerves II-XII intact Neck: -No jugular venous distention -No thyromegaly -No cervical lymphadenopathy Heart: -Regular rate -Regular rhythm -No murmurs -No gallops -No rubs Lungs: -No wheeze -No rhonchi -No rales ? Abdomen: -Normal bowel sounds in all four quadrants -No rebound -No guarding -No tenderness Extremities: -2/4 pulse in all four extremities -No clubbing -No cyanosis -No edema -No calf tenderness present bilaterally -Negative Li?s sign bilaterally Musculoskeletal: -5/5 bilateral upper extremity strength -5/5 bilateral lower extremity strength -Sensorium of bilateral upper extremities are equal and intact -Sensorium of bilateral lower extremities are equal and intact ? Additional Details / Additional Findings / Exceptions / Miscellaneous: Urinary Catheter Management: Matthews: Cath Placed During This Visit: yes Urinary Catheter Date of Insertion: 11/23/21 Urinary Catheter Time of Insertion: 19:30 Data : 11/23/21 18:40 11/23/21 18:40 A&P Assessment and plan (1) Light headedness: Status: Acute Plan Hyponatremia. Likely alcohol induced. Monitor sodium levels every 4 hours. IV normal saline 100 ML's per hour. If patient's serum sodium level does not increase to be an appreciable amount, we may consider initiating IV 3% saline History of suicidal ideation Alcohol abuse. Seizure precautions. IV when necessary Ativan on a sliding scale Muscle spasm BPH Restless leg syndrome Elevated troponin, chronic. Patient gives no signs/symptoms of ACS. Will monitor patient on telemetry and checks her cardiac enzymes. Recheck EKG on the morning of November 24, 2021 Hyperkalemia. Telemetry monitoring. Will monitor potassium level every 6 hours and supplement as necessary Depression Anemia, chronic. Will monitor hemoglobin level intermittently. Check serum ferritin, iron panel,, fecal occult blood COPD, O2 dependent 2 L GERD Hypertension Smoker. The patient becomes regarding smoking cessation Diverticulosis Transaminitis. Right upper quadrant ultrasound and CT of the abdomen and pelvis demonstrate cholelithiasis without cholecystitis. I suspect this is likely secondary to alcohol abuse. Please note, previous imaging studies, at least 3, have indicated that the patient is status post cholecystectomy. Edification with the radiology department may be warranted Cholelithiasis. As previous dimension, at least 3 imaging studies have made notation of the patient being status post cholecystectomy Colitis. Check stool C. difficile, stool WBC, stool culture, stool ova and parasites. Cipro Floxin 400 mg IV every 2 hours plus Flagyl 500 Mill grams IV every 6 hours Hepatic steatosis History of pulmonary ML's and. Eliquis 5 Mill grams by mouth twice a day DVT Proflex is. 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
[2021-11-23 22:58] LABS: Free T4 Free Thyroxine 1.05 ng/dL (0.82-1.77)
[2021-11-23] MEDS: ciprofloxacin 400 MG/200 ML PREMIX 200 MG IV (23:03)
[2021-11-23 23:09] LABS: INR 1.28 (0.8-1.2)
[2021-11-23 23:16] LABS: Ferritin 499 ng/mL (30-400); Magnesium 1.6 mg/dL (1.7-2.3)
[2021-11-24] VITALS (163 sets, daily range): BP systolic 76–146; BP diastolic 51–91; PULSE 70–102; RESP 15–31; TEMP 36.1; O2SAT 88–100
[2021-11-24] MEDS: metroNIDAZOLE IV 500 MG/100 ML PREMIX 100 MG IV ×2 (00:11→05:00)
--- NOTE | 2021-11-24 00:35 | ECG_ITS ---
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 Measurements Intervals [place] Rate: 97 P: 69 LA: 168 QRS: -51 QRSD: 117 T: 101 QT: 378 QTc: 481 Interpretive Statements SINUS RHYTHM WITH OCCASIONAL VENTRICULAR PREMATURE COMPLEXES WITH OCCASIONAL SUPRAVENTRICULAR PREMATURE COMPLEXES POSSIBLE LEFT ATRIAL ENLARGEMENT [-0.1mV P-WAVE IN V1/V2] LEFT ANTERIOR FASCICULAR BLOCK [QRS AXIS <= -45, QR IN I, RS IN II] SEPTAL MYOCARDIAL INFARCTION , OF INDETERMINATE AGE [40+ ms Q WAVE IN V1/V2] PROBABLE LATERAL MYOCARDIAL INFARCTION , OF INDETERMINATE AGE Compared to ECG 11/23/2021 22:52:04 Ventricular premature complex(es) now present Myocardial infarct finding still present Electronically Signed On 11-24-2021 16:19:59 CDT by Debi Arroyo M.D. [id number]
[2021-11-24 03:57] LABS: Basophils % 0.2 %; Eosinophils % 0.1 %; Hematocrit 26.8 % (42.0-52.0); Hemoglobin 8.5 g/dL (11.7-16.6); Lymphocytes # 0.2 10^3/uL (0.8-4.8); Lymphocytes % 1.2 %; Mean Corpuscular HGB Conc 31.7 g/dL (30.0-36.0); Mean Corpuscular Hemoglobin 28.2 pg (28.0-34.0); Mean Platelet Volume 11.5 fL (7.4-10.4); Monocytes # 0.2 10^3/uL (0.2-0.9); Monocytes % 1.3 %; Neutrophils # 18.19 10^3/uL (1.8-7.7); Neutrophils % 96.2 %; Nucleated Red Blood Cells # 0.1 /100WBC; Nucleated Red Blood Cells % 0.7 %; Platelet Count 221 10^3/cmm (130-400); Red Blood Count 3.01 10^6/uL (4.1-5.3); Red Cell Distribution Width 21.2 % (12.1-15.1); White Blood Count 18.9 10^3/uL (4.0-10.0)
[2021-11-24] MEDS: sodium chloride 0.9% 1,000 ML 100 ML IV (04:08)
[2021-11-24] MEDS: potassium chloride ER 20 mEq Tablet 40 MEQ PO ×4 (04:08→06:35)
[2021-11-24 04:25] LABS: Slide Review Slide Review Perform
[2021-11-24 04:48] LABS: Alanine Aminotransferase 16 U/L (0-41); Albumin Level 2.5 g/dL (3.5-5.2); Alkaline Phosphatase 126 IU/L (40-130); Anion Gap 27.7 (5-19); Aspartate Amino Transferase 35 U/L (0-40); Blood Urea Nitrogen 13 mg/dL (8-23); Calcium 7.6 mg/dL (8.5-10.5); Carbon Dioxide 12 mmol/L (22-29); Chloride 81 mmol/L (98-107); Globulin 3.4 g/dL (1.3-4.6); Glucose 148 mg/dL (65-115); Osmolality Calculated 249 mOsm/kg (285-295); Total Bilirubin 4.1 mg/dL (0.15-1.2); Total Protein 5.9 g/dL (6.6-8.7)
[2021-11-24 04:50] LABS: Potassium 2.7 mmol/L (3.5-5.1); Sodium 118 mmol/L (136-145)
--- NOTE | 2021-11-24 04:51 | PC.NURSE ---
Critical labs taken. Pt's nurse unavailable. Labs reported to pt's RN at 2131.
[2021-11-24] MEDS: TRAMadol 50 mg Tablet PO (05:40)
[2021-11-24] MEDS: LORazepam 2 mg/mL INJ 1 mL IVP ×2 (05:42→20:28)
[2021-11-24] MEDS: apixaban 5 mg Tablet PO (08:15)
[2021-11-24 08:55] LABS: Potassium 3.4 mmol/L (3.5-5.1)
[2021-11-24] MEDS: magnesium lactate 84 mg Tablet PO (09:07)
[2021-11-24] MEDS: sodium chloride 1 gm Tablet 2 GM PO (09:07)
[2021-11-24] MEDS: magnesium sulfate premix 4 GM/100 ML PREMIX IV (09:08)
[2021-11-24] MEDS: lidocaine 1% 5 ML in potassium chloride premix 100 ML 25 ML IV (09:47)
[2021-11-24] MEDS: piperacillin-tazobactam 3.375 GM in sodium chloride 0.9% (plus) 50 ML IV ×2 (09:54→16:25)
--- NOTE | 2021-11-24 10:35 | PC.NURSE ---
Dr. Murdock rounded this morning, added some new medication orders via MAR.
--- NOTE | 2021-11-24 10:44 | PC.NURSE ---
Family called and would like patient to consider a rehab facility upon discharge. Triggered case management
[2021-11-24 10:48] LABS: Creatinine Urine, Random 87 mg/dL (39-259)
[2021-11-24 10:58] LABS: Urine Random Sodium < 10 mmol/L
[2021-11-24] MEDS: ipratropium-albuterol 3 mL Neb INHALATION ×4 (11:04→23:05)
[2021-11-24 13:28] LABS: Anion Gap 25.1 (5-19); Blood Urea Nitrogen 14 mg/dL (8-23); Calcium 7.7 mg/dL (8.5-10.5); Carbon Dioxide 15 mmol/L (22-29); Chloride 88 mmol/L (98-107); Glomerular Filtration Rate 86.1 mL/min (90-130); Glucose 169 mg/dL (65-115); Osmolality Calculated 262 mOsm/kg (285-295); Potassium 4.1 mmol/L (3.5-5.1); Sodium 124 mmol/L (136-145)
--- NOTE | 2021-11-24 14:03 | PM.PN ---
Subjective Subjective: Patient was seen and examined this morning, currently complaining of generalized weakness, serum sodium is improving Other electrolyte abnormalities have been correct. Hemoglobin has slightly fallen likely more dilutional. Continue to monitor H&H. Medications: Medication Review Details: Generic Name Dose Route Start Last Admin Trade Name Freq PRN Reason Stop Dose Admin Albuterol/Ipratrop ium 3 ml 11/24/21 09:15 11/24/21 11:04 Ipratropium-Albu terol 3 Ml Neb INHALATION 3 ml Q4H.RESPIRATORY S CH Administration Apixaban 5 mg 11/24/21 09:00 11/24/21 08:15 Apixaban 5 Mg Ta blet PO 5 mg BID VICKEY Administration Piperacillin Sod/T azobactam 50 mls @ 12.5 mls /hr 11/24/21 09:15 11/24/21 13:58 Sod 3.375 gm/ So dium Chloride IV Infused Q8H VICKEY Infusion Protocol Lorazepam 2 mg 11/24/21 02:01 11/24/21 05:42 Lorazepam 2 Mg/M l Inj 1 Ml IVP 2 mg Q2H PRN Administration prn mod anx/agita tion Magnesium Lactate 84 mg 11/24/21 09:00 11/24/21 09:07 Magnesium Lactat e 84 Mg Tablet PO 84 mg BID VICKEY Administration Methylprednisolone Sodium Succinate 60 mg 11/24/21 09:15 11/24/21 09:45 Methylprednisolo ne Sod Succ 125 Mg /2 Ml Inj IVP 60 mg Q12H VICKEY Administration Vitals/I&O/Wt Last Vital Signs Pulse 89 11/24/21 12:00 Resp 24 H 11/24/21 12:00 BP 91/60 11/24/21 12:00 Pulse Ox 96 11/24/21 12:00 11/23/21 11/24/21 11/24/21 22:59 06:59 14:59 Intake Total 1000 / 1000 550 / 1550 1403.749 / 1403.749 Output Total 650 / 650 350 / 350 Balance 1000 / 1000 -100 / 900 1053.749 / 1053.749 Weight last 48 hrs Weight 80.24 kg Weight 77.111 kg Physical Exam Const: COMMON NORMALS: patient oriented x3 HENMT: COMMON NORMALS: normocephalic and atraumatic HEAD & SCALP: normocephalic and atraumatic Resp: COMMON NORMALS: normal respiratory effort EFFORT & INSPECTION: Yes symmetric chest movement OTHER: Coarse breath sound bilateral wheezing bilateral rhonchi. Cardio: COMMON NORMALS: regular rate, regular rhythm, S1 normal heart sound present, S2 normal heart sound present, No gallops present (Cardio), No murmurs present (Cardio), No rub (Cardio) and Peripheral pulses 2+ throughout RATE: regular rate RHYTHM: regular rhythm HEART SOUNDS: S1 normal heart sound present and S2 normal heart sound present PERIPHERAL PULSES: Peripheral pulses 2+ throughout GI: COMMON NORMALS: Normal to inspection, nondistended, normoactive bowel sounds present, Soft to palpation, non-tender, No hepatosplenomegaly present and no masses AUSCULTATION: Yes normoactive bowel sounds PALPATION: Yes Soft to palpation and Yes No hepatosplenomegaly present RECTAL EXAM: Yes deferred Extremity: COMMON NORMALS: no clubbing, cyanosis or edema and no pedal edema Neuro: COMMON NORMALS: patient oriented x3 Urinary Catheter Management: Matthews: Cath Placed During This Visit: yes Reason for Continuing Indwelling Catheter: Accurate Measurement of Urinary Output in Critically Ill Patients Urinary Catheter Date of Insertion: 11/23/21 Urinary Catheter Time of Insertion: 19:30 Data : 11/24/21 02:20 11/24/21 12:49 Micro: Microbiology 11/24/21 10:14 Enteric Pathogens (PCR) - Final Stool - Stool Aspirate C.difficile Toxin B Gene (PCR) - Final Occult Blood (FIT) - Final A&P Assessment and plan (1) Acute hyponatremia: Status: Acute (2) Acute hypokalemia: Status: Acute (3) Enterocolitis: Status: Acute (4) Elevated bilirubin: Status: Acute (5) ETOH abuse: Status: Chronic (6) Anemia: Status: Chronic (7) DVT (deep venous thrombosis): Status: Acute (8) Pulmonary embolism: Status: Acute (9) GERD (gastroesophageal reflux disease): Status: Chronic (10) COPD (chronic obstructive pulmonary disease): Status: Acute (11) Ascites: Status: Acute (12) Light headedness: Status: Acute (13) Fall: Status: Acute (14) Hepatic steatosis: Status: Acute Plan 61-year-old male with past medical history of chronic alcohol abuse COPD anemia dvt pulmonary embolism was brought in with chief complaint of generalized weakness going on for the last 5 days. Assessment: Acute hyponatremia: Likely secondary to chronic alcohol abuse Urine specific gravity: 1.015 Random urine sodium less than 10 TSH: 0.92 Random cortisol Urine osmolality Serum osmolality Lipid panel BMP every 6H Salt tablets Patient has been on IV hydration with normal saline, which has been stopped now, as correction is above the goal. #Normocytic anemia: Likely multifactorial: Secondary to chronic blood loss FOBT is positive, alcohol abuse. Monitor CBC Transfuse to maintain hemoglobin greater than 7 Currently Eliquis has been kept on hold, given positive FOBT, and drop in hemoglobin, likely dilutional, it is a soft call to hold Eliquis For now, we will continue to monitor H&H, if stable then will resume Eliquis, given the history of patient's DVT and PE. #Colitis: CT abdomen pelvis with contrast: Inflammatory changes of the ascending colon and very distal small bowel. Overall most consistent with enterocolitis. stool studies: Negative Continue Zosyn for now #Ascites: #History of DVT/PE: Is on Eliquis at Home Currently on hold #Chronic alcohol abuse: On [facility] protocol Thiamine Folic acid #CODE STATUS: Full code Attestations Medical Necessity Statement*: Patient is in hospital management of acute hyponatremia. Time Spent in Patient Care: Greater than 35 minutes (>than 50% of time spent in counselling and/or direct pt care on unit). Critical Care Time: The high probability of a clinically significant, sudden or life threatening deterioration of the patient's [] system(s) required my full and direct attention, intervention and personal management. The critical care time is as shown. 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
[2021-11-24] MEDS: LORazepam 2 mg/mL INJ 1 mL 1 MG IVP (15:45)
[2021-11-24] MEDS: sodium chloride 1 gm Tablet PO (17:08)
--- NOTE | 2021-11-24 17:24 | PC.NURSE ---
Eliquis on hold due to patient having positive occult stools
[2021-11-24 18:06] LABS: Anion Gap 21.7 (5-19); Blood Urea Nitrogen 12 mg/dL (8-23); Carbon Dioxide 16 mmol/L (22-29); Chloride 91 mmol/L (98-107); Glomerular Filtration Rate 86.1 mL/min (90-130); Glucose 174 mg/dL (65-115); Osmolality Calculated 264 mOsm/kg (285-295); Potassium 3.7 mmol/L (3.5-5.1); Sodium 125 mmol/L (136-145)
[2021-11-24 21:06] LABS: Potassium 3.8 mmol/L (3.5-5.1)
[2021-11-25] VITALS (83 sets, daily range): BP systolic 106–134; BP diastolic 68–101; PULSE 67–119; RESP 12–36; TEMP 35.8–36.8; O2SAT 87–100; BMI 26.4
[2021-11-25] MEDS: piperacillin-tazobactam 3.375 GM in sodium chloride 0.9% (plus) 50 ML IV ×2 (00:53→08:04)
[2021-11-25 01:42] LABS: Anion Gap 19.6 (5-19); Blood Urea Nitrogen 13 mg/dL (8-23); Calcium 7.1 mg/dL (8.5-10.5); Carbon Dioxide 18 mmol/L (22-29); Chloride 92 mmol/L (98-107); Glucose 154 mg/dL (65-115); Osmolality Calculated 265 mOsm/kg (285-295); Potassium 3.6 mmol/L (3.5-5.1); Sodium 126 mmol/L (136-145)
[2021-11-25] MEDS: ipratropium-albuterol 3 mL Neb INHALATION ×2 (03:28→07:46)
[2021-11-25] MEDS: LORazepam 0.5 mg Tablet 1 MG PO (04:07)
[2021-11-25 05:28] LABS: Basophils % 0.1 %; Hematocrit 22.2 % (42.0-52.0); Hemoglobin 7.4 g/dL (11.7-16.6); Lymphocytes # 0.3 10^3/uL (0.8-4.8); Lymphocytes % 1.4 %; Mean Corpuscular HGB Conc 33.3 g/dL (30.0-36.0); Mean Corpuscular Hemoglobin 28.2 pg (28.0-34.0); Mean Corpuscular Volume 84.7 fl (80-94); Mean Platelet Volume 11.8 fL (7.4-10.4); Monocytes # 0.4 10^3/uL (0.2-0.9); Monocytes % 2.2 %; Neutrophils # 16.48 10^3/uL (1.8-7.7); Neutrophils % 95.1 %; Nucleated Red Blood Cells # 0.1 /100WBC; Nucleated Red Blood Cells % 0.3 %; Platelet Count 171 10^3/cmm (130-400); Red Blood Count 2.62 10^6/uL (4.1-5.3); Red Cell Distribution Width 21.1 % (12.1-15.1); White Blood Count 17.3 10^3/uL (4.0-10.0)
[2021-11-25 05:48] LABS: Slide Review Slide Review Perform
[2021-11-25 05:51] LABS: Alanine Aminotransferase 15 U/L (0-41); Albumin Level 2.8 g/dL (3.5-5.2); Alkaline Phosphatase 114 IU/L (40-130); Anion Gap 17.8 (5-19); Aspartate Amino Transferase 34 U/L (0-40); Blood Urea Nitrogen 13 mg/dL (8-23); Calcium 6.9 mg/dL (8.5-10.5); Carbon Dioxide 20 mmol/L (22-29); Chloride 94 mmol/L (98-107); Globulin 2.3 g/dL (1.3-4.6); Glucose 145 mg/dL (65-115); Osmolality Calculated 269 mOsm/kg (285-295); Potassium 3.8 mmol/L (3.5-5.1); Sodium 128 mmol/L (136-145); Total Bilirubin 2.6 mg/dL (0.15-1.2); Total Protein 5.1 g/dL (6.6-8.7)
[2021-11-25] MEDS: folic acid 1 mg Tablet PO (08:02)
[2021-11-25] MEDS: thiamine 100 mg Tablet PO (08:02)
[2021-11-25] MEDS: sodium chloride 1 gm Tablet PO ×3 (08:03→20:40)
[2021-11-25] MEDS: magnesium lactate 84 mg Tablet PO ×2 (08:03→17:44)
[2021-11-25] MEDS: pantoprazole 40 mg SDV IVP ×2 (08:04→20:40)
[2021-11-25] MEDS: LORazepam 2 mg/mL INJ 1 mL IVP (09:27)
--- NOTE | 2021-11-25 09:59 | PC.CHAP ---
Pastoral Care Encounter/Spiritual Assessment Type of Contact [] Declined study abroad advisor visit [] Patient/Family/Request visit [] Outpatient visit [] Follow-up visit [] Physician referral [] Code/Alert [x] Routine visit [] Staff referral [] Actively dying [] Patient sleeping [] Family support [] [] Out of room [] Palliative care [] [] Receiving care in room [] Pre-surgical visit [] Trauma [] Long length of stay [x] ICU visit [] Other: Relational/Emotional Strength [] Patient feels connected with others/family/visitors/staff [] Distress [] Loneliness/isolation [] Abandonment Spirituality of Patient [] Person of Felisa [] Attends Yazidism of their Felisa [] Believes in Prayer [] Reads Bible or Voodoo materials [] There are Spiritual issues to be addressed Polisher Dial Interventions [x] Prayer [] Active listening [] Non-anxious presence [] Spiritual/emotional support [] Crisis/trauma care [] Spiritual counseling [] Bereavement support [] Provided bereavement packet [] Provided Bible/devotional materials [] Provided toy/stuffed animal, coloring book to patient or family member [] Provided Communion [] Anointing/[place] [] Salvation [x] Completed spiritual assessment [] Other: Impact on Illness or Injury [] Angry [] Fearful [] Anxious [] Often cries [] Exhaustion [] Unable to work [] Unable to attend congregation [] Unable to walk/stand [] Unable to read [] Unable to drive [] Unable to eat/drink [] Unable to sleep [] Unable to be with family [] Patient intubated [] Other: Summary Time spent with patient
--- NOTE | 2021-11-25 10:36 | USCV_ITS ---
Raymond Coronel Age: 61 Gender: M : 1960 Exam Date: 11/25/2021 13:37 Ordering Phys: Janes Ortiz MD Technologist: Steve Gusman [place] [facility] [place] Indication: bilat edmema HISTORY: Lower extremity swelling. PROCEDURES: The venous duplex Doppler examination of both lower extremities was performed in the standard fashion. The following venous structures were evaluated: common femoral vein, profunda vein, proximal portion of the greater saphenous vein, superficial femoral vein, and the popliteal vein. In addition, the posterior tibial and peroneal trunk were evaluated. FINDINGS: Normal 2-D Doppler and augmentation and compressibility throughout the lower extremity venous structures. Additional imaging through the proximal calf veins also reveals no thrombus. Limited evaluation of the greater saphenous vein is patent with no thrombus.. CONCLUSIONS No evidence of DVT in the above-mentioned identifiable veins. Dr Shahzad Sánchez MD [facility] (Electronically Signed) Final Date: 26 November 2021 08:57 S
[2021-11-25 11:06] LABS: Iron 180 ug/dL (59-158)
[2021-11-25 11:25] LABS: Total Iron Binding Capacity 196.99999 mcg/dl; Unsaturated Iron Binding < 17 ug/dL (112-347)
[2021-11-25] MEDS: sodium chloride 0.9% 1,000 ML 75 ML IV (14:24)
[2021-11-25] MEDS: LORazepam 2 mg/mL INJ 1 mL 1 MG IVP (14:42)
--- NOTE | 2021-11-25 16:14 | PC.NURSE ---
IV to right AC 18g IV to right and left Ac was started with via ultrasound by Angelika BERNARDO. BLood was started in right IV. Upon checking at the 30min iwona it was noted that the pt had bruising and the coban was wet. IV to right AC was infiltrated. IV was removed and pressure applied. Blood moved to left AC. Bruising to right arm circled and phys notified.
[2021-11-25] MEDS: sodium chloride 0.9% (100 ml) 100 ML (16:32)
[2021-11-25] MEDS: LORazepam 2 mg Tablet PO (16:32)
[2021-11-25] MEDS: tamsulosin 0.4 mg Capsule PO (17:44)
--- NOTE | 2021-11-25 17:59 | PM.PN ---
Subjective Subjective: Hospital course, labs appreciated. Examination patient sleeping. Wakes up to verbal cue. On waking up slow to respond but is AOx3. Alert and oriented to self, place, year, date of . Denies any nausea vomiting, headache. Complaining of back pain. States he is hungry noted to have his breakfast. Waiting for lunch. Vitals/I&O/Wt Last Vital Signs Temp 98.0 F 11/25/21 16:00 Pulse 112 H 11/25/21 16:00 Resp 18 11/25/21 16:00 BP 134/90 11/25/21 16:00 Pulse Ox 97 11/25/21 16:00 11/25/21 11/25/21 11/25/21 06:59 14:59 22:59 Intake Total 290 / 2153.749 240 / 240 0 / 240 Output Total 250 / 1250 500 / 500 700 / 1200 Balance 40 / 903.749 -260 / -260 -700 / -960 Weight last 48 hrs Weight 81.193 kg Weight 80.24 kg Weight 77.111 kg Physical Exam Narrative: General: No acute distress, AO x3, sleepy, lethargic, chronically ill-appearing HEENT: PERRLA, pupils bilaterally equal and reactive Chest: Normal vesicular breath sounds, mild rhonchi bilaterally lower zone more on the right than the left equal good air entry bilaterally CVS: S1-S2 regular, no murmurs, no tachycardia, no gallops, no rubs Abdomen: Soft, nontender, no organomegaly, bowel sounds present Neuro: No focal deficits, no facial deformity, AO x3, power 5/5 in all limbs Urinary Catheter Management: Matthews: Cath Placed During This Visit: yes Reason for Continuing Indwelling Catheter: Accurate Measurement of Urinary Output in Critically Ill Patients Urinary Catheter Date of Insertion: 11/23/21 Urinary Catheter Time of Insertion: 19:30 Data : 11/25/21 04:55 11/25/21 04:55 Micro: Microbiology 11/25/21 11:38 Blood Culture - Preliminary Blood SPECIMEN COLLECTED 11/25/21 11:49 Blood Culture - Preliminary Blood SPECIMEN COLLECTED 11/24/21 10:14 Enteric Pathogens (PCR) - Final Stool - Stool Aspirate Parasite Antigen Panel - Final C.difficile Toxin B Gene (PCR) - Final Occult Blood (FIT) - Final A&P Assessment and plan (1) Acute hyponatremia: Status: Acute (2) Acute hypokalemia: Status: Acute (3) Enterocolitis: Status: Acute (4) Elevated bilirubin: Status: Acute (5) ETOH abuse: Status: Chronic (6) Anemia: Status: Chronic (7) DVT (deep venous thrombosis): Status: Acute (8) Pulmonary embolism: Status: Acute (9) GERD (gastroesophageal reflux disease): Status: Chronic (10) COPD (chronic obstructive pulmonary disease): Status: Acute (11) Ascites: Status: Acute (12) Light headedness: Status: Acute (13) Fall: Status: Acute (14) Hepatic steatosis: Status: Acute Plan Acute hyponatremia: Likely secondary to hypovolemic hyponatremia. Urine sodium less than 10 with serum osmolarity low as well. Appreciate TSH, random cortisol, urinalysis studies. IV hydration with normal saline 50 cc/h. Repeat BMP in the morning. Continue with oral salt tablets 1 g 3 times daily. Regular diet. #Normocytic anemia: Likely multifactorial: Secondary to chronic blood loss FOBT is positive, alcohol abuse. Transfuse unit of blood. Keep hemoglobin over 8. Takes Eliquis as an outpatient for history of DVT. Check lower limb Dopplers. Protonix 40 mg twice daily, Carafate before meals and at bedtime. #Colitis:: Appreciated CT abdomen pelvis. Check blood culture, MRSA swab, procalcitonin. Continue with Zosyn for now. Possible COPD exacerbation: Resolved now. Oxygen supplementation keeping saturation over 90%. Wean down steroid to 40 mg oral daily. DuoNebs every 6 hour as needed. #History of DVT/PE: Is on Eliquis at Home Currently on hold. Lower limb Dopplers. #Chronic alcohol abuse: On [facility] protocol Thiamine Folic acid Restart other chronic home medication including Lexapro, Requip, Flomax. #CODE STATUS: Full code. Protonix OPD prophylaxis. Regular diet. Physical therapy evaluation. 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
[2021-11-25] MEDS: sucralfate 1 gm/10 mL Oral Liq UDC PO (20:40)
[2021-11-25] MEDS: piperacillin-tazobactam 3.375 GM in dextrose 5% (plus) 50 ML IV (20:40)
[2021-11-26] VITALS (155 sets, daily range): BP systolic 101–175; BP diastolic 50–129; PULSE 70–119; RESP 15–48; TEMP 36.2–37; O2SAT 67–100; BMI 25.4
[2021-11-26] MEDS: LORazepam 2 mg Tablet PO (00:32)
[2021-11-26 03:17] LABS: Basophils % 0.1 %; Hematocrit 22.3 % (42.0-52.0); Lymphocytes # 0.6 10^3/uL (0.8-4.8); Lymphocytes % 3.3 %; Mean Corpuscular HGB Conc 31.4 g/dL (30.0-36.0); Mean Corpuscular Hemoglobin 27.5 pg (28.0-34.0); Mean Corpuscular Volume 87.5 fl (80-94); Mean Platelet Volume 10.9 fL (7.4-10.4); Monocytes % 5.5 %; Neutrophils # 16.37 10^3/uL (1.8-7.7); Neutrophils % 89.6 %; Nucleated Red Blood Cells # 0.1 /100WBC; Nucleated Red Blood Cells % 0.4 %; Platelet Count 128 10^3/cmm (130-400); Red Blood Count 2.55 10^6/uL (4.1-5.3); Red Cell Distribution Width 21.9 % (12.1-15.1); White Blood Count 18.3 10^3/uL (4.0-10.0)
[2021-11-26 03:42] LABS: Alanine Aminotransferase 19 U/L (0-41); Albumin Level 2.9 g/dL (3.5-5.2); Alkaline Phosphatase 123 IU/L (40-130); Anion Gap 13.7 (5-19); Aspartate Amino Transferase 45 U/L (0-40); Blood Urea Nitrogen 16 mg/dL (8-23); Calcium 7.7 mg/dL (8.5-10.5); Carbon Dioxide 24 mmol/L (22-29); Chloride 97 mmol/L (98-107); Chol HDL Ratio 4.25 mg/dL (1.0-5.00); Cholesterol 85 mg/dL (0-200); Globulin 2.8 g/dL (1.3-4.6); Glomerular Filtration Rate 169.6 mL/min (90-130); Glucose 114 mg/dL (65-115); HDL Cholesterol 20 mg/dL (60-100); LDL Cholesterol Calculated 48 mg/dL (50-129); Osmolality Calculated 274 mOsm/kg (285-295); Potassium 3.7 mmol/L (3.5-5.1); Sodium 131 mmol/L (136-145); Total Bilirubin 2.6 mg/dL (0.15-1.2); Total Protein 5.7 g/dL (6.6-8.7); Triglycerides 87 mg/dL (0-150); VLDL Cholestrol Calculation 17 mg/dL (0-30)
[2021-11-26] MEDS: piperacillin-tazobactam 3.375 GM in dextrose 5% (plus) 50 ML IV ×3 (05:46→21:42)
[2021-11-26 06:07] LABS: Estmated Average Glucose 68; Hemoglobin A1C < 4.0 % (4.0-6.0)
[2021-11-26] MEDS: TRAMadol 50 mg Tablet PO (06:13)
[2021-11-26] MEDS: sucralfate 1 gm/10 mL Oral Liq UDC PO ×2 (06:14→11:17)
--- NOTE | 2021-11-26 07:09 | PC.NURSE ---
Shift Summary Patient had an uneventful night. Remains on 3LNC, bruising noted to bilateral upper arms-no other wounds/skin issues noted at this time. Patient noted to pull monitoring wires off throughout night. Matthews catheter drained 620 mls of urine overnight.
[2021-11-26] MEDS: pantoprazole 40 mg SDV IVP ×2 (08:18→21:41)
[2021-11-26] MEDS: tamsulosin 0.4 mg Capsule PO (08:26)
[2021-11-26] MEDS: thiamine 100 mg Tablet PO (08:26)
[2021-11-26] MEDS: predniSONE 20 mg Tablet 40 MG PO (08:26)
[2021-11-26] MEDS: folic acid 1 mg Tablet PO (08:26)
[2021-11-26] MEDS: magnesium lactate 84 mg Tablet PO (08:26)
[2021-11-26] MEDS: sodium chloride 1 gm Tablet PO (08:26)
[2021-11-26] MEDS: escitalopram 10 mg Tablet PO (08:26)
[2021-11-26] MEDS: multivitamin therapeutic Tablet 1 TAB PO (08:26)
[2021-11-26 11:03] LABS: ABG PCO2 41.6 mmHg (35-45); Alveolar-Arterial Oxygen Gradi 13.4 mmHg (5-10); Arterial Blood Gas Hematocrit 21.4 % (42-52); Base Excess ABG 0.7 mmol/L (-2.0-2.0); Blood Gas Allen Test Pos; Blood Gas Operator Identificat GD; Blood Gas Sample Site Radial, right; Blood Gas Sample Type Arterial; Carboxyhemoglobin 0.9 %THgb (0.4-20.1); HCO3 ABG 25.6 mmol/L (22-26); HGB O2 Sat 94.8 % (95-100); Ionized Calcium Level - ABG 1.1 mmol/L (1.1-1.4); Oxygen Device NC; Oxygen Saturation ABG 96.7; PO2 ABG 75.6 mmHg (80.0-100.0); Potassium Level - ABG 3.7 mmol/L (3.5-5.0)
[2021-11-26] MEDS: lactulose oral liq 20 gm/30 mL UDC 30 GM PO (11:17)
--- NOTE | 2021-11-26 11:34 | PC.NURSE ---
Requested 1:1 sitter for patient attempting to remove IV. Dr. Ortiz gave verbal orders to remove Matthews catheter as patient also attempts to remove. Placed forehead probe for O2, patient removed multiple times, however when probe was reading patients O2 remained steadily within normal limits. Verbal orders from Dr. Ortiz to discontinue cardiac monitoring as patient persistently removed lines. Patient in SR when reading obtained.
[2021-11-26 13:04] LABS: Ammonia 59 umol/L (16-60); Total Bilirubin 2.8 mg/dL (0.15-1.2)
[2021-11-26 13:22] LABS: HIV 1 & 2 Antibody Non-Reactive (Non-Reactiv); HIV 1 & 2 Antigen Non-Reactive (Non-Reactiv)
[2021-11-26 13:23] LABS: Hepatitis B Core AB, Total Non-Reactive (Nonreactive); Hepatitis B Surface AB 3.5 (11.5-1000); Hepatitis B Surface Antigen Non-Reactive (Nonreactive); Hepatitis C Virus Antibody Reactive (Nonreactive)
--- NOTE | 2021-11-26 14:55 | PM.PN ---
Subjective Subjective: No acute events overnight. Last 24 hours patient received 1 L of blood. While receiving blood he had 2 IV lines which infiltrated. Blood transfusion could not be completed. On examination patient laying comfortably in bed, sleeping, wakes up to hospitalization. Alert and oriented to self and place. Has remained hemodynamically stable and afebrile otherwise. Vitals/I&O/Wt Last Vital Signs Temp 98.6 F 11/26/21 07:30 Pulse 104 H 11/26/21 09:15 Resp 33 H 11/26/21 09:10 BP 150/85 11/26/21 09:15 Pulse Ox 71 L 11/26/21 05:55 11/25/21 11/26/21 11/26/21 22:59 06:59 14:59 Intake Total 500 / 790 1250 / 2040 250 / 250 Output Total 700 / 1200 620 / 1820 Balance -200 / -410 630 / 220 250 / 250 Weight last 48 hrs Weight 78.046 kg Weight 81.193 kg Physical Exam Narrative: General: No acute distress, AO x3, sleepy, lethargic, chronically ill-appearing HEENT: PERRLA, pupils bilaterally equal and reactive Chest: Normal vesicular breath sounds, mild rhonchi bilaterally lower zone more on the right than the left equal good air entry bilaterally CVS: S1-S2 regular, no murmurs, no tachycardia, no gallops, no rubs Abdomen: Soft, nontender, no organomegaly, bowel sounds present Neuro: No focal deficits, no facial deformity, AO x3, power 5/5 in all limbs Urinary Catheter Management: Matthews: Cath Placed During This Visit: yes Reason for Continuing Indwelling Catheter: Accurate Measurement of Urinary Output in Critically Ill Patients Urinary Catheter Date of Insertion: 11/23/21 Urinary Catheter Time of Insertion: 19:30 Data : 11/26/21 02:27 11/26/21 02:27 Micro: Microbiology 11/25/21 11:38 Blood Culture - Preliminary Blood NEGATIVE TO DATE 11/25/21 11:49 Blood Culture - Preliminary Blood NEGATIVE TO DATE 11/25/21 21:23 MRSA Culture - Final Nose A&P Assessment and plan (1) Encephalopathy: Status: Acute (2) Acute hyponatremia: Status: Acute (3) Enterocolitis: Status: Acute (4) Elevated bilirubin: Status: Acute (5) ETOH abuse: Status: Chronic (6) Anemia: Status: Chronic (7) DVT (deep venous thrombosis): Status: Resolved (8) Pulmonary embolism: Status: Chronic (9) COPD (chronic obstructive pulmonary disease): Status: Acute (10) Ascites: Status: Acute (11) Fall: Status: Acute (12) Hepatic steatosis: Status: Acute Plan Acute encephalopathy: Multifactorial. Could be secondary to hyponatremia versus hepatic encephalopathy versus secondary to sepsis though unlikely. Cannot rule out Wernicke's secondary to chronic alcohol use. Check ABG. CT head on admission negative for acute stroke or bleed. Check ammonia levels. If all negative will plan for MRI brain. Acute hyponatremia: Resolving. Likely secondary to hypovolemic hyponatremia. Urine sodium less than 10 with serum osmolarity low as well. Appreciate TSH, random cortisol, urinalysis studies. Repeat BMP in the a.m. Continue with oral salt tablets 1 g 3 times daily. Regular diet. #Normocytic anemia: Likely multifactorial: Secondary to chronic blood loss FOBT is positive, alcohol abuse. Hemoglobin 7 today. Takes Eliquis as an outpatient for history of DVT. Check lower limb Dopplers. Protonix 40 mg twice daily, Carafate before meals and at bedtime. #Colitis:: Appreciated CT abdomen pelvis. MRSA negative. Check procalcitonin. Continue with Zosyn for now. Possible COPD exacerbation: Resolved now. Oxygen supplementation keeping saturation over 90%. Wean down steroid to 40 mg oral daily. DuoNebs every 6 hour as needed. #History of DVT/PE: Is on Eliquis at Home Currently on hold. Lower limb Dopplers. #Chronic alcohol abuse: On [facility] protocol Thiamine Folic acid Restart other chronic home medication including Lexapro, Requip, Flomax. #CODE STATUS: Full code. Protonix OPD prophylaxis. Regular diet. Physical therapy evaluation. Attestations Medical Necessity Statement*: Requires further hospitalization for management of encephalopathy, hyponatremia while safe discharge planning is sought. 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
[2021-11-26] MEDS: LORazepam 2 mg/mL INJ 1 mL IM (15:04)
[2021-11-26] MEDS: dexmedeTOMIDine 0.9 % NaCL 400 MCG/100 ML PREMIX IV (16:13)
[2021-11-26 17:20] LABS: Magnesium 1.9 mg/dL (1.7-2.3)
--- NOTE | 2021-11-26 17:37 | XRR_ITS ---
PROCEDURE INFORMATION: Exam: XR Chest Exam date and time: 11/26/2021 5:46 PM Age: 61 years old Clinical indication: Device placement; Other: RT. Picc line; Additional info: Picc placement TECHNIQUE: Imaging protocol: XR of the chest. Views: 1 view. Other technique: The patient is rotated to the right. COMPARISON: CR (CHEST, ) 11/23/2021 7:40 PM FINDINGS: Tubes, catheters and devices: Interval placement of a right upper extremity PICC with the tip at the cavoatrial junction. Lungs: Interval development of bilateral lower lobe airspace disease suspicious for pneumonia, worse on the right. Pleural spaces: No pleural effusion. No pneumothorax. Heart/Mediastinum: Stable mild enlargement of the cardiac silhouette. Vasculature: Stable vascular calcifications in the aorta. Bones/joints: Patient has had a previous right shoulder hemiarthroplasty. Degenerative changes in the spine and shoulders. Bones are diffusely osteopenic. XR/XR chest 1V portable [id number] IMPRESSION: 1. Interval development of bilateral lower lobe airspace disease suspicious for pneumonia, worse on the right. Recommend followup chest x-ray to ensure resolution. 2. Interval placement of a right upper extremity PICC with the tip at the cavoatrial junction. 3. Incidental/nonacute findings are listed in the report.
--- NOTE | 2021-11-26 18:21 | PC.NURSE ---
PICC RIGHT arm ready for use. Primary nurse notified.
--- NOTE | 2021-11-26 18:43 | PC.NURSE ---
Witnessed waste of ativan 2mg by Kadi Argueta RN
--- NOTE | 2021-11-26 18:43 | PC.NURSE ---
Wasted 2mg Atavan due to dose order change, with Stephanie BERNARDO.
--- NOTE | 2021-11-26 21:46 | NUR.SHIFT ---
At 1900 this RN found precedex gtt at 0.3 but mar stated 0.2. Mar changed to match gtt rate. 1999 assessment Pt is very lethargic. Pupils 5, equal, sluggish, Pearla. Pt will open eyes to verbal commands, but drifts off without answering orientation questions. pt mumbles and words are incomprehensible. Does not follow commands but does withdraw from pain. Pt moves all extremities on his own with purpose. +3 pulses upper and lower pulses. incont of stool and urine. spontaneous resp, non labored, pursed lips. HR normal, S1, S2.
[2021-11-26 22:08] LABS: Glucose Point of Care 122 mg/dL (70-110)
[2021-11-26] MEDS: LORazepam 2 mg/mL INJ 1 mL 1 MG IVP (23:12)
--- NOTE | 2021-11-26 23:54 | PC.NURSE ---
report called to abilio at [id number]
[2021-11-27] VITALS (12 sets, daily range): BP systolic 118–163; BP diastolic 72–83; PULSE 88–104; RESP 16–24; TEMP 36.3–36.8; O2SAT 91–100
--- NOTE | 2021-11-27 00:39 | PC.NURSE ---
TRANSFER FROM ICU Pt received to floor from ICU at 2350. Opens eyes to name but is lethargic and does not follow any commands or answer questions. Mumbly garbled speech when he does say anything. Soft moaning occ. Some restlessness/fidgeting in bed. Had small BM on arrival to floor and was cleaned. Skin & eyes with jaundice noted. O2 in place at 3l per NC. Noted use of abd muscles with breathing and wheezing present. PICC line in place to R upper arm with IV Zosyn infusing. Both arms with large areas of dark bruising. Reported from ICU nurse to have had infiltrating IVs with blood transfusion. sport shoe spike assembler applied and is showig SR. 1:1 sitter came to floor with pt.
[2021-11-27] MEDS: LORazepam 2 mg/mL INJ 1 mL 1 MG IVP (03:37)
[2021-11-27] MEDS: piperacillin-tazobactam 3.375 GM in sodium chloride 0.9% (plus) 100 ML IV ×3 (05:15→20:31)
[2021-11-27 06:23] LABS: Hematocrit 21.2 % (42.0-52.0); Mean Corpuscular HGB Conc 30.7 g/dL (30.0-36.0); Mean Corpuscular Hemoglobin 27.4 pg (28.0-34.0); Mean Corpuscular Volume 89.5 fl (80-94); Mean Platelet Volume 10.8 fL (7.4-10.4); Platelet Count 75 10^3/cmm (130-400); Red Blood Count 2.37 10^6/uL (4.1-5.3); Red Cell Distribution Width 22.9 % (12.1-15.1); White Blood Count 15.7 10^3/uL (4.0-10.0)
[2021-11-27 06:48] LABS: Alanine Aminotransferase 20 U/L (0-41); Albumin Level 3.3 g/dL (3.5-5.2); Alkaline Phosphatase 117 IU/L (40-130); Anion Gap 14.1 (5-19); Aspartate Amino Transferase 56 U/L (0-40); Blood Urea Nitrogen 17 mg/dL (8-23); Calcium 8.2 mg/dL (8.5-10.5); Carbon Dioxide 26 mmol/L (22-29); Chloride 101 mmol/L (98-107); Globulin 2.1 g/dL (1.3-4.6); Glomerular Filtration Rate 169.6 mL/min (90-130); Glucose 76 mg/dL (65-115); Osmolality Calculated 284 mOsm/kg (285-295); Potassium 4.1 mmol/L (3.5-5.1); Sodium 137 mmol/L (136-145); Total Bilirubin 2.3 mg/dL (0.15-1.2); Total Protein 5.4 g/dL (6.6-8.7)
[2021-11-27 07:34] LABS: Hemoglobin 6.5 g/dL (11.7-16.6)
[2021-11-27 07:35] LABS: Slide Review Slide Review Perform
[2021-11-27 07:37] LABS: Absolute Eosinophils 0.1 10^3/cmm (0.0-0.7); Absolute Segmented Neutrophil 11.5 10/cmm (1.6-7.1); Band Neutrophils Absolute 1.7 10^3/cmm (0.0-1.2); Eosinophils 1 %; Lymphocytes 9 %; Monocytes Absolute 0.6 10^3/cmm (0.1-0.6); Segmented Neutrophils 73 %; Total Cells Counted 100 (0-100)
[2021-11-27 07:39] LABS: Absolute Neutrophil 13.2 10^3/cmm (1.4-6.5); Hypochromasia 2+; Platelet Estimate Decreased (Normal); Polychromasia 1+; Target Cells Trace
[2021-11-27 07:40] LABS: Lymphocytes Absolute 1.4 10^3/cmm (1.2-3.4)
[2021-11-27] MEDS: pantoprazole 40 mg SDV IVP ×2 (10:07→20:24)
--- NOTE | 2021-11-27 10:32 | MRR_ITS ---
PROCEDURE INFORMATION: Exam: MR Head Without Contrast Exam date and time: 11/27/2021 5:23 PM Age: 61 years old Clinical indication: Altered mental status/memory loss; Additional info: Soha TECHNIQUE: Imaging protocol: MR of the head without contrast. COMPARISON: CT head wo con* [id number] 11/23/2021 7:57 PM FINDINGS: Brain: Patient motion occurs during the examination. Scattered small subacute infarction foci are present in the right frontal, parietal and occipital lobes (MCA territory), medial right occipital lobe (TENANT RELATIONS COORDINATOR territory), and superior left cerebellar hemisphere. No hemorrhage is detected. No midline shift. Cerebral ventricles: Normal. No ventriculomegaly. Bones/joints: Unremarkable. Paranasal sinuses: Normal as visualized. No acute sinusitis. Mastoid air cells: Normal as visualized. No mastoid effusion. Orbital cavities: Unremarkable. Soft tissues: Unremarkable. MR/MR head wo con* [id number] IMPRESSION: Limited study due to motion. Scattered bilateral subacute infarction foci, see above, raise the possibility of central thromboembolic source. Correlate clinically.
[2021-11-27 12:19] LABS: Folate Level 4.9 ng/mL (4.5-32.2)
[2021-11-27] MEDS: sodium chloride 0.9% (100 ml) 100 ML 125 ML (12:48)
--- NOTE | 2021-11-27 14:31 | PC.SOCIAL ---
IMM update IMM updated with patient's sister. Verbalized an understanding. Initialled, dated, timed, and placed in chart.
--- NOTE | 2021-11-27 15:49 | PM.PN ---
Subjective Subjective: No acute events overnight. Last 24 hours patient received 1 L of blood. While receiving blood he had 2 IV lines which infiltrated. Blood transfusion could not be completed. On examination patient laying comfortably in bed, sleeping, wakes up to hospitalization. Alert and oriented to self and place. Has remained hemodynamically stable and afebrile otherwise. Vitals/I&O/Wt Last Vital Signs Temp 97.3 F L 11/27/21 12:55 Pulse 102 H 11/27/21 12:55 Resp 16 11/27/21 12:55 BP 124/79 11/27/21 12:55 Pulse Ox 92 11/27/21 12:55 11/27/21 11/27/21 11/27/21 06:59 14:59 22:59 Intake Total 50 / 473.303 140 / 140 200 / 340 Balance 50 / 473.303 140 / 140 200 / 340 Weight last 48 hrs Weight 74.571 kg Weight 78.046 kg Physical Exam Narrative: General: No acute distress, AO x3, sleepy, lethargic, chronically ill-appearing HEENT: PERRLA, pupils bilaterally equal and reactive Chest: Normal vesicular breath sounds, mild rhonchi bilaterally lower zone more on the right than the left equal good air entry bilaterally CVS: S1-S2 regular, no murmurs, no tachycardia, no gallops, no rubs Abdomen: Soft, nontender, no organomegaly, bowel sounds present Neuro: No focal deficits, no facial deformity, AO x3, power 5/5 in all limbs Urinary Catheter Management: Matthews: Cath Placed During This Visit: yes Reason for Continuing Indwelling Catheter: Accurate Measurement of Urinary Output in Critically Ill Patients Urinary Catheter Date of Insertion: 11/23/21 Urinary Catheter Time of Insertion: 19:30 Data : 11/27/21 05:01 11/27/21 05:01 Micro: Microbiology 11/25/21 11:38 Blood Culture - Preliminary Blood NEGATIVE TO DATE 11/25/21 11:49 Blood Culture - Preliminary Blood NEGATIVE TO DATE 11/25/21 21:23 MRSA Culture - Final Nose A&P Assessment and plan (1) Anemia: Status: Chronic (2) Encephalopathy: Status: Acute (3) Acute hyponatremia: Status: Acute (4) Enterocolitis: Status: Acute (5) Elevated bilirubin: Status: Acute (6) ETOH abuse: Status: Chronic (7) DVT (deep venous thrombosis): Status: Resolved (8) Pulmonary embolism: Status: Chronic (9) COPD (chronic obstructive pulmonary disease): Status: Acute (10) Ascites: Status: Acute (11) Fall: Status: Acute (12) Hepatic steatosis: Status: Acute Plan Acute encephalopathy: Multifactorial. Could be secondary to anemia versus Warnicke encephalopathy from chronic alcohol use. Could be secondary to Ativan use for alcohol withdrawal. Patient received Ammonia levels within normal limits. Hyponatremia has resolved. CT head on admission negative for stroke or bleed. Check MRI brain. Sitter at bedside. Frequent reorientation. Stop all sedative medications. Change lactulose to as needed. IV thiamine 100 mg for 3 days otherwise continue oral thiamine. Acute hyponatremia: Salt. Likely secondary to hypovolemic hyponatremia. Stop IV fluids. Continue with oral salt 1 g twice daily today. Urine sodium less than 10 with serum osmolarity low as well. Appreciate TSH, random cortisol, urinalysis studies. Repeat BMP in the a.m. Regular diet. #Normocytic anemia: Likely multifactorial: Secondary to chronic blood loss FOBT is positive, alcohol abuse. Hemoglobin dropping again today. We will transfuse 2 unit of blood. Will consult surgery for possible EGD/colonoscopy. Eliquis has been on hold since admission. Takes Eliquis and outpatient for history of DVT/PE. Lower limb Dopplers negative for DVT. Most likely patient would not need Eliquis going forward. Continue Protonix 40 mg twice daily, Carafate before meals and at bedtime. #Colitis: Appreciated CT abdomen pelvis. MRSA negative. Check procalcitonin. Continue with Zosyn for now. Possible COPD exacerbation: Resolved now. Oxygen supplementation keeping saturation over 90%. Stop steroids as patient has received over 5-day course. DuoNebs every 6 hour as needed. #History of DVT/PE: Is on Eliquis at Home Currently on hold. Lower limb Dopplers negative for DVT. Most likely will not need anticoagulation going forward. #Chronic alcohol abuse: On [facility] protocol Thiamine Folic acid Restart other chronic home medication including Lexapro, Requip, Flomax. #CODE STATUS: Full code. Protonix will help with PUD prophylaxis. Regular diet. Physical therapy evaluation. Discharge planning: Home health versus SNF placement. Patient is severely physically deconditioned because of chronic alcohol use. Patient most likely will need rehabitation going forward. Case management alerted. 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
[2021-11-27 16:56] LABS: Vitamin B12 > 2000 pg/mL (232-1245)
--- NOTE | 2021-11-27 18:24 | USCV_ITS ---
Raymond Coronel Age: 61 Gender: M : 1960 Exam Date: 11/27/2021 22:43 Ordering Phys: Janes Ortiz MD Technologist: REMINGTON Exam Location: [facility] Indication: Stroke BP: / HR: 103 Rhythm: Sinus Technical Quality: Adequate MEASUREMENTS (Male / Female) Normal Values 2D ECHO LV Diastolic Diameter PLAX 3.6 cm 4.2 - 5.9 / 3.9 - 5.3 cm LV Systolic Diameter PLAX 2.5 cm IVS Diastolic Thickness 1.2 cm 0.6 - 1.0 / 0.6 - 0.9 cm IVS Systolic Thickness 1.3 cm LVPW Diastolic Thickness 1.6 cm 0.6 - 1.0 / 0.6 - 0.9 cm LVPW Systolic Thickness 2.5 cm LVOT Diameter 2.2 cm LV Ejection Fraction 2D Teich 55.8 % LV Ejection Fraction MOD 2C 12.4 % LV Ejection Fraction 2C AL 11.1 % LA Diameter 2.8 cm LA Width 3.6 cm LA Height 6.5 cm RA Width 5.0 cm RA Height 3.6 cm Aorta at Sinotubular Diameter 3.4 cm M-MODE Aortic Annulus Diameter 3.6 cm LA Ao Ratio MM 0.9 MV E Point Septal Separation 1.1 cm DOPPLER AV Peak Velocity 95.5 cm/s LVOT Peak Velocity 78.0 cm/s AV Area Cont Eq vti 5.6 cm squared AV Area Cont Eq pk 3.1 cm squared MV Peak Velocity 77.0 cm/s MV Area PHT 5.8 cm squared MV E' Velocity 74.0 cm/s TR Peak Velocity 227.7 cm/s TR Peak Gradient 20.7 mmHg TR Mean Velocity 156.4 cm/s TR Mean Gradient 12.5 mmHg TR Velocity Time Integral 60.7 cm Right Atrial Pressure 10.0 mmHg Pulmonary Artery Systolic Pressu 30.7 mmHg PV Peak Velocity 91.0 cm/s RV Acceleration Time 0.1 s RV Ejection Time 0.4 s RV AcT/ET 0.4 FINDINGS Left Ventricle Normal left ventricular cavity size. Probably moderately decreased left ventricle systolic function. Left ventricular ejection fraction grossly estimated at 40%. This study is inadequate for estimation of regional wall motion abnormality. Abnormal septal motion. Right Ventricle Normal right ventricular size and systolic function. RVSP could not be calculated due to incomplete tricuspid regurgitation velocity profile. Right Atrium Normal right atrial size. Left Atrium Mildly increased left atrial size. Mitral Valve Mild mitral annular calcification. Trace mitral valve regurgitation. Aortic Valve Aortic valve not well visualized. No aortic valve stenosis. No aortic valve regurgitation. Tricuspid Valve Thickened tricuspid valve. No tricuspid valve stenosis. Trace to mild tricuspid valve regurgitation. Pulmonic Valve Pulmonic valve not well visualized. Pericardium No pericardial effusion. Aorta Dilated inferior vena cava. Normal size aortic root and proximal ascending aorta. CONCLUSIONS 1. This is a technically difficult study. 2. Normal left ventricular cavity size. Probably moderately decreased left ventricle systolic function. Left ventricular ejection fraction grossly estimated at 40%. This study is inadequate for estimation of regional wall motion abnormality. Abnormal septal motion. 3. Repeat study with echo contrast is recommended. 4. VAUGHN may be considered to rule out cardioembolic source of stroke. Clinical correlation is advised. Debi Arroyo MD (Electronically Signed) Final Date: 28 November 2021 15:37 Amended: 02 December 2021 10:12 C
--- NOTE | 2021-11-27 18:24 | CTR_ITS ---
PROCEDURE INFORMATION: Exam: CT Angiography Head With Contrast, Arteriography Exam date and time: 11/27/2021 9:51 PM Age: 61 years old Clinical indication: Cognitive deficit and weakness; Type not specified; Prior surgery; Surgery type: RT shoulder replacement; Patient HX: Weakness. Multiple focal infarctions seen on mri dated 11/27/2021. ; Additional info: Stroke TECHNIQUE: Imaging protocol: Computed tomography angiography of the head with contrast. Exam focused on the arteries. 3D rendering (Not supervised by radiologist): MIP and/or 3D reconstructed images were created by the technologist. Radiation optimization: All CT scans at this facility use at least one of these dose optimization techniques: automated exposure control; mA and/or kV adjustment per patient size (includes targeted exams where dose is matched to clinical indication); or iterative reconstruction. Contrast material: OMNI 350; Contrast volume: 95 ml; Contrast route: INTRAVENOUS (IV); COMPARISON: MR head wo stanislav* [id number] 11/27/2021 5:23 PM RADIATION DOSE METRICS: Total DLP (mGy-cm): 2298.81 FINDINGS: ANTERIOR CIRCULATION: Right internal carotid artery: Unremarkable. Intracranial segment is patent with no significant stenosis. No aneurysm. Right middle cerebral artery: Unremarkable. No occlusion or significant stenosis. No aneurysm. Right anterior cerebral artery: Unremarkable. No occlusion or significant stenosis. No aneurysm. Left internal carotid artery: Unremarkable. Intracranial segment is patent with no significant stenosis. No aneurysm. Left middle cerebral artery: Unremarkable. No occlusion or significant stenosis. No aneurysm. Left anterior cerebral artery: Unremarkable. No occlusion or significant stenosis. No aneurysm. POSTERIOR CIRCULATION: Right vertebral artery: Unremarkable. No occlusion or significant stenosis. No aneurysm. Left vertebral artery: Unremarkable. No occlusion or significant stenosis. No aneurysm. Basilar artery: Unremarkable. No occlusion or significant stenosis. No aneurysm. Right posterior cerebral artery: Unremarkable. No occlusion or significant stenosis. No aneurysm. Left posterior cerebral artery: Unremarkable. No occlusion or significant stenosis. No aneurysm. IMPRESSION: Patent intracranial arteries. PROCEDURE INFORMATION: Exam: CT Angiography Neck With Contrast Exam date and time: 11/27/2021 9:51 PM Age: 61 years old Clinical indication: Cognitive deficit and weakness; Type not specified; Prior surgery; Surgery type: RT shoulder replacement; Patient HX: Weakness. Multiple focal infarctions seen on mri dated 11/27/2021. ; Additional info: Stroke TECHNIQUE: Imaging protocol: Computed tomography angiography of the neck with contrast. 3D rendering (Not supervised by radiologist): MIP and/or 3D reconstructed images were created by the technologist. Radiation optimization: All CT scans at this facility use at least one of these dose optimization techniques: automated exposure control; mA and/or kV adjustment per patient size (includes targeted exams where dose is matched to clinical indication); or iterative reconstruction. Contrast material: OMNI 350; Contrast volume: 95 ml; Contrast route: INTRAVENOUS (IV); COMPARISON: CT angio chest PE protcl [id number] 03/24/2021 12:20 PM RADIATION DOSE METRICS: Total DLP (mGy-cm): 2298.81 FINDINGS: NOTE: Mild patient motion occurs during the examination causing motion artifact in bilateral common carotid arteries and vertebral arteries at the C4-C6 region. Right common carotid artery: No stenosis. No dissection or occlusion. Right internal carotid artery: No stenosis of the extracranial segment. No dissection or occlusion. Right external carotid artery: No occlusion or stenosis of the origin. Left common carotid artery: No stenosis. No dissection or occlusion. Left internal carotid artery: No stenosis of the extracranial segment. No dissection or occlusion. Left external carotid artery: No occlusion or stenosis of the origin. Right vertebral artery: No stenosis. No dissection or occlusion. Left vertebral artery: No stenosis. No dissection or occlusion. Soft tissues: Normal. No significant soft tissue swelling. Bones/joints: No acute fracture. Lungs: Pulmonary emphysema changes are again seen in the lung apices. Patchy ground-glass opacities are present in the right lung apex. Pleural spaces: A small to moderate sized posterior layering left pleural effusion is noted. No pneumothorax is seen. CT/CT angio headneck* [id number] IMPRESSION: 1. Mild motion artifact. The neck carotid and vertebral arteries appear patent. No arterial occlusion is detected. 2. Pulmonary emphysema. Right apical ground-glass opacities may be be secondary to infectious or inflammatory process, correlate clinically. 3. Posterior layering left pleural effusion. REFERENCES: NASCET CRITERIA. The degree of internal carotid artery stenosis is based on NASCET criteria. Normal is no stenosis. Mild is less than 50% stenosis. Moderate is 50-69% stenosis. Severe is 70% to 99% stenosis. Total occlusion is no detectable patent lumen.
[2021-11-27] MEDS: sodium chloride 0.9% 1,000 ML 30 ML IV (19:15)
[2021-11-27] MEDS: sucralfate 1 gm/10 mL Oral Liq UDC PO ×2 (19:25→22:03)
[2021-11-27] MEDS: iohexol 350 mg/mL 100 mL Btl IV (21:53)
[2021-11-28] VITALS (22 sets, daily range): BP systolic 115–152; BP diastolic 72–92; PULSE 84–110; RESP 17–24; TEMP 36.3–36.9; O2SAT 93–98
[2021-11-28] MEDS: ipratropium-albuterol 3 mL Neb INHALATION ×6 (01:59→23:23)
[2021-11-28 03:03] LABS: Basophils # 0.1 10^3/uL (0.0-0.1); Basophils % 0.3 %; Eosinophils # 0.3 10^3/uL (0.0-0.8); Eosinophils % 1.7 %; Hematocrit 24.8 % (42.0-52.0); Hemoglobin 7.8 g/dL (11.7-16.6); Lymphocytes # 1.4 10^3/uL (0.8-4.8); Lymphocytes % 7.9 %; Mean Corpuscular HGB Conc 31.5 g/dL (30.0-36.0); Mean Corpuscular Volume 88.9 fl (80-94); Mean Platelet Volume 11.1 fL (7.4-10.4); Monocytes # 1.1 10^3/uL (0.2-0.9); Monocytes % 6.4 %; Neutrophils # 13.23 10^3/uL (1.8-7.7); Neutrophils % 76.3 %; Nucleated Red Blood Cells # 1.3 /100WBC; Nucleated Red Blood Cells % 7.6 %; Platelet Count 61 10^3/cmm (130-400); Red Blood Count 2.79 10^6/uL (4.1-5.3); Red Cell Distribution Width 21.9 % (12.1-15.1); White Blood Count 17.4 10^3/uL (4.0-10.0)
[2021-11-28 03:29] LABS: Alanine Aminotransferase 21 U/L (0-41); Albumin Level 2.9 g/dL (3.5-5.2); Alkaline Phosphatase 125 IU/L (40-130); Anion Gap 11.5 (5-19); Aspartate Amino Transferase 61 U/L (0-40); Blood Urea Nitrogen 10 mg/dL (8-23); Calcium 7.6 mg/dL (8.5-10.5); Carbon Dioxide 27 mmol/L (22-29); Chloride 103 mmol/L (98-107); Globulin 1.8 g/dL (1.3-4.6); Glomerular Filtration Rate 219.4 mL/min (90-130); Glucose 79 mg/dL (65-115); Osmolality Calculated 284 mOsm/kg (285-295); Potassium 3.5 mmol/L (3.5-5.1); Sodium 138 mmol/L (136-145); Total Bilirubin 2.6 mg/dL (0.15-1.2); Total Protein 4.7 g/dL (6.6-8.7)
[2021-11-28 04:24] LABS: Slide Review Slide Review Perform
[2021-11-28] MEDS: piperacillin-tazobactam 3.375 GM in sodium chloride 0.9% (plus) 100 ML IV ×2 (05:07→20:51)
[2021-11-28] MEDS: sucralfate 1 gm/10 mL Oral Liq UDC PO ×3 (06:43→20:48)
--- NOTE | 2021-11-28 08:55 | P.CONIM_ITS ---
Providers/Reason For Consult Consulting Physician/Specialty*: General Surgery Dr. Mayen Reason for Consult*: Anemia Requesting Physician: Dr. Drummond Attending Physician: Janes Ortiz MD Primary Care Provider: Hali Mcneal APN History of Present Illness History of Present Illness Raymond Coronel is a 61 year old male Review of Systems General: Reports: 10 or more systems reviewed and unremarkable except in HPI and below Medications/Allergies Home Medications Medication Instructions Recorded Confirmed Last Taken Type albuterol sulfate 90 mcg/actuation 2 puff INHALATION QID PRN 11/01/19 11/24/21 07/02/20 History aerosol inhaler lisinopril 2.5 mg tablet 2.5 mg PO BID PRN 11/01/19 11/24/21 07/01/20 History pantoprazole 40 mg tablet,delayed 40 mg PO BID 11/01/19 11/24/21 07/02/20 History release ropinirole 1 mg tablet 1 - 2 mg PO BEDTIME PRN 11/01/19 11/24/21 06/24/20 History tamsulosin 0.4 mg capsule 0.4 mg PO BID 11/01/19 11/24/21 07/02/20 History tramadol 50 mg tablet 50 mg PO Q4H PRN 11/01/19 11/24/21 07/01/20 History lorazepam 0.5 mg tablet 0.5 - 1 mg PO TID PRN 07/02/20 11/24/21 07/01/20 History tizanidine 4 mg tablet 4 mg PO TID PRN 07/02/20 11/24/21 06/29/20 History cyanocobalamin (vitamin B-12) 1,000 mcg IM Q30D 03/22/21 11/24/21 05/15/21 History 1,000 mcg/mL injection solution ergocalciferol (vitamin D2) 1,250 50,000 unit PO Q7D 03/22/21 11/24/21 03/20/21 History mcg (50,000 unit) capsule apixaban 5 mg tablet (Eliquis) 5 mg PO BID #60 tab 03/24/21 11/24/21 Unknown Rx bupropion HCl 150 mg tablet,12 hr 150 mg PO BID 30 Days #60 tab 06/07/21 11/24/21 Unknown Rx sustained-release doxepin 50 mg capsule 50 mg PO BEDTIME PRN 30 Days #30 06/07/21 11/24/21 Unknown Rx cap escitalopram oxalate 20 mg tablet 20 mg PO DAILY 30 Days #30 tab 06/07/21 11/24/21 Unknown Rx Allergies Allergy/AdvReac Type Severity Reaction Status Date / Time No Known Allergies Allergy Verified 11/23/21 18:36 Current Medications Generic Name Dose Route Start Last Admin Trade Name Freq PRN Reason Stop Dose Admin Albuterol/Ipratropium 3 ml 11/28/21 01:39 11/28/21 08:03 Ipratropium-Albuterol 3 Ml Neb INHALATION 3 ml Q4H PRN Administration SHORTNESS OF BREATH Apixaban 5 mg 11/24/21 09:00 11/24/21 08:15 Apixaban 5 Mg Tablet PO 5 mg BID VICKEY Administration Escitalopram Oxalate 10 mg 11/26/21 09:00 11/26/21 08:26 Escitalopram 10 Mg Tablet PO 10 mg DAILY VICKEY Administration Folic Acid 1 mg 11/25/21 09:00 11/27/21 16:11 Folic Acid 1 Mg Tablet PO Not Given DAILY VICKEY Piperacillin Sod/Tazobactam 100 mls @ 25 mls/hr 11/27/21 05:15 11/28/21 05:07 Sod 3.375 gm/ Sodium Chloride IV 25 mls/hr Q8H VICKEY Administration Protocol Sodium Chloride 1,000 mls @ 30 mls/hr 11/27/21 16:46 11/27/21 19:15 Sodium Chloride 0.9% IV 11/28/21 16:45 30 mls/hr .Q24H ONE Administration Magnesium Lactate 84 mg 11/24/21 09:00 11/27/21 19:21 Magnesium Lactate 84 Mg Tablet PO Not Given BID VICKEY Multivitamins Therapeutic 1 tab 11/26/21 09:00 11/27/21 16:11 Multivitamin Therapeutic Tablet PO Not Given DAILY VICKEY Pantoprazole Sodium 40 mg 11/25/21 20:00 11/27/21 20:24 Pantoprazole 40 Mg Sdv IVP 40 mg Q12H VICKEY Administration Sodium Chloride 1 gm 11/27/21 18:00 11/27/21 19:22 Sodium Chloride 1 Gm Tablet PO Not Given BID VICKEY Sucralfate 1 gm 11/25/21 21:00 11/28/21 06:43 Sucralfate 1 Gm/10 Ml Oral Liq Udc PO 1 gm AC&BEDTIME VICKEY Administration Tamsulosin HCl 0.4 mg 11/25/21 18:00 11/27/21 19:22 Tamsulosin 0.4 Mg Capsule PO Not Given BID VICKEY Thiamine Mononitrate 100 mg 11/25/21 09:00 11/27/21 16:11 Thiamine 100 Mg Tablet PO Not Given DAILY VICKEY PFSH Acute PFSH: Medical History (Updated 11/26/21 @ 14:58 by Janes Ortiz MD) Alcohol abuse Alcoholism Anemia BPH (benign prostatic hyperplasia) COPD (chronic obstructive pulmonary disease) Diverticulosis DVT (deep venous thrombosis) GERD (gastroesophageal reflux disease) Hepatitis C Hiatal hernia History of colon polyps Hypertension Incarcerated hernia Pulmonary emboli Restless leg syndrome Tobacco abuse Surgical History History of cholecystectomy History of colonoscopy with polypectomy (~2016) 2019- dr. jeffries History of right shoulder replacement (~12/2019) Status post left shoulder hemiarthroplasty Family History Denies family history of Chronic kidney disease (CKD) Social History Smoking and tobacco status: current every day smoker Alcohol intake: current Household members: family Housing: House Vitals/I&O/Wt Last Vital Signs Temp 97.4 F L 11/28/21 07:20 Pulse 99 11/28/21 08:09 Resp 24 H 11/28/21 08:04 BP 145/92 11/28/21 07:20 Pulse Ox 93 11/28/21 08:04 11/27/21 11/28/21 11/28/21 22:59 06:59 14:59 Intake Total 540 / 780 100 / 780 Balance 540 / 780 100 / 780 Weight last 48 hrs Weight 164 lb 6.4 oz Physical Exam Narrative: HEENT: Normocephalic Eye: Sclera /conjunctiva normal Respiratory and chest: Bilateral clear breath sounds on auscultation Cardiovascular: Normal S1 and S2 heart sounds Abdomen: Soft to palpation Neurological: Oriented to place person and time Skin: Intact, no lesions appreciated on gross exam Urinary Catheter Management: Matthews: Cath Placed During This Visit: yes Reason for Continuing Indwelling Catheter: Accurate Measurement of Urinary Output in Critically Ill Patients Urinary Catheter Date of Insertion: 11/23/21 Urinary Catheter Time of Insertion: 19:30 Data : 11/28/21 02:22 11/28/21 02:22 Consult Attestations Medical Necessity Statement: As per attending physician Coding Level of Care Code Acute Field Court Researcher for Bg Ramírez
[2021-11-28 09:08] LABS: HEP C RNA Viral Load Quant <1.18 NOT DETECTED Log IU/mL (NOT DETECTED); HEP C RNA Viral Load Quant <15 NOT DETECTED IU/mL (NOT DETECTED)
--- NOTE | 2021-11-28 10:50 | P.CONIM_ITS ---
Providers/Reason For Consult Consulting Physician/Specialty*: Hospitalist service Reason for Consult*: Anemia Attending Physician: Janes Ortiz MD Primary Care Provider: Hali Mcneal APN History of Present Illness History of Present Illness Raymond Coronel is a 61 year old male who presented to the ER with 5-day history of weakness and in the ER he was noted to be hyponatremic and was admitted for further evaluation. Patient has a history of alcoholism and has had prior colonoscopy [place] [address] Jeffries which showed hyperplastic rectal polyp and diverticulosis. Patient was noted to be FOBT positive, denies any hematemesis, melena or hematochezia. He denies any abdominal pain, nausea or vomiting. He had an MRI yesterday which showed embolic infarcts in the brain. Patient received blood transfusion yesterday Medications/Allergies Home Medications Medication Instructions Recorded Confirmed Last Taken Type albuterol sulfate 90 mcg/actuation 2 puff INHALATION QID PRN 11/01/19 11/24/21 07/02/20 History aerosol inhaler lisinopril 2.5 mg tablet 2.5 mg PO BID PRN 11/01/19 11/24/21 07/01/20 History pantoprazole 40 mg tablet,delayed 40 mg PO BID 11/01/19 11/24/21 07/02/20 History release ropinirole 1 mg tablet 1 - 2 mg PO BEDTIME PRN 11/01/19 11/24/21 06/24/20 History tamsulosin 0.4 mg capsule 0.4 mg PO BID 11/01/19 11/24/21 07/02/20 History tramadol 50 mg tablet 50 mg PO Q4H PRN 11/01/19 11/24/21 07/01/20 History lorazepam 0.5 mg tablet 0.5 - 1 mg PO TID PRN 07/02/20 11/24/21 07/01/20 History tizanidine 4 mg tablet 4 mg PO TID PRN 07/02/20 11/24/21 06/29/20 History cyanocobalamin (vitamin B-12) 1,000 mcg IM Q30D 03/22/21 11/24/21 05/15/21 History 1,000 mcg/mL injection solution ergocalciferol (vitamin D2) 1,250 50,000 unit PO Q7D 03/22/21 11/24/21 03/20/21 History mcg (50,000 unit) capsule apixaban 5 mg tablet (Eliquis) 5 mg PO BID #60 tab 03/24/21 11/24/21 Unknown Rx bupropion HCl 150 mg tablet,12 hr 150 mg PO BID 30 Days #60 tab 06/07/21 11/24/21 Unknown Rx sustained-release doxepin 50 mg capsule 50 mg PO BEDTIME PRN 30 Days #30 06/07/21 11/24/21 Unknown Rx cap escitalopram oxalate 20 mg tablet 20 mg PO DAILY 30 Days #30 tab 06/07/21 11/24/21 Unknown Rx Allergies Allergy/AdvReac Type Severity Reaction Status Date / Time No Known Allergies Allergy Verified 11/23/21 18:36 Current Medications Generic Name Dose Route Start Last Admin Trade Name Freq PRN Reason Stop Dose Admin Albuterol/Ipratropium 3 ml 11/28/21 01:39 11/28/21 08:03 Ipratropium-Albuterol 3 Ml Neb INHALATION 3 ml Q4H PRN Administration SHORTNESS OF BREATH Apixaban 5 mg 11/24/21 09:00 11/24/21 08:15 Apixaban 5 Mg Tablet PO 5 mg BID VICKEY Administration Escitalopram Oxalate 10 mg 11/26/21 09:00 11/26/21 08:26 Escitalopram 10 Mg Tablet PO 10 mg DAILY VICKEY Administration Folic Acid 1 mg 11/25/21 09:00 11/27/21 16:11 Folic Acid 1 Mg Tablet PO Not Given DAILY VICKEY Piperacillin Sod/Tazobactam 100 mls @ 25 mls/hr 11/27/21 05:15 11/28/21 05:07 Sod 3.375 gm/ Sodium Chloride IV 25 mls/hr Q8H VICKEY Administration Protocol Sodium Chloride 1,000 mls @ 30 mls/hr 11/27/21 16:46 11/27/21 19:15 Sodium Chloride 0.9% IV 11/28/21 16:45 30 mls/hr .Q24H ONE Administration Magnesium Lactate 84 mg 11/24/21 09:00 11/27/21 19:21 Magnesium Lactate 84 Mg Tablet PO Not Given BID VICKEY Multivitamins Therapeutic 1 tab 11/26/21 09:00 11/27/21 16:11 Multivitamin Therapeutic Tablet PO Not Given DAILY VICKEY Pantoprazole Sodium 40 mg 11/25/21 20:00 11/27/21 20:24 Pantoprazole 40 Mg Sdv IVP 40 mg Q12H VICKEY Administration Sodium Chloride 1 gm 11/27/21 18:00 11/27/21 19:22 Sodium Chloride 1 Gm Tablet PO Not Given BID VICKEY Sucralfate 1 gm 11/25/21 21:00 11/28/21 06:43 Sucralfate 1 Gm/10 Ml Oral Liq Udc PO 1 gm AC&BEDTIME VICKEY Administration Tamsulosin HCl 0.4 mg 11/25/21 18:00 11/27/21 19:22 Tamsulosin 0.4 Mg Capsule PO Not Given BID VICKEY Thiamine Mononitrate 100 mg 11/25/21 09:00 11/27/21 16:11 Thiamine 100 Mg Tablet PO Not Given DAILY VICKEY PFSH Acute PFSH: Medical History Alcohol abuse Alcoholism Anemia BPH (benign prostatic hyperplasia) COPD (chronic obstructive pulmonary disease) Diverticulosis DVT (deep venous thrombosis) GERD (gastroesophageal reflux disease) Hepatitis C Hiatal hernia History of colon polyps Hypertension Incarcerated hernia Pulmonary emboli Restless leg syndrome Tobacco abuse Surgical History History of cholecystectomy History of colonoscopy with polypectomy (~2016) 2019- dr. jeffries History of right shoulder replacement (~12/2019) Status post left shoulder hemiarthroplasty Family History Denies family history of Chronic kidney disease (CKD) Social History Smoking and tobacco status: current every day smoker Alcohol intake: current Household members: family Housing: House Vitals/I&O/Wt Last Vital Signs Temp 97.4 F L 11/28/21 07:20 Pulse 99 11/28/21 08:09 Resp 24 H 11/28/21 08:04 BP 145/92 11/28/21 07:20 Pulse Ox 93 11/28/21 08:04 11/27/21 11/28/21 11/28/21 22:59 06:59 14:59 Intake Total 540 / 780 100 / 780 0 / 0 Balance 540 / 780 100 / 780 0 / 0 Weight last 48 hrs Weight 177 lb 3 oz Weight 164 lb 6.4 oz Physical Exam Narrative: HEENT: Normocephalic Eye: Sclera /conjunctiva normal Abdomen: Soft to palpation Neurological: Oriented to place person and time Skin: Intact, no lesions appreciated on gross exam Urinary Catheter Management: Matthews: Cath Placed During This Visit: yes Reason for Continuing Indwelling Catheter: Accurate Measurement of Urinary Output in Critically Ill Patients Urinary Catheter Date of Insertion: 11/23/21 Urinary Catheter Time of Insertion: 19:30 Data : 11/28/21 02:22 11/28/21 02:22 A&P Assessment and plan (1) Anemia: 61-year-old male with history of alcoholism who was FOBT positive without evidence of active GI bleed. His hemoglobin is down to 6.5 and has come up to 7.8 after transfusion. Patient had a colonoscopy in 2020. We will plan for EGD under MAC. Procedure, risks, benefits and alternatives have been discussed with the patient who wishes to proceed with surgery. Status: Chronic Coding Level of Care Code Acute Automated Logistics Specialist for Chg Fwd Diagnoses Anemia D64.9
[2021-11-28] MEDS: sodium chloride 0.9% 1,000 ML 30 ML IV (11:58)
--- NOTE | 2021-11-28 12:13 | ANES.PREANE2 ---
Pre-Anesthetic Assessment Height/Weight: Height 1.75 m Weight 80.371 kg Temp Pulse Resp BP Pulse Ox 97.3 F L 100 18 128/91 96 11/28/21 11:53 11/28/21 11:53 11/28/21 11:53 11/28/21 11:53 11/28/21 11:53 Preop Diagnosis: Anemia Operation Date: 11/28/21 12:15 Proposed Procedures p EGD(Not Applicable) - Rolando Mayen MD Familial anesthetic complications: None Was Beta Dominique taken within 24 hours: N/A Was Clonidine taken within 24 hours: N/A Last intake: Intake Last Liquid Date 11/27/21 Last Liquid Time 20:00 Last Solid Date 11/27/21 Last Solid Time 17:00 Social Alcohol and Tobacco Exam oriented x 3 and regular rate & rhythm Sedate, easily awakened, rhonchi and wheezing Airway Submandibular: within normal limits Cervical ROM: within normal limits Mallampati: Class II Dentition: false Pulmonary Chronic Obstructive Pulmonary Disease Home O2 CV/HEM Anemia and Hypertension PE Hepatic hepatic steatosis and ascites Anesthetic Plan ASA status: 4 Anesthesia: MAC Medications/Allergies Home Medications Medication Instructions Recorded Confirmed Last Taken Type albuterol sulfate 90 mcg/actuation 2 puff INHALATION QID PRN 11/01/19 11/24/21 07/02/20 History aerosol inhaler lisinopril 2.5 mg tablet 2.5 mg PO BID PRN 11/01/19 11/24/21 07/01/20 History pantoprazole 40 mg tablet,delayed 40 mg PO BID 11/01/19 11/24/21 07/02/20 History release ropinirole 1 mg tablet 1 - 2 mg PO BEDTIME PRN 11/01/19 11/24/21 06/24/20 History tamsulosin 0.4 mg capsule 0.4 mg PO BID 11/01/19 11/24/21 07/02/20 History tramadol 50 mg tablet 50 mg PO Q4H PRN 11/01/19 11/24/21 07/01/20 History lorazepam 0.5 mg tablet 0.5 - 1 mg PO TID PRN 07/02/20 11/24/21 07/01/20 History tizanidine 4 mg tablet 4 mg PO TID PRN 07/02/20 11/24/21 06/29/20 History cyanocobalamin (vitamin B-12) 1,000 mcg IM Q30D 03/22/21 11/24/21 05/15/21 History 1,000 mcg/mL injection solution ergocalciferol (vitamin D2) 1,250 50,000 unit PO Q7D 03/22/21 11/24/21 03/20/21 History mcg (50,000 unit) capsule apixaban 5 mg tablet (Eliquis) 5 mg PO BID #60 tab 03/24/21 11/24/21 Unknown Rx bupropion HCl 150 mg tablet,12 hr 150 mg PO BID 30 Days #60 tab 06/07/21 11/24/21 Unknown Rx sustained-release doxepin 50 mg capsule 50 mg PO BEDTIME PRN 30 Days #30 06/07/21 11/24/21 Unknown Rx cap escitalopram oxalate 20 mg tablet 20 mg PO DAILY 30 Days #30 tab 06/07/21 11/24/21 Unknown Rx Allergies Allergy/AdvReac Type Severity Reaction Status Date / Time No Known Allergies Allergy Verified 11/23/21 18:36 Current Medications Generic Name Dose Route Start Last Admin Trade Name Freq PRN Reason Stop Dose Admin Albuterol/Ipratropium 3 ml 11/28/21 01:39 11/28/21 08:03 Ipratropium-Albuterol 3 Ml Neb INHALATION 3 ml Q4H PRN Administration SHORTNESS OF BREATH Apixaban 5 mg 11/24/21 09:00 11/24/21 08:15 Apixaban 5 Mg Tablet PO 5 mg BID VICKEY Administration Escitalopram Oxalate 10 mg 11/26/21 09:00 11/26/21 08:26 Escitalopram 10 Mg Tablet PO 10 mg DAILY VICKEY Administration Folic Acid 1 mg 11/25/21 09:00 11/27/21 16:11 Folic Acid 1 Mg Tablet PO Not Given DAILY VICKEY Piperacillin Sod/Tazobactam 100 mls @ 25 mls/hr 11/27/21 05:15 11/28/21 05:07 Sod 3.375 gm/ Sodium Chloride IV 12/02/21 05:14 25 mls/hr Q8H VICKEY Administration Protocol Sodium Chloride 1,000 mls @ 30 mls/hr 11/27/21 16:46 11/27/21 19:15 Sodium Chloride 0.9% IV 11/28/21 16:45 30 mls/hr .Q24H ONE Administration Sodium Chloride 1,000 mls @ 30 mls/hr 11/28/21 12:00 11/28/21 11:58 Sodium Chloride 0.9% IV 30 mls/hr .Q24H VICKEY Administration Magnesium Lactate 84 mg 11/24/21 09:00 11/27/21 19:21 Magnesium Lactate 84 Mg Tablet PO Not Given BID VICKEY Multivitamins Therapeutic 1 tab 11/26/21 09:00 11/27/21 16:11 Multivitamin Therapeutic Tablet PO Not Given DAILY VICKEY Pantoprazole Sodium 40 mg 11/25/21 20:00 11/27/21 20:24 Pantoprazole 40 Mg Sdv IVP 40 mg Q12H VICKEY Administration Sodium Chloride 1 gm 11/27/21 18:00 11/27/21 19:22 Sodium Chloride 1 Gm Tablet PO Not Given BID VICKEY Sucralfate 1 gm 11/25/21 21:00 11/28/21 06:43 Sucralfate 1 Gm/10 Ml Oral Liq Udc PO 1 gm AC&BEDTIME VICKEY Administration Tamsulosin HCl 0.4 mg 11/25/21 18:00 11/27/21 19:22 Tamsulosin 0.4 Mg Capsule PO Not Given BID VICKEY Thiamine Mononitrate 100 mg 11/25/21 09:00 11/27/21 16:11 Thiamine 100 Mg Tablet PO Not Given DAILY VICKEY PFSH Anesthesia Medical History Alcohol abuse Alcoholism Anemia BPH (benign prostatic hyperplasia) COPD (chronic obstructive pulmonary disease) Diverticulosis DVT (deep venous thrombosis) GERD (gastroesophageal reflux disease) Hepatitis C Hiatal hernia History of colon polyps Hypertension Incarcerated hernia Pulmonary emboli Restless leg syndrome Tobacco abuse Surgical History History of cholecystectomy History of colonoscopy with polypectomy (~2016) 2019- dr. jeffries History of right shoulder replacement (~12/2019) Status post left shoulder hemiarthroplasty Family History Denies family history of Chronic kidney disease (CKD) Social History Smoking and tobacco status: current every day smoker Alcohol intake: current Household members: family Housing: House Data Anesthesia : 11/28/21 02:22 11/28/21 02:22 Short CBC 11/27/21 11/28/21 Range/Units 05:01 02:22 WBC 15.7 H 17.4 H (4.0-10.0) 10^3/uL Hgb 6.5 L* 7.8 L (11.7-16.6) g/dL Hct 21.2 L 24.8 L (42.0-52.0) % MCV 89.5 88.9 (80-94) fl Plt Count 75 L D 61 L (130-400) 10^3/cmm Neut % (Auto) 76.3 % Neut # (Auto) 13.23 H (1.8-7.7) 10^3/uL BMP 11/27/21 11/28/21 05:01 02:22 Sodium 137 138 Potassium 4.1 3.5 Chloride 101 103 Carbon Dioxide 26 27 BUN 17 10 Creatinine 0.5 L 0.4 L Glucose 76 79 Calcium 8.2 L 7.6 L Liver Function 11/26/21 11/27/21 11/28/21 Range/Units 12:35 05:01 02:22 Total Bilirubin 2.8 H 2.3 H 2.6 H (0.15-1.2) mg/dL Direct Bilirubin 2.20 H (0.00-0.30) mg/dL AST 56 H 61 H (0-40) U/L ALT 20 21 (0-41) U/L Alkaline Phosphatase 117 125 (40-130) IU/L Albumin 3.3 L 2.9 L (3.5-5.2) g/dL Blood Bank 11/25/21 11:38 Blood Type O Positive Rho(D) Type Positive Antibody Screen Negative Cardiac Studies: No Data to Display
[2021-11-28 12:40] LABS: Procalcitonin 0.12 ng/mL (0-0.5)
--- NOTE | 2021-11-28 13:54 | PM.PN ---
Subjective Subjective: No events overnight. Today morning examination patient is a lot more awake and alert than yesterday. Able to get out of bed walk to chair to transport for EGD. Denies any nausea vomiting, headache. Sleeping on examination but wakes up to verbal cue and able to answer questions. Seems to be back to his baseline mentation. Vitals/I&O/Wt Last Vital Signs Temp 98.3 F 11/28/21 13:35 Pulse 84 11/28/21 13:35 Resp 18 11/28/21 13:35 BP 119/76 11/28/21 13:35 Pulse Ox 98 11/28/21 13:35 11/27/21 11/28/21 11/28/21 22:59 06:59 14:59 Intake Total 540 / 680 100 / 780 100 / 100 Balance 540 / 680 100 / 780 100 / 100 Weight last 48 hrs Weight 80.371 kg Weight 74.571 kg Physical Exam Narrative: General: No acute distress, AO x3, sleepy, lethargic, chronically ill-appearing HEENT: PERRLA, pupils bilaterally equal and reactive Chest: Normal vesicular breath sounds, mild rhonchi bilaterally lower zone more on the right than the left equal good air entry bilaterally CVS: S1-S2 regular, no murmurs, no tachycardia, no gallops, no rubs Abdomen: Soft, nontender, no organomegaly, bowel sounds present Neuro: No focal deficits, no facial deformity, AO x3, power 5/5 in all limbs Urinary Catheter Management: Matthews: Cath Placed During This Visit: yes Reason for Continuing Indwelling Catheter: Accurate Measurement of Urinary Output in Critically Ill Patients Urinary Catheter Date of Insertion: 11/23/21 Urinary Catheter Time of Insertion: 19:30 Data : 11/28/21 02:22 11/28/21 02:22 A&P Assessment and plan (1) Anemia: Status: Chronic (2) Encephalopathy: Status: Acute (3) Thromboembolic stroke: Status: Acute (4) Acute hyponatremia: Status: Acute (5) Enterocolitis: Status: Acute (6) Elevated bilirubin: Status: Acute (7) ETOH abuse: Status: Chronic (8) DVT (deep venous thrombosis): Status: Resolved (9) Pulmonary embolism: Status: Chronic (10) COPD (chronic obstructive pulmonary disease): Status: Acute (11) Ascites: Status: Acute (12) Fall: Status: Acute (13) Hepatic steatosis: Status: Acute Plan Acute encephalopathy: Multifactorial. Most likely 2/2 thromboelmbolic strokes as evident MRI and anemia. Also could be secondary to the Ativan which he was getting earlier. Improving currently. Ammonia levels within normal limits. Hyponatremia has resolved. CT head on admission negative for stroke or bleed. Sitter at bedside. Frequent reorientation. Stop all sedative medications. Change lactulose to as needed. IV thiamine 100 mg for 3 days otherwise continue oral thiamine. Stroke: Most likely thromboembolic in nature given the appearance on MRI. CTA head and neck, echocardiogram. Telemetry. Check lipid panel. Unfortunately cannot do anticoagulation given severe anemia and recurrence of anemia. Discussed care in detail with patient's DPOA/sister. She is in agreement of not starting anticoagulation currently as he is at a high risk of bleeding. Acute hyponatremia: Resolved. Likely secondary to hypovolemic hyponatremia. Stop IV fluids. Continue with oral salt 1 g twice daily today. We will plan to wean down oral salt from tomorrow onwards. Urine sodium less than 10 with serum osmolarity low as well. Appreciate TSH, random cortisol, urinalysis studies. Repeat BMP in the a.m. Regular diet. Normocytic anemia: Likely multifactorial: Secondary to chronic blood loss FOBT is positive, alcohol abuse. Received treatment of blood transfusion yesterday. Hemoglobin 7.8. Surgery consulted for EGD. Patient already had colonoscopy as an outpatient within last 1 year consistent with hyperplastic polyp Eliquis has been on hold since admission. Takes Eliquis and outpatient for history of DVT/PE. Lower limb Dopplers negative for DVT. Most likely patient would not need Eliquis going forward. Continue Protonix 40 mg twice daily, Carafate before meals and at bedtime. Colitis: Appreciated CT abdomen pelvis. MRSA negative. Check procalcitonin. Continue with Zosyn for now. Possible COPD exacerbation: Resolved now. Oxygen supplementation keeping saturation over 90%. Stop steroids as patient has received over 5-day course. DuoNebs every 6 hour as needed. 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 Lower limb Dopplers negative for DVT. Plan for no anticoagulation going forward. Chronic alcohol abuse: On [facility] protocol Thiamine Folic acid Restart other chronic home medication including Lexapro, Requip, Flomax. #CODE STATUS: Full code. Protonix will help with PUD prophylaxis. Regular diet. Physical therapy evaluation. Discharge planning: Home health versus SNF placement. Patient is severely physically deconditioned because of chronic alcohol use. Patient most likely will need rehabitation going forward. Case management alerted. Attestations Medical Necessity Statement*: Requires further hospitalization for management of anemia requiring EGD, acute hyponatremia which is resolving in setting of alcohol abuse, encephalopathy secondary to multiple thromboembolic strokes while safe discharge planning is sought. Time Spent in Patient Care: Greater than 35 minutes Coding Level of Care Code Acute Gerontological Nurse Practitioner for Chg Fwd Diagnoses Anemia D64.9 Encephalopathy G93.40 Acute hyponatremia E87.1 Enterocolitis K52.9 Elevated bilirubin R17 ETOH abuse F10.10 DVT (deep venous thrombosis) I82.409 Pulmonary embolism I26.99 COPD (chronic obstructive pulmonary disease) J44.9 Ascites R18.8 Fall W19.XXXA Hepatic steatosis K76.0 Thromboembolic stroke I63.9
--- NOTE | 2021-11-28 14:55 | ANE.PACU2 ---
Inpatient post-anesthesia follow up: Airway intact: Yes Vital signs: Temperature 98.3 F Pulse Rate 84 Respiratory Rate 18 Blood Pressure 119/76 Pulse Oximetry 98 Oxygen Delivery Me thod Nasal Cannula Oxygen Flow Rate 3 Fraction of Inspir ed Oxygen Hydration adequate: Yes Nausea and vomiting: No Pain level: 1 Mental status: Baseline
[2021-11-28] MEDS: sodium chloride 1 gm Tablet PO (17:39)
[2021-11-28] MEDS: tamsulosin 0.4 mg Capsule PO (17:42)
[2021-11-28] MEDS: magnesium lactate 84 mg Tablet PO (17:42)
[2021-11-28] MEDS: pantoprazole 40 mg SDV IVP (20:48)
[2021-11-28] MEDS: FUROsemide 10 mg/mL SDV 2mL 20 MG IVP (22:34)
[2021-11-29] VITALS (10 sets, daily range): BP systolic 106–136; BP diastolic 66–92; PULSE 83–105; RESP 16–18; TEMP 36.6–36.9; O2SAT 91–97
[2021-11-29] MEDS: ipratropium-albuterol 3 mL Neb INHALATION ×2 (03:31→08:18)
[2021-11-29 05:04] LABS: Basophils % 0.1 %; Eosinophils # 0.3 10^3/uL (0.0-0.8); Eosinophils % 2.2 %; Hematocrit 26.6 % (42.0-52.0); Hemoglobin 8.2 g/dL (11.7-16.6); Lymphocytes # 1.3 10^3/uL (0.8-4.8); Lymphocytes % 8.7 %; Mean Corpuscular HGB Conc 30.8 g/dL (30.0-36.0); Mean Corpuscular Hemoglobin 28.2 pg (28.0-34.0); Mean Corpuscular Volume 91.4 fl (80-94); Mean Platelet Volume 11.6 fL (7.4-10.4); Monocytes % 6.3 %; Neutrophils # 11.72 10^3/uL (1.8-7.7); Neutrophils % 77.5 %; Nucleated Red Blood Cells # 0.6 /100WBC; Nucleated Red Blood Cells % 3.8 %; Platelet Count 62 10^3/cmm (130-400); Red Blood Count 2.91 10^6/uL (4.1-5.3); Red Cell Distribution Width 23.3 % (12.1-15.1); White Blood Count 15.1 10^3/uL (4.0-10.0)
[2021-11-29 05:28] LABS: Alanine Aminotransferase 24 U/L (0-41); Alkaline Phosphatase 156 IU/L (40-130); Aspartate Amino Transferase 56 U/L (0-40); Blood Urea Nitrogen 7 mg/dL (8-23); Calcium 7.9 mg/dL (8.5-10.5); Carbon Dioxide 30 mmol/L (22-29); Chloride 101 mmol/L (98-107); Globulin 1.8 g/dL (1.3-4.6); Glomerular Filtration Rate 219.4 mL/min (90-130); Glucose 88 mg/dL (65-115); Osmolality Calculated 289 mOsm/kg (285-295); Sodium 141 mmol/L (136-145); Total Bilirubin 2.8 mg/dL (0.15-1.2); Total Protein 4.8 g/dL (6.6-8.7)
[2021-11-29] MEDS: piperacillin-tazobactam 3.375 GM in sodium chloride 0.9% (plus) 100 ML IV ×3 (05:36→22:51)
[2021-11-29 06:21] LABS: Anion Gap 12.9 (5-19)
[2021-11-29] MEDS: sucralfate 1 gm/10 mL Oral Liq UDC PO ×4 (06:21→20:13)
[2021-11-29 06:22] LABS: Potassium 2.9 mmol/L (3.5-5.1)
[2021-11-29 06:32] LABS: Slide Review Slide Review Perform
[2021-11-29] MEDS: sodium chloride 1 gm Tablet PO ×2 (08:09→17:28)
[2021-11-29] MEDS: multivitamin therapeutic Tablet 1 TAB PO (08:12)
[2021-11-29] MEDS: tamsulosin 0.4 mg Capsule PO ×2 (08:12→17:28)
[2021-11-29] MEDS: folic acid 1 mg Tablet PO (08:13)
--- NOTE | 2021-11-29 09:08 | PC.SOCIAL ---
IMM Update Pg. 2 of IMM updated and reviewed with patient, who verbalized understanding. Copy provided.
[2021-11-29] MEDS: magnesium lactate 84 mg Tablet PO ×2 (09:49→18:51)
[2021-11-29] MEDS: pantoprazole DR 40 mg Tablet PO ×2 (09:49→20:12)
[2021-11-29] MEDS: thiamine 100 mg Tablet PO (09:49)
[2021-11-29] MEDS: lidocaine 1% 5 ML in potassium chloride premix 100 ML 25 ML IV (09:50)
--- NOTE | 2021-11-29 11:53 | P.PN_ITS ---
Subjective Subjective: No acute vents overnight. Today morning patient seen sitting in bedside. He is a lot more awake and alert. Have able to have complete conversation. Denies any nausea, vomiting, headache. Complaining of occasional diarrhea. Has agreed to go to SNF for further rehabitation. Vitals/I&O/Wt Last Vital Signs Temp 98.4 F 11/29/21 08:00 Pulse 88 11/29/21 08:18 Resp 16 11/29/21 08:18 BP 106/66 11/29/21 08:00 Pulse Ox 95 11/29/21 08:18 11/28/21 11/29/21 11/29/21 22:59 06:59 14:59 Intake Total 120 / 320 100 / 420 340 / 340 Balance 120 / 320 100 / 420 340 / 340 Weight last 48 hrs Weight 78.653 kg Weight 80.371 kg Physical Exam Narrative: General: No acute distress, AO x3, no acute distress, chronically ill-appearing HEENT: PERRLA, pupils bilaterally equal and reactive Chest: Normal vesicular breath sounds, mild rhonchi bilaterally lower zone more on the right than the left equal good air entry bilaterally CVS: S1-S2 regular, no murmurs, no tachycardia, no gallops, no rubs Abdomen: Soft, nontender, no organomegaly, bowel sounds present Neuro: No focal deficits, no facial deformity, AO x3, power 5/5 in all limbs Urinary Catheter Management: Matthews: Cath Placed During This Visit: yes Reason for Continuing Indwelling Catheter: Accurate Measurement of Urinary Output in Critically Ill Patients Urinary Catheter Date of Insertion: 11/23/21 Urinary Catheter Time of Insertion: 19:30 Data : 11/29/21 04:26 11/29/21 04:26 A&P Assessment and plan (1) Anemia: Status: Chronic (2) Encephalopathy: Status: Acute (3) Thromboembolic stroke: Status: Acute (4) Acute hyponatremia: Status: Acute (5) Enterocolitis: Status: Acute (6) Elevated bilirubin: Status: Acute (7) ETOH abuse: Status: Chronic (8) DVT (deep venous thrombosis): Resolved in repeat Doppler in November 2021 Status: Resolved (9) Pulmonary embolism: Treated for more than 3 months. Patient currently saturating well on baseline oxygen supplementation Status: Chronic (10) COPD (chronic obstructive pulmonary disease): Status: Acute (11) Ascites: Status: Acute (12) Fall: Status: Acute (13) Hepatic steatosis: Status: Acute Plan Acute encephalopathy: Multifactorial. Most likely 2/2 thromboelmbolic strokes as evident MRI and anemia. Also could be secondary to the Ativan which he was getting earlier. Resolved. Sitter removed. Ammonia levels within normal limits. Hyponatremia has resolved. MRI brain consistent with multiple thromboembolic strokes. Sitter at bedside. Frequent reorientation. Stop all sedative medications. Change lactulose to as needed. IV thiamine 100 mg for 3 days otherwise continue oral thiamine. Last dose of IV thiamine on 11/30 Stroke: Most likely thromboembolic in nature given the appearance on MRI. Echocardiogram results appreciated with EF of 40%. Telemetry. Start on aspirin 81 mg daily. Lipid abrasion appreciated. For now we will hold off on anticoagulation given severe recurrent anemia. If hemoglobin remains stable can give a trial of anticoagulation again. Discussed care in detail with patient's DPOA/sister. She is in agreement of not starting anticoagulation currently as he is at a high risk of bleeding. Acute hyponatremia: Resolved. Likely secondary to hypovolemic hyponatremia. Stop IV fluids. We will stop oral salt tablets. Urine sodium less than 10 with serum osmolarity low as well. Appreciate TSH, random cortisol, urinalysis studies. Repeat BMP in the a.m. Regular diet. Normocytic anemia: L post endoscopy. Appreciate surgical recommendations. Endoscopy consistent with hiatal hernia and gastritis. Esophageal varices. Hemoglobin stable. We will transfuse if drops less than 7. Protonix twice daily, Carafate. If hemoglobin remains stable can potentially start anticoagulation again given thromboembolic stroke. Colitis: Appreciated CT abdomen pelvis. MRSA negative. Check procalcitonin. Continue with Zosyn for now. Possible COPD exacerbation: Resolved now. Oxygen supplementation keeping saturation over 90%. Stop steroids as patient has received over 5-day course. DuoNebs every 6 hour as needed. 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 Lower limb Dopplers negative for DVT. Plan for no an ticoagulation going forward. Chronic alcohol abuse: On CIWA protocol Thiamine Folic acid Restart other chronic home medication including Lexapro, Requip, Flomax. #CODE STATUS: Full code. Protonix will help with PUD prophylaxis. Regular diet. Physical therapy evaluation. Discharge planning: Patient is agreeable for SNF placement. Case management alerted. Plan to discharge to SNF once accepted. Plan for today: Check stool studies to rule out C. difficile. Stop oral salt tablets. Treatment reorientation. Physical therapy. Continue with Zosyn to finish the course of 5 days. Attestations Medical Necessity Statement*: Requires further hospitalization for management of acute encephalopathy secondary to multiple thromboembolic stroke, anemia while safe discharge planning to SNF discharge Time Spent in Patient Care: 16 - 35 minutes Coding Level of Care Code Acute Telehealth Coordinator for [facility] Fwd Diagnoses Anemia D64.9 Encephalopathy G93.40 Thromboembolic stroke I63.9 Acute hyponatremia E87.1 Enterocolitis K52.9 Elevated bilirubin R17 ETOH abuse F10.10 DVT (deep venous thrombosis) I82.409 Pulmonary embolism I26.99 COPD (chronic obstructive pulmonary disease) J44.9 Ascites R18.8 Fall W19.XXXA Hepatic steatosis K76.0
[2021-11-29] MEDS: potassium chloride ER 20 mEq Tablet 40 MEQ PO (11:57)
[2021-11-29] MEDS: aspirin 81 mg EC Tablet PO (11:57)
[2021-11-30] VITALS (9 sets, daily range): BP systolic 99–135; BP diastolic 66–97; PULSE 68–97; RESP 15–18; TEMP 36.6–36.8; O2SAT 93–98
[2021-11-30] MEDS: TRAMadol 50 mg Tablet PO (00:24)
[2021-11-30] MEDS: sucralfate 1 gm/10 mL Oral Liq UDC PO ×4 (06:07→20:40)
[2021-11-30] MEDS: magnesium lactate 84 mg Tablet PO ×2 (10:12→18:07)
[2021-11-30] MEDS: thiamine 100 mg Tablet PO (10:12)
[2021-11-30] MEDS: aspirin 81 mg EC Tablet PO (10:12)
[2021-11-30] MEDS: tamsulosin 0.4 mg Capsule PO ×2 (10:12→18:07)
[2021-11-30] MEDS: multivitamin therapeutic Tablet 1 TAB PO (10:12)
[2021-11-30] MEDS: pantoprazole DR 40 mg Tablet PO ×2 (10:12→20:40)
[2021-11-30] MEDS: folic acid 1 mg Tablet PO (10:12)
[2021-11-30] MEDS: sodium chloride 1 gm Tablet PO (10:13)
--- NOTE | 2021-11-30 13:16 | P.PN_ITS ---
Subjective Subjective: No acute vents overnight. On examination patient sitting in bedside. Awake and alert. Able to complete conversation. States feeling better. Denies any abdominal pain. States still having diarrhea but better than before. Asking when can he be discharged to SNF. Vitals/I&O/Wt Last Vital Signs Temp 98.3 F 11/30/21 12:00 Pulse 97 11/30/21 12:00 Resp 16 11/30/21 12:00 BP 99/66 11/30/21 12:00 Pulse Ox 97 11/30/21 12:00 11/29/21 11/30/21 11/30/21 22:59 06:59 14:59 Intake Total 1451 / 2136 100 / 2236 Balance 1451 / 2136 100 / 2236 Weight last 48 hrs Weight 78.653 kg Physical Exam Narrative: General: No acute distress, AO x3, no acute distress, chronically ill-appearing HEENT: PERRLA, pupils bilaterally equal and reactive Chest: Normal vesicular breath sounds, mild rhonchi bilaterally lower zone more on the right than the left equal good air entry bilaterally CVS: S1-S2 regular, no murmurs, no tachycardia, no gallops, no rubs Abdomen: Soft, nontender, no organomegaly, bowel sounds present Neuro: No focal deficits, no facial deformity, AO x3, power 5/5 in all limbs Urinary Catheter Management: Matthews: Cath Placed During This Visit: yes Reason for Continuing Indwelling Catheter: Accurate Measurement of Urinary Output in Critically Ill Patients Urinary Catheter Date of Insertion: 11/23/21 Urinary Catheter Time of Insertion: 19:30 Data : 11/29/21 04:26 11/29/21 04:26 Micro: Microbiology 11/25/21 11:38 Blood Culture - Final Blood NO GROWTH AFTER 5 DAYS 11/25/21 11:49 Blood Culture - Final Blood NO GROWTH AFTER 5 DAYS 11/29/21 23:08 Stool Lactoferrin - Final Stool Enteric Pathogens (PCR) - Final Parasite Antigen Panel - Final C.difficile Toxin B Gene (PCR) - Final Occult Blood (FIT) - Final A&P Assessment and plan (1) Anemia: Status: Chronic (2) Encephalopathy: Status: Acute (3) Thromboembolic stroke: Status: Acute (4) Acute hyponatremia: Status: Acute (5) Enterocolitis: Status: Acute (6) Elevated bilirubin: Status: Acute (7) ETOH abuse: Status: Chronic (8) DVT (deep venous thrombosis): Resolved in repeat Doppler in November 2021 Status: Resolved (9) Pulmonary embolism: Treated for more than 3 months. Patient currently saturating well on baseline oxygen supplementation Status: Chronic (10) COPD (chronic obstructive pulmonary disease): Status: Acute (11) Ascites: Status: Acute (12) Fall: Status: Acute (13) Hepatic steatosis: Status: Acute (14) C. difficile diarrhea: Status: Acute Plan Acute encephalopathy: Multifactorial. Most likely 2/2 thromboelmbolic strokes as evident MRI and anemia. Also could be secondary to the Ativan which he was getting earlier. Resolved. Sitter removed. Ammonia levels within normal limits. Hyponatremia has resolved. MRI brain consistent with multiple thromboembolic strokes. Sitter at bedside. Frequent reorientation. Stop all sedative medications. Change lactulose to as needed. IV thiamine 100 mg for 3 days otherwise continue oral thiamine. Last dose of IV thiamine on 11/30 Stroke: Most likely thromboembolic in nature given the appearance on MRI. Echocardiogram results appreciated with EF of 40%. Telemetry. Start on aspirin 81 mg daily. Lipid panel appreciated. For now we will hold off on anticoagulation given severe recurrent anemia. If hemoglobin remains stable can give a trial of anticoagulation again. Discussed care in detail with patient's DPOA/sister. She is in agreement of not starting anticoagulation currently as he is at a high risk of bleeding. Acute hyponatremia: Resolved. Likely secondary to hypovolemic hyponatremia. Stop IV fluids. We will stop oral salt tablets. Urine sodium less than 10 with serum osmolarity low as well. Appreciate TSH, random cortisol, urinalysis studies. Repeat BMP in the a.m. Regular diet. Normocytic anemia: L post endoscopy. Appreciate surgical recommendations. Endoscopy consistent with hiatal hernia and gastritis. Esophageal varices. Hemoglobin stable. We will transfuse if drops less than 7. Protonix twice daily, Carafate. If hemoglobin remains stable can potentially start anticoagulation again given thromboembolic stroke. Colitis: Appreciated CT abdomen pelvis. MRSA negative. Check procalcitonin. Continue with Zosyn for now. Last dose on 12/02. Stool studies repeated and consistent with C. difficile colitis. Started on vancomycin 125 mg 4 times daily. Plan for continuing vancomycin for at least 10 days after last dose of antibiotics. Possible COPD exacerbation: Resolved now. Oxygen supplementation keeping saturation over 90%. Stop steroids as patient has received over 5-day course. DuoNebs every 6 hour as needed. 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 Lower limb Dopplers negative for DVT. Plan for no anticoag ulation going forward. Chronic alcohol abuse: On CINE protocol Thiamine Folic acid Restart other chronic home medication including Lexapro, Requip, Flomax. #CODE STATUS: Full code. Protonix will help with PUD prophylaxis. Regular diet. Physical therapy evaluation. Discharge planning: Patient is agreeable for SNF placement. Case management alerted. Plan to discharge to SNF once accepted. Plan for today: Start on oral vancomycin 125 mg 4 times daily. Continue with Zosyn for colitis. Last day on 12/02. Stop oral salt tablets. Repeat labs in AM. Attestations Medical Necessity Statement*: Requires further hospitalization for management of C. difficile colitis, physical deconditioning in setting of anemia, colitis, chronic alcohol use, stroke while safe discharge planning to SNF is awaited. Time Spent in Patient Care: Greater than 35 minutes Coding Level of Care Code Acute Steel Handler for [facility] Fwd Diagnoses Anemia D64.9 Encephalopathy G93.40 Thromboembolic stroke I63.9 Acute hyponatremia E87.1 Enterocolitis K52.9 Elevated bilirubin R17 ETOH abuse F10.10 DVT (deep venous thrombosis) I82.409 Pulmonary embolism I26.99 COPD (chronic obstructive pulmonary disease) J44.9 Ascites R18.8 Fall W19.XXXA Hepatic steatosis K76.0 C. difficile diarrhea A04.72
[2021-12-01] VITALS (7 sets, daily range): BP systolic 98–116; BP diastolic 59–79; PULSE 84–99; RESP 16–18; TEMP 36.3–36.8; O2SAT 94–97
[2021-12-01 05:00] LABS: Basophils % 0.2 %; Eosinophils # 0.3 10^3/uL (0.0-0.8); Hematocrit 27.3 % (42.0-52.0); Hemoglobin 8.4 g/dL (11.7-16.6); Lymphocytes # 0.9 10^3/uL (0.8-4.8); Lymphocytes % 8.7 %; Mean Corpuscular HGB Conc 30.8 g/dL (30.0-36.0); Mean Corpuscular Hemoglobin 28.4 pg (28.0-34.0); Mean Corpuscular Volume 92.2 fl (80-94); Mean Platelet Volume 12.3 fL (7.4-10.4); Monocytes # 0.8 10^3/uL (0.2-0.9); Monocytes % 7.3 %; Neutrophils # 8.31 10^3/uL (1.8-7.7); Nucleated Red Blood Cells % 0.4 %; Platelet Count 103 10^3/cmm (130-400); Red Blood Count 2.96 10^6/uL (4.1-5.3); Red Cell Distribution Width 24.1 % (12.1-15.1); White Blood Count 10.4 10^3/uL (4.0-10.0)
[2021-12-01 05:14] LABS: Alanine Aminotransferase 19 U/L (0-41); Albumin Level 2.9 g/dL (3.5-5.2); Alkaline Phosphatase 143 IU/L (40-130); Anion Gap 13.4 (5-19); Aspartate Amino Transferase 41 U/L (0-40); Blood Urea Nitrogen 6 mg/dL (8-23); Calcium 7.4 mg/dL (8.5-10.5); Carbon Dioxide 26 mmol/L (22-29); Chloride 105 mmol/L (98-107); Globulin 1.8 g/dL (1.3-4.6); Glomerular Filtration Rate 169.6 mL/min (90-130); Glucose 85 mg/dL (65-115); Osmolality Calculated 289 mOsm/kg (285-295); Potassium 3.4 mmol/L (3.5-5.1); Sodium 141 mmol/L (136-145); Total Bilirubin 2.4 mg/dL (0.15-1.2); Total Protein 4.7 g/dL (6.6-8.7)
[2021-12-01] MEDS: sucralfate 1 gm/10 mL Oral Liq UDC PO ×4 (05:55→19:39)
[2021-12-01] MEDS: multivitamin therapeutic Tablet 1 TAB PO (09:31)
[2021-12-01] MEDS: folic acid 1 mg Tablet PO (09:31)
[2021-12-01] MEDS: pantoprazole DR 40 mg Tablet PO ×2 (09:31→19:39)
[2021-12-01] MEDS: aspirin 81 mg EC Tablet PO (09:31)
[2021-12-01] MEDS: magnesium lactate 84 mg Tablet PO ×2 (09:31→18:12)
[2021-12-01] MEDS: thiamine 100 mg Tablet PO (09:31)
[2021-12-01] MEDS: tamsulosin 0.4 mg Capsule PO ×2 (09:31→18:12)
[2021-12-01] MEDS: TRAMadol 50 mg Tablet PO ×2 (10:06→19:42)
--- NOTE | 2021-12-01 10:20 | PC.SOCIAL ---
IMM Update Pg. 2 of IMM updated and reviewed with patient, who verbalized understanding. Copy provided.
--- NOTE | 2021-12-01 12:21 | PM.PN ---
Subjective Subjective: No acute vents overnight. Laying comfortably in bed. States feeling a lot better. States diarrhea is almost resolved. Awake and alert. No episodes of agitation overnight. Vitals/I&O/Wt Last Vital Signs Temp 97.4 F L 12/01/21 11:14 Pulse 86 12/01/21 11:14 Resp 18 12/01/21 11:14 BP 108/63 12/01/21 11:14 Pulse Ox 96 12/01/21 11:14 11/30/21 12/01/21 12/01/21 22:59 06:59 14:59 Intake Total 120 / 120 120 / 120 Balance 120 / 120 120 / 120 Weight last 48 hrs Weight 77.61 kg Physical Exam Narrative: General: No acute distress, AO x3, no acute distress, chronically ill-appearing HEENT: PERRLA, pupils bilaterally equal and reactive Chest: Normal vesicular breath sounds, mild rhonchi bilaterally lower zone more on the right than the left equal good air entry bilaterally CVS: S1-S2 regular, no murmurs, no tachycardia, no gallops, no rubs Abdomen: Soft, nontender, no organomegaly, bowel sounds present Neuro: No focal deficits, no facial deformity, AO x3, power 5/5 in all limbs Urinary Catheter Management: Matthews: Cath Placed During This Visit: yes Reason for Continuing Indwelling Catheter: Accurate Measurement of Urinary Output in Critically Ill Patients Urinary Catheter Date of Insertion: 11/23/21 Urinary Catheter Time of Insertion: 19:30 Data : 12/01/21 04:20 12/01/21 04:20 Micro: Microbiology 11/25/21 11:38 Blood Culture - Final Blood NO GROWTH AFTER 5 DAYS 11/25/21 11:49 Blood Culture - Final Blood NO GROWTH AFTER 5 DAYS 11/29/21 23:08 Stool Lactoferrin - Final Stool Enteric Pathogens (PCR) - Final Parasite Antigen Panel - Final C.difficile Toxin B Gene (PCR) - Final Occult Blood (FIT) - Final A&P Assessment and plan (1) Anemia: Status: Chronic (2) Encephalopathy: Status: Acute (3) Thromboembolic stroke: Status: Acute (4) Acute hyponatremia: Status: Acute (5) Enterocolitis: Status: Acute (6) Elevated bilirubin: Status: Acute (7) ETOH abuse: Status: Chronic (8) DVT (deep venous thrombosis): Resolved in repeat Doppler in November 2021 Status: Resolved (9) Pulmonary embolism: Treated for more than 3 months. Patient currently saturating well on baseline oxygen supplementation Status: Chronic (10) COPD (chronic obstructive pulmonary disease): Status: Acute (11) Ascites: Status: Acute (12) Fall: Status: Acute (13) Hepatic steatosis: Status: Acute (14) C. difficile diarrhea: Status: Acute Plan Acute encephalopathy: Multifactorial. Most likely 2/2 thromboelmbolic strokes as evident MRI and anemia. Also could be secondary to the Ativan which he was getting earlier. Resolved. Sitter removed. Ammonia levels within normal limits. Hyponatremia has resolved. MRI brain consistent with multiple thromboembolic strokes. Sitter at bedside. Frequent reorientation. Stop all sedative medications. Change lactulose to as needed. IV thiamine 100 mg for 3 days otherwise continue oral thiamine. Last dose of IV thiamine on 11/30 Stroke: Most likely thromboembolic in nature given the appearance on MRI. Echocardiogram results appreciated with EF of 40%. Telemetry. Start on aspirin 81 mg daily. Lipid panel appreciated. For now we will hold off on anticoagulation given severe recurrent anemia. If hemoglobin remains stable can give a trial of anticoagulation again. Discussed care in detail with patient's DPOA/sister. She is in agreement of not starting anticoagulation currently as he is at a high risk of bleeding. Acute hyponatremia: Resolved. Likely secondary to hypovolemic hyponatremia. Stop IV fluids. We will stop oral salt tablets. Urine sodium less than 10 with serum osmolarity low as well. Appreciate TSH, random cortisol, urinalysis studies. Repeat BMP in the a.m. Regular diet. Normocytic anemia: L post endoscopy. Appreciate surgical recommendations. Endoscopy consistent with hiatal hernia and gastritis. Esophageal varices. Hemoglobin stable. We will transfuse if drops less than 7. Protonix twice daily, Carafate. If hemoglobin remains stable can potentially start anticoagulation again given thromboembolic stroke. Colitis: Appreciated CT abdomen pelvis. MRSA negative. Check procalcitonin. Continue with Zosyn for now. Last dose on 12/02. Stool studies repeated and consistent with C. difficile colitis. Started on vancomycin 125 mg 4 times daily. Plan for continuing vancomycin for at least 10 days after last dose of antibiotics. Possible COPD exacerbation: Resolved now. Oxygen supplementation keeping saturation over 90%. Stop steroids as patient has received over 5-day course. DuoNebs every 6 hour as needed. 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 Lower limb Dopplers negative for DVT. Plan for no anticoagulation going forward. Chronic alcohol abuse: On CIWA protocol Thiamine Folic acid Restart other chronic home medication including Lexapro, Requip, Flomax. #CODE STATUS: Full code. Protonix will help with PUD prophylaxis. Regular diet. Physical therapy evaluation. Discharge planning: Patient is agreeable for SNF placement. Case management alerted. Plan to discharge to SNF once accepted. Plan for today: Continue oral vancomycin, stop Zosyn. Awaiting placement. Monitor CMP daily. Attestations Medical Necessity Statement*: Requires further hospitalization for management of C. difficile colitis, hyponatremia, acute anemia while safe discharge planning is sought Time Spent in Patient Care: 16 - 35 minutes Coding Level of Care Code Acute Environmental Health Safety Manager for [facility] Fwd Diagnoses Anemia D64.9 Encephalopathy G93.40 Thromboembolic stroke I63.9 Acute hyponatremia E87.1 Enterocolitis K52.9 Elevated bilirubin R17 ETOH abuse F10.10 DVT (deep venous thrombosis) I82.409 Pulmonary embolism I26.99 COPD (chronic obstructive pulmonary disease) J44.9 Ascites R18.8 Fall W19.XXXA Hepatic steatosis K76.0 C. difficile diarrhea A04.72
[2021-12-01] MEDS: ropinirole 1 mg Tablet PO (19:38)
[2021-12-01] MEDS: ipratropium-albuterol 3 mL Neb INHALATION (21:58)
[2021-12-01] MEDS: ondansetron 2 mg/ML SDV 2 mL 4 MG IVP (22:46)
[2021-12-02] VITALS (7 sets, daily range): BP systolic 107–138; BP diastolic 66–96; PULSE 77–101; RESP 15–18; TEMP 36.5–37.1; O2SAT 92–95
[2021-12-02 03:24] LABS: Basophils % 0.3 %; Eosinophils # 0.3 10^3/uL (0.0-0.8); Eosinophils % 2.6 %; Hematocrit 28.6 % (42.0-52.0); Hemoglobin 8.7 g/dL (11.7-16.6); Lymphocytes # 0.9 10^3/uL (0.8-4.8); Mean Corpuscular HGB Conc 30.4 g/dL (30.0-36.0); Mean Corpuscular Hemoglobin 28.4 pg (28.0-34.0); Mean Corpuscular Volume 93.5 fl (80-94); Mean Platelet Volume 12.9 fL (7.4-10.4); Monocytes # 0.9 10^3/uL (0.2-0.9); Monocytes % 7.4 %; Neutrophils # 9.51 10^3/uL (1.8-7.7); Neutrophils % 80.9 %; Nucleated Red Blood Cells % 0.3 %; Platelet Count 124 10^3/cmm (130-400); Red Blood Count 3.06 10^6/uL (4.1-5.3); Red Cell Distribution Width 23.4 % (12.1-15.1); White Blood Count 11.8 10^3/uL (4.0-10.0)
[2021-12-02 03:47] LABS: Alanine Aminotransferase 18 U/L (0-41); Albumin Level 2.9 g/dL (3.5-5.2); Alkaline Phosphatase 152 IU/L (40-130); Blood Urea Nitrogen 6 mg/dL (8-23); Calcium 7.6 mg/dL (8.5-10.5); Carbon Dioxide 27 mmol/L (22-29); Chloride 102 mmol/L (98-107); Globulin 2.4 g/dL (1.3-4.6); Glomerular Filtration Rate 219.4 mL/min (90-130); Glucose 91 mg/dL (65-115); Osmolality Calculated 285 mOsm/kg (285-295); Sodium 139 mmol/L (136-145); Total Bilirubin 2.2 mg/dL (0.15-1.2); Total Protein 5.3 g/dL (6.6-8.7)
[2021-12-02 03:50] LABS: Anion Gap 13.5 (5-19)
[2021-12-02 03:51] LABS: Aspartate Amino Transferase 41 U/L (0-40); Potassium 3.5 mmol/L (3.5-5.1)
[2021-12-02] MEDS: sucralfate 1 gm/10 mL Oral Liq UDC PO ×4 (05:18→20:15)
[2021-12-02] MEDS: thiamine 100 mg Tablet PO (07:53)
[2021-12-02] MEDS: tamsulosin 0.4 mg Capsule PO ×2 (07:53→16:33)
[2021-12-02] MEDS: multivitamin therapeutic Tablet 1 TAB PO (07:53)
[2021-12-02] MEDS: magnesium lactate 84 mg Tablet PO ×2 (07:53→16:33)
[2021-12-02] MEDS: aspirin 81 mg EC Tablet PO (07:53)
[2021-12-02] MEDS: folic acid 1 mg Tablet PO (07:53)
[2021-12-02] MEDS: pantoprazole DR 40 mg Tablet PO ×2 (07:53→20:15)
[2021-12-02] MEDS: ipratropium-albuterol 3 mL Neb INHALATION (09:49)
--- NOTE | 2021-12-02 10:14 | USCV_ITS ---
Raymond Coronel Age: 61 Gender: M : 1960 Exam Date: 12/02/2021 10:37 Ordering Phys: Debi Arroyo MD ([email or web address]) Technologist: Flor Forde Exam Location: [facility] – [place] Indication: ASSESS LV FUNCTION, APICAL THROMBUS BP: 136 / 80 HR: 91 Rhythm: Other Technical Quality: Adequate MEASUREMENTS (Male / Female) Normal Values 2D ECHO LV Diastolic Diameter PLAX 4.9 cm 4.2 - 5.9 / 3.9 - 5.3 cm LV Systolic Diameter PLAX 2.8 cm IVS Diastolic Thickness 1.3 cm 0.6 - 1.0 / 0.6 - 0.9 cm IVS Systolic Thickness 1.6 cm LVPW Diastolic Thickness 1.2 cm 0.6 - 1.0 / 0.6 - 0.9 cm LVPW Systolic Thickness 1.6 cm LVOT Diameter 2.0 cm LV Ejection Fraction 2D Teich 74.2 % LV Ejection Fraction MOD 2C 46.5 % LV Ejection Fraction 2C AL 47.2 % LA Diameter 4.1 cm LA Width 3.3 cm LA Height 5.3 cm RA Width 3.4 cm RA Height 5.1 cm Aorta at Sinotubular Diameter 3.4 cm M-MODE Aortic Annulus Diameter 4.6 cm LA Ao Ratio MM 1.0 MV E Point Septal Separation 1.0 cm FINDINGS Left Ventricle Normal left ventricular cavity size. Upper normal left ventricular wall thickness. Mildly decreased left ventricular systolic function. Left ventricular ejection fraction is estimated at 45-50 %. There is possible hypokinesis of mid anterolateral, apical lateral, apical septal and apical nixon. No evidence of left ventricular apical thrombus. Abnormal septal motion consistent with conduction abnormality. Right Ventricle Normal right ventricular size and systolic function. Right Atrium Normal right atrial size. Left Atrium Mildly increased left atrial size. Mitral Valve Moderate mitral annular calcification. Mildly thickened mitral valve. Aortic Valve Structurally normal trileaflet aortic valve. Trace aortic valve regurgitation. Tricuspid Valve Tricuspid valve not well visualized. Pulmonic Valve Structurally normal pulmonic valve. No pulmonary valve stenosis. Pericardium No pericardial effusion. Aorta Normal size aortic root and proximal ascending aorta. CONCLUSIONS 1. This is a technically difficult study. Optison was used per protocol. 2. Normal left ventricular cavity size. Upper normal left ventricular wall thickness. Mildly decreased left ventricular systolic function. Left ventricular ejection fraction is estimated at 45-50 %. There is possible hypokinesis of mid anterolateral, apical lateral, apical septal and apical nixon. No evidence of left ventricular apical thrombus. Abnormal septal motion consistent with conduction abnormality. 3. Direct comparison to previous study is not possible due to technical differences. Debi Arroyo MD (Electronically Signed) Final Date: 03 December 2021 08:50 S
--- NOTE | 2021-12-02 11:11 | PM.PN ---
Subjective Subjective: Patient was seen and examined this morning, currently he is doing much better, working well with physical therapy, though still has significant weakness, H&H has been stable. Medications: Medication Review Details: Generic Name Dose Route Start Last Admin Trade Name Freemanuel PRN Reason Stop Dose Admin Albuterol/Ipratrop ium 3 ml 11/24/21 09:15 11/24/21 11:04 Ipratropium-Albu terol 3 Ml Neb INHALATION 3 ml Q4H.RESPIRATORY S CH Administration Apixaban 5 mg 11/24/21 09:00 11/24/21 08:15 Apixaban 5 Mg Ta blet PO 5 mg BID VICKEY Administration Piperacillin Sod/T azobactam 50 mls @ 12.5 mls /hr 11/24/21 09:15 11/24/21 13:58 Sod 3.375 gm/ So dium Chloride IV Infused Q8H VICKEY Infusion Protocol Lorazepam 2 mg 11/24/21 02:01 11/24/21 05:42 Lorazepam 2 Mg/M l Inj 1 Ml IVP 2 mg Q2H PRN Administration prn mod anx/agita tion Magnesium Lactate 84 mg 11/24/21 09:00 11/24/21 09:07 Magnesium Lactat e 84 Mg Tablet PO 84 mg BID VICKEY Administration Methylprednisolone Sodium Succinate 60 mg 11/24/21 09:15 11/24/21 09:45 Methylprednisolo ne Sod Succ 125 Mg /2 Ml Inj IVP 60 mg Q12H VICKEY Administration Vitals/I&O/Wt Last Vital Signs Temp 98.2 F 12/02/21 07:26 Pulse 87 12/02/21 09:49 Resp 17 12/02/21 09:49 BP 136/96 12/02/21 07:26 Pulse Ox 94 12/02/21 09:49 12/01/21 12/02/21 12/02/21 22:59 06:59 14:59 Intake Total 120 / 360 120 / 120 Output Total 2 / 2 Balance 120 / 360 -2 / 358 120 / 120 Weight last 48 hrs Weight 79.288 kg Weight 77.61 kg Physical Exam Const: COMMON NORMALS: patient oriented x3 HENMT: COMMON NORMALS: normocephalic and atraumatic HEAD & SCALP: normocephalic and atraumatic Resp: COMMON NORMALS: normal respiratory effort EFFORT & INSPECTION: Yes symmetric chest movement OTHER: Coarse breath sound bilateral wheezing bilateral rhonchi. Cardio: COMMON NORMALS: regular rate, regular rhythm, S1 normal heart sound present, S2 normal heart sound present, No gallops present (Cardio), No murmurs present (Cardio), No rub (Cardio) and Peripheral pulses 2+ throughout RATE: regular rate RHYTHM: regular rhythm HEART SOUNDS: S1 normal heart sound present and S2 normal heart sound present PERIPHERAL PULSES: Peripheral pulses 2+ throughout GI: COMMON NORMALS: Normal to inspection, nondistended, normoactive bowel sounds present, Soft to palpation, non-tender, No hepatosplenomegaly present and no masses AUSCULTATION: Yes normoactive bowel sounds PALPATION: Yes Soft to palpation and Yes No hepatosplenomegaly present RECTAL EXAM: Yes deferred Extremity: COMMON NORMALS: no clubbing, cyanosis or edema and no pedal edema Neuro: COMMON NORMALS: patient oriented x3 Urinary Catheter Management: Matthews: Cath Placed During This Visit: yes Reason for Continuing Indwelling Catheter: Accurate Measurement of Urinary Output in Critically Ill Patients Urinary Catheter Date of Insertion: 11/23/21 Urinary Catheter Time of Insertion: 19:30 Data : 12/02/21 02:45 12/02/21 02:45 A&P Assessment and plan (1) Anemia: Status: Chronic (2) Encephalopathy: Status: Acute (3) Thromboembolic stroke: Status: Acute (4) Acute hyponatremia: Status: Acute (5) Enterocolitis: Status: Acute (6) Elevated bilirubin: Status: Acute (7) ETOH abuse: Status: Chronic (8) DVT (deep venous thrombosis): Resolved in repeat Doppler in November 2021 Status: Resolved (9) Pulmonary embolism: Treated for more than 3 months. Patient currently saturating well on baseline oxygen supplementation Status: Chronic (10) COPD (chronic obstructive pulmonary disease): Status: Acute (11) Ascites: Status: Acute (12) Fall: Status: Acute (13) Hepatic steatosis: Status: Acute (14) C. difficile diarrhea: Status: Acute Plan Acute encephalopathy: Multifactorial. Most likely 2/2 cardioembolic strokes, hyponatremia, anemia Resolved Ammonia levels within normal limits. Hyponatremia has resolved. MRI brain consistent with multiple Cardioembolic strokes. Sitter at bedside. Frequent reorientation. Stop all sedative medications. lactulose PRN. Continue thiamine folic acid , multivitamin Stroke: Most likely cardio embolic in nature given the appearance on MRI. Echocardiogram results appreciated with EF of 40%. Limited 2D echo with contrast: Telemetry. Start on aspirin 81 mg daily. Lipid panel appreciated. For now we will hold off on anticoagulation given severe recurrent anemia. If hemoglobin remains stable can give a trial of anticoagulation again. Discussed care in detail with patient's DPOA/sister. She is in agreement of not starting anticoagulation currently as he is at a high risk of bleeding. Acute hyponatremia: Resolved. Likely secondary to chronic alcohol abuse, poor diet. Urine sodium less than 10 with serum osmolarity low as well. Appreciate TSH, random cortisol, urinalysis studies. Monitor BMP Regular diet. Normocytic anemia: S/P endoscopy. Appreciate surgical recommendations. Endoscopy consistent with hiatal hernia and gastritis. Esophageal varices. Hemoglobin stable. We will transfuse if drops less than 7. Protonix twice daily, Carafate. If hemoglobin remains stable can potentially start anticoagulation again given cardioembolic stroke. Colitis: Appreciated CT abdomen pelvis. MRSA negative. Check procalcitonin. Was on Zosyn for now. Last dose on 12/02. Stool studies repeated and consistent with C. difficile colitis. Started on vancomycin 125 mg 4 times daily. Plan for continuing vancomycin for at least 10 days after last dose of antibiotics. COPD exacerbation: Resolved now. Oxygen supplementation keeping saturation over 90%. Stop steroids as patient has received over 5-day course. DuoNebs every 6 hour as needed. 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 Lower limb Dopplers negative for DVT. Plan for no anticoagulation going forward. Chronic alcohol abuse: On CIRI protocol Thiamine Folic acid Restart other chronic home medication including Lexapro, Requip, Flomax. #CODE STATUS: Full code. Protonix will help with PUD prophylaxis. Regular diet. Physical therapy evaluation. Discharge planning: Patient is agreeable for SNF placement. Case management alerted. Plan to discharge to SNF once accepted. Attestations Medical Necessity Statement*: Patient needs to be in hospital for VAUGNH, currently he is also awaiting assisted placement. Time Spent in Patient Care: Greater than 35 minutes (>than 50% of time spent in counselling and/or direct pt care on unit). Coding Level of Care Code Acute Chemical Research Technician for [facility] Fwd Exam Detailed Diagnoses Anemia D64.9 Encephalopathy G93.40 Thromboembolic stroke I63.9 Acute hyponatremia E87.1 Enterocolitis K52.9 Elevated bilirubin R17 ETOH abuse F10.10 DVT (deep venous thrombosis) I82.409 Pulmonary embolism I26.99 COPD (chronic obstructive pulmonary disease) J44.9 Ascites R18.8 Fall W19.XXXA Hepatic steatosis K76.0 C. difficile diarrhea A04.72
[2021-12-02] MEDS: perflutren protein-a microsphr 0.22 mg/mL SDV 3 mL IV (11:19)
--- NOTE | 2021-12-02 21:47 | P.CONIM_ITS ---
Providers/Reason For Consult Consulting Physician/Specialty*: Dr. Arroyo, Cardiology Reason for Consult*: CVA with concern for cardioembolic source Attending Physician: Sukhi Murdock MD Primary Care Provider: Hali Mcneal APN History of Present Illness History of Present Illness Raymond Coronel is a 61 year old male who presented to the ER with 5-day history of weakness and was noted to be hyponatremic.? Patient has a history of heavy alcoholism and drinks at least fifth of whiskey every day and smoking (>40 years with at least 1 PPD--> 3/4 th PPD). ? Patient was noted to be anemic, received blood transfusion, FOBT positive. He denies any hematemesis, melena or hematochezia.? He underwent EGD that shower esophageal varices att GE junction that appeared irritated. He was on Eliquis at home for DVT. He denies any abdominal pain, nausea or vomiting.? 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 No hemorrhage detected. No midline shift..? ?Concern of central thromboembolic source. ECho TDS with LV function grossly estimated at 40%. No chest pain, palpitations, leg swelling. Occasional dizziness+. I have been asked to assesss the patient for VAUGHN. Review of Systems General: Reports: 10 or more systems reviewed and unremarkable except in HPI and below Medications/Allergies Home Medications Medication Instructions Recorded Confirmed Last Taken Type albuterol sulfate 90 mcg/actuation 2 puff INHALATION QID PRN 11/01/19 11/24/21 07/02/20 History aerosol inhaler lisinopril 2.5 mg tablet 2.5 mg PO BID PRN 11/01/19 11/24/21 07/01/20 History pantoprazole 40 mg tablet,delayed 40 mg PO BID 11/01/19 11/24/21 07/02/20 History release ropinirole 1 mg tablet 1 - 2 mg PO BEDTIME PRN 11/01/19 11/24/21 06/24/20 History tamsulosin 0.4 mg capsule 0.4 mg PO BID 11/01/19 11/24/21 07/02/20 History tramadol 50 mg tablet 50 mg PO Q4H PRN 11/01/19 11/24/21 07/01/20 History lorazepam 0.5 mg tablet 0.5 - 1 mg PO TID PRN 07/02/20 11/24/21 07/01/20 History tizanidine 4 mg tablet 4 mg PO TID PRN 07/02/20 11/24/21 06/29/20 History cyanocobalamin (vitamin B-12) 1,000 mcg IM Q30D 03/22/21 11/24/21 05/15/21 History 1,000 mcg/mL injection solution ergocalciferol (vitamin D2) 1,250 50,000 unit PO Q7D 03/22/21 11/24/21 03/20/21 History mcg (50,000 unit) capsule apixaban 5 mg tablet (Eliquis) 5 mg PO BID #60 tab 03/24/21 11/24/21 Unknown Rx bupropion HCl 150 mg tablet,12 hr 150 mg PO BID 30 Days #60 tab 06/07/21 11/24/21 Unknown Rx sustained-release doxepin 50 mg capsule 50 mg PO BEDTIME PRN 30 Days #30 06/07/21 11/24/21 Unknown Rx cap escitalopram oxalate 20 mg tablet 20 mg PO DAILY 30 Days #30 tab 06/07/21 11/24/21 Unknown Rx Allergies Allergy/AdvReac Type Severity Reaction Status Date / Time No Known Allergies Allergy Verified 11/23/21 18:36 Current Medications Generic Name Dose Route Start Last Admin Trade Name Freq PRN Reason Stop Dose Admin Albuterol/Ipratropium 3 ml 11/29/21 10:08 12/02/21 09:49 Ipratropium-Albuterol 3 Ml Neb INHALATION 3 ml Q4H.RESPIRATORY PRN Administration sob Apixaban 5 mg 11/24/21 09:00 11/24/21 08:15 Apixaban 5 Mg Tablet PO 5 mg BID VICKEY Administration Aspirin 81 mg 11/29/21 10:10 12/02/21 07:53 Aspirin 81 Mg Ec Tablet PO 81 mg DAILY VICKEY Administration Escitalopram Oxalate 10 mg 11/26/21 09:00 11/26/21 08:26 Escitalopram 10 Mg Tablet PO 10 mg DAILY VICKEY Administration Folic Acid 1 mg 11/25/21 09:00 12/02/21 07:53 Folic Acid 1 Mg Tablet PO 1 mg DAILY VICKEY Administration Magnesium Lactate 84 mg 11/24/21 09:00 12/02/21 16:33 Magnesium Lactate 84 Mg Tablet PO 84 mg BID VICKEY Administration Multivitamins Therapeutic 1 tab 11/26/21 09:00 12/02/21 07:53 Multivitamin Therapeutic Tablet PO 1 tab DAILY VICKEY Administration Ondansetron HCl 4 mg 11/24/21 02:01 12/01/21 22:46 Ondansetron 2 Mg/Ml Sdv 2 Ml IVP 4 mg Q8H PRN Administration vomiting, or N/V if npo Pantoprazole Sodium 40 mg 11/29/21 08:00 12/02/21 20:[address] 40 Mg Tablet PO 40 mg Q12H VICKEY Administration Ropinirole HCl 1 mg 11/25/21 10:45 12/01/21 19:38 Ropinirole 1 Mg Tablet PO 1 mg BEDTIME PRN Administration Restless Leg(S) Sucralfate 1 gm 11/25/21 21:00 12/02/21 20:15 Sucralfate 1 Gm/10 Ml Oral Liq Udc PO 1 gm AC&BEDTIME VICKEY Administration Tamsulosin HCl 0.4 mg 11/25/21 18:00 12/02/21 16:33 Tamsulosin 0.4 Mg Capsule PO 0.4 mg BID VICKEY Administration Thiamine Mononitrate 100 mg 11/25/21 09:00 12/02/21 07:53 Thiamine 100 Mg Tablet PO 100 mg DAILY VICKEY Administration Tramadol HCl 50 mg 11/29/21 23:02 12/01/21 19:42 Tramadol 50 Mg Tablet PO 50 mg Q4H PRN Administration MODERATE PAIN Vancomycin HCl 125 mg 11/30/21 09:00 12/02/21 20:16 Vancomycin 1,000 Mg Oral Eda (Btl) PO 125 mg QID VICKEY Administration PFSH Acute PFSH: Medical History Alcohol abuse Alcoholism Anemia BPH (benign prostatic hyperplasia) CHF (congestive heart failure), NYHA class III COPD (chronic obstructive pulmonary disease) Diverticulosis DVT (deep venous thrombosis) GERD (gastroesophageal reflux disease) Hepatitis C Hiatal hernia History of colon polyps Hypertension Incarcerated hernia Pulmonary emboli Restless leg syndrome Tobacco abuse Surgical History History of cholecystectomy History of colonoscopy with polypectomy (~2016) 2019- dr. jeffries History of right shoulder replacement (~12/2019) Status post left shoulder hemiarthroplasty Family History Denies family history of Chronic kidney disease (CKD) Social History Smoking and tobacco status: current every day smoker Alcohol intake: current Household members: family Housing: House Vitals/I&O/Wt Last Vital Signs Temp 98.1 F 12/02/21 20:00 Pulse 97 12/02/21 20:00 Resp 17 12/02/21 20:00 BP 111/77 12/02/21 20:00 Pulse Ox 95 12/02/21 20:00 12/02/21 12/02/21 12/02/21 06:59 14:59 22:59 Intake Total 240 / 240 Output Total 2 / 2 Balance -2 / 358 240 / 240 Weight last 48 hrs Weight 174 lb 12.8 oz Weight 171 lb 1.6 oz Physical Exam Const: COMMON NORMALS: no acute distress, patient oriented x3 and alert GENERAL APPEARANCE: cooperative, comfortable, well kempt and well hydrated HENMT: COMMON NORMALS: hearing grossly normal bilaterally, external ears normal and moist oral mucous membranes FACE & SINUS: normal facial exam NOSE: Normal septum present and No nasal discharge present; no Epistaxis present EXTERNAL EAR: Yes external ears normal MOUTH: lip normal Eye: COMMON NORMALS: EOMs intact bilaterally and no scleral icterus GENERAL EYE: appearance normal, both eyes and all related structures ALIGNMENT: Yes alignment normal Neck/C-Spine: COMMON NORMALS: no lymphadenopathy, supple and no JVD GENERAL: Yes normal visual inspection and Yes trachea midline CAROTIDS: Yes normal carotid upstroke Lymph: LYMPHATIC: no lymphadenopathy noted Chest: COMMONS NORMALS: normal inspection of the chest and normal palpation of entire chest wall CHEST: Yes Symmetrical chest wall rise and No tenderness Resp: COMMON NORMALS: clear to auscultation bilaterally EFFORT & INSPECTION: Yes able to speak in complete sentences and No respiratory distress AUSCULTATION: clear to auscultation bilaterally, no crackles, no rales, no rhonchi and no wheezes Cardio: COMMON NORMALS: no JVD, regular rate, regular rhythm, S1 normal heart sound present, S2 normal heart sound present and Peripheral pulses 2+ throughout PALPATION: normal PMI RATE: regular rate RHYTHM: regular rhythm HEART SOUNDS: S1 normal heart sound present, S2 normal heart sound present, no gallops and no murmurs BRUITS: no carotid bruits PERIPHERAL PULSES: Peripheral pulses 2+ throughout, radial pulses present, posterior tibial pulses present and dorsalis pedis present GI: COMMON NORMALS: Soft to palpation AUSCULTATION: Yes normoactive bowel sounds PALPATION: Yes Soft to palpation, No Tenderness to palpation present (GI), No Guarding due to palpation present (GI) and No Rigid due to palpation PERCUSSION: tympanic to percussion Extremity: GENERAL: No clubbing, No cyanosis, Yes edema (1+ bilatera leg) and No pallor Neuro: COMMON NORMALS: patient oriented x3 and no focal motor deficits SENSORIUM/ORIENTATION: Yes alert Psych: COMMON NORMALS: Normal thought process present and speech normal APPEARANCE: Yes well kempt SPEECH: Yes normal speech MOOD & AFFECT: Yes euthymic mood THOUGHT PROCESS: Normal thought process present THOUGHT CONTENT: Yes Normal thought content present Urinary Catheter Management: Matthews: Cath Placed During This Visit: yes Reason for Continuing Indwelling Catheter: Accurate Measurement of Urinary Output in Critically Ill Patients Urinary Catheter Date of Insertion: 11/23/21 Urinary Catheter Time of Insertion: 19:30 Data : 12/03/21 02:39 12/03/21 02:39 A&P Assessment and plan (1) Thromboembolic stroke: I think its prudent to do VAUGHN to assess for left atrial appendage/LA thrombus. -No LV thrombus noted on echo with contrast. -Risks and benefits were discussed with the patients. Alternate management options were discussed with the patient as well. Possible complications including risk of esophageal perforation and bleeding discussed with patient. Plan is to proceed for the procedure at the earliest. -I spoke to patient's sister and she is agreeable with the plan. All patient's and her sister's questions were answered. Status: Acute (2) CHF (congestive heart failure), NYHA class III: Heart failure with mildly reduced left ventricular systolic function -We will probably need ischemic work-up at some point. Status: Acute (3) COPD (chronic obstructive pulmonary disease): Status: Acute Plan Anemia s/p bloos tranfusions; FOBT+/ s/p EGD Encephalopathy : Resolved Heavy alcohol drinker Esophageal varices Hyponatremia : resolved H/o DVT and PE 03/2021 Thank you for allowing me to participate in patient's care. Please feel free to call with questions or concerns. Coding Level of Care Code Acute Coding Assistant for [facility] Fwd Exam Comprehensive Diagnoses Thromboembolic stroke I63.9 COPD (chronic obstructive pulmonary disease) J44.9 CHF (congestive heart failure), NYHA class III I50.9
[2021-12-03] VITALS (14 sets, daily range): BP systolic 92–138; BP diastolic 61–92; PULSE 67–101; RESP 14–18; TEMP 36.4–36.7; O2SAT 93–100
[2021-12-03 02:46] LABS: Basophils % 0.2 %; Eosinophils # 0.3 10^3/uL (0.0-0.8); Eosinophils % 2.1 %; Hematocrit 27.5 % (42.0-52.0); Hemoglobin 8.5 g/dL (11.7-16.6); Lymphocytes # 1.1 10^3/uL (0.8-4.8); Lymphocytes % 9.3 %; Mean Corpuscular HGB Conc 30.9 g/dL (30.0-36.0); Mean Corpuscular Hemoglobin 28.8 pg (28.0-34.0); Mean Corpuscular Volume 93.2 fl (80-94); Mean Platelet Volume 12.1 fL (7.4-10.4); Monocytes # 0.9 10^3/uL (0.2-0.9); Monocytes % 7.5 %; Neutrophils # 9.78 10^3/uL (1.8-7.7); Neutrophils % 80.3 %; Nucleated Red Blood Cells % 0 %; Platelet Count 130 10^3/cmm (130-400); Red Blood Count 2.95 10^6/uL (4.1-5.3); Red Cell Distribution Width 23.5 % (12.1-15.1); White Blood Count 12.2 10^3/uL (4.0-10.0)
[2021-12-03 03:03] LABS: Alanine Aminotransferase 17 U/L (0-41); Albumin Level 2.7 g/dL (3.5-5.2); Alkaline Phosphatase 144 IU/L (40-130); Aspartate Amino Transferase 44 U/L (0-40); Blood Urea Nitrogen 6 mg/dL (8-23); Calcium 7.4 mg/dL (8.5-10.5); Carbon Dioxide 26 mmol/L (22-29); Chloride 102 mmol/L (98-107); Globulin 2.5 g/dL (1.3-4.6); Glomerular Filtration Rate 219.4 mL/min (90-130); Glucose 87 mg/dL (65-115); Osmolality Calculated 281 mOsm/kg (285-295); Sodium 137 mmol/L (136-145); Total Bilirubin 2.1 mg/dL (0.15-1.2); Total Protein 5.2 g/dL (6.6-8.7)
[2021-12-03 03:04] LABS: Anion Gap 13.4 (5-19); Potassium 4.4 mmol/L (3.5-5.1)
[2021-12-03] MEDS: ondansetron 2 mg/ML SDV 2 mL 4 MG IVP (03:40)
--- NOTE | 2021-12-03 03:45 | PC.NURSE ---
Patient c/o upset stomach. Patient states, I think it is my hernia causing it, but they said they can't do surgery on it. PRN Eulogioan given.
[2021-12-03] MEDS: pantoprazole DR 40 mg Tablet PO ×2 (07:55→19:37)
[2021-12-03] MEDS: TRAMadol 50 mg Tablet PO (07:55)
[2021-12-03] MEDS: sucralfate 1 gm/10 mL Oral Liq UDC PO ×3 (07:56→19:36)
--- NOTE | 2021-12-03 08:27 | ANES.PREANE2 ---
Pre-Anesthetic Assessment Height/Weight: Height 1.75 m Weight 79.923 kg Temp Pulse Resp BP Pulse Ox 98.1 F 82 18 114/63 96 12/03/21 07:25 12/03/21 07:25 12/03/21 07:25 12/03/21 07:25 12/03/21 07:25 Preop Diagnosis: Anemia Operation Date: 11/28/21 12:15 Proposed Procedures p EGD(Not Applicable) - Rolando Mayen MD Operation Date: 12/03/21 11:15 Proposed Procedures p VAUGHN(Not Applicable) - Debi Arroyo MD Familial anesthetic complications: None Was Beta Dominique taken within 24 hours: N/A Was Clonidine taken within 24 hours: N/A Last intake: Intake Last Liquid Date 11/27/21 Last Liquid Time 20:00 Last Solid Date 11/27/21 Last Solid Time 17:00 Social Alcohol (No ETOH for 2 weeks per patient. Hx of withdrawal seizures 2 years ago) and Tobacco Exam alert, oriented x 3 and regular rate & rhythm B/L upper lungs diminished breath sounds Airway Submandibular: within normal limits Cervical ROM: within normal limits Mallampati: Class II Dentition: false Pulmonary Exertional Dyspnea On home O2 2-3 LPM continously Able to walk around grocery store if he goes slowly Hx of PE and DVT CV/HEM Anemia, Arrythmia (PVC noted on EKG ), Congestive Heart Failure, Deep Vein Thrombosis and Hypertension TTE 11/27/21 CONCLUSIONS ?1.? This is a technically difficult study. ?2. Normal left ventricular cavity size.? Probably? moderately ?decreased left ventricle systolic function.? Left ventricular ?ejection fraction grossly estimated at 40%.? This study is ?inadequate for estimation of regional wall motion abnormality.? ?Abnormal septal motion. ?3.? Repeat study with echo contrast is recommended. ?4.? VAUGHN may be considered to rule out cardioembolic source of ?stroke.? Clinical correlation is advised. BPH Resolved hypokalemia and hyponatremia Hepatic Cirrhosis (Hepatitic steatosis ) and Hepatitis (Hepatits C) Ascites Elevated AST, alk phos, bilirubin GI C. diff infection Metabolic None reported Musc/skel Osteoarthritis/DJD Neuropsych Cerebrovascular Accident (Thromboembolic stroke) Encephalopathy oriented today Head CT 11/23 FINDINGS: Brain: No CT evidence for acute ischemia, mass or hemorrhage. No extra-axial fluid collection, midline shift or hydrocephalus. Chronic right occipital lobe deep sulcus versus small chronic infarct. Cerebral ventricles: No ventriculomegaly. Paranasal sinuses: Visualized sinuses are unremarkable. No fluid levels. Mastoid air cells: Visualized mastoid air cells are well aerated. Bones/joints: Chronic deformity of the nasal bone. Soft tissues: Unremarkable. CT/CT head wo con* [id number] IMPRESSION: No acute intracranial findings. ? Head Neck CTA 11/27/21 CT/CT angio headneck* [id number] IMPRESSION: 1. Mild motion artifact. The neck carotid and vertebral arteries appear patent. No arterial occlusion is detected. 2. Pulmonary emphysema. Right apical ground-glass opacities may be be secondary to infectious or inflammatory process, correlate clinically. 3. Posterior layering left pleural effusion. Anesthetic Plan ASA status: 4 (61 year old smoker with hx of ETOH abuse with withdrawal seizures, liver disease, chronic respiratory failure on home O2, now with C. diff infection and thromboembolic stroke. ) Anesthesia: Anesthesia Evaluation, General and MAC Other: I discussed with the patient risks, goals, and benefits of MAC and general anesthesia. We discussed spectrum of MAC anesthesia including conversion to general as well as possibility of recall of intraoperative stimuli including discomfort/pain. Patient agrees to proceed with MAC. Risk of > 500 ml blood loss (7ml/kg in children): No Medications/Allergies Home Medications Medication Instructions Recorded Confirmed Last Taken Type albuterol sulfate 90 mcg/actuation 2 puff INHALATION QID PRN 11/01/19 11/24/21 07/02/20 History aerosol inhaler lisinopril 2.5 mg tablet 2.5 mg PO BID PRN 11/01/19 11/24/21 07/01/20 History pantoprazole 40 mg tablet,delayed 40 mg PO BID 11/01/19 11/24/21 07/02/20 History release ropinirole 1 mg tablet 1 - 2 mg PO BEDTIME PRN 11/01/19 11/24/21 06/24/20 History tamsulosin 0.4 mg capsule 0.4 mg PO BID 11/01/19 11/24/21 07/02/20 History tramadol 50 mg tablet 50 mg PO Q4H PRN 11/01/19 11/24/21 07/01/20 History lorazepam 0.5 mg tablet 0.5 - 1 mg PO TID PRN 07/02/20 11/24/21 07/01/20 History tizanidine 4 mg tablet 4 mg PO TID PRN 07/02/20 11/24/21 06/29/20 History cyanocobalamin (vitamin B-12) 1,000 mcg IM Q30D 03/22/21 11/24/21 05/15/21 History 1,000 mcg/mL injection solution ergocalciferol (vitamin D2) 1,250 50,000 unit PO Q7D 03/22/21 11/24/21 03/20/21 History mcg (50,000 unit) capsule apixaban 5 mg tablet (Eliquis) 5 mg PO BID #60 tab 03/24/21 11/24/21 Unknown Rx bupropion HCl 150 mg tablet,12 hr 150 mg PO BID 30 Days #60 tab 06/07/21 11/24/21 Unknown Rx sustained-release doxepin 50 mg capsule 50 mg PO BEDTIME PRN 30 Days #30 06/07/21 11/24/21 Unknown Rx cap escitalopram oxalate 20 mg tablet 20 mg PO DAILY 30 Days #30 tab 06/07/21 11/24/21 Unknown Rx Allergies Allergy/AdvReac Type Severity Reaction Status Date / Time No Known Allergies Allergy Verified 11/23/21 18:36 Current Medications Generic Name Dose Route Start Last Admin Trade Name Freq PRN Reason Stop Dose Admin Albuterol/Ipratropium 3 ml 11/29/21 10:08 12/02/21 09:49 Ipratropium-Albuterol 3 Ml Neb INHALATION 3 ml Q4H.RESPIRATORY PRN Administration sob Apixaban 5 mg 11/24/21 09:00 11/24/21 08:15 Apixaban 5 Mg Tablet PO 5 mg BID VICKEY Administration Aspirin 81 mg 11/29/21 10:10 12/02/21 07:53 Aspirin 81 Mg Ec Tablet PO 81 mg DAILY VICKEY Administration Escitalopram Oxalate 10 mg 11/26/21 09:00 11/26/21 08:26 Escitalopram 10 Mg Tablet PO 10 mg DAILY VICKEY Administration Folic Acid 1 mg 11/25/21 09:00 12/02/21 07:53 Folic Acid 1 Mg Tablet PO 1 mg DAILY VICKEY Administration Magnesium Lactate 84 mg 11/24/21 09:00 12/02/21 16:33 Magnesium Lactate 84 Mg Tablet PO 84 mg BID VICKEY Administration Multivitamins Therapeutic 1 tab 11/26/21 09:00 12/02/21 07:53 Multivitamin Therapeutic Tablet PO 1 tab DAILY VICKEY Administration Ondansetron HCl 4 mg 11/24/21 02:01 12/03/21 03:40 Ondansetron 2 Mg/Ml Sdv 2 Ml IVP 4 mg Q8H PRN Administration vomiting, or N/V if npo Pantoprazole Sodium 40 mg 11/29/21 08:00 12/03/21 07:[address] 40 Mg Tablet PO 40 mg Q12H VICKEY Administration Ropinirole HCl 1 mg 11/25/21 10:45 12/01/21 19:38 Ropinirole 1 Mg Tablet PO 1 mg BEDTIME PRN Administration Restless Leg(S) Sucralfate 1 gm 11/25/21 21:00 12/03/21 07:56 Sucralfate 1 Gm/10 Ml Oral Liq Udc PO 1 gm AC&BEDTIME VICKEY Administration Tamsulosin HCl 0.4 mg 11/25/21 18:00 12/02/21 16:33 Tamsulosin 0.4 Mg Capsule PO 0.4 mg BID VICKEY Administration Thiamine Mononitrate 100 mg 11/25/21 09:00 12/02/21 07:53 Thiamine 100 Mg Tablet PO 100 mg DAILY VICKEY Administration Tramadol HCl 50 mg 11/29/21 23:02 12/03/21 07:55 Tramadol 50 Mg Tablet PO 50 mg Q4H PRN Administration MODERATE PAIN Vancomycin HCl 125 mg 11/30/21 09:00 12/02/21 20:16 Vancomycin 1,000 Mg Oral Eda (Btl) PO 125 mg QID VICKEY Administration Additional Medication Information Generic Name Dose Route Start Last Admin Trade Name Freq PRN Reason Stop Dose Admin Albuterol/Ipratropium 3 ml 11/24/21 09:15 11/24/21 11:04 Ipratropium-Albuterol 3 Ml Neb INHALATION 3 ml Q4H.RESPIRATORY VICKEY Administration Apixaban 5 mg 11/24/21 09:00 11/24/21 08:15 Apixaban 5 Mg Tablet PO 5 mg BID VICKEY Administration Piperacillin Sod/Tazobactam 50 mls @ 12.5 mls/hr 11/24/21 09:15 11/24/21 13:58 Sod 3.375 gm/ Sodium Chloride IV Infused Q8H VICKEY Infusion Protocol Lorazepam 2 mg 11/24/21 02:01 11/24/21 05:42 Lorazepam 2 Mg/Ml Inj 1 Ml IVP 2 mg Q2H PRN Administration prn mod anx/agitation Magnesium Lactate 84 mg 11/24/21 09:00 11/24/21 09:07 Magnesium Lactate 84 Mg Tablet PO 84 mg BID VICKEY Administration Methylprednisolone Sodium Succinate 60 mg 11/24/21 09:15 11/24/21 09:45 Methylprednisolone Sod Succ 125 Mg/2 Ml Inj IVP 60 mg Q12H VICKEY Administration PFSH Anesthesia Medical History Alcohol abuse Alcoholism Anemia BPH (benign prostatic hyperplasia) CHF (congestive heart failure), NYHA class III COPD (chronic obstructive pulmonary disease) Diverticulosis DVT (deep venous thrombosis) GERD (gastroesophageal reflux disease) Hepatitis C Hiatal hernia History of colon polyps Hypertension Incarcerated hernia Pulmonary emboli Restless leg syndrome Tobacco abuse Surgical History History of cholecystectomy History of colonoscopy with polypectomy (~2016) 2019- dr. jeffries History of right shoulder replacement (~12/2019) Status post left shoulder hemiarthroplasty Family History Denies family history of Chronic kidney disease (CKD) Social History Smoking and tobacco status: current every day smoker Alcohol intake: current Household members: family Housing: House Data Anesthesia : 12/03/21 02:39 12/03/21 02:39 Short CBC 12/02/21 12/03/21 Range/Units 02:45 02:39 WBC 11.8 H 12.2 H (4.0-10.0) 10^3/uL Hgb 8.7 L 8.5 L (11.7-16.6) g/dL Hct 28.6 L 27.5 L (42.0-52.0) % MCV 93.5 93.2 (80-94) fl Plt Count 124 L 130 (130-400) 10^3/cmm Neut % (Auto) 80.9 80.3 % Neut # (Auto) 9.51 H 9.78 H (1.8-7.7) 10^3/uL BMP 12/02/21 12/03/21 02:45 02:39 Sodium 139 137 Potassium 3.5 4.4 Chloride 102 102 Carbon Dioxide 27 26 BUN 6 L 6 L Creatinine 0.4 L 0.4 L Glucose 91 87 Calcium 7.6 L 7.4 L Liver Function 12/02/21 12/03/21 Range/Units 02:45 02:39 Total Bilirubin 2.2 H 2.1 H (0.15-1.2) mg/dL AST 41 H 44 H (0-40) U/L ALT 18 17 (0-41) U/L Alkaline Phosphatase 152 H 144 H (40-130) IU/L Albumin 2.9 L 2.7 L (3.5-5.2) g/dL Cardiac Studies: Echocardiogram 11/27/21
[2021-12-03] MEDS: sodium chloride 0.9% 1,000 ML 30 ML IV (11:09)
--- NOTE | 2021-12-03 11:15 | USCV_ITS ---
Raymond Coronel Age: 61 Gender: M : 1960 Exam Date: 12/03/2021 11:52 Ordering Phys: Debi Arroyo MD ([email or web address]) Technologist: DOMINIQUE [place] [facility] [place]: Stroke BP: 121 / 76 HR: 90 Rhythm: Sinus Technical Quality: Adequate MEASUREMENTS (Male / Female) Normal Values Medications Patient given IV sedation by anesthesia service, for details please refer to the anesthesia report. Complications Intubation easy. Attempts x1 . No blood in proposed procedure. Patient tolerated procedure well. Proc. Components The patient was brought to the VAUGHN examination room in a fasting state after obtaining an informed consent. VAUGHN was performed at multiple levels. FINDINGS Left Ventricle Normal left ventricular cavity size. Mildly decreased left ventricular systolic function. Left ventricular ejection fraction is estimated at 50 %. Right Ventricle Normal right ventricular size and systolic function. Right Atrium Normal right atrial size. Left Atrium Normal left atrial size. LA Appendage Normal left atrial appendage. IA Septum Normal interatrial septum. No patent foramen ovale. No evidence for an atrial septal defect. Mitral Valve Structurally normal mitral valve. No mitral valve stenosis. No mitral valve regurgitation. Aortic Valve Structurally normal trileaflet aortic valve. No aortic valve stenosis. No aortic valve regurgitation. Tricuspid Valve Structurally normal tricuspid valve. Trace tricuspid valve regurgitation. Pulmonic Valve Structurally normal pulmonic valve. No pulmonary valve stenosis. Trace pulmonary valve regurgitation. Pericardium No pericardial effusion. Aorta Normal size aortic root and proximal ascending aorta. No aortic dilation aneurysm or dissection. Grade 3 atheroma in proximal and mid descending aorta and grade 4 atheroma in proximal aortic arch. CONCLUSIONS 1. Normal left ventricular cavity size. Mildly decreased left ventricular systolic function. Left ventricular ejection fraction is estimated at 50 %. 2. No left atrial or left atrial appendage thrombus. 3. No ASD or PFO identified by color Doppler or agitated saline study. 4. Grade 3 atheroma in proximal and mid descending aorta and grade 4 atheroma in proximal aortic arch. Debi Arroyo MD (Electronically Signed) Final Date: 05 December 2021 15:41 Amended: 29 Dec 2021 23:06 C
--- NOTE | 2021-12-03 11:22 | PC.NURSE ---
1040 pt went doen to gi lab for VAUGHN.
--- NOTE | 2021-12-03 11:45 | P.PN_ITS ---
Subjective Subjective: Patient was seen prior to VAUGHN. Medications: Reviewed: Yes Vitals/I&O/Wt Last Vital Signs Temp 97.8 F 12/03/21 10:55 Pulse 87 12/03/21 10:55 Resp 18 12/03/21 10:55 BP 102/74 12/03/21 10:55 Pulse Ox 99 12/03/21 10:55 12/02/21 12/03/21 12/03/21 22:59 06:59 14:59 Intake Total 300 / 540 Balance 300 / 540 Weight last 48 hrs Weight 176 lb 3.2 oz Weight 174 lb 12.8 oz Physical Exam Const: COMMON NORMALS: no acute distress, patient oriented x3 and alert GENERAL APPEARANCE: cooperative, comfortable, well kempt and well hydrated HENMT: COMMON NORMALS: hearing grossly normal bilaterally, external ears normal and moist oral mucous membranes FACE & SINUS: normal facial exam EXTERNAL EAR: Yes external ears normal Eye: COMMON NORMALS: EOMs intact bilaterally and no scleral icterus GENERAL EYE: appearance normal, both eyes and all related structures ALIGNMENT: Yes alignment normal Neck/C-Spine: COMMON NORMALS: no lymphadenopathy, supple and no JVD GENERAL: Yes normal visual inspection and Yes trachea midline CAROTIDS: Yes normal carotid upstroke Lymph: LYMPHATIC: no lymphadenopathy noted Chest: COMMONS NORMALS: normal inspection of the chest and normal palpation of entire chest wall CHEST: Yes Symmetrical chest wall rise and No tenderness Resp: COMMON NORMALS: clear to auscultation bilaterally EFFORT & INSPECTION: Yes able to speak in complete sentences, No tachypneic, No respiratory distress, No pursed lip breathing, No labored and No Actively coughing AUSCULTATION: clear to auscultation bilaterally, no crackles, no rales, no rhonchi and no wheezes Cardio: COMMON NORMALS: no JVD, regular rate, regular rhythm, S1 normal heart sound present, S2 normal heart sound present and Peripheral pulses 2+ throughout PALPATION: normal PMI RATE: regular rate RHYTHM: regular rhythm HE ART SOUNDS: S1 normal heart sound present, S2 normal heart sound present, no click, no gallops and no murmurs BRUITS: no carotid bruits PERIPHERAL PULSES: Peripheral pulses 2+ throughout, radial pulses present, posterior tibial pulses present and dorsalis pedis present GI: COMMON NORMALS: Soft to palpation AUSCULTATION: Yes normoactive bowel sounds PALPATION: Yes Soft to palpation, No Tenderness to palpation present (GI), No Guarding due to palpation present (GI) and No Rigid due to palpation PERCUSSION: tympanic to percussion Extremity: GENERAL: No clubbing, No cyanosis, Yes edema and No pallor Neuro: COMMON NORMALS: patient oriented x3, CN's II-XII intact bilaterally and no focal motor deficits SENSORIUM/ORIENTATION: Yes alert Psych: COMMON NORMALS: Normal thought process present and speech normal APPEARANCE: Yes well kempt SPEECH: Yes normal speech MOOD & AFFECT: Yes euthymic mood THOUGHT PROCESS: Normal thought process present THOUGHT CONTENT: Yes Normal thought content present Skin: NARRATIVE SKIN EXAM: bilateral forearm bruised Urinary Catheter Management: Matthews: Cath Placed During This Visit: yes Reason for Continuing Indwelling Catheter: Accurate Measurement of Urinary Output in Critically Ill Patients Urinary Catheter Date of Insertion: 11/23/21 Urinary Catheter Time of Insertion: 19:30 Data : 12/03/21 02:39 12/03/21 02:39 A&P Assessment and plan (1) Thromboembolic stroke: I think its prudent to do VAUGHN to assess for left atrial appendage/LA thrombus. -No LV thrombus noted on echo with contrast. -Risks and benefits were discussed with the patients. Alternate management options were discussed with the patient as well. Possible complications including risk of esophageal perforation and bleeding discussed with patient. Plan is to proceed for the procedure at the earliest. -I spoke to patient's sister and she is agreeable with the plan. All patient's and her sister's questions were answered. Status: Acute (2) CHF (congestive heart failure), NYHA class III: Heart failure with mildly reduced left ventricular systolic function -We will probably need ischemic work-up at some point. Status: Acute (3) COPD (chronic obstructive pulmonary disease): Status: Acute Plan Anemia s/p bloos tranfusions; FOBT+/ s/p EGD Encephalopathy : Resolved Heavy alcohol drinker Esophageal varices Hyponatremia : resolved H/o DVT and PE 03/2021 Thank you for allowing me to participate in patient's care. Please feel free to call with questions or concerns. Attestations Medical Necessity Statement*: Awaiting placement; As per primary team Procedures Time out/Consent Time Out Performed: Yes Consent for Procedure: Consent obtained from patient, Risks & Benefits reviewed and Agrees to proceed with procedure Procedure Narrative VAUGHN Indication: CVA concern for cardioembolic source. Sedation: Propofol by anesthesia Procedure: Intubation easy. Attempts x 1. No blood on probe post procedure. No complications post procedure. Prelim: Normal LV function. No LA/LAMBERT thrombus. Full report to follow. 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
--- NOTE | 2021-12-03 14:58 | PM.PN ---
Subjective Subjective: Patient was seen and examined this morning, overall he is doing much better, improving with physical therapy, awaiting VAUHGN today. Medications: Medication Review Details: Generic Name Dose Route Start Last Admin Trade Name Delores PRN Reason Stop Dose Admin Albuterol/Ipratrop ium 3 ml 11/24/21 09:15 11/24/21 11:04 Ipratropium-Albu terol 3 Ml Neb INHALATION 3 ml Q4H.RESPIRATORY S CH Administration Apixaban 5 mg 11/24/21 09:00 11/24/21 08:15 Apixaban 5 Mg Ta blet PO 5 mg BID VICKEY Administration Piperacillin Sod/T azobactam 50 mls @ 12.5 mls /hr 11/24/21 09:15 11/24/21 13:58 Sod 3.375 gm/ So dium Chloride IV Infused Q8H VICKEY Infusion Protocol Lorazepam 2 mg 11/24/21 02:01 11/24/21 05:42 Lorazepam 2 Mg/M l Inj 1 Ml IVP 2 mg Q2H PRN Administration prn mod anx/agita tion Magnesium Lactate 84 mg 11/24/21 09:00 11/24/21 09:07 Magnesium Lactat e 84 Mg Tablet PO 84 mg BID VICKEY Administration Methylprednisolone Sodium Succinate 60 mg 11/24/21 09:15 11/24/21 09:45 Methylprednisolo ne Sod Succ 125 Mg /2 Ml Inj IVP 60 mg Q12H VICKEY Administration Vitals/I&O/Wt Last Vital Signs Temp 97.8 F 12/03/21 12:45 Pulse 79 12/03/21 12:45 Resp 16 12/03/21 12:45 BP 106/72 12/03/21 12:45 Pulse Ox 100 12/03/21 12:45 12/02/21 12/03/21 12/03/21 22:59 06:59 14:59 Intake Total 300 / 540 790 / 790 Balance 300 / 540 790 / 790 Weight last 48 hrs Weight 79.923 kg Weight 79.288 kg Physical Exam Const: COMMON NORMALS: patient oriented x3 HENMT: COMMON NORMALS: normocephalic and atraumatic HEAD & SCALP: normocephalic and atraumatic Resp: COMMON NORMALS: normal respiratory effort and clear to auscultation bilaterally EFFORT & INSPECTION: Yes symmetric chest movement AUSCULTATION: clear to auscultation bilaterally Cardio: COMMON NORMALS: regular rate, regular rhythm, S1 normal heart sound present, S2 normal heart sound present, No gallops present (Cardio), No murmurs present (Cardio), No rub (Cardio) and Peripheral pulses 2+ throughout RATE: regular rate RHYTHM: regular rhythm HEART SOUNDS: S1 normal heart sound present and S2 normal heart sound present PERIPHERAL PULSES: Peripheral pulses 2+ throughout GI: COMMON NORMALS: Normal to inspection, nondistended, normoactive bowel sounds present, Soft to palpation, non-tender, No hepatosplenomegaly present and no masses AUSCULTATION: Yes normoactive bowel sounds PALPATION: Yes Soft to palpation and Yes No hepatosplenomegaly present RECTAL EXAM: Yes deferred Extremity: COMMON NORMALS: no clubbing, cyanosis or edema and no pedal edema Neuro: COMMON NORMALS: patient oriented x3 Urinary Catheter Management: Matthews: Cath Placed During This Visit: yes Reason for Continuing Indwelling Catheter: Accurate Measurement of Urinary Output in Critically Ill Patients Urinary Catheter Date of Insertion: 11/23/21 Urinary Catheter Time of Insertion: 19:30 Data : 12/03/21 02:39 12/03/21 02:39 A&P Assessment and plan (1) Anemia: Status: Chronic (2) Encephalopathy: Status: Acute (3) Thromboembolic stroke: Status: Acute (4) Acute hyponatremia: Status: Acute (5) Enterocolitis: Status: Acute (6) Elevated bilirubin: Status: Acute (7) ETOH abuse: Status: Chronic (8) DVT (deep venous thrombosis): Resolved in repeat Doppler in November 2021 Status: Resolved (9) Pulmonary embolism: Treated for more than 3 months. Patient currently saturating well on baseline oxygen supplementation Status: Chronic (10) COPD (chronic obstructive pulmonary disease): Status: Acute (11) Ascites: Status: Acute (12) Fall: Status: Acute (13) Hepatic steatosis: Status: Acute (14) C. difficile diarrhea: Status: Acute Plan Acute encephalopathy: Multifactorial. Most likely 2/2 cardioembolic strokes, hyponatremia, anemia Resolved Ammonia levels within normal limits. Hyponatremia has resolved. MRI brain consistent with multiple Cardioembolic strokes. Sitter at bedside. Frequent reorientation. Stop all sedative medications. lactulose PRN. Continue thiamine folic acid , multivitamin Stroke: CT head and neck:The neck carotid and vertebral arteries appear patent. No arterial occlusion is detected. MRI head without contrast: Scattered small subacute infarction foci are present in the right frontal, parietal and occipital lobes (MCA territory), medial right occipital lobe ([employer] territory), and superior left cerebellar hemisphere Most likely cardio embolic 2D Echocardiogram: Technically difficult study.Normal left ventricular cavity size.?Probably? moderately decreased left ventricle systolic function.? Left ventricular ejection fraction grossly estimated at 40%. Limited 2D echo with contrast:?Normal left ventricular cavity size.? Upper normal left ventricular wall thickness. Mildly decreased left ventricular systolic function. Left ventricular ejection fraction is estimated at 45-50 %.?There is possible hypokinesis of mid anterolateral, apical lateral, apical septal and apical nixon.? No evidence of left ventricular apical thrombus. Abnormal septal motion consistent with conduction abnormality. VAUGHN: Telemetry. Aspirin 81 mg daily. For now we will hold off on anticoagulation given severe recurrent anemia. If hemoglobin remains stable can give a trial of anticoagulation again. Discussed care in detail with patient's DPOA/sister. She is in agreement of not starting anticoagulation currently as he is at a high risk of bleeding. Acute hyponatremia: Resolved. Likely secondary to chronic alcohol abuse, poor diet. Urine sodium less than 10 with serum osmolarity low as well. Appreciate TSH, random cortisol, urinalysis studies. Monitor BMP Regular diet. Normocytic anemia: S/P endoscopy. Appreciate surgical recommendations. Endoscopy consistent with hiatal hernia and gastritis. Esophageal varices. Hemoglobin stable. We will transfuse if drops less than 7. Protonix twice daily, Carafate. If hemoglobin remains stable can potentially start anticoagulation again given cardioembolic stroke. Colitis: Appreciated CT abdomen pelvis. MRSA negative. Check procalcitonin. Was on Zosyn for now. Last dose on 12/02. Stool studies repeated and consistent with C. difficile colitis. Started on vancomycin 125 mg 4 times daily. Plan for continuing vancomycin for at least 10 days after last dose of antibiotics. COPD exacerbation: Resolved now. Oxygen supplementation keeping saturation over 90%. Stop steroids as patient has received over 5-day course. DuoNebs every 6 hour as needed. History of DVT/PE: Is on Eliquis at Home Lower extremity Doppler vein ( 11/25) : No evidence of DVT Currently on hold. Chronic alcohol abuse: On [facility] protocol Thiamine Folic acid Restart other chronic home medication including Lexapro, Requip, Flomax. #CODE STATUS: Full code. Protonix will help with PUD prophylaxis. Regular diet. Physical therapy evaluation. Discharge planning: Patient is agreeable for SNF placement. Case management alerted. Plan to discharge to SNF once accepted. Attestations Medical Necessity Statement*: Patient needs to be in hospital for management of above-defined problems Time Spent in Patient Care: Greater than 35 minutes (>than 50% of time spent in counselling and/or direct pt care on unit). 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 difficile diarrhea A04.72
[2021-12-03] MEDS: multivitamin therapeutic Tablet 1 TAB PO (15:01)
[2021-12-03] MEDS: folic acid 1 mg Tablet PO (15:01)
[2021-12-03] MEDS: tamsulosin 0.4 mg Capsule PO ×2 (15:01→17:17)
[2021-12-03] MEDS: aspirin 81 mg EC Tablet PO (15:01)
[2021-12-03] MEDS: magnesium lactate 84 mg Tablet PO ×2 (15:01→17:20)
[2021-12-03] MEDS: thiamine 100 mg Tablet PO (15:05)
--- NOTE | 2021-12-03 17:46 | ANE.PACU2 ---
Inpatient post-anesthesia follow up: Airway intact: Yes Vital signs: Temperature 97.8 F Pulse Rate 101 Respiratory Rate 16 Blood Pressure 102/66 Pulse Oximetry 98 Oxygen Delivery Me thod Room Air Oxygen Flow Rate 4 Fraction of Inspir ed Oxygen Hydration adequate: Yes Nausea and vomiting: No Pain level: 1 Mental status: Baseline
[2021-12-04] VITALS (7 sets, daily range): BP systolic 100–126; BP diastolic 64–82; PULSE 86–93; RESP 14–17; TEMP 36.6–36.9; O2SAT 93–100
[2021-12-04] MEDS: sucralfate 1 gm/10 mL Oral Liq UDC PO ×2 (07:51→11:10)
[2021-12-04] MEDS: pantoprazole DR 40 mg Tablet PO (07:52)
[2021-12-04] MEDS: aspirin 81 mg EC Tablet PO (08:03)
[2021-12-04] MEDS: escitalopram 10 mg Tablet PO (08:03)
[2021-12-04] MEDS: tamsulosin 0.4 mg Capsule PO (08:03)
[2021-12-04] MEDS: folic acid 1 mg Tablet PO (08:03)
[2021-12-04] MEDS: magnesium lactate 84 mg Tablet PO (08:03)
[2021-12-04] MEDS: thiamine 100 mg Tablet PO (08:03)
[2021-12-04] MEDS: multivitamin therapeutic Tablet 1 TAB PO (08:04)
[2021-12-04] MEDS: ipratropium-albuterol 3 mL Neb INHALATION (10:28)
[2021-12-04] MEDS: TRAMadol 50 mg Tablet PO (11:12)
--- NOTE | 2021-12-04 12:52 | P.DS_ITS ---
Discharge Providers Date of Admission: 11/24/21 02:01 Date of Discharge: December 04, 2021 Attending Provider at Admission: Mariana Chavez DO Attending Provider at Discharge: Sukhi Murdock MD Primary Care Provider: Hali Mcneal APN Diagnoses at Discharge Discharge Diagnosis (1) Thromboembolic stroke: Status: Acute (2) CHF (congestive heart failure), NYHA class III: Status: Acute (3) COPD (chronic obstructive pulmonary disease): Status: Acute Reason for Visit Reason for Visit: WEAKNESS/DIZZY Hospital Course Hospital Course 61-year-old male with past medical history of chronic alcohol abuse COPD anemia dvt pulmonary embolism was brought in with chief complaint of generalized weakness going on for the last 5 days. During the hospital stay he was managed for acute encephalopathy multifactorial hyponatremia, CVA, anemia, CVA : Likely cardioembolic based on MRI findings: He underwent: CT head wo con: No acute intracranial pathology. CTA head and neck:The neck carotid and vertebral arteries appear patent. No arterial occlusion is detected. MRI head without contrast: Scattered small subacute infarction foci are present in the right frontal, parietal and occipital lobes (MCA territory), medial right occipital lobe ([employer] territory), and superior left cerebellar hemisphere Most likely cardio embolic 2D Echocardiogram:?Technically difficult study.Normal left ventricular cavity size.?Probably? moderately decreased left ventricle systolic function.? Left ventricular ejection fraction grossly estimated at 40%. Limited 2D echo with contrast:?Normal left ventricular cavity size.? Upper normal left ventricular wall thickness. Mildly decreased left ventricular systolic function. Left ventricular ejection fraction is estimated at 45-50 %.?There is possible hypokinesis of mid anterolateral, apical lateral, apical septal and apical nixon.? No evidence of left ventricular apical thrombus. Abnormal septal motion consistent with conduction abnormality. VAUGHN:Normal left ventricular cavity size.? Upper normal left ventricular wall thickness. Mildly decreased left ventricular ?systolic function. Left ventricular ejection fraction is estimated at 45-50 %.? There is possible hypokinesis of mid ?anterolateral, apical lateral, apical septal and apical nixon.? No evidence of left ventricular apical thrombus. Abnormal septal ?motion consistent with conduction abnormality. 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 For his relative hypervolemic hyponatremia in the setting of chronic alcohol abuse:He was managed conservatively with salt tablets fluid restriction. BMP was monitored. For normocytic anemia: FOBT was positive, he underwent endoscopy: Consistent with hernia and gastritis, as well as esophageal varices, due to drop in hemoglobin during the hospital stay he required blood transfusion, was also continued on Protonix, and Carafate. CBC was monitored, he was on anticoagulation for his prior history of DVT and PE, anticoagulation has been discontinued on discharge due to high risk of bleeding. Lower extremity Doppler vein done during the hospital stay has failed to show any DVT. Patient was also managed for colitis initially was on Zosyn, later he was switched to p.o. vancomycin as C. difficile stool was positive. Patient was also kept on CIWA protocol during hospital stay. Was kept on thiamine folic acid multivitamins, regular diet. CT abdomen pelvis also showed ascites: Patient was appropriately covered with antibiotics, for if any possible SBP, though for most part he had no abdominal pain, abdominal tenderness. Paracentesis was not pursued. For C. difficile he was continued on p.o. vancomycin and is being discharged on p.o. vancomycin to complete 10 days course. Patient had significant weakness as well as physical deconditioning, for which he was working with physical therapy And is being discharged in stable condition to SNF. Patient overall responded well to above medical management and is being discharged in stable condition. He will continue to follow cardiology as well as primary care physician as an outpatient, he has been counseled extensively regarding alcohol cessation. Physical Exam Const: COMMON NORMALS: patient oriented x3 HENMT: COMMON NORMALS: normocephalic and atraumatic HEAD & SCALP: normoce phalic and atraumatic Resp: COMMON NORMALS: normal respiratory effort and clear to auscultation bilaterally EFFORT & INSPECTION: Yes symmetric chest movement AUSCULTATION: clear to auscultation bilaterally OTHER: Coarse breath sound bilateral wheezing bilateral rhonchi. Cardio: COMMON NORMALS: regular rate, regular rhythm, S1 normal heart sound present, S2 normal heart sound present, No gallops present (Cardio), No murmurs present (Cardio), No rub (Cardio) and Peripheral pulses 2+ throughout RATE: regular rate RHYTHM: regular rhythm HEART SOUNDS: S1 normal heart sound present and S2 normal heart sound present PERIPHERAL PULSES: Peripheral pulses 2+ throughout GI: COMMON NORMALS: Normal to inspection, nondistended, normoactive bowel sounds present, Soft to palpation, non-tender, No hepatosplenomegaly present and no masses AUSCULTATION: Yes normoactive bowel sounds PALPATION: Yes Soft to palpation and Yes No hepatosplenomegaly present RECTAL EXAM: Yes deferred Extremity: COMMON NORMALS: no clubbing, cyanosis or edema and no pedal edema Neuro: COMMON NORMALS: patient oriented x3 Urinary Catheter Management: Matthews: Cath Placed During This Visit: yes Reason for Continuing Indwelling Catheter: Accurate Measurement of Urinary Output in Critically Ill Patients Urinary Catheter Date of Insertion: 11/23/21 Urinary Catheter Time of Insertion: 19:30 Discharge Data Studies Completed and Pending Completed Studies During Hospitalization Category Date Time Status CT abdomen pelvis w con* [id number] Urgent Cat Scan 11/23/21 20:[address] head wo con* [id number] Urgent Cat Scan 11/23/21 18:35 Completed CTA head neck [CT angio headneck* [id number]] Routine Cat Scan 11/27/21 18:24 Completed XR chest 1V portable [id number] Routine Exams 11/26/21 17:37 Completed XR chest 1V portable [id number] Urgent Exams 11/23/21 18:35 Completed MR head wo con* [id number] Routine MRI 11/27/21 10:32 [place] [id number] Urgent Ultrasound 11/25/21 10:36 Completed CV. echo complete* [id number] Routine Ultrasound 11/27/21 18:24 Completed US echo limited with contrast [CV. echo lmt w/w contras Ultrasound 12/02/21 10:14 Completed [id number]] Routine US gall bladder [id number] Urgent Ultrasound 11/23/21 20:49 Completed Pending at discharge Category Date Time Status CBC Auto Diff [Complete Blood Count w/Auto] AM LABS Lab 12/05/21 04:00 Ordered CMP [Comprehensive Metabolic Panel] AM LABS Lab 12/05/21 04:00 Ordered CV. echo transesophageal [id number] Routine Ultrasound 12/03/21 11:15 Taken Radiology Impressions Head CT 11/23/21 18:35 IMPRESSION: No acute intracranial findings. Abdomen/Pelvis CT 11/23/21 20:49 IMPRESSION: 1. Inflammatory changes of the ascending colon and very distal small bowel. Overall most consistent with enterocolitis. 2. No obstruction or generalized ileus. 3. Moderate ascites. 4. Hepatic steatosis. 5. Other chronic and incidental findings as described COMMENTS: Consistent with the [employer]'s Incidental Findings Committee white paper (J Am Gavino Radiol 2018): Any incidental renal lesion less than 1 cm or classified as too small to characterize, or any incidental cystic renal lesion characterized as simple-appearing, is likely benign. No follow-up imaging is recommended for these lesions per consensus recommendations based on imaging criteria. Gallbladder Ultrasound 11/23/21 20:49 IMPRESSION: 1. Extensive cholelithiasis. However no wall thickening or biliary distention. 2. Small upper abdominal ascites Chest X-Ray 11/26/21 17:37 IMPRESSION: 1. Interval development of bilateral lower lobe airspace disease suspicious for pneumonia, worse on the right. Recommend followup chest x-ray to ensure resolution. 2. Interval placement of a right upper extremity PICC with the tip at the cavoatrial junction. 3. Incidental/nonacute findings are listed in the report. Head MRI 11/27/21 10:32 IMPRESSION: Limited study due to motion. Scattered bilateral subacute infarction foci, see above, raise the possibility of central thromboembolic source. Correlate clinically. ADDENDUM: 11/27/21 1825 Funmi Ferris RN was informed of exam results at 11/27/2021 6:23 PM CDT. Head/Neck CTA 11/27/21 18:24 IMPRESSION: 1. Mild motion artifact. The neck carotid and vertebral arteries appear patent. No arterial occlusion is detected. 2. Pulmonary emphysema. Right apical ground-glass opacities may be be secondary to infectious or inflammatory process, correlate clinically. 3. Posterior layering left pleural effusion. REFERENCES: NASCET CRITERIA. The degree of internal carotid artery stenosis is based on NASCET criteria. Normal is no stenosis. Mild is less than 50% stenosis. Moderate is 50-69% stenosis. Severe is 70% to 99% stenosis. Total occlusion is no detectable patent lumen. Laboratory Results WBC 12.2 10^3/uL (4.0-10.0) H 12/03/21 02:39 Corrected WBC 15.0 10^3/cmm (4.8-10.8) H 11/27/21 05:01 RBC 2.95 10^6/uL (4.1-5.3) L 12/03/21 02:39 Hgb 8.5 g/dL (11.7-16.6) L 12/03/21 02:39 Hct 27.5 % (42.0-52.0) L 12/03/21 02:39 MCV 93.2 fl (80-94) 12/03/21 02:39 MCH 28.8 pg (28.0-34.0) 12/03/21 02:39 MCHC 30.9 g/dL (30.0-36.0) 12/03/21 02:39 RDW 23.5 % (12.1-15.1) H 12/03/21 02:39 Plt Count 130 10^3/cmm (130-400) 12/03/21 02:39 MPV 12.1 fL (7.4-10.4) H 12/03/21 02:39 Neut % (Auto) 80.3 % 12/03/21 02:39 Lymph % (Auto) 9.3 % 12/03/21 02:39 [place] % (Auto) 7.5 % 12/03/21 02:39 Eos % (Auto) 2.1 % 12/03/21 02:39 Baso % (Auto) 0.2 % 12/03/21 02:39 Reticulocyte % (Auto) 1.0 % (0.5-2.0) 11/27/21 05:01 Neut # (Auto) 9.78 10^3/uL (1.8-7.7) H 12/03/21 02:39 Lymph # (Auto) 1.1 10^3/uL (0.8-4.8) 12/03/21 02:39 [place] # (Auto) 0.9 10^3/uL (0.2-0.9) 12/03/21 02:39 Eos # (Auto) 0.3 10^3/uL (0.0-0.8) 12/03/21 02:39 Baso # (Auto) 0.0 10^3/uL (0.0-0.1) 12/03/21 02:39 Nucleated RBC % (auto) 0 % 12/03/21 02:39 Total Counted 100 (0-100) 11/27/21 05:01 Atypical Lymphs % 0.0 % (0-5) 11/27/21 05:01 Absolute Neutrophils 13.2 10^3/cmm (1.4-6.5) H 11/27/21 05:01 Segmented Neutrophils 73 % 11/27/21 05:01 Abs Segm Neuts (Man) 11.5 10/cmm (1.6-7.1) H 11/27/21 05:01 Band Neutrophils 11.0 % 11/27/21 05:01 Abs Band Neuts (Man) 1.7 10^3/cmm (0.0-1.2) H 11/27/21 05:01 Absolute Lymphocytes 1.4 10^3/cmm (1.2-3.4) 11/27/21 05:01 Lymphocytes (Manual) 9 % 11/27/21 05:01 Monocytes (Manual) 4.0 % 11/27/21 05:01 Absolute Monocytes 0.6 10^3/cmm (0.1-0.6) 11/27/21 05:01 Eosinophils (Manual) 1 % 11/27/21 05:01 Absolute Eosinophils 0.1 10^3/cmm (0.0-0.7) 11/27/21 05:01 Basophils (Manual) 0.0 % 11/27/21 05:01 Absolute Basophils 0.0 10^3/cmm (0.0-0.2) 11/27/21 05:01 Myelocytes 2.0 % 11/27/21 05:01 Nucleated RBCs 5.0 /100WBC (0-1) H 11/27/21 05:01 Nucleated RBCs # 0.0 /100WBC 12/03/21 02:39 Platelet Estimate Decreased (Normal) 11/27/21 05:01 Polychromasia 1+ H 11/27/21 05:01 Hypochromasia 2+ H 11/27/21 05:01 Target Cells Trace 11/27/21 05:01 PT 16.40 SECONDS (12.1-14.9) H 11/23/21 18:40 INR 1.28 (0.8-1.2) H 11/23/21 18:40 Specimen Type Arterial 11/26/21 10:45 Sample Site Radial, right 11/26/21 10:45 ABG pH 7.40 (7.35-7.45) 11/26/21 10:45 ABG pCO2 41.6 mmHg (35-45) 11/26/21 10:45 ABG pO2 75.6 mmHg (80.0-100.0) L 11/26/21 10:45 ABG HCO3 25.6 mmol/L (22-26) 11/26/21 10:45 ABG O2 Saturation 96.7 11/26/21 10:45 ABG Base Excess 0.7 mmol/L (-2.0-2.0) 11/26/21 10:45 [place] Test Pos 11/26/21 10:45 A-a O2 Gradient 13.4 mmHg (5-10) H 11/26/21 10:45 Hematocrit 21.4 % (42-52) L 11/26/21 10:45 Hgb O2 Saturation 94.8 % (95-100) L 11/26/21 10:45 Carboxyhemoglobin 0.9 %THgb (0.4-20.1) 11/26/21 10:45 Methemoglobin 1.0 % (0.4-1.5) 11/26/21 10:45 Total Hemoglobin 7.0 g/dL (14-18) L 11/26/21 10:45 Sodium 133.0 mmol/L (131-143) 11/26/21 10:45 Potassium 3.7 mmol/L (3.5-5.0) 11/26/21 10:45 Glucose 101.0 mg/dL (70-115) 11/26/21 10:45 Ionized Calcium 1.1 mmol/L (1.1-1.4) 11/26/21 10:45 O2 Delivery Device Nc 11/26/21 10:45 O2 Liters/Min 3.0 % 11/26/21 10:45 FiO2 32.0 % 11/26/21 10:45 Central Office Equipment Installer ID Gd 11/26/21 10:45 Sodium 137 mmol/L (136-145) 12/03/21 02:39 Potassium 4.4 mmol/L (3.5-5.1) 12/03/21 02:39 Chloride 102 mmol/L (98-107) 12/03/21 02:39 Carbon Dioxide 26 mmol/L (22-29) 12/03/21 02:39 Anion Gap 13.4 (5-19) 12/03/21 02:39 BUN 6 mg/dL (8-23) L 12/03/21 02:39 Creatinine 0.4 mg/dL (0.7-1.2) L 12/03/21 02:39 GFR Calculation 219.4 mL/min (90-130) H 12/03/21 02:39 Glucose 87 mg/dL (65-115) 12/03/21 02:39 POC Glucose 122 mg/dL (70-110) H 11/26/21 22:03 Estimat Average Glucose 68 11/26/21 02:27 Hemoglobin A1c < 4.0 % (4.0-6.0) L 11/26/21 02:27 Calculated Osmolality 281 mOsm/kg (285-295) L 12/03/21 02:39 Calcium 7.4 mg/dL (8.5-10.5) L 12/03/21 02:39 Magnesium 1.9 mg/dL (1.7-2.3) 11/26/21 12:35 Iron 180 ug/dL (59-158) H 11/25/21 01:00 TIBC 196.73059 mcg/dl 11/25/21 01:00 % Saturation 91.0 % (20-50) H 11/25/21 01:00 Unsat Iron Binding < 17 ug/dL (112-347) L 11/25/21 01:00 Ferritin 499 ng/mL (30-400) H 11/23/21 18:40 Total Bilirubin 2.1 mg/dL (0.15-1.2) H 12/03/21 02:39 Direct Bilirubin 2.20 mg/dL (0.00-0.30) H 11/26/21 12:35 Indirect Bilirubin 0.60 11/26/21 12:35 AST 44 U/L (0-40) H 12/03/21 02:39 ALT 17 U/L (0-41) 12/03/21 02:39 Alkaline Phosphatase 144 IU/L (40-130) H 12/03/21 02:39 Ammonia 59 umol/L (16-60) 11/26/21 12:35 Creatine Kinase 37 U/L (39-308) L 11/23/21 18:40 Troponin T Baseline 40 ng/L (0-15) H 11/23/21 18:40 Troponin T 120 Minute 30.77 ng/L (0-15) H 11/23/21 20:57 Delta Troponin T -9.23 ABS# (0-10) L 11/23/21 20:57 Total Protein 5.2 g/dL (6.6-8.7) L 12/03/21 02:39 Albumin 2.7 g/dL (3.5-5.2) L 12/03/21 02:39 Globulin 2.5 g/dL (1.3-4.6) 12/03/21 02:39 Triglycerides 87 mg/dL (0-150) 11/26/21 02:27 Cholesterol 85 mg/dL (0-200) 11/26/21 02:27 LDL Cholesterol, Calc 48 mg/dL (50-129) L 11/26/21 02:27 Total VLDL Cholesterol 17 mg/dL (0-30) 11/26/21 02:27 HDL Cholesterol 20 mg/dL (60-100) L 11/26/21 02:27 Cholesterol/HDL Ratio 4.25 mg/dL (1.0-5.00) 11/26/21 02:27 Lipase 35 U/L (13-60) 11/23/21 18:40 Vitamin B12 > 2000 pg/mL (232-1245) H 11/27/21 05:01 Folate 4.9 ng/mL (4.5-32.2) 11/27/21 05:01 Procalcitonin 0.12 ng/mL (0-0.5) 11/28/21 02:22 TSH 0.92 uIU/mL (0.27-4.20) 11/23/21 18:40 Free T4 1.05 ng/dL (0.82-1.77) 11/23/21 18:40 Urine Color Yellow (Yellow) 11/23/21 19:30 Urine Appearance Clear (CLEAR) 11/23/21 19:30 Urine pH 5 (5-7) 11/23/21 19:30 Ur Specific [place] 1.015 (1.005-1.030) 11/23/21 19: Urine Protein Trace (Negative) 11/23/21 19: Urine Glucose (UA) Norm (Normal) 11/23/21 19:30 Urine Ketones Negative (Negative) 11/23/21 19:30 Urine Blood Neg (Negative) 11/23/21: Urine Nitrate Negative (Negative) 11/23/21 19:30 Urine Bilirubin Neg (Negative) 11/23/21 19:30 Urine Urobilinogen 4+ mg/dL (Negative) H 11/23/21 19:30 Ur Leukocyte Esterase Negative (Negative) 11/23/21 19:30 Urine RBC 0-4 /hpf (0-2) H 11/23/21 19:30 Urine WBC 0-4 /hpf (0-5) H 11/23/21 19:30 Ur Squamous Epith Cells 0-4 /hpf (0-5) H 11/23/21 19:30 Amorphous Sediment Trace /hpf 11/23/21 19:30 Urine Bacteria Trace /hpf (NONE) 11/23/21 19:30 Hyaline Casts 0-4 /lpf H 11/23/21 19:30 Urine Mucus Trace /hpf 11/23/21 19:30 Ur Random Sodium < 10 mmol/L 11/24/21 10:14 Urine Creatinine 87 mg/dL (39-259) 11/24/21 10:14 Hepatitis A IgM Ab TNP 11/26/21 12:35 Hep Bs Antigen Non-reactive (Nonreactive) 11/26/21 12:35 Hep Bs Antibody 3.5 (11.5-1000) L 11/26/21 12:35 Hep B Core Total Ab Non-reactive (Nonreactive) 11/26/21 12:35 Hepatitis C Antibody Reactive (Nonreactive) H 11/26/21 12:35 HCV RNA (PCR) IUs/ml <1.18 not detected Log IU/mL (NOT DETECTED) 11/26/21 13:24 HCV RNA (PCR) IU log10 <15 not detected IU/mL (NOT DETECTED) 11/26/21 13:24 HIV 1&2 Ab & HIV 1 Ag Non-reactive (Non-Reactiv) 11/26/21 12:35 HIV 1&2 Antibody Non-reactive (Non-Reactiv) 11/26/21 12:35 Misc Test Reference See comment 11/26/21 12:35 Blood Type O Positive 11/25/21 11:38 Rho(D) Type Positive 11/25/21 11:38 Antibody Screen Negative 11/25/21 11:38 Crossmatch See Detail 11/25/21 11:38 Vitals Last Vital Signs Temp 97.9 F 12/04/21 12:00 Pulse 93 12/04/21 12:00 Resp 14 12/04/21 12:00 BP 112/77 12/04/21 12:00 Pulse Ox 95 12/04/21 12:00 Discharge Plan Discharge Patient Disposition: Xfer SNF Condition: Stable Prescriptions: New lisinopril 2.5 mg tablet 2.5 mg PO DAILY 30 Days Qty: 30 3RF aspirin 81 mg Tablet,Delayed Release (Dr/Ec) 81 mg PO DAILY 30 Days Qty: 30 3RF vancomycin 1,000 mg Recon Soln 125 mg PO QID 6 Days Qty: 24 0RF folic acid 1 mg Tablet 1 mg PO DAILY 30 Days Qty: 30 3RF Magtab 84 mg Tablet Extended Release 84 mg PO DAILY 30 Days Qty: 30 3RF Vitamin B-1 (mononitrate) 100 mg Tablet 100 mg PO DAILY 30 Days Qty: 30 0RF Thera 400 mcg Tablet 1 tab PO DAILY 30 Days Qty: 30 3RF Acetaminophen Extra Strength 500 mg tablet 500 mg PO Q6H PRN (Reason: pain) Qty: 30 0RF tramadol 50 mg Tablet 50 mg PO Q4H PRN (Reason: Moderate Pain) 7 Days Qty: 20 0RF Continued ropinirole 1 mg tablet 1 - 2 mg PO BEDTIME PRN (Reason: Restless Leg(S)) 0RF tramadol 50 mg tablet 50 mg PO Q4H PRN (Reason: Pain) 0RF albuterol sulfate 90 mcg/actuation HFA aerosol inhaler 2 puff INHALATION QID PRN (Reason: Shortness Of Breath) 0RF tizanidine 4 mg tablet 4 mg PO TID PRN (Reason: muscle cramps) 0RF Hold Instructions: Resume on 06/17/21. Review with primary care doctor during visit lorazepam 0.5 mg tablet 0.5 - 1 mg PO TID PRN (Reason: Anxiety) 0RF cyanocobalamin (vitamin B-12) 1,000 mcg/mL solution 1,000 mcg IM Q30D 0RF ergocalciferol (vitamin D2) 1,250 mcg (50,000 unit) capsule 50,000 unit PO Q7D 0RF Rx Instructions: ON THU doxepin 50 mg capsule 50 mg PO BEDTIME PRN (Reason: Sleep) 30 Days Qty: 30 0RF bupropion HCl 150 mg tablet sustained-release 12 hr 150 mg PO BID 30 Days Qty: 60 0RF escitalopram oxalate 20 mg tablet 20 mg PO DAILY 30 Days Qty: 30 0RF tamsulosin 0.4 mg capsule 0.4 mg PO BID 30 Days Qty: 60 3RF pantoprazole 40 mg tablet,delayed release (DR/EC) 40 mg PO BID 30 Days Qty: 60 3RF Discontinued lisinopril 2.5 mg tablet 2.5 mg PO BID PRN (Reason: Blood Pressure) 0RF Eliquis 5 mg tablet 5 mg PO BID Qty: 60 4RF Rx Instructions: 10 mg twice a day for 7 days and then 5 mg twice a day for 3 months Discharge Orders: Discharge Order (Routine); Ordered 12/04/21 Ordered By: Sukhi Murdock Other Ambulatory Orders: MCT/Event Monitor 21 Days (Routine) Timeframe: 3 Weeks Facility: [facility] - Location: Radiology Ordered By: Sukhi Murdock Referrals: Debi Arroyo MD [Physician] - 12/26/21 11:15 am Mcneal,HAL Lal [Primary Care Provider] - 1 week Discharge Diet: Regular Discharge Activity: Increase activity as tolerated Patient Instructions: Lisinopril (By mouth), Aspirin (By mouth), Folic Acid (By mouth), Vancomycin (By mouth), C. Diff (Clostridioides Difficile) Infection (GEN), GI Discharge Instructions, Opioid Safety Discharge Attestations Time Spent in Discharge Care*: greater than 30 min Specific Discharge Activities: educating patient, educating and/or supporting family/caregiver, discussing with pcp/other providers, discussing with case finisher/social workers/dc planners, documenting/other paperwork and evaluating patient/reviewing data Status at Discharge: Cognitive status at discharge: cognitively intact , Behavioral status at discharge: cooperative , Quality Metrics Clinical Quality Measures [ No reported AMI, CVA or VTE this stay] Coding Level of Care Code Acute Chg FW DC note Diagnoses Thromboembolic stroke I63.9 CHF (congestive heart failure), NYHA class III I50.9 COPD (chronic obstructive pulmonary disease) J44.9
== END 2021-12-04 15:08 | disposition skilled nursing facility (03) | DRG 640 ==
LOC: ER 23:38 → ICU 11-24 02:03 → MEDSURG 11-26 23:47
PROVIDERS: Internal Medicine Cardiovascular Disease; Student in an Organized Health Care Education/Training Program; Surgery; Admitting Provider Internal Medicine; Emergency Provider Emergency Medicine; PCP Nurse Practitioner Family; Visit Provider Internal Medicine
PROC: 0DJ08ZZ Inspection of Upper Intestinal Tract, Via Natural or Artificial Opening Endoscopic (ICD-10-PCS; CPT 43235; principal; 2021-11-28 12:15)
PROC: B24BZZ4 Ultrasonography of Heart with Aorta, Transesophageal (ICD-10-PCS; CPT 93312; principal; 2021-12-03 11:15)
DX: E87.1 Hypo-osmolality and hyponatremia (principal); I63.9 Cerebral infarction, unspecified; J44.1 Chronic obstructive pulmonary disease with (acute) exacerbation; I50.20 Unspecified systolic (congestive) heart failure; I42.6 Alcoholic cardiomyopathy; A04.72 Enterocolitis due to Clostridium difficile, not specified as recurrent; I85.10 Secondary esophageal varices without bleeding; G93.49 Other encephalopathy; R18.8 Other ascites; K52.9 Noninfective gastroenteritis and colitis, unspecified; Z99.81 Dependence on supplemental oxygen; D50.0 Iron deficiency anemia secondary to blood loss (chronic); F10.10 Alcohol abuse, uncomplicated; W19.XXXA Unspecified fall, initial encounter; N40.0 Benign prostatic hyperplasia without lower urinary tract symptoms; I11.0 Hypertensive heart disease with heart failure; Z86.711 Personal history of pulmonary embolism; Z86.718 Personal history of other venous thrombosis and embolism; G25.81 Restless legs syndrome; F17.210 Nicotine dependence, cigarettes, uncomplicated; E87.6 Hypokalemia; Z79.891 Long term (current) use of opiate analgesic; R19.5 Other fecal abnormalities; K29.70 Gastritis, unspecified, without bleeding; K44.9 Diaphragmatic hernia without obstruction or gangrene; K76.0 Fatty (change of) liver, not elsewhere classified; K57.90 Diverticulosis of intestine, part unspecified, without perforation or abscess without bleeding
CPT/HCPCS: 36415; 36416; 36430; 36569; 36592; 36600; 43235; 51702; 70450; 70496; 70498; 70551; 71045; 74177; 76705; 80048; 80051; 80053; 80061; 81001; 82140; 82247; 82248; 82274; 82330; 82550; 82575; 82607; 82728; 82746; 82805; 82962; 83036; 83540; 83550; 83630; 83690; 83735; 84132; 84145; 84300; 84439; 84443; 84484; 85007; 85025; 85045; 85610; 86705; 86706; 86709; 86803; 86850; 86900; 86920; 87040; 87340; 87493; 87506; 87522; 87641; 87806; 93005; 93306; 93312; 93320; 93325; 93970; 94640; 94664; 96365; 96366; 96367; 96372; 97110; 97116; 97162; 97530; 99285; C1751; C8924; C9113; J0744; J1940; J2060; J2270; J2405; J2543; J2704; J2930; J3370; J3411; J3475; J3480; J7030; J7512; P9016; P9047; Q9956; Q9967; S0030

== ENCOUNTER 2021-12-14 22:51 | Observation (INO) | payer MEDICARE, MEDICAID, SELFPAY ==
[2021-12-14 22:55] VITALS: PULSE 121; RESP 14; TEMP 36.6; O2SAT 98; BMI 28.2
[2021-12-14 23:00] VITALS: BP 148/76; PULSE 101; RESP 16; TEMP 36.6; O2SAT 99
--- NOTE | 2021-12-14 23:22 | CTR_ITS ---
PROCEDURE INFORMATION: Exam: CT Head Without Contrast Exam date and time: 12/14/2021 11:48 PM Age: 61 years old Clinical indication: Injury or trauma; Fall; Blunt trauma (contusions or hematomas); Consciousness not specified; Patient HX: Found on floor during wellness check - confusion; Additional info: AMS TECHNIQUE: Imaging protocol: Computed tomography of the head without contrast. Radiation optimization: All CT scans at this facility use at least one of these dose optimization techniques: automated exposure control; mA and/or kV adjustment per patient size (includes targeted exams where dose is matched to clinical indication); or iterative reconstruction. COMPARISON: MR head wo con* [id number] 11/27/2021 5:23 PM RADIATION DOSE METRICS: Total DLP (mGy-cm): 847.8 FINDINGS: Brain: Mild diffuse white matter disease likely reflecting chronic microvascular ischemic changes. Cerebral ventricles: No ventriculomegaly. Paranasal sinuses: Visualized sinuses are unremarkable. No fluid levels. Mastoid air cells: Visualized mastoid air cells are well aerated. Bones/joints: Unremarkable. No acute fracture. Soft tissues: Unremarkable. CT/CT head wo con* [id number] IMPRESSION: Negative for intracranial hemorrhage or mass effect.
--- NOTE | 2021-12-14 23:22 | CTR_ITS ---
PROCEDURE INFORMATION: Exam: CT Cervical Spine Without Contrast Exam date and time: 12/14/2021 11:51 PM Age: 61 years old Clinical indication: Injury or trauma; Fall; Blunt trauma; Patient HX: Found on floor during wellness check; Additional info: Neck pain post fall TECHNIQUE: Imaging protocol: Computed tomography images of the cervical spine without contrast. Radiation optimization: All CT scans at this facility use at least one of these dose optimization techniques: automated exposure control; mA and/or kV adjustment per patient size (includes targeted exams where dose is matched to clinical indication); or iterative reconstruction. COMPARISON: CT cervical spin wo con* [id number] 11/25/2019 3:06 PM RADIATION DOSE METRICS: Total DLP (mGy-cm): 563.53 FINDINGS: Vertebrae: No acute fracture. Normal alignment. C2-C3: No significant disc protrusion. No severe spinal canal stenosis. No significant neural foraminal narrowing. C3-C4: No significant disc protrusion. No severe spinal canal stenosis. No significant neural foraminal narrowing. C4-C5: No significant disc protrusion. No severe spinal canal stenosis. No significant neural foraminal narrowing. C5-C6: No significant disc protrusion. No severe spinal canal stenosis. No significant neural foraminal narrowing. C6-C7: No significant disc protrusion. No severe spinal canal stenosis. No significant neural foraminal narrowing. C7-T1: No significant disc protrusion. No severe spinal canal stenosis. No significant neural foraminal narrowing. Soft tissues: Unremarkable. Lungs: Emphysematous changes. CT/CT cervical spin wo con* [id number] IMPRESSION: Negative for fracture or dislocation.
--- NOTE | 2021-12-14 23:22 | XRR_ITS ---
PROCEDURE INFORMATION: Exam: XR Chest Exam date and time: 12/14/2021 11:40 PM Age: 61 years old Clinical indication: Prior surgery; Surgery date: 6+ months; Surgery type: RT shoulder; Patient HX: AMS, found in floor TECHNIQUE: Imaging protocol: XR of the chest. Views: 1 view. COMPARISON: CR (CHEST, ) 11/26/2021 5:46 PM FINDINGS: Lungs: Unremarkable. No consolidation. Pleural spaces: Unremarkable. No pleural effusion. No pneumothorax. Heart/Mediastinum: Stable moderate intrathoracic hiatal hernia. Bones/joints: Stable total right shoulder replacement. XR/XR chest 1V portable [id number] IMPRESSION: 1. Stable moderate intrathoracic hiatal hernia. 2. No acute findings.
--- NOTE | 2021-12-14 23:24 | ECG_ITS ---
[facility] Test Date: 2021-12-14 Pat Name: Raymond Coronel Department: Room: Gender: Male Band Sawyer: : 1960 Requested By: Bishop Suresh Order Number: [id number] Debi MD: Shahzad Sánchez M.D. Measurements Intervals [place] Rate: 95 P: 58 AK: 178 QRS: -50 QRSD: 121 T: 121 QT: 381 QTc: 481 Interpretive Statements SINUS RHYTHM POSSIBLE LEFT ATRIAL ENLARGEMENT [-0.1mV P-WAVE IN V1/V2] LEFT ANTERIOR FASCICULAR BLOCK [QRS AXIS <= -45, QR IN I, RS IN II] NONSPECIFIC ST & T-WAVE ABNORMALITY Compared to ECG 11/24/2021 00:48:07 T-wave abnormality now present Ventricular premature complex(es) no longer present Myocardial infarct finding no longer present Electronically Signed On 12-15-2021 22:43:01 CDT by Shahzad Sánchez M.D. [id number]
[2021-12-14 23:43] LABS: ABG PCO2 32.3 mmHg (35-45); ABG PH Result 7.34 (7.35-7.45); Base Excess ABG -7.7 mmol/L (-2.0-2.0); Blood Gas Allen Test Pos; Blood Gas Operator Identificat WALCI; Blood Gas Sample Site Radial, right; Blood Gas Sample Type Arterial; HCO3 ABG 17.2 mmol/L (22-26); Oxygen Device ROOM AIR; PO2 ABG 83.3 mmHg (80.0-100.0)
[2021-12-14] MEDS: sodium chloride 0.9% 1,000 ML 999 ML IV (23:50)
[2021-12-15] VITALS (15 sets, daily range): BP systolic 103–148; BP diastolic 65–76; PULSE 77–97; RESP 14–79; TEMP 36.5–37; O2SAT 91–98
--- NOTE | 2021-12-15 00:02 | W.ED.AMS ---
HPI - Altered Mental Status General: Chief Complaint: Altered Mental Status Stated Complaint: AMS Time Seen by Provider: 12/14/21 22:55 History of Present Illness: 61-year-old male with a recent hospital admission. He was discharged on 12/04, spent a few days at the halfway facility, and was at home alone this evening. He notes that he remembers eating supper, and what he ate. He remembers waking up in the floor, as the glass unloading equipment tender department was called for a well check when he did not respond to family call he was found to be in the floor, not really responding well. According to the glass unloading equipment tender's department, he may have been convulsing on EMS arrival this is resolved, but he remained significantly confused. Confusion began to clear on the way to the hospital. His mental status is much improved at this point. He does not remember any preceding events, that led him to waking up in the floor. He believes he was only in the floor for a couple of hours though. MD complaint: altered mental status, confusion and decreased responsiveness Timing confirmed by: other Severity: moderate Context: history of similar presentation Associated symptoms: Deny auditory hallucinations or visual hallucinations Review of Systems General: Reports: Other (somewhat unreliable historian) Const: Denies: fever(s) or chills Eyes: Denies: change in vision ENMT: Denies: throat pain Card: Denies: chest pain or palpitations Resp: Denies: dyspnea GI: Denies: abdominal pain or vomiting Musc: Reports: neck pain; Denies: back pain Neuro: Reports: confusion; Denies: headache(s), numbness in extremities or weakness in extremities Psych: Denies: visual hallucinations or auditory hallucinations [facility] ED PFSH: Medical History Acute hypokalemia Acute hyponatremia Alcohol abuse Alcoholism Anemia Ascites BPH (benign prostatic hyperplasia) C. difficile diarrhea CHF (congestive heart failure), NYHA class III COPD (chronic obstructive pulmonary disease) COPD (chronic obstructive pulmonary disease) Diverticulosis DVT (deep venous thrombosis) Elevated bilirubin Encephalopathy Enterocolitis ETOH abuse Fall GERD (gastroesophageal reflux disease) Hepatic steatosis Hepatitis C Hiatal hernia History of colon polyps Hypertension Incarcerated hernia Light headedness Pulmonary emboli Pulmonary embolism Restless leg syndrome Thromboembolic stroke Tobacco abuse Surgical History History of cholecystectomy History of colonoscopy with polypectomy (~2016) 2019- dr. jeffries History of right shoulder replacement (~12/2019) Status post left shoulder hemiarthroplasty Family History Denies family history of Chronic kidney disease (CKD) Social History Smoking and tobacco status: current every day smoker Alcohol intake: current Household members: family Housing: House Physical Exam Const: GENERAL APPEARANCE: cooperative, lethargic and frail appearing ORIENTATION/CONSCIOUSNESS: Yes lethargic HENMT: COMMON NORMALS: normocephalic and atraumatic HEAD & SCALP: normocephalic and atraumatic FACE & SINUS: face symmetric; no abrasion and no Facial tenderness on exam of face and sinuses NOSE: Normal nares present TEETH & GINGIVA: Yes edentulous Eye: COMMON NORMALS: Equal, round and reactive pupils present and EOMs intact bilaterally PUPIL: Yes Equal, round and reactive pupils present Neck/C-Spine: GENERAL: Yes trachea midline Chest: COMMONS NORMALS: normal inspection of the chest Resp: EFFORT & INSPECTION: Yes tachypneic and Yes decreased respiratory effort AUSCULTATION: diminished lung sounds Cardio: COMMON NORMALS: regular rate and Peripheral pulses 2+ throughout RATE: regular rate RHYTHM: abnormal rhythm irregularly irregular PERIPHERAL PULSES: Peripheral pulses 2+ throughout GI: COMMON NORMALS: Soft to palpation and non-tender PALPATION: Yes Soft to palpation Extremity: COMMON NORMALS: normal to inspection Neuro: CEE COMA SCALE: document GCS findings Cee coma scale eye opening: Spontaneous [place] coma scale verbal response: Orientated Cee coma scale motor response: Obey commands [place] coma scale total score: 15 SENSORIUM/ORIENTATION: Yes lethargic CRANIAL NERVES: Yes CN normal except as noted COORDINATION/BALANCE: [id number] test normal and [id number] test normal SPEECH: abnormal speech Details: slurred COORDINATION: [id number]-[id number] test normal and wmig-ft-[id number] test normal Psych: COMMON NORMALS: cooperative SPEECH: Yes slurred Skin: NARRATIVE SKIN EXAM: Multiple abrasions and small bruises to lower extremities. Patient states this is from building a [employer] Course Consultations: Consultation #1: wade Time: 04:21 Vital Signs: Vital signs: Vital Signs Temperature 97.8 F 12/14/21 23:00 Pulse Rate 88 12/15/21 02:45 Respiratory Rate 14 12/15/21 02:45 Blood Pressure 148/76 12/15/21 02:45 Pulse Oximetry 96 12/15/21 02:45 MDM - Altered Mental Status Medical Decision Making 61-year-old male found down at home. He may or may not have had a seizure. He was in atrial fibrillation on arrival with a controlled rate. He appears to be in sinus rhythm now. This could be an arrhythmia as well. He does not appear to be an ischemic arrhythmia, as he has no significant ST changes, and his troponin did not elevated 2 hours. His hemoglobin is 10. White count of 10.5. Bicarbonate of 17. Creatinine is up to 1.5 from 0.4. He is able to answer questions, moves all extremities. His neurological exam is essentially nonfocal, only positive for slurred speech. He knows the day of the week. There is a concern, as the patient is not back to baseline, and lives at home alone. He will be observed. Lab Data : 12/15/21 00:54 12/15/21 00:54 Radiology Impressions Cervical Spine CT 12/14/21 23:22 IMPRESSION: Negative for fracture or dislocation. Chest X-Ray 12/14/21 23:22 IMPRESSION: 1. Stable moderate intrathoracic hiatal hernia. 2. No acute findings. Head CT 12/14/21 23:22 IMPRESSION: Negative for intracranial hemorrhage or mass effect. Laboratory Results WBC 10.5 10^3/uL (4.0-10.0) H 12/15/21 00:54 RBC 3.46 10^6/uL (4.1-5.3) L 12/15/21 00:54 Hgb 10.3 g/dL (11.7-16.6) L 12/15/21 00:54 Hct 33.4 % (42.0-52.0) L 12/15/21 00:54 MCV 96.5 fl (80-94) H 12/15/21 00:54 MCH 29.8 pg (28.0-34.0) 12/15/21 00:54 MCHC 30.8 g/dL (30.0-36.0) 12/15/21 00:54 RDW 19.8 % (12.1-15.1) H 12/15/21 00:54 Plt Count 234 10^3/cmm (130-400) 12/15/21 00:54 MPV 11.3 fL (7.4-10.4) H 12/15/21 00:54 Neut % (Auto) 83.3 % 12/15/21 00:54 Lymph % (Auto) 7.5 % 12/15/21 00:54 [place] % (Auto) 6.9 % 12/15/21 00:54 Eos % (Auto) 1.4 % 12/15/21 00:54 Baso % (Auto) 0.4 % 12/15/21 00:54 Neut # (Auto) 8.74 10^3/uL (1.8-7.7) H 12/15/21 00:54 Lymph # (Auto) 0.8 10^3/uL (0.8-4.8) 12/15/21 00:54 [place] # (Auto) 0.7 10^3/uL (0.2-0.9) 12/15/21 00:54 Eos # (Auto) 0.2 10^3/uL (0.0-0.8) 12/15/21 00:54 Baso # (Auto) 0.0 10^3/uL (0.0-0.1) 12/15/21 00:54 Nucleated RBC % (auto) 0 % 12/15/21 00:54 Nucleated RBCs # 0.0 /100WBC 12/15/21 00:54 Specimen Type Arterial 12/14/21 23:32 Sample Site Radial, right 12/14/21 23:32 ABG pH 7.34 (7.35-7.45) L 12/14/21 23:32 ABG pCO2 32.3 mmHg (35-45) L 12/14/21 23:32 ABG pO2 83.3 mmHg (80.0-100.0) 12/14/21 23:32 ABG HCO3 17.2 mmol/L (22-26) L 12/14/21 23:32 ABG Base Excess -7.7 mmol/L (-2.0-2.0) L 12/14/21 23:32 Tyler Test Pos 12/14/21 23:32 Hematocrit 33.0 % (42-52) L 12/14/21 23:32 O2 Delivery Device Room air 12/14/21 23:32 FiO2 21.0 % 12/14/21 23:32 Counseling Case Manager ID Essence 12/14/21 23:32 Sodium 137 mmol/L (136-145) 12/15/21 00:54 Potassium 3.7 mmol/L (3.5-5.1) 12/15/21 00:54 Chloride 95 mmol/L (98-107) L 12/15/21 00:54 Carbon Dioxide 17 mmol/L (22-29) L 12/15/21 00:54 Anion Gap 28.7 (5-19) H 12/15/21 00:54 BUN 17 mg/dL (8-23) 12/15/21 00:54 Creatinine 1.5 mg/dL (0.7-1.2) H 12/15/21 00:54 GFR Calculation 47.7 mL/min (90-130) L 12/15/21 00:54 Glucose 57 mg/dL (65-115) L 12/15/21 00:54 Calculated Osmolality 283 mOsm/kg (285-295) L 12/15/21 00:54 Lactate 0.9 mmol/L (0.5-2.2) 12/15/21 00:54 Calcium 9.4 mg/dL (8.5-10.5) 12/15/21 00:54 Magnesium 1.8 mg/dL (1.7-2.3) 12/15/21 00:54 Total Bilirubin 1.4 mg/dL (0.15-1.2) H 12/15/21 00:54 AST 89 U/L (0-40) H 12/15/21 00:54 ALT 27 U/L (0-41) 12/15/21 00:54 Alkaline Phosphatase 115 IU/L (40-130) 12/15/21 00:54 Ammonia 24 umol/L (16-60) 12/15/21 00:54 Creatine Kinase 283 U/L (39-308) 12/15/21 00:54 Troponin T Baseline 26 ng/L (0-15) H 12/15/21 00:54 Troponin T 120 Minute 22.28 ng/L (0-15) H 12/15/21 03:10 Delta Troponin T -3.72 ABS# (0-10) L 12/15/21 03:10 C-Reactive Protein 36.5 mg/L (0.0-4.9) H 12/15/21 00:54 NT-Pro-B Natriuret Pep 931 pg/mL (0-125) H 12/15/21 00:54 Total Protein 5.3 g/dL (6.6-8.7) L 12/15/21 00:54 Albumin 3.2 g/dL (3.5-5.2) L 12/15/21 00:54 Globulin 2.1 g/dL (1.3-4.6) 12/15/21 00:54 Procalcitonin 0.28 ng/mL (0-0.5) 12/15/21 00:54 Urine Color Yellow (Yellow) 12/15/21 00:45 Urine Appearance Clear (CLEAR) 12/15/21 00:45 Urine pH 5 (5-7) 12/15/21 00:45 Ur Specific [place] 1.025 (1.005-1.030) 12/15/21 00:45 Urine Protein Neg (Negative) 12/15/21 00:45 Urine Glucose (UA) Norm (Normal) 12/15/21 00:45 Urine Ketones 1+ (Negative) H 12/15/21 00:45 Urine Blood Neg (Negative) 12/15/21 00:45 Urine Nitrate Negative (Negative) 12/15/21 00:45 Urine Bilirubin 1+ (Negative) H 12/15/21 00:45 Urine Urobilinogen Norm mg/dL (Negative) 12/15/21 00:45 Ur Leukocyte Esterase Negative (Negative) 12/15/21 00:45 Ethyl Alcohol < 10 mg/dL (0-10) 12/15/21 00:54 Blood Type O Positive 12/15/21 00:54 Rho(D) Type Positive 12/15/21 00:54 Antibody Screen Negative 12/15/21 00:54 Discharge Plan Discharge Patient Disposition: Placed in Observation Clinical Impression: Syncope, Acute alteration in mental status, LENIN (acute kidney injury) Condition: Stable Prescriptions: No Action ropinirole 1 mg tablet 1 - 2 mg PO BEDTIME PRN (Reason: Restless Leg(S)) 0RF tramadol 50 mg tablet 50 mg PO Q4H PRN (Reason: Pain) 0RF albuterol sulfate 90 mcg/actuation HFA aerosol inhaler 2 puff INHALATION QID PRN (Reason: Shortness Of Breath) 0RF tizanidine 4 mg tablet 4 mg PO TID PRN (Reason: muscle cramps) 0RF Hold Instructions: Resume on 06/17/21. Review with primary care doctor during visit lorazepam 0.5 mg tablet 0.5 - 1 mg PO TID PRN (Reason: Anxiety) 0RF cyanocobalamin (vitamin B-12) 1,000 mcg/mL solution 1,000 mcg IM Q30D 0RF ergocalciferol (vitamin D2) 1,250 mcg (50,000 unit) capsule 50,000 unit PO Q7D 0RF Rx Instructions: ON THU doxepin 50 mg capsule 50 mg PO BEDTIME PRN (Reason: Sleep) 30 Days Qty: 30 0RF bupropion HCl 150 mg tablet sustained-release 12 hr 150 mg PO BID 30 Days Qty: 60 0RF escitalopram oxalate 20 mg tablet 20 mg PO DAILY 30 Days Qty: 30 0RF tamsulosin 0.4 mg capsule 0.4 mg PO BID 30 Days Qty: 60 3RF pantoprazole 40 mg tablet,delayed release (DR/EC) 40 mg PO BID 30 Days Qty: 60 3RF lisinopril 2.5 mg tablet 2.5 mg PO DAILY 30 Days Qty: 30 3RF aspirin 81 mg Tablet,Delayed Release (Dr/Ec) 81 mg PO DAILY 30 Days Qty: 30 3RF folic acid 1 mg Tablet 1 mg PO DAILY 30 Days Qty: 30 3RF Magtab 84 mg Tablet Extended Release 84 mg PO DAILY 30 Days Qty: 30 3RF Vitamin B-1 (mononitrate) 100 mg Tablet 100 mg PO DAILY 30 Days Qty: 30 0RF Thera 400 mcg Tablet 1 tab PO DAILY 30 Days Qty: 30 3RF Acetaminophen Extra Strength 500 mg tablet 500 mg PO Q6H PRN (Reason: pain) Qty: 30 0RF Referrals: Mcneal,Hali, CIVIL LABORATORY TECHNICIAN [Primary Care Provider] - Coding Level of Care Code ED Commercial Roofing Estimator for Chg Fwd Exam Comprehensive
[2021-12-15 00:50] LABS: Add Urine Microscopic? NO; Charge for UA Resulting for Rev
[2021-12-15 00:53] LABS: Bilirubin Urine 1+ (Negative); Blood Urine Neg (Negative); Glucose Urine UA Norm (Normal); Ketones Urine 1+ (Negative); Leukocyte Esterase Urine Negative (Negative); Nitrate Urine Negative (Negative); Protein Urine Neg (Negative); Specific Gravity, Urine 1.025 (1.005-1.030); Urine Appearance Clear (CLEAR); Urine Color Yellow (Yellow); Urobilinogen Urine Norm (Negative); pH Urine 5 (5-7)
[2021-12-15 01:08] LABS: Basophils % 0.4 %; Eosinophils # 0.2 10^3/uL (0.0-0.8); Eosinophils % 1.4 %; Hematocrit 33.4 % (42.0-52.0); Hemoglobin 10.3 g/dL (11.7-16.6); Lymphocytes # 0.8 10^3/uL (0.8-4.8); Lymphocytes % 7.5 %; Mean Corpuscular HGB Conc 30.8 g/dL (30.0-36.0); Mean Corpuscular Hemoglobin 29.8 pg (28.0-34.0); Mean Corpuscular Volume 96.5 fl (80-94); Mean Platelet Volume 11.3 fL (7.4-10.4); Monocytes # 0.7 10^3/uL (0.2-0.9); Monocytes % 6.9 %; Neutrophils # 8.74 10^3/uL (1.8-7.7); Neutrophils % 83.3 %; Nucleated Red Blood Cells % 0 %; Platelet Count 234 10^3/cmm (130-400); Red Blood Count 3.46 10^6/uL (4.1-5.3); Red Cell Distribution Width 19.8 % (12.1-15.1); White Blood Count 10.5 10^3/uL (4.0-10.0)
--- NOTE | 2021-12-15 01:24 | ECG_ITS ---
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 Measurements Intervals [place] Rate: 96 P: 51 [place]: 177 QRS: -48 QRSD: 126 T: 124 QT: 408 QTc: 516 Interpretive Statements SINUS RHYTHM LEFT ANTERIOR FASCICULAR BLOCK [QRS AXIS <= -45, QR IN I, RS IN II] POSSIBLE LATERAL MYOCARDIAL INFARCTION , OF INDETERMINATE AGE [30 ms Q WAVE IN I/aVL/V5/V6] Compared to ECG 12/14/2021 23:34:09 Myocardial infarct finding now present T-wave abnormality no longer present Electronically Signed On 12-15-2021 22:48:13 CDT by Shahzad Sánchez M.D. [id number]
[2021-12-15 01:28] LABS: Ammonia 24 umol/L (16-60); Lactate (Lactic Acid level) 0.9 mmol/L (0.5-2.2)
[2021-12-15 01:29] LABS: Troponin(5th) Baseline 26 ng/L (0-15)
[2021-12-15 01:38] LABS: NT Pro B Type Natriuretic Pept 931 pg/mL (0-125); Procalcitonin 0.28 ng/mL (0-0.5)
[2021-12-15 01:49] LABS: Alanine Aminotransferase 27 U/L (0-41); Albumin Level 3.2 g/dL (3.5-5.2); Alkaline Phosphatase 115 IU/L (40-130); Anion Gap 28.7 (5-19); Aspartate Amino Transferase 89 U/L (0-40); Blood Urea Nitrogen 17 mg/dL (8-23); C Reactive Protein 36.5 mg/L (0.0-4.9); Calcium 9.4 mg/dL (8.5-10.5); Carbon Dioxide 17 mmol/L (22-29); Chloride 95 mmol/L (98-107); Creatine Phosphokinase 283 U/L (39-308); Globulin 2.1 g/dL (1.3-4.6); Glomerular Filtration Rate 47.7 mL/min (90-130); Glucose 57 mg/dL (65-115); Magnesium 1.8 mg/dL (1.7-2.3); Osmolality Calculated 283 mOsm/kg (285-295); Potassium 3.7 mmol/L (3.5-5.1); Sodium 137 mmol/L (136-145); Total Bilirubin 1.4 mg/dL (0.15-1.2); Total Protein 5.3 g/dL (6.6-8.7)
[2021-12-15 01:54] LABS: Alcohol Level < 10 mg/dL (0-10)
[2021-12-15] MEDS: dextrose 10% 250 ML 999 ML IV (02:08)
[2021-12-15 03:32] LABS: Troponin 5 2HR 22.28 ng/L (0-15)
[2021-12-15 03:33] LABS: Troponin 5 2HR Delta -3.72 ABS# (0-10)
--- NOTE | 2021-12-15 04:18 | PM.HP ---
Providers/Chief Complaint Primary Care Provider: Hali Mcneal APN Chief Complaint: AMS History of Present Illness Raymond Coronel is a 61 year old male with history of chronic alcohol abuse, COPD, encephalopathy related to CVA ischemic in nature, MRI head showed multiple infarcts, hyponatremia, he underwent transesophageal echo which revealed EF 45 to 50% no apical thrombus, developed C. difficile diarrhea for which she received p.o. vancomycin, because of his deconditioning he was discharged to a detention, he was recently discharged on 12/04, presenting today with chief complaint of confusion and possible seizure related activity. Patient is stating that he was experiencing back pain, he took his medications after his dinner and He knows EMS came to evaluate him. His daughter called police when she was not able to get a hold of him today. When police arrived, they found him on the floor. On awakening patient was able to tell the police that he ate dinner, he was a bit confused but verbally redirectable. There was concern for seizure related activity. He was brought in the emergency department for further evaluation. At the time of my evaluation patient is hemodynamically stable he is able to answer my question, he is alert and oriented however very drowsy, he keeps going back to sleep I requested prolactin level, CT head CT neck unremarkable chest x-ray is unremarkable Patient was able to tell me that he was recently discharged from the detention, he lives alone, he was complaining of back pain Review of Systems Const: Denies: fever(s) Eyes: Denies: change in vision ENMT: Denies: throat pain Card: Denies: chest pain Resp: Denies: dyspnea GI: Denies: abdominal pain : Denies: flank pain Musc: Denies: neck pain Skin/Breast: Denies: rash Neuro: Reports: confusion and seizure-like activity; Denies: headache(s) Psych: Denies: anxiety Endo: Denies: polyuria [place]/Lymph: Denies: easy bruising All/Imm: Denies: urticaria Medications/Allergies Home Medications Medication Instructions Recorded Confirmed Last Taken Type albuterol sulfate 90 mcg/actuation 2 puff INHALATION QID PRN 11/01/19 11/24/21 07/02/20 History aerosol inhaler ropinirole 1 mg tablet 1 - 2 mg PO BEDTIME PRN 11/01/19 11/24/21 06/24/20 History tramadol 50 mg tablet 50 mg PO Q4H PRN 11/01/19 11/24/21 07/01/20 History lorazepam 0.5 mg tablet 0.5 - 1 mg PO TID PRN 07/02/20 11/24/21 07/01/20 History tizanidine 4 mg tablet 4 mg PO TID PRN 07/02/20 11/24/21 06/29/20 History cyanocobalamin (vitamin B-12) 1,000 mcg IM Q30D 03/22/21 11/24/21 05/15/21 History 1,000 mcg/mL injection solution ergocalciferol (vitamin D2) 1,250 50,000 unit PO Q7D 03/22/21 11/24/21 03/20/21 History mcg (50,000 unit) capsule bupropion HCl 150 mg tablet,12 hr 150 mg PO BID 30 Days #60 tab 06/07/21 11/24/21 Unknown Rx sustained-release doxepin 50 mg capsule 50 mg PO BEDTIME PRN 30 Days #30 06/07/21 11/24/21 Unknown Rx cap escitalopram oxalate 20 mg tablet 20 mg PO DAILY 30 Days #30 tab 06/07/21 11/24/21 Unknown Rx acetaminophen 500 mg tablet 500 mg PO Q6H PRN #30 tab 12/04/21 Unknown Rx (Acetaminophen Extra Strength) aspirin 81 mg tablet,delayed 81 mg PO DAILY 30 Days #30 tab 12/04/21 Unknown Rx release folic acid 1 mg tablet 1 mg PO DAILY 30 Days #30 tab 12/04/21 Unknown Rx lisinopril 2.5 mg tablet 2.5 mg PO DAILY 30 Days #30 tab 12/04/21 Unknown Rx magnesium L-lactate 84 mg 84 mg PO DAILY 30 Days #30 tab 12/04/21 Unknown Rx tablet,extended release (Magtab) multivitamin with folic acid 400 1 tab PO DAILY 30 Days #30 tab 12/04/21 Unknown Rx mcg tablet (Thera) pantoprazole 40 mg tablet,delayed 40 mg PO BID 30 Days #60 tab 12/04/21 Unknown Rx release tamsulosin 0.4 mg capsule 0.4 mg PO BID 30 Days #60 cap 12/04/21 Unknown Rx thiamine mononitrate (vit B1) 100 100 mg PO DAILY 30 Days #30 tab 12/04/21 Unknown Rx mg tablet (Vitamin B-1 (mononitrate)) Allergies Allergy/AdvReac Type Severity Reaction Status Date / Time No Known Allergies Allergy Verified 11/23/21 18:36 PFSH Acute PFSH: Medical History Acute hypokalemia Acute hyponatremia Alcohol abuse Alcoholism Anemia Ascites BPH (benign prostatic hyperplasia) C. difficile diarrhea CHF (congestive heart failure), NYHA class III COPD (chronic obstructive pulmonary disease) COPD (chronic obstructive pulmonary disease) Diverticulosis DVT (deep venous thrombosis) Elevated bilirubin Encephalopathy Enterocolitis ETOH abuse Fall GERD (gastroesophageal reflux disease) Hepatic steatosis Hepatitis C Hiatal hernia History of colon polyps Hypertension Incarcerated hernia Light headedness Pulmonary emboli Pulmonary embolism Restless leg syndrome Thromboembolic stroke Tobacco abuse Surgical History History of cholecystectomy History of colonoscopy with polypectomy (~2016) 2019- dr. jeffries History of right shoulder replacement (~12/2019) Status post left shoulder hemiarthroplasty Family History Denies family history of Chronic kidney disease (CKD) Social History Smoking and tobacco status: current every day smoker Alcohol intake: current Household members: family Housing: House Vitals/I&O/Wt Last Vital Signs Temp 97.8 F 12/14/21 23:00 Pulse 88 12/15/21 02:45 Resp 14 12/15/21 02:45 BP 148/76 12/15/21 02:45 Pulse Ox 96 12/15/21 02:45 12/14/21 12/14/21 12/15/21 14:59 22:59 06:59 Intake Total 250 / 250 Balance 250 / 250 Weight last 48 hrs Weight 79.379 kg Physical Exam Narrative: Patient is very drowsy however verbally redirectable Clinically looks very dehydrated Pupils are equal and reactive Able to follow commands He is moving all of his extremities I did not appreciate slurring of speech He keeps falling asleep S1, S2 Abdomen soft Nonlabored breathing, no audible stridor or wheezing on 2 L nasal cannula Multiple scratches, skin excoriation on his extremities Data : 12/15/21 00:54 12/15/21 00:54 A&P Assessment and plan (1) Syncope: Status: Acute (2) Acute alteration in mental status: Status: Acute (3) Acute kidney injury superimposed on chronic kidney disease: Status: Acute Plan Encephalopathy Like related to seizure related activity Check prolactin level Hyponatremia has been resolved No active signs of meningitis 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 been diagnosed with multiple ischemic infarcts Transesophageal echo did not show left ventricular thrombus Vasculitis has not been ruled out yet, check BLESSING NIH 0 He does carry history of alcohol abuse in the past, continue thiamine He has had multiple admissions related to encephalopathy I will go ahead and start him on Keppra Acute on chronic kidney disease Clinically does look dehydrated I will continue IV fluids for now Stop lisinopril Physical deconditioning got recently discharged from a detention History of C. difficile colitis: No active diarrhea Hepatic steatosis History of pulmonary embolism: He has been on eliquis in the past , after recent GI bleed, was switched to aspirin Concentrated hemoglobin is 10.3, would use SCDs for now if she stays stable continue DVT prophylaxis with anticoagulating agent Attestations Medical Necessity Statement*: Anticipating discharge within 48 hours will need evaluation and work-up for confusion and seizure-like activity Time Spent in Patient Care: 40mins Coding Level of Care Code Acute Survey Supervisor for Bg Ramírez Diagnoses Syncope R55 Acute alteration in mental status R41.82 Acute kidney injury superimposed on chronic kidney disease N17.9; N18.9
--- NOTE | 2021-12-15 05:24 | ECG_ITS ---
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 Measurements Intervals [place] Rate: 85 P: 62 MN: 181 QRS: -48 QRSD: 131 T: 128 QT: 395 QTc: 472 Interpretive Statements SINUS RHYTHM INTRAVENTRICULAR CONDUCTION DELAY [130+ ms QRS DURATION] POSSIBLE LATERAL MYOCARDIAL INFARCTION , OF INDETERMINATE AGE [30 ms Q WAVE IN I/aVL/V5/V6] Compared to ECG 12/15/2021 00:26:41 Intraventricular conduction delay now present Left anterior fascicular block no longer present Myocardial infarct finding still present Electronically Signed On 12-15-2021 22:49:30 CDT by Shahzad Sánchez M.D. [id number]
[2021-12-15 05:34] LABS: Prolactin 15.51 ng/mL (4.0-15.2)
[2021-12-15] MEDS: sodium chloride 0.9% 1,000 ML 75 ML IV ×2 (07:39→21:00)
[2021-12-15] MEDS: tamsulosin 0.4 mg Capsule PO ×2 (07:40→17:24)
[2021-12-15] MEDS: levETIRAcetam 500 mg Tablet PO ×3 (07:40→17:24)
[2021-12-15] MEDS: pantoprazole DR 40 mg Tablet PO ×2 (07:40→17:24)
[2021-12-15 07:48] LABS: Glucose Point of Care 51 mg/dL (70-110)
[2021-12-15] MEDS: thiamine 100 mg Tablet PO (07:52)
[2021-12-15] MEDS: dextrose 10% 250 ML IV ×2 (07:53→08:20)
[2021-12-15 08:27] LABS: Glucose Point of Care 154 mg/dL (70-110)
[2021-12-15] MEDS: dextrose 10% 250 ML 50 ML IV (08:53)
[2021-12-15 10:04] LABS: Troponin 5 6HR 34.18 ng/L (0-15)
[2021-12-15 10:08] LABS: Troponin 5 6HR Delta 8.18 ng/L (0-12)
--- NOTE | 2021-12-15 10:41 | CTR_ITS ---
PROCEDURE INFORMATION: Exam: CT Abdomen And Pelvis Without Contrast Exam date and time: 12/15/2021 12:03 PM Age: 61 years old Clinical indication: Bloating; Additional info: Abdominal distention TECHNIQUE: Imaging protocol: Computed tomography of the abdomen and pelvis without contrast. Radiation optimization: All CT scans at this facility use at least one of these dose optimization techniques: automated exposure control; mA and/or kV adjustment per patient size (includes targeted exams where dose is matched to clinical indication); or iterative reconstruction. COMPARISON: CT abdomen pelvis w con* [id number] 11/23/2021 9:49 PM RADIATION DOSE METRICS: Total DLP (mGy-cm): 1509.33 FINDINGS: Lungs: Emphysematous changes. Left lower lobe atelectasis versus minimal infiltrate. Pleural spaces: Trace bilateral pleural effusions. Heart: Coronary artery atherosclerotic calcifications. Diaphragm: Moderate hiatal hernia. Liver: Normal. No mass. Gallbladder and bile ducts: Cholecystectomy. Pancreas: Normal. No ductal dilation. Spleen: Normal. No splenomegaly. Adrenal glands: Normal. No mass. Kidneys and ureters: Several bilateral nonobstructing renal calyceal stones. Bilateral renal cysts, some of which appear hyperdense suggestive of hemorrhagic cysts, similar to prior exam. Stomach and bowel: Diverticulosis without diverticulitis. Appendix: No evidence of appendicitis. Intraperitoneal space: Small amount nonspecific free fluid in the pelvis. Vasculature: Unremarkable. No abdominal aortic aneurysm. Lymph nodes: Unremarkable. No enlarged lymph nodes. Urinary bladder: Unremarkable as visualized. Reproductive: Unremarkable as visualized. Bones/joints: T12 vertebral body chronic compression fracture without retropulsion of bony fragments. Soft tissues: Unremarkable. CT/CT abdomen pelvis wo con [id number] IMPRESSION: 1. Negative for focal acute inflammatory process in the abdomen or pelvis. 2. Emphysematous changes. 3. Trace bilateral pleural effusions. 4. Left lower lobe atelectasis versus minimal infiltrate. 5. Moderate hiatal hernia. 6. Coronary artery atherosclerotic calcifications. 7. Cholecystectomy. 8. Several bilateral nonobstructing renal calyceal stones. 9. Bilateral renal cysts, some of which appear hyperdense suggestive of hemorrhagic cysts, similar to prior exam, negative for follow-up advised. 10. Diverticulosis without diverticulitis. 11. Small amount nonspecific free fluid in the pelvis. 12. T12 vertebral body chronic compression fracture without retropulsion of bony fragments.
--- NOTE | 2021-12-15 11:07 | PC.NURSE ---
Sister, Michelle notified at this time via telephone per message to call back with updates. Updated sister at this time, voiced thanks and understanding.
[2021-12-15 11:16] LABS: Glucose Point of Care 96 mg/dL (70-110)
[2021-12-15] MEDS: metroNIDAZOLE IV 500 MG/100 ML PREMIX 100 MG IV ×2 (11:39→17:24)
[2021-12-15] MEDS: ciprofloxacin 400 MG/200 ML PREMIX 200 MG IV ×2 (11:39→22:38)
--- NOTE | 2021-12-15 13:03 | PM.PN ---
Subjective Subjective: Patient was seen this morning, is alert to person, not to place, not to time, he does follow commands, he does answer questions, but is quite forgetful, he seems to confabulate, no fevers, no chills, does have some abdominal pain, denies any alcohol consumption since he got discharged from the hospital Vitals/I&O/Wt Last Vital Signs Temp 98.4 F 12/15/21 11:28 Pulse 84 12/15/21 11:28 Resp 17 12/15/21 11:28 BP 109/66 12/15/21 11:28 Pulse Ox 93 12/15/21 11:28 12/14/21 12/15/21 12/15/21 22:59 06:59 14:59 Intake Total 250 / 250 1051.833 / 1051.833 Output Total 550 / 550 Balance 250 / 250 501.833 / 501.833 Weight last 48 hrs Weight 73.992 kg Weight 79.379 kg Physical Exam Const: COMMON NORMALS: no acute distress EXAM LIMITATIONS: altered mental status ORIENTATION/CONSCIOUSNESS: Yes awake, Yes oriented to person and Yes confused; not oriented to place and not oriented to time Resp: COMMON NORMALS: normal respiratory effort, No retractions, No use of accessory muscles and clear to auscultation bilaterally AUSCULTATION: clear to auscultation bilaterally Cardio: COMMON NORMALS: regular rate, regular rhythm, S1 normal heart sound present and S2 normal heart sound present RATE: regular rate RHYTHM: regular rhythm HEART SOUNDS: S1 normal heart sound present and S2 normal heart sound present GI: OTHER: Soft, distended, good bowel sounds, no significant tenderness Extremity: COMMON NORMALS: no pedal edema Neuro: SENSORIUM/ORIENTATION: Yes oriented to person, No oriented to place and No oriented to time Data : 12/15/21 00:54 12/15/21 00:54 A&P Assessment and plan (1) Syncope: Status: Acute (2) Acute alteration in mental status: Status: Acute (3) Acute kidney injury superimposed on chronic kidney disease: Status: Acute Plan Encephalopathy Likely multifactorial Warnicke's encephalopathy Korsakoff syndrome, 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 on exam History of alcoholism Reported seizure-like activity Elevated prolactin level Hyponatremia has been resolved No active signs of meningitis 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 been diagnosed with multiple ischemic infarcts Transesophageal echo did not show left ventricular thrombus Vasculitis has not been ruled out yet, check BLESSING NIH 0 He does carry history of alcohol abuse in the past, continue thiamine He has had multiple admissions related to encephalopathy I will go ahead and start him on Keppra In addition does have complaints of abdominal pain, does have a history of ascites, his a history of alcoholism, will do CT scan abdomen pelvis, start on Cipro and Flagyl for possible spontaneous bacterial peritonitis, follow blood cultures Acute on chronic kidney disease Clinically does look dehydrated I will continue IV fluids for now Stop lisinopril Physical deconditioning got recently discharged from a shelter History of C. difficile colitis: No active diarrhea Hepatic steatosis History of pulmonary embolism: He has been on eliquis in the past , after recent GI bleed, was switched to aspirin Concentrated hemoglobin is 10.3, would use SCDs for now if she stays stable continue DVT prophylaxis with anticoagulating agent Attestations Medical Necessity Statement*: Patient requires hospitalization inpatient, greater than 2 midnights for encephalopathy, likely combination of alcoholism, Wernicke's encephalopathy and Korsakoff syndrome, possible spontaneous bacterial peritonitis, and seizures Coding Level of Care Code Acute Transfer And Line Up Worker for Chg Fwd Diagnoses Syncope R55 Acute alteration in mental status R41.82 Acute kidney injury superimposed on chronic kidney disease N17.9; N18.9
[2021-12-15 16:52] LABS: Glucose Point of Care 87 mg/dL (70-110)
[2021-12-15 20:47] LABS: Glucose Point of Care 110 mg/dL (70-110)
[2021-12-15] MEDS: atorvastatin 40 mg Tablet PO (20:58)
[2021-12-15] MEDS: acetaminophen 500 mg Tablet PO (20:59)
[2021-12-16] VITALS (11 sets, daily range): BP systolic 93–130; BP diastolic 65–84; PULSE 69–112; RESP 16–18; TEMP 36.3–36.8; O2SAT 90–97
[2021-12-16] MEDS: metroNIDAZOLE IV 500 MG/100 ML PREMIX 100 MG IV ×2 (02:12→09:34)
--- NOTE | 2021-12-16 04:20 | NUR.SHIFT ---
Patient with uneventful shift tonight. Up to use restroom with stand by assist, patient tolerated activity well. Did require assistance with annabella cares. Iv in right hand infusing NS at 75ml/hr per orders. Accucheck done and normal this shift. Patient oriented to self and year only. Bed alarm activated for patient safety due to forgetfulness of using call light for help. PRN medications given for pain and effective.
[2021-12-16 04:39] LABS: Alanine Aminotransferase 24 U/L (0-41); Albumin Level 2.8 g/dL (3.5-5.2); Alkaline Phosphatase 116 IU/L (40-130); Anion Gap 16.3 (5-19); Aspartate Amino Transferase 58 U/L (0-40); Blood Urea Nitrogen 9 mg/dL (8-23); C Reactive Protein 26.6 mg/L (0.0-4.9); Calcium 8.9 mg/dL (8.5-10.5); Carbon Dioxide 23 mmol/L (22-29); Chloride 101 mmol/L (98-107); Globulin 2.8 g/dL (1.3-4.6); Glomerular Filtration Rate 98.6 mL/min (90-130); Glucose 78 mg/dL (65-115); Magnesium 1.5 mg/dL (1.7-2.3); Osmolality Calculated 282 mOsm/kg (285-295); Potassium 3.3 mmol/L (3.5-5.1); Sodium 137 mmol/L (136-145); Total Bilirubin 1.1 mg/dL (0.15-1.2); Total Protein 5.6 g/dL (6.6-8.7)
[2021-12-16 06:11] LABS: Basophils % 0.5 %; Eosinophils # 0.3 10^3/uL (0.0-0.8); Eosinophils % 5.8 %; Hematocrit 32.5 % (42.0-52.0); Hemoglobin 10.3 g/dL (11.7-16.6); Lymphocytes # 0.9 10^3/uL (0.8-4.8); Mean Corpuscular HGB Conc 31.7 g/dL (30.0-36.0); Mean Corpuscular Hemoglobin 29.7 pg (28.0-34.0); Mean Corpuscular Volume 93.7 fl (80-94); Mean Platelet Volume 11.4 fL (7.4-10.4); Monocytes # 0.6 10^3/uL (0.2-0.9); Monocytes % 10.6 %; Neutrophils # 3.67 10^3/uL (1.8-7.7); Nucleated Red Blood Cells % 0 %; Platelet Count 115 10^3/cmm (130-400); Red Blood Count 3.47 10^6/uL (4.1-5.3); Red Cell Distribution Width 19.8 % (12.1-15.1); White Blood Count 5.6 10^3/uL (4.0-10.0)
[2021-12-16 06:35] LABS: Glucose Point of Care 87 mg/dL (70-110)
[2021-12-16 06:39] LABS: Slide Review Slide Review Perform
[2021-12-16] MEDS: thiamine 100 mg Tablet PO (08:27)
[2021-12-16] MEDS: aspirin 81 mg EC Tablet PO (08:27)
[2021-12-16] MEDS: sodium chloride 0.9% 1,000 ML 75 ML IV (08:27)
[2021-12-16] MEDS: pantoprazole DR 40 mg Tablet PO (08:27)
[2021-12-16] MEDS: levETIRAcetam 500 mg Tablet PO (08:27)
[2021-12-16] MEDS: tamsulosin 0.4 mg Capsule PO (08:27)
[2021-12-16] MEDS: magnesium sulfate premix 2 GM/50 ML PIGGYBACK IV (10:39)
--- NOTE | 2021-12-16 10:43 | PC.CHAP ---
Pastoral Care Encounter/Spiritual Assessment Type of Contact [] Declined mop worker visit [] Patient/Family/Request visit [] Outpatient visit [] Follow-up visit [] Physician referral [] Code/Alert [x] Routine visit [] Staff referral [] Actively dying [] Patient sleeping [] Family support [] [] Out of room [] Palliative care [] [] Receiving care in room [] Pre-surgical visit [] Trauma [] Long length of stay [] ICU visit [] Other: Relational/Emotional Strength [x] Patient feels connected with others/family/visitors/staff [] Distress [] Loneliness/isolation [] Abandonment Spirituality of Patient [x] Person of Felisa [x] Attends Yarsanism of their Felisa [x] Believes in Prayer [] Reads Bible or Catholic materials [] There are Spiritual issues to be addressed Social Security Benefits Interviewer Interventions [x] Prayer [x] Active listening [x] Non-anxious presence [] Spiritual/emotional support [] Crisis/trauma care [] Spiritual counseling [] Bereavement support [] Provided bereavement packet [] Provided Bible/devotional materials [] Provided toy/stuffed animal, coloring book to patient or family member [] Provided Communion [] Anointing/[place] [] Salvation [x] Completed spiritual assessment [] Other: Impact on Illness or Injury [] Angry [] Fearful [] Anxious [] Often cries [] Exhaustion [] Unable to work [] Unable to attend samaritan [] Unable to walk/stand [] Unable to read [] Unable to drive [] Unable to eat/drink [] Unable to sleep [] Unable to be with family [] Patient intubated [] Other: Summary Time spent with patient 10 min
[2021-12-16] MEDS: ciprofloxacin 400 MG/200 ML PREMIX 200 MG IV (11:54)
[2021-12-16 11:55] LABS: Glucose Point of Care 128 mg/dL (70-110)
--- NOTE | 2021-12-16 15:31 | P.DS_ITS ---
Discharge Providers Date of Admission: 12/15/21 13:03 Date of Discharge: December 16, 2021 Attending Provider at Admission: Festus Holden MD Attending Provider at Discharge: Dayron Chance Primary Care Provider: Hali Mcneal APN Diagnoses at Discharge Discharge Diagnosis (1) Syncope: Status: Acute (2) Acute alteration in mental status: Status: Acute (3) Acute kidney injury superimposed on chronic kidney disease: Status: Acute Reason for Visit Reason for Visit: AMS Hospital Course Hospital Course Pleasant 61-year-old gentleman with history of alcohol abuse, encephalopathy related to CVA, multiple infarcts noted by MRI, hyponatremia history, COPD, history of HFrEF with apical thrombus, history of DVT, PE, but anticoagulation discontinued due to recent GI bleeding, with extensive recent hospitalization discharged 12/04, which was also notable for C. difficile colitis, please see documentation for details, He was readmitted here on 12/15 after discharge from residential after rehabilitation, on presentation with mild altered mental status found at home on wellness check, was empirically started on Keppra with consideration of possible seizure-like activity, although not observed, with noted acute kidney injury on presentation of creatinine 1.5, lisinopril was held and is for now stopped due to soft blood pressures, with polypharmacy, on a number of medication likely contributing mental status changes, his medications were withheld including bupropion, doxepin, Ativan, ropinirole, tizanidine, tramadol. With consideration of possible alcohol withdrawal we will monitor with CIWA protocol as well. Did not have active diarrhea to suggest ongoing C. difficile colitis. CT of the head was unremarkable apart from mild diffuse white matter disease likely reflecting chronic microvascular ischemic changes. CT abdomen pelvis was assessed on initial complaints of abdominal pain, as well as with history of ascites, noted only small amount of free fluid in the pelvis, otherwise negative for acute inflammatory process in the abdomen pelvis. Incidental findings include emphysematous changes, trace bilateral pleural effusions. Left lower lobe atelectasis versus minimal infiltrate. Moderate hiatal hernia. Coronary artery atherosclerotic calcifications. Cholecystectomy. Several bilateral nonobstructing renal calyceal stones. Also incidentally noted bilateral renal cysts, some which. Hyperdense suggestive of hemorrhagic cyst, similar to prior exam, negative for follow-up advised. Incidentally noted diverticulosis without diverticulitis. Incidentally noted T12 vertebral body chronic compression fracture without retropulsion of bony fragments. With concern for possible contribution of Warnicke encephalopathy he was started on thiamine, folic acid, multivitamin. Ammonia level was normal. He is acute encephalopathy resolved. He is awake and alert, he is oriented x3. He is feeling well. He has been getting up his room to the restroom. Denies any pain or discomfort. He is acute kidney injury has resolved, creatinine down to 0.8. Discussed with him alcohol consumption, he states last time was on November 22. He states that he intends not to drink alcohol any further. Encouraged him to maintain alcohol cessation. For now due to soft blood pressures, 93/65, lisinopril is discontinued to avoid additional kidney injury. Please reassess blood pressure, consider whether lisinopril is safe/needed. He is given replacement of potassium and magnesium due to mild hypokalemia, hypomagnesemia. He is also on a number of medications that can contribute to alteration of mental status, especially in setting of acute kidney injury. He is asked to hold tizanidine for a week, especially while he is taking ciprofloxacin, and then decrease down to 2 mg as needed, and wean off and stop if possible. Similarly, please wean off and stop tramadol if possible to avoid confusion of these medications to mental status changes. Similarly, ropinirole can also lead to mental status changes. For now dose is decreased to 2.5 mg at bedtime, but increased symptoms of restless leg syndrome are not bothersome, consider de-escalating further especially if there is any recurrence of mental status changes. She is asked to reduce dose of lorazepam as well down 2.25 mg 3 times daily as needed. Please consider weaning off and discontinue medication if possible due to risk of developing tolerance, risk of respiratory depression, etc. Bupropion dose for now is decreased to 100 mg twice daily. He is for now asked not to restart doxepin. In case this is used for insomnia and needed, please consider lower dosing. He is continued on escitalopram. Discussed also his father's condition and recommended changes with his son. As he is feeling better, and feels ready to return home, did well with therapy, will be discharged today with request for outpatient follow-up. His son will be coming to town to stay with him arriving on . In the meantime home health care is also set up for him for nursing home for assistance with medications, assessment of vital signs and education, PT, and family are asked to check up on him at least daily or several times a day to make sure continues to do well until his son's arrival. His son will discuss further with patient's sister. Please follow-up regarding his multiple medications. Reassess and continue attempts to discontinue the medication which may be nonessential/could contribute to alteration mental status. Please reassess also regarding cysts noted on CT, follow-up for resolution with possibility of hemorrhagic cyst. Please reassess blood count, although hemoglobin here has been stable. Please follow-up renal function. Follow-up blood pressures. Follow-up also regarding other chronic findings including T12 compression fracture, assess for possible need for treatment for osteoporosis. Follow-up regarding hiatal hernia. Nephrolithiasis. Other incidental findings as above. Please refer also to prior hospitalization with discharge 12/04. Physical Exam Const: COMMON NORMALS: patient oriented x3 and alert GENERAL APPEARANCE: cooperative and comfortable ORIENTATION/CONSCIOUSNESS: Yes awake HENMT: COMMON NORMALS: normocephalic, EAC's normal, Normal external nose present and moist oral mucous membranes HEAD & SCALP: normocephalic NOSE: Normal external nose present EXTERNAL AUDITORY CANAL: EAC's normal Neck/C-Spine: COMMON NORMALS: no meningeal signs Chest: CHEST: Yes Symmetrical chest wall rise Resp: COMMON NORMALS: clear to auscultation bilaterally AUSCULTATION: clear to auscultation bilaterally Cardio: COMMON NORMALS: regular rate, regular rhythm and No murmurs present (Cardio) RATE: regular rate RHYTHM: regular rhythm GI: COMMON NORMALS: Normal to inspection, nondistended, normoactive bowel sounds present, Soft to palpation and non-tender PALPATION: Yes Soft to palpation Extremity: COMMON NORMALS: no pedal edema Neuro: COMMON NORMALS: patient oriented x3 and moves all extremities SENSORIUM/ORIENTATION: Yes alert MENINGEAL SIGNS: Yes no meningeal signs Psych: COMMON NORMALS: mental status grossly normal Skin: COMMON NORMALS: no wounds RASHES: no rashes Discharge Data Studies Completed and Pending Completed Studies During Hospitalization Category Date Time Status CT abdomen pelvis wo con [id number] Routine Cat Scan 12/15/21 10:[address] cervical spin wo con* [id number] Urgent Cat Scan 12/14/21 23:[address] head wo con* [id number] Urgent Cat Scan 12/14/21 23:22 Completed XR chest 1V portable [id number] Urgent Exams 12/14/21 23:22 Completed Pending at discharge Category Date Time Status Blood Culture Stat Lab 12/15/21 18:28 Results C Reactive Protein AM LABS Lab 12/17/21 04:00 Ordered C Reactive Protein AM LABS Lab 12/18/21 04:00 Ordered Comprehensive Metabolic Panel AM LABS Lab 12/17/21 04:00 Ordered Comprehensive Metabolic Panel AM LABS Lab 12/18/21 04:00 Ordered Radiology Impressions Cervical Spine CT 12/14/21 23:22 IMPRESSION: Negative for fracture or dislocation. Chest X-Ray 12/14/21 23:22 IMPRESSION: 1. Stable moderate intrathoracic hiatal hernia. 2. No acute findings. Head CT 12/14/21 23:22 IMPRESSION: Negative for intracranial hemorrhage or mass effect. Abdomen/Pelvis CT 12/15/21 10:41 IMPRESSION: 1. Negative for focal acute inflammatory process in the abdomen or pelvis. 2. Emphysematous changes. 3. Trace bilateral pleural effusions. 4. Left lower lobe atelectasis versus minimal infiltrate. 5. Moderate hiatal hernia. 6. Coronary artery atherosclerotic calcifications. 7. Cholecystectomy. 8. Several bilateral nonobstructing renal calyceal stones. 9. Bilateral renal cysts, some of which appear hyperdense suggestive of hemorrhagic cysts, similar to prior exam, negative for follow-up advised. 10. Diverticulosis without diverticulitis. 11. Small amount nonspecific free fluid in the pelvis. 12. T12 vertebral body chronic compression fracture without retropulsion of bony fragments. Laboratory Results WBC 5.6 10^3/uL (4.0-10.0) 12/16/21 06:00 Corrected WBC Cancelled 12/16/21 03:13 RBC 3.47 10^6/uL (4.1-5.3) L 12/16/21 06:00 Hgb 10.3 g/dL (11.7-16.6) L 12/16/21 06:00 Hct 32.5 % (42.0-52.0) L 12/16/21 06:00 MCV 93.7 fl (80-94) 12/16/21 06:00 MCH 29.7 pg (28.0-34.0) 12/16/21 06:00 MCHC 31.7 g/dL (30.0-36.0) 12/16/21 06:00 RDW 19.8 % (12.1-15.1) H 12/16/21 06:00 Plt Count 115 10^3/cmm (130-400) L D 12/16/21 06:00 MPV 11.4 fL (7.4-10.4) H 12/16/21 06:00 Gran % Cancelled 12/16/21 03:13 Neut % (Auto) 66.0 % 12/16/21 06:00 Lymph % (Auto) 16.0 % 12/16/21 06:00 [place] % (Auto) 10.6 % 12/16/21 06:00 Eos % (Auto) 5.8 % 12/16/21 06:00 Baso % (Auto) 0.5 % 12/16/21 06:00 Neut # (Auto) 3.67 10^3/uL (1.8-7.7) 12/16/21 06:00 Lymph # (Auto) 0.9 10^3/uL (0.8-4.8) 12/16/21 06:00 [place] # (Auto) 0.6 10^3/uL (0.2-0.9) 12/16/21 06:00 Eos # (Auto) 0.3 10^3/uL (0.0-0.8) 12/16/21 06:00 Baso # (Auto) 0.0 10^3/uL (0.0-0.1) 12/16/21 06:00 Absolute Gran (auto) Cancelled 12/16/21 03:13 Nucleated RBC % (auto) 0 % 12/16/21 06:00 Nucleated RBCs # 0.0 /100WBC 12/16/21 06:00 Specimen Type Arterial 12/14/21 23:32 Sample Site Radial, right 12/14/21 23:32 ABG pH 7.34 (7.35-7.45) L 12/14/21 23:32 ABG pCO2 32.3 mmHg (35-45) L 12/14/21 23:32 ABG pO2 83.3 mmHg (80.0-100.0) 12/14/21 23:32 ABG HCO3 17.2 mmol/L (22-26) L 12/14/21 23:32 ABG Base Excess -7.7 mmol/L (-2.0-2.0) L 12/14/21 23:32 Tyler Test Pos 12/14/21 23:32 Hematocrit 33.0 % (42-52) L 12/14/21 23:32 O2 Delivery Device Room air 12/14/21 23:32 FiO2 21.0 % 12/14/21 23:32 Community Health Coordinator ID Essence 12/14/21 23:32 Sodium 137 mmol/L (136-145) 12/16/21 03:13 Potassium 3.3 mmol/L (3.5-5.1) L 12/16/21 03:13 Chloride 101 mmol/L (98-107) 12/16/21 03:13 Carbon Dioxide 23 mmol/L (22-29) 12/16/21 03:13 Anion Gap 16.3 (5-19) 12/16/21 03:13 BUN 9 mg/dL (8-23) 12/16/21 03:13 Creatinine 0.8 mg/dL (0.7-1.2) 12/16/21 03:13 GFR Calculation 98.6 mL/min (90-130) 12/16/21 03:13 Glucose 78 mg/dL (65-115) 12/16/21 03:13 POC Glucose 128 mg/dL (70-110) H 12/16/21 11:53 Calculated Osmolality 282 mOsm/kg (285-295) L 12/16/21 03:13 Lactate 0.9 mmol/L (0.5-2.2) 12/15/21 00:54 Calcium 8.9 mg/dL (8.5-10.5) 12/16/21 03:13 Magnesium 1.5 mg/dL (1.7-2.3) L 12/16/21 03:13 Total Bilirubin 1.1 mg/dL (0.15-1.2) 12/16/21 03:13 AST 58 U/L (0-40) H 12/16/21 03:13 ALT 24 U/L (0-41) 12/16/21 03:13 Alkaline Phosphatase 116 IU/L (40-130) 12/16/21 03:13 Ammonia 24 umol/L (16-60) 12/15/21 00:54 Creatine Kinase 283 U/L (39-308) 12/15/21 00:54 Troponin T Baseline 26 ng/L (0-15) H 12/15/21 00:54 Troponin T 120 Minute 22.28 ng/L (0-15) H 12/15/21 03:10 Delta Troponin T -3.72 ABS# (0-10) L 12/15/21 03:10 Troponin T Hi Sens 6Hr 34.18 ng/L (0-15) H 12/15/21 09:40 Troponin T Hi Sens 6Hr Delta 8.18 ng/L (0-12) 12/15/21 09:40 C-Reactive Protein 26.6 mg/L (0.0-4.9) H 12/16/21 03:13 NT-Pro-B Natriuret Pep 931 pg/mL (0-125) H 12/15/21 00:54 Total Protein 5.6 g/dL (6.6-8.7) L 12/16/21 03:13 Albumin 2.8 g/dL (3.5-5.2) L 12/16/21 03:13 Globulin 2.8 g/dL (1.3-4.6) 12/16/21 03:13 Procalcitonin 0.28 ng/mL (0-0.5) 12/15/21 00:54 Prolactin 15.51 ng/mL (4.0-15.2) H 12/15/21 03:10 Urine Color Yellow (Yellow) 12/15/21 00:45 Urine Appearance Clear (CLEAR) 12/15/21 00:45 Urine pH 5 (5-7) 12/15/21 00:45 Ur Specific [employer] 1.025 (1.005-1.030) 12/15/21 00:45 Urine Protein Neg (Negative) 12/15/21 00:45 Urine Glucose (UA) Norm (Normal) 12/15/21 00:45 Urine Ketones 1+ (Negative) H 12/15/21 00:45 Urine Blood Neg (Negative) 12/15/21 00:45 Urine Nitrate Negative (Negative) 12/15/21 00:45 Urine Bilirubin 1+ (Negative) H 12/15/21 00:45 Urine Urobilinogen Norm mg/dL (Negative) 12/15/21 00:45 Ur Leukocyte Esterase Negative (Negative) 12/15/21 00:45 Ethyl Alcohol < 10 mg/dL (0-10) 12/15/21 00:54 Blood Type O Positive 12/15/21 00:54 Rho(D) Type Positive 12/15/21 00:54 Antibody Screen Negative 12/15/21 00:54 Vitals Last Vital Signs Temp 98.2 F 12/16/21 12:00 Pulse 92 12/16/21 12:00 Resp 18 12/16/21 12:00 BP 93/65 12/16/21 12:00 Pulse Ox 91 12/16/21 12:00 Discharge Plan Discharge Patient Disposition: Home Health Service Condition: Stable Prescriptions: New bupropion HCl 100 mg tablet sustained-release 12 hr 100 mg PO BID Qty: 180 0RF atorvastatin 40 mg Tablet 40 mg PO BEDTIME Qty: 90 0RF Cipro 500 mg tablet 500 mg PO BID Qty: 10 0RF metronidazole 500 mg tablet 500 mg PO Q8H 5 Days Qty: 15 0RF potassium chloride 10 mEq capsule, extended release 10 meq PO DAILY Qty: 30 0RF magnesium chloride 64 mg tablet,delayed release (DR/EC) 64 mg PO DAILY Qty: 30 0RF levetiracetam 500 mg Tablet 500 mg PO BID Qty: 180 0RF Continued tramadol 50 mg tablet 50 mg PO Q4H PRN (Reason: Pain) 0RF albuterol sulfate 90 mcg/actuation HFA aerosol inhaler 2 puff INHALATION QID PRN (Reason: Shortness Of Breath) 0RF cyanocobalamin (vitamin B-12) 1,000 mcg/mL solution 1,000 mcg IM Q30D 0RF ergocalciferol (vitamin D2) 1,250 mcg (50,000 unit) capsule 50,000 unit PO Q7D 0RF Rx Instructions: ON THU escitalopram oxalate 20 mg tablet 20 mg PO DAILY 30 Days Qty: 30 0RF tamsulosin 0.4 mg capsule 0.4 mg PO BID 30 Days Qty: 60 3RF pantoprazole 40 mg tablet,delayed release (DR/EC) 40 mg PO BID 30 Days Qty: 60 3RF aspirin 81 mg Tablet,Delayed Release (Dr/Ec) 81 mg PO DAILY 30 Days Qty: 30 3RF folic acid 1 mg Tablet 1 mg PO DAILY 30 Days Qty: 30 3RF magnesium L-lactate [Magtab] 84 mg Tablet Extended Release 84 mg PO DAILY 30 Days Qty: 30 3RF thiamine mononitrate (vit B1) [Vitamin B-1 (mononitrate)] 100 mg Tablet 100 mg PO DAILY 30 Days Qty: 30 0RF multivitamin with folic acid [Thera] 400 mcg Tablet 1 tab PO DAILY 30 Days Qty: 30 3RF acetaminophen [Acetaminophen Extra Strength] 500 mg tablet 500 mg PO Q6H PRN (Reason: pain) Qty: 30 0RF Changed ropinirole 1 mg tablet 0.5 mg PO BEDTIME PRN (Reason: Restless Leg(S)) Qty: 0 0RF lorazepam 0.5 mg tablet 0.25 mg PO TID PRN (Reason: Anxiety) Qty: 0 0RF Held tizanidine 4 mg tablet 4 mg PO TID PRN (Reason: muscle cramps) 0RF Hold Instructions: Resume on 12/23/21. Discontinued doxepin 50 mg capsule 50 mg PO BEDTIME PRN (Reason: Sleep) 30 Days Qty: 30 0RF bupropion HCl 150 mg tablet sustained-release 12 hr 150 mg PO BID 30 Days Qty: 60 0RF lisinopril 2.5 mg tablet 2.5 mg PO DAILY 30 Days Qty: 30 3RF Discharge Orders: Discharge Order (Routine); Ordered 12/16/21 Ordered By: Dayron Chance Referrals: [facility] ([facility]) [Outside] Mcneal,HAL Lal [Primary Care Provider] - 12/23/21 11:00 am Discharge Diet: Low Salt Discharge Activity: Increase activity as tolerated Patient Instructions: Ciprofloxacin (By mouth), Bupropion (By mouth), Potassium Chloride (By mouth), Metronidazole (By mouth), Atorvastatin (By mouth), Altered Mental Status (GEN), Opioid Safety Activity Restrictions/Additional Instructions: Please avoid drinking alcohol. Drinking alcohol may lead to mental status changes or severe or life-threatening complications. Please note you are on a number of medications which can lead to altered mental status as well. Please speak with your primary doctor to help decrease and stop any nonessential medications. Please wean off and stop tizanidine if possible. Please hold tizanidine over the next week while taking ciprofloxacin to avoid interaction. If restarting tizanidine after 1 week, restart at lower dose of 2 mg 3 times daily as needed. Continue attempts to wean off and discontinue. Similarly please wean off and stop tramadol if possible. Please note ropinirole can also contribute to alteration in mental status. For now dose of ropinirole is decreased 2.5 mg at bedtime. Please discuss doxepin with your primary doctor. In case used for insomnia, please consider lower dosing. Bupropion dose for now is decreased to 100 mg twice daily. Please discuss with your primary doctor. Please hold lisinopril for now due to soft blood pressures in the hospital. Monitor blood pressures twice a day, write down values. Discuss with your primary doctor whether resuming lisinopril is safe or needed. Due to noted low magnesium and potassium levels, you are also started on potassium and magnesium replacement. Please have your primary doctor follow-up your potassium and magnesium levels. Please discuss with your primary doctor also regarding noted kidney stones. Maintain low-sodium diet. Avoid soda. Please have your primary doctor also follow-up regarding kidney cysts, which may be regular cyst, but cannot exclude cysts with blood in them, and will need to be followed up for resolution with additional imaging. Discuss with your primary doctor regarding noted hiatal hernia. Please discuss with your primary doctor also regarding incidental finding of chronic compression fracture of T12. Discuss referral for additional assessment for osteoporosis, consideration of treatment for osteoporosis. Discharge Attestations Time Spent in Discharge Care*: greater than 30 min Status at Discharge: Cognitive status at discharge: cognitively intact , Behavioral status at discharge: cooperative , Quality Metrics Clinical Quality Measures [ No reported AMI, CVA or VTE this stay] Coding Level of Care Code Acute Chg FW DC note Diagnoses Syncope R55 Acute alteration in mental status R41.82 Acute kidney injury superimposed on chronic kidney disease N17.9; N18.9
== END 2021-12-16 16:25 | disposition home health service (06) ==
LOC: ER 12-15 04:33 → MEDSURG 12-15 07:11
PROVIDERS: Family Medicine; Admitting Provider Internal Medicine; Emergency Provider Emergency Medicine; PCP Nurse Practitioner Family; Visit Provider Internal Medicine
DX: R55 Syncope and collapse (principal); R41.82 Altered mental status, unspecified; N17.9 Acute kidney failure, unspecified; N18.9 Chronic kidney disease, unspecified; F10.21 Alcohol dependence, in remission; J44.9 Chronic obstructive pulmonary disease, unspecified; Z86.718 Personal history of other venous thrombosis and embolism; Z86.711 Personal history of pulmonary embolism; G93.40 Encephalopathy, unspecified; N40.0 Benign prostatic hyperplasia without lower urinary tract symptoms; F17.200 Nicotine dependence, unspecified, uncomplicated; I10 Essential (primary) hypertension
CPT/HCPCS: 36415; 36416; 36600; 70450; 71045; 72125; 74176; 80053; 80307; 81003; 82140; 82550; 82803; 82962; 83605; 83735; 83880; 84145; 84146; 84484; 85025; 86140; 86850; 86900; 87040; 93005; 97161; 97165; 97530; G0378; J0744; J3475; J7030; J7799; S0030

== ENCOUNTER → 2021-12-26 11:21 | Outpatient (BNVA) | payer MEDICARE, MEDICAID, SELFPAY | PROVIDERS: PCP Nurse Practitioner Family; Visit Provider Internal Medicine Cardiovascular Disease | DX: Z09 Encounter for follow-up examination after completed treatment for conditions other than malignant neoplasm (principal); I63.9 Cerebral infarction, unspecified; I11.0 Hypertensive heart disease with heart failure; I50.9 Heart failure, unspecified; F17.200 Nicotine dependence, unspecified, uncomplicated; F10.20 Alcohol dependence, uncomplicated; R00.0 Tachycardia, unspecified; I48.92 Unspecified atrial flutter; R42 Dizziness and giddiness | CPT/HCPCS: 93229; 99214 ==

== ENCOUNTER 2022-01-07 15:19 | Outpatient (CLI) | payer MEDICARE, MEDICAID, SELFPAY ==
[2022-01-07 15:32] LABS: Add Urine Microscopic? NO; Charge for UA Resulting for Rev
[2022-01-07 15:46] LABS: Bilirubin Urine Neg (Negative); Blood Urine Neg (Negative); Glucose Urine UA Norm (Normal); Ketones Urine Negative (Negative); Leukocyte Esterase Urine Negative (Negative); Nitrate Urine Negative (Negative); Protein Urine Neg (Negative); Specific Gravity, Urine 1.015 (1.005-1.030); Urine Appearance Clear (CLEAR); Urine Color Dark Yellow (Yellow); Urobilinogen Urine 1 mg/dL (Negative); pH Urine 6 (5-7)
== END 2022-01-07 15:20 | disposition home or self-care (01) ==
LOC: LAB 15:23
PROVIDERS: PCP Nurse Practitioner Family; Visit Provider Nurse Practitioner Family
DX: I13.0 Hypertensive heart and chronic kidney disease with heart failure and stage 1 through stage 4 chronic kidney disease, or unspecified chronic kidney disease (principal); N18.9 Chronic kidney disease, unspecified; I50.9 Heart failure, unspecified
CPT/HCPCS: 81003

== ENCOUNTER → 2022-03-18 09:37 | Outpatient (BNVA) | payer MEDICARE, MEDICAID, SELFPAY | PROVIDERS: PCP Nurse Practitioner Family; Visit Provider Surgery | DX: K44.9 Diaphragmatic hernia without obstruction or gangrene (principal) | CPT/HCPCS: 99203 ==

== ENCOUNTER → 2022-03-27 10:24 | Outpatient (BNVA) | payer MEDICARE, MEDICAID, SELFPAY | PROVIDERS: PCP Nurse Practitioner Family; Visit Provider Internal Medicine Cardiovascular Disease | DX: I48.92 Unspecified atrial flutter (principal); Z79.01 Long term (current) use of anticoagulants; I11.0 Hypertensive heart disease with heart failure; I50.9 Heart failure, unspecified; Z86.73 Personal history of transient ischemic attack (TIA), and cerebral infarction without residual deficits; F10.21 Alcohol dependence, in remission; F17.210 Nicotine dependence, cigarettes, uncomplicated | CPT/HCPCS: 99214 ==

== ENCOUNTER → 2022-04-04 12:19 | Outpatient (BNVA) | payer MEDICARE, MEDICAID, SELFPAY | PROVIDERS: PCP Nurse Practitioner Family; Visit Provider Nurse Practitioner | DX: G62.9 Polyneuropathy, unspecified (principal); R56.9 Unspecified convulsions; I48.92 Unspecified atrial flutter; Z79.01 Long term (current) use of anticoagulants | CPT/HCPCS: 99204 ==

== ENCOUNTER → 2022-04-08 13:00 | Outpatient (BNVA) | payer MEDICARE, MEDICAID, SELFPAY | PROVIDERS: PCP Nurse Practitioner Family; Referring Provider Nurse Practitioner; Visit Provider Specialist | DX: G31.84 Mild cognitive impairment of uncertain or unknown etiology (principal) | CPT/HCPCS: 95816 ==

== ENCOUNTER 2022-05-07 06:49 | Outpatient (CLI) | payer MEDICARE, MEDICAID, SELFPAY ==
--- NOTE | 2022-05-07 | ECG_ITS ---
[facility] Test Date: 2022-05-07 Pat Name: Raymond Coronel Department: Room: Gender: Male [employer] Super[employer]: : 1960 Requested By: Debi Arroyo Order Number: [id number] Carrera MD: Debi Arroyo M.D. Interpretive Statements NAME OF STUDY: LEXISCAN SESTAMIBI STRESS TEST INDICATION: Cardiomyopathy PROCEDURE: At the baseline, the blood pressure was 117/87 mmHg, oxygen saturation 94% with a heart rate of 88 beats per min. The electrocardiogram showed normal sinus rhythm, left anterior fascicular block. Interventricular conduction delay. The Lexiscan was infused over a period of 20 seconds. A total of 0.4 milligrams of Lexiscan was infused. The stress phase was continued for a total of 5 minutes. Heart rate at the end of the stress phase was 100 bpm, oxygen saturation 95% with a blood pressure of 124/77 mmHg. The EKG at the peak infusion revealed sinus rhythm with no significant ST-T wave changes. The study was terminated due to protocol completion. Sestamibi was injected 20 seconds after the Lexiscan infusion. Blood pressure at the end of the recovery phase was 124/74 mmHg, oxygen saturation of 94% with a heart rate of 97 beats per minute. CONCLUSION: 1. Normal EKG response to LexiScan infusion. 2. No LexiScan induced chest pain or cardiac arrhythmia. 3. Normal blood pressure and heart rate response. 4. Sestamibi/sestamibi perfusion scan pending; see separate report. Electronically Signed On 05-08-2022 13:16:56 CDT by Debi Arroyo M.D. [id number]
[2022-05-07 06:55] VITALS: BMI 23.6
--- NOTE | 2022-05-07 07:11 | NMCV_ITS ---
NM imani perf SPECT r/s* [id number] Raymond Coronel Age: 62 Gender: M : 1960 Exam Date: 05/07/2022 07:59 Ordering Phys: Debi Arroyo MD ([email or web address]) Technologist: DONNIE Whipple Exam Location: [facility] Indications: CHEST PAIN STRESS TEST [facility] IMAGE PROTOCOL Rest/Stress 1 Lexiscan Day Radiopharmaceutical Dose (mCi) Administration Site Administered by Rest: Tc-99m 10.6 IV DONNIE Tong Sestamibi Stress:Tc-99m 32.1 IV DONNIE Tong Sestamibi Rest: 07-May-2022 60 Discovery 630 Stress: 07-May-2022 30 Discovery 630 0.4mg Lexiscan. Supine position only as patient was unable to lay prone. SPECT RESULTS Technical Quality: Excellent Raw Data Analysis: Normal Image Corrections: No attenuation or motion correction applied Summed Stress Score: 5 Summed Rest Score: 7 Summed Difference Score: 1 PERFUSION FINDINGS Small size perfusion abnormality of mild severity of mid inferoseptal, apical septal, apical lateral, apical inferior and apical nixon on rest images with improved tracer uptake in inferoseptal and apical septal nixon on supine stress images. FUNCTIONAL RESULTS (calculated via Gated SPECT) Stress Image LV EF (%): 59 Stress EDV (mL):102 TID: 1.08 Stress ESV (mL):42 FUNCTIONAL FINDINGS: The left ventricle is normal in size. Transient Ischemia Dilatation of 1.1. There is normal left ventricular systolic function. The left ventricular ejection fraction is normal with a value of 59%. There is normal left ventricular wall thickening. IMPRESSIONS 1. Small sized fixed perfusion abnormality of apical inferior, apical lateral and apical nixon. This may represent attenuation artifact or old myocardial infarction in LAD artery territory. 2. Overall left ventricular systolic function is normal without regional wall motion abnormalities, LVEF=59%. 3. No EKG changes with Lexiscan infusion. Refer to separate report for details. Debi Arroyo MD (Electronically Signed) Final Date: 08 May 2022 13:13 S
[2022-05-07] MEDS: regadenoson 0.4 Mg/5 ml Syringe IVP (09:15)
[2022-05-07 09:30] VITALS: BP 124/74; PULSE 89
== END 2022-05-07 06:50 | disposition home or self-care (01) ==
LOC: CDL 06:52
PROVIDERS: PCP Nurse Practitioner Family; Visit Provider Internal Medicine Cardiovascular Disease
DX: R07.9 Chest pain, unspecified (principal); I42.9 Cardiomyopathy, unspecified
CPT/HCPCS: 78452; 93017; A9500; J2785

== ENCOUNTER → 2022-05-20 09:37 | Outpatient (BNVA) | payer MEDICARE, MEDICAID, SELFPAY | PROVIDERS: PCP Nurse Practitioner Family; Referring Provider Nurse Practitioner; Visit Provider Specialist | DX: G62.89 Other specified polyneuropathies (principal); G56.01 Carpal tunnel syndrome, right upper limb | CPT/HCPCS: 95911; 95913 ==

== ENCOUNTER 2022-05-23 10:53 | Outpatient (CLI) | payer MEDICARE, MEDICAID, SELFPAY ==
--- NOTE | 2022-05-23 11:16 | FL_ITS ---
WS: [id number] Barium swallow and esophagram, upper GI series with air, 05/23/2022 Clinical Data: PERSONAL HX OF DIGESTIVE PROBLEMS, HERNIA Comparison: None. Fluoroscopy time: 1min [id number] # of spot films: 19 Findings: The preliminary film shows air in the small bowel and colon. There are clips in the right upper quadr ant from a cholecystectomy. The patient swallowed the thick and thin barium, and it flowed through the hypopharynx without hesita tion. No stricture, mass, polyp or erosion was seen. The barium passed into the esophagus and there was poor motility throughout. The fundus of the stomac h has herniated into the left chest.. The gastroesophageal junction showed no erosion, polyp, mass, u lceration, fistula or narrowing. There was a moderate amount of reflux. The barium flowed into the st omach which was well distended. No erosion, polyp, mass or deformity could be seen. No gastric ulcer was present. Barium then passed into the duodenal bulb which showed persistent deformity consistent with chronic duodenitis or peptic ulcer disease. The proximal small bowel is normal. FL/FL upper GI w air* [id number] Impression: 1. Poor esophageal motility. 2. Fundus of stomach herniated into left chest. 3. Gastroesophageal reflux. 4. Chronic peptic ulcer disease.
== END 2022-05-23 10:54 | disposition home or self-care (01) ==
PROVIDERS: PCP Nurse Practitioner Family; Visit Provider Surgery
DX: Z87.19 Personal history of other diseases of the digestive system (principal); K46.9 Unspecified abdominal hernia without obstruction or gangrene; K21.9 Gastro-esophageal reflux disease without esophagitis; K27.7 Chronic peptic ulcer, site unspecified, without hemorrhage or perforation
CPT/HCPCS: 74246

== ENCOUNTER → 2022-05-28 10:19 | Outpatient (BNVA) | payer MEDICARE, MEDICAID, SELFPAY | PROVIDERS: PCP Nurse Practitioner Family; Visit Provider Nurse Practitioner | DX: G62.89 Other specified polyneuropathies (principal); M54.12 Radiculopathy, cervical region | CPT/HCPCS: 36415; 83036; 85651; 86140; 86334; 99213; 99214 ==

== ENCOUNTER 2022-05-31 23:31 | Emergency (ER) | payer MEDICARE, MEDICAID, SELFPAY ==
[2022-05-31 23:48] VITALS: BP 111/79; PULSE 75; RESP 16; TEMP 37.2; O2SAT 94; BMI 24.1
--- NOTE | 2022-06-01 00:16 | XRR_ITS ---
PROCEDURE INFORMATION: Exam: XR Chest Exam date and time: 06/01/2022 12:25 AM Age: 62 years old Clinical indication: Other: Syncope; Additional info: Seizure, syncope TECHNIQUE: Imaging protocol: Radiologic exam of the chest. Views: 1 view. COMPARISON: CR XR chest 1V portable [id number] 12/14/2021 11:40 PM FINDINGS: Lungs: There is no consolidation. Pleural spaces: There is no pleural effusion or pneumothorax. Heart/Mediastinum: There is mild enlargement of the cardiac silhouette. Retrocardiac mass suggests hiatal hernia. Bones/joints: Right shoulder arthroplasty. No acute fracture. XR/XR chest 1V portable [id number] IMPRESSION: 1. No acute findings. 2. Hiatal hernia.
--- NOTE | 2022-06-01 00:16 | CTR_ITS ---
PROCEDURE INFORMATION: Exam: CT Head Without Contrast Exam date and time: 06/01/2022 12:42 AM Age: 62 years old Clinical indication: Condition or disease; Convulsions or seizures; Syncope and collapse; Patient HX: Syncopal episode with seizure activity. ; Additional info: Seizure, syncope TECHNIQUE: Imaging protocol: Computed tomography of the head without contrast. Radiation optimization: All CT scans at this facility use at least one of these dose optimization techniques: automated exposure control; mA and/or kV adjustment per patient size (includes targeted exams where dose is matched to clinical indication); or iterative reconstruction. COMPARISON: CT head wo con* [id number] 12/14/2021 11:48 PM RADIATION DOSE METRICS: Total DLP (mGy-cm): 1014.68 FINDINGS: Brain: There is mild diffuse cerebral atrophy. There is no significant mass effect or midline shift. There is no acute intracranial hemorrhage. Cerebral ventricles: There is mild ex vacuo dilation of the lateral ventricles. The basal cisterns are unremarkable. Paranasal sinuses: The paranasal sinuses are clear. Mastoid air cells: The mastoid air cells are clear. Bones/joints: The calvarium is intact. Soft tissues: The visible extracranial soft tissues are unremarkable. CT/CT head wo con* [id number] IMPRESSION: No acute intracranial abnormality.
[2022-06-01 00:32] LABS: Basophils # 0.1 10^3/uL (0.0-0.1); Basophils % 0.6 %; Eosinophils # 0.3 10^3/uL (0.0-0.8); Eosinophils % 2.8 %; Hematocrit 42.6 % (42.0-52.0); Hemoglobin 12.8 g/dL (11.7-16.6); Lymphocytes # 2.2 10^3/uL (0.8-4.8); Mean Corpuscular Hemoglobin 24.3 pg (28.0-34.0); Mean Platelet Volume 11.6 fL (7.4-10.4); Monocytes # 1.1 10^3/uL (0.2-0.9); Monocytes % 11.7 %; Neutrophils % 59.2 %; Nucleated Red Blood Cells % 0 %; Platelet Count 254 10^3/cmm (130-400); Red Blood Count 5.26 10^6/uL (4.1-5.3); Red Cell Distribution Width 17.3 % (12.1-15.1)
[2022-06-01] MEDS: sodium chloride 0.9% 1,000 ML 999 ML IV ×2 (00:33→03:49)
[2022-06-01 00:45] LABS: Troponin(5th) Baseline 17 ng/L (0-15)
[2022-06-01 00:47] LABS: Alanine Aminotransferase 30 U/L (0-41); Albumin Level 4.5 g/dL (3.5-5.2); Alkaline Phosphatase 150 U/L (40-130); Anion Gap 19.3 (5-19); Aspartate Amino Transferase 29 U/L (0-40); Blood Urea Nitrogen 10 mg/dL (8-23); Calcium 10.1 mg/dL (8.5-10.5); Carbon Dioxide 23 mmol/L (22-29); Chloride 99 mmol/L (98-107); Glomerular Filtration Rate 85.8 mL/min (90-130); Glucose 98 mg/dL (65-115); Magnesium 1.8 mg/dL (1.7-2.3); Osmolality Calculated 283 mOsm/kg (285-295); Phosphorus 2.5 mg/dL (2.5-4.5); Potassium 4.3 mmol/L (3.5-5.1); Sodium 137 mmol/L (136-145); Total Bilirubin 0.3 mg/dL (0.15-1.2); Total Protein 7.5 g/dL (6.6-8.7)
[2022-06-01 00:50] LABS: Alcohol Level < 10 mg/dL (0-10)
--- NOTE | 2022-06-01 01:32 | ECG_ITS ---
[facility] Test Date: 2022-06-01 Pat Name: Raymond Coronel Department: Room: Gender: Male Director Safety Council: : 1960 Requested By: Bishop Suresh Order Number: [id number] Debi MD: Debi Arroyo M.D. Measurements Intervals [place] Rate: 67 P: 51 ID: [id number] QRS: -43 QRSD: 129 T: 19 QT: 413 QTc: 436 Interpretive Statements SINUS RHYTHM POSSIBLE LEFT ATRIAL ENLARGEMENT [-0.1mV P-WAVE IN V1/V2] LEFT AXIS DEVIATION [QRS AXIS < -30] SEPTAL MYOCARDIAL INFARCTION , OF INDETERMINATE AGE [40+ ms Q WAVE IN V1/V2] PROBABLE LATERAL MYOCARDIAL INFARCTION , PROBABLY OLD [35 ms Q WAVE IN I/aVL/V5/V6] Compared to ECG 12/15/2021 05:24:28 Left-axis deviation now present Intraventricular conduction delay no longer present Myocardial infarct finding still present Electronically Signed On 06-01-2022 22:09:35 CDT by Debi Arroyo M.D. [id number]
[2022-06-01 02:07] LABS: Lactate (Lactic Acid level) 0.8 mmol/L (0.5-2.2)
[2022-06-01 02:17] LABS: Troponin 5 2HR 17.27 ng/L (0-15)
[2022-06-01 02:18] LABS: Troponin 5 2HR Delta 0.27 ABS# (0-10)
[2022-06-01 02:51] LABS: Add Urine Microscopic? NO; Charge for UA Resulting for Rev
[2022-06-01 02:53] LABS: Bilirubin Urine Neg (Negative); Blood Urine Neg (Negative); Glucose Urine UA Norm (Normal); Ketones Urine Negative (Negative); Leukocyte Esterase Urine Negative (Negative); Nitrate Urine Negative (Negative); Protein Urine Neg (Negative); Urine Appearance Clear (CLEAR); Urine Color Yellow (Yellow); Urobilinogen Urine Neg (Negative); pH Urine 7 (5-7)
[2022-06-01 03:02] LABS: Amphetamines Screen Urine Negative (Negative); Barbiturates Screen Urine Negative (Negative); Benzodiazepines Screen Urine Negative (Negative); Cocaine Screen Urine Negative (Negative); Opiate Screen Urine Negative (Negative); PCP Screen Urine Negative (Negative); THC Screen Urine Negative (Negative)
[2022-06-01 03:04] VITALS: BP 119/76; BP 136/87; BP 137/81; PULSE 66; PULSE 78; PULSE 83
[2022-06-01 03:36] VITALS: BP 104/71; BP 120/85; BP 140/88; PULSE 69; PULSE 75; PULSE 76
--- NOTE | 2022-06-01 16:39 | W.ED.SEIZURE ---
HPI - Seizure General: Chief Complaint: Seizure Stated Complaint: SEIZURE Time Seen by Provider: 05/31/22 23:57 Source: patient and family History of Present Illness: HPI Narrative: 62 year old male presenting with a syncopal episode and possible seizure at home. His son was with him, and notes that he began to feel dizzy and a bit nauseated. He wanted to check his blood pressure, so he got up from a sitting position to help his son find the machine. When doing so, his son states that he laughed for no apparent reason and essentially slumped over. He was caught by his son. There was no trauma. His son notes that at this point his eyes rolled back, his muscles tensed, and he may have shaken for a few seconds. He did not turn blue period he did not respond to stimulus for a few minutes. He was confused on awakening. And his son called EMS, and the patient was more awake by the time they arrived. he does have a history of seizure disorder, but this was thought to be from alcohol withdrawal in the past. the patient has not drank alcohol in over a year. He had a recent EG study by neurology that did not show any evidence of seizure disorder. He denies having any chest pain with this episode. MD complaint: possible seizure Onset (ago): minute(s) Description of Episode: loss of consciousness -: minutes(s) Witnessed: Yes - by Bystander Trauma: No Seizure History: Yes Place: Home Possible Precipitating Event: none Associated symptoms: Reports confusion (now resolved) and syncope; Deny chest pain, chills, cough, diaphoresis, fever(s), short of breath or weakness Treatments prior to arrival: none Review of Systems Const: Denies: fever(s), chills or diaphoresis Eyes: Denies: change in vision ENMT: Denies: throat pain Card: Reports: syncope; Denies: chest pain or palpitations Resp: Denies: dyspnea, productive cough or non-productive cough GI: Reports: nausea; Denies: abdominal pain, vomiting or hematemesis Musc: Denies: neck pain Neuro: Reports: confusion (now resolved); Denies: headache(s) PFS ED PFSH: Medical History Acute hypokalemia Acute hyponatremia Alcohol abuse Alcoholism Anemia Ascites Atrial flutter, paroxysmal BPH (benign prostatic hyperplasia) C. difficile diarrhea Cervical radiculopathy CHF (congestive heart failure), NYHA class III COPD (chronic obstructive pulmonary disease) COPD (chronic obstructive pulmonary disease) Diverticulosis DVT (deep venous thrombosis) Elevated bilirubin Encephalopathy Enterocolitis ETOH abuse Fall GERD (gastroesophageal reflux disease) Hepatic steatosis Hepatitis C Hiatal hernia History of colon polyps Hypertension Incarcerated hernia Light headedness Neck pain Neuropathy Pulmonary emboli Pulmonary embolism Restless leg syndrome Seizure-like activity Thromboembolic stroke Tobacco abuse Surgical History History of cholecystectomy History of colonoscopy with polypectomy (~2016) 2019- dr. jeffries History of right shoulder replacement (~12/2019) Status post left shoulder hemiarthroplasty Family History Denies family history of Chronic kidney disease (CKD) Social History Smoking and tobacco status: never smoked Second hand smoke exposure: Yes Alcohol intake: former Year of sobriety/quit date alcohol: 2021 Former alcohol use details: stopped October 2021 Desire information about alcohol rehabilitation?: No Caregiver/support person: Yes (family) Lives independently: Yes Household members: family Housing: House Marital status: / Current occupational status: unemployed History of recent travel: No Current gender identity: Male Physical Exam Const: COMMON NORMALS: no acute distress and alert GENERAL APPEARANCE: cooperative; not ill appearing and not frail appearing HENMT: COMMON NORMALS: normocephalic, atraumatic and Normal external nose present HEAD & SCALP: normocephalic and atraumatic FACE & SINUS: normal facial exam and face symmetric NOSE: Normal external nose present Eye: COMMON NORMALS: Equal, round and reactive pupils present, EOMs intact bilaterally and conjunctivae normal CONJUNCTIVA: Yes conjunctivae normal PUPIL: Yes Equal, round and reactive pupils present Neck/C-Spine: GENERAL: Yes trachea midline Chest: CHEST: Yes Symmetrical chest wall rise Resp: COMMON NORMALS: normal respiratory effort, No retractions, No use of accessory muscles and clear to auscultation bilaterally AUSCULTATION: clear to auscultation bilaterally Cardio: COMMON NORMALS: regular rate and regular rhythm RATE: regular rate RHYTHM: regular rhythm GI: COMMON NORMALS: Normal to inspection, nondistended, normoactive bowel sounds present Extremity: COMMON NORMALS: no pedal edema Neuro: CEE COMA SCALE: document GCS findings Cee coma scale eye opening: Spontaneous Cee coma scale verbal response: Orientated Cee coma scale motor response: Obey commands [place] coma scale total score: 15 COMMON NORMALS: CN's II-XII intact bilaterally and no focal motor deficits SENSORIUM/ORIENTATION: Yes alert COORDINATION/BALANCE: [id number]-[id number] test normal and [id number]-xz-[id number] test normal SPEECH: speech normal SENSORY EXAM: Yes extremities (intact) MOTOR EXAM: Pronator motor function not present and Normal motor muscle tone present throughout COORDINATION: cyvwvk-al-[id number] test normal and cqqh-sv-[id number] test normal Psych: COMMON NORMALS: speech normal SPEECH: Yes normal speech Skin: COMMON NORMALS: no rashes or lesions noted GENERAL SKIN EXAM: no rashes or lesions noted Course Vital Signs: Vital signs: Vital Signs Temperature 98.9 F 05/31/22 23:48 Pulse Rate 69 06/01/22 03:36 Respiratory Rate 16 05/31/22 23:48 Blood Pressure 140/88 06/01/22 03:36 Pulse Oximetry 94 05/31/22 23:48 Oxygen Delivery Me thod 05/31/22 23:48 MDM - Seizure MDM Narrative Medical decision making narrative: This patient's mental status is back at baseline. He is not having any significant pain. He does not have a headache. There is no new weakness, or paraesthesia. His NIH stroke scale is zero. His blood pressures have been mildly soft at times. On testing, he is orthostatic as documented. He is given 2 liters of fluid with improvement. This may be a reason for his syncopal episode. The differential diagnosis also includes terminal arrhythmia due to ischemia or otherwise, vasovagal syncope, and seizure. He had a recent EEG that was negative for seizure foci. his CBC is normal. His BMP is normal period his chest X-ray shows no acute findings. His head CT shows no acute findings. Urine drug screen and UA are negative. Alcohol level is non detectable. His troponin did not change at 2 hours. His EKG does not show signs of ischemia. with resolution of his symptoms, no arrhythmias on the monitor, the patient wishes to go home. He'll be allowed discharge for outpatient follow up. He knows to return for repeated episodes. Lab Data Result diagrams: 05/31/22 23:40 05/31/22 23:40 Labs: Radiology Impressions Chest X-Ray 06/01/22 00:16 IMPRESSION: 1. No acute findings. 2. Hiatal hernia. Head CT 06/01/22 00:16 IMPRESSION: No acute intracranial abnormality. Laboratory Results WBC 9.0 10^3/uL (4.0-10.0) 05/31/22 23:40 RBC 5.26 10^6/uL (4.1-5.3) 05/31/22 23:40 Hgb 12.8 g/dL (11.7-16.6) 05/31/22 23:40 Hct 42.6 % (42.0-52.0) 05/31/22 23:40 MCV 81.0 fl (80-94) 05/31/22 23:40 MCH 24.3 pg (28.0-34.0) L 05/31/22 23:40 MCHC 30.0 g/dL (30.0-36.0) 05/31/22 23:40 RDW 17.3 % (12.1-15.1) H 05/31/22 23:40 Plt Count 254 10^3/cmm (130-400) 05/31/22 23:40 MPV 11.6 fL (7.4-10.4) H 05/31/22 23:40 Neut % (Auto) 59.2 % 05/31/22 23:40 Lymph % (Auto) 25.0 % 05/31/22 23:40 [place] % (Auto) 11.7 % 05/31/22 23:40 Eos % (Auto) 2.8 % 05/31/22 23:40 Baso % (Auto) 0.6 % 05/31/22 23:40 Neut # (Auto) 5.30 10^3/uL (1.8-7.7) 05/31/22 23:40 Lymph # (Auto) 2.2 10^3/uL (0.8-4.8) 05/31/22 23:40 [place] # (Auto) 1.1 10^3/uL (0.2-0.9) H 05/31/22 23:40 Eos # (Auto) 0.3 10^3/uL (0.0-0.8) 05/31/22 23:40 Baso # (Auto) 0.1 10^3/uL (0.0-0.1) 05/31/22 23:40 Nucleated RBC % (auto) 0 % 05/31/22 23:40 Nucleated RBCs # 0.0 /100WBC 05/31/22 23:40 Sodium 137 mmol/L (136-145) 05/31/22 23:40 Potassium 4.3 mmol/L (3.5-5.1) 05/31/22 23:40 Chloride 99 mmol/L (98-107) 05/31/22 23:40 Carbon Dioxide 23 mmol/L (22-29) 05/31/22 23:40 Anion Gap 19.3 (5-19) H 05/31/22 23:40 BUN 10 mg/dL (8-23) 05/31/22 23:40 Creatinine 0.9 mg/dL (0.7-1.2) 05/31/22 23:40 GFR Calculation 85.8 mL/min (90-130) L 05/31/22 23:40 Glucose 98 mg/dL (65-115) 05/31/22 23:40 Calculated Osmolality 283 mOsm/kg (285-295) L 05/31/22 23:40 Lactate 0.8 mmol/L (0.5-2.2) 06/01/22 01:30 Calcium 10.1 mg/dL (8.5-10.5) 05/31/22 23:40 Phosphorus 2.5 mg/dL (2.5-4.5) 05/31/22 23:40 Magnesium 1.8 mg/dL (1.7-2.3) 05/31/22 23:40 Total Bilirubin 0.3 mg/dL (0.15-1.2) 05/31/22 23:40 AST 29 U/L (0-40) 05/31/22 23:40 ALT 30 U/L (0-41) 05/31/22 23:40 Alkaline Phosphatase 150 U/L (40-130) H 05/31/22 23:40 Troponin T Baseline 17 ng/L (0-15) H 05/31/22 23:40 Troponin T 120 Minute 17.27 ng/L (0-15) H 06/01/22 01:30 Delta Troponin T 0.27 ABS# (0-10) 06/01/22 01:30 Total Protein 7.5 g/dL (6.6-8.7) 05/31/22 23:40 Albumin 4.5 g/dL (3.5-5.2) 05/31/22 23:40 Globulin 3.0 g/dL (1.3-4.6) 05/31/22 23:40 Urine Color Yellow (Yellow) 06/01/22 02:49 Urine Appearance Clear (CLEAR) 06/01/22 02:49 Urine pH 7 (5-7) 06/01/22 02:49 Ur Specific [place] 1.010 (1.005-1.030) 06/01/22 02:49 Urine Protein Neg (Negative) 06/01/22 02:49 Urine Glucose (UA) Norm (Normal) 06/01/22 02:49 Urine Ketones Negative (Negative) 06/01/22 02:49 Urine Blood Neg (Negative) 06/01/22 02:49 Urine Nitrate Negative (Negative) 06/01/22 02:49 Urine Bilirubin Neg (Negative) 06/01/22 02:49 Urine Urobilinogen Neg mg/dL (Negative) 06/01/22 02:49 Ur Leukocyte Esterase Negative (Negative) 06/01/22 02:49 Urine Opiates Screen Negative ng/mL (Negative) 06/01/22 02:49 Ur Barbiturates Screen Negative ng/mL (Negative) 06/01/22 02:49 Ur Phencyclidine Scrn Negative ng/mL (Negative) 06/01/22 02:49 Ur Amphetamines Screen Negative ng/mL (Negative) 06/01/22 02:49 U Benzodiazepines Scrn Negative ng/mL (Negative) 06/01/22 02:49 Urine Cocaine Screen Negative ng/mL (Negative) 06/01/22 02:49 U Marijuana (THC) Screen Negative ng/mL (Negative) 06/01/22 02:49 Ethyl Alcohol < 10 mg/dL (0-10) 05/31/22 23:40 Discharge Plan Discharge Patient Disposition: Home Clinical Impression: Syncope, Orthostatic hypotension Condition: Stable Prescriptions: No Action doxepin 50 mg capsule 50 mg PO DAILY PRN ondansetron 4 mg tablet,disintegrating 4 mg PO Q8H PRN spironolactone 25 mg tablet 12.5 mg PO DAILY Qty: 45 3RF Eliquis 2.5 mg tablet 2.5 mg PO BID Qty: 180 3RF pregabalin [Lyrica] 50 mg capsule 50 mg PO BID Qty: 60 3RF tramadol 50 mg tablet 50 mg PO Q4H PRN (Reason: Pain) albuterol sulfate 90 mcg/actuation HFA aerosol inhaler 2 puff INHALATION QID PRN (Reason: Shortness Of Breath) cyanocobalamin (vitamin B-12) 1,000 mcg/mL solution 1,000 mcg IM Q30D ergocalciferol (vitamin D2) 1,250 mcg (50,000 unit) capsule 50,000 unit PO Q7D Rx Instructions: ON THU tamsulosin 0.4 mg capsule 0.4 mg PO BID 30 Days Qty: 60 3RF pantoprazole 40 mg tablet,delayed release (DR/EC) 40 mg PO BID 30 Days Qty: 60 3RF magnesium L-lactate [Magtab] 84 mg Tablet Extended Release 84 mg PO DAILY 30 Days Qty: 30 3RF multivitamin with folic acid [Thera] 400 mcg Tablet 1 tab PO DAILY 30 Days Qty: 30 3RF atorvastatin 40 mg Tablet 40 mg PO BEDTIME Qty: 90 0RF ropinirole 1 mg tablet 0.5 mg PO BEDTIME PRN (Reason: Restless Leg(S)) Qty: 0 0RF potassium chloride 10 mEq capsule, extended release 10 meq PO DAILY Qty: 30 0RF Discharge Orders: Discharge ED (Routine); Ordered 06/01/22 Ordered By: Bishop Díaz Referrals: Hali Mcneal APN [Primary Care Provider] - 1-3 days Patient Instructions: Syncope (ED), Hypotension (ED) Activity Restrictions/Additional Instructions: Drink plenty of fluids for the next 24 to 48 hours. Return for any repeated episodes of syncope or passing out, altered mental status, chest discomfort, any other concerning symptoms. Call your doctor Thursday for follow-up appointment this week. Coding Level of Care Code ED Technical Solutions Director for Bg Ramírez
== END 2022-06-01 04:18 | disposition home or self-care (01) ==
PROVIDERS: Emergency Provider Emergency Medicine; PCP Nurse Practitioner Family
DX: I95.1 Orthostatic hypotension (principal); I10 Essential (primary) hypertension; Z23 Encounter for immunization
CPT/HCPCS: 36415; 70450; 71045; 72040; 72100; 80053; 80306; 80307; 81003; 83605; 83735; 84100; 84484; 85025; 90471; 90715; 93005; 96360; 96361; 99284; 99285; J7030

== ENCOUNTER 2022-06-01 15:01 | Emergency (ER) | payer MEDICARE, MEDICAID, SELFPAY ==
[2022-06-01 15:02] VITALS: BP 92/53; PULSE 85; RESP 14; O2SAT 92; BMI 24.1
[2022-06-01 15:29] LABS: Basophils % 0.6 %; Eosinophils # 0.1 10^3/uL (0.0-0.8); Hematocrit 34.5 % (42.0-52.0); Hemoglobin 10.7 g/dL (11.7-16.6); Lymphocytes # 1.5 10^3/uL (0.8-4.8); Lymphocytes % 23.2 %; Mean Corpuscular Hemoglobin 25.1 pg (28.0-34.0); Mean Platelet Volume 10.8 fL (7.4-10.4); Monocytes # 0.9 10^3/uL (0.2-0.9); Monocytes % 12.8 %; Neutrophils # 3.98 10^3/uL (1.8-7.7); Nucleated Red Blood Cells % 0 %; Platelet Count 196 10^3/cmm (130-400); Red Blood Count 4.26 10^6/uL (4.1-5.3); Red Cell Distribution Width 17.3 % (12.1-15.1); White Blood Count 6.6 10^3/uL (4.0-10.0)
[2022-06-01 15:30] VITALS: BP 112/72; PULSE 72; RESP 13; O2SAT 93
[2022-06-01 15:48] LABS: Alanine Aminotransferase 29 U/L (0-41); Albumin Level 3.7 g/dL (3.5-5.2); Alkaline Phosphatase 113 U/L (40-130); Anion Gap 16.9 (5-19); Aspartate Amino Transferase 34 U/L (0-40); Blood Urea Nitrogen 6 mg/dL (8-23); Carbon Dioxide 21 mmol/L (22-29); Chloride 103 mmol/L (98-107); Globulin 2.9 g/dL (1.3-4.6); Glomerular Filtration Rate 114.6 mL/min (90-130); Glucose 96 mg/dL (65-115); Osmolality Calculated 281 mOsm/kg (285-295); Potassium 3.9 mmol/L (3.5-5.1); Sodium 137 mmol/L (136-145); Total Bilirubin 0.3 mg/dL (0.15-1.2); Total Protein 6.6 g/dL (6.6-8.7)
--- NOTE | 2022-06-01 16:02 | W.ED.SEIZURE ---
HPI - Seizure General: Chief Complaint: Seizure Stated Complaint: POST SEIZURE Time Seen by Provider: 06/01/22 15:01 History of Present Illness: HPI Narrative: 62-year-old male presenting today. Patient was seen in this ED less than 12 hours ago. He notes his son saw him this morning and thought he looked sick. Told him to go to the ED. He notes he otherwise feels fine. Denies repeat of seizure-like activity. He denies chest pain or shortness of breath. He denies abdominal pain. He denies dysuria or polyuria. Has no other medical complaints. Seizure History: No Place: Home Review of Systems General: Reports: 10 or more systems reviewed and unremarkable except in HPI and below PFSH ED PFSH: Medical History (Updated 06/01/22 @ 16:04 by Emanuel Prater DO) Acute hypokalemia Acute hyponatremia Alcohol abuse Alcoholism Anemia Ascites Atrial flutter, paroxysmal BPH (benign prostatic hyperplasia) C. difficile diarrhea Cervical radiculopathy CHF (congestive heart failure), NYHA class III COPD (chronic obstructive pulmonary disease) COPD (chronic obstructive pulmonary disease) Diverticulosis DVT (deep venous thrombosis) Elevated bilirubin Encephalopathy Enterocolitis ETOH abuse Fall GERD (gastroesophageal reflux disease) Hepatic steatosis Hepatitis C Hiatal hernia History of colon polyps Hypertension Incarcerated hernia Light headedness Neck pain Neuropathy Pulmonary emboli Pulmonary embolism Restless leg syndrome Seizure-like activity Thromboembolic stroke Tobacco abuse Surgical History History of cholecystectomy History of colonoscopy with polypectomy (~2016) 2019- dr. jeffries History of right shoulder replacement (~12/2019) Status post left shoulder hemiarthroplasty Family History Denies family history of Chronic kidney disease (CKD) Social History Smoking and tobacco status: never smoked Second hand smoke exposure: Yes Alcohol intake: former Year of sobriety/quit date alcohol: 2021 Former alcohol use details: stopped October 2021 Desire information about alcohol rehabilitation?: No Caregiver/support person: Yes (family) Lives independently: Yes Household members: family Housing: House Marital status: / Current occupational status: unemployed History of recent travel: No Current gender identity: Male Physical Exam Const: COMMON NORMALS: no acute distress, patient oriented x3 and alert GENERAL APPEARANCE: cooperative ORIENTATION/CONSCIOUSNESS: Yes awake, Yes oriented to person, Yes oriented to place and Yes oriented to time HENMT: COMMON NORMALS: normocephalic, atraumatic, external ears normal, Normal external nose present and moist oral mucous membranes HEAD & SCALP: normal to inspection, normocephalic and atraumatic NOSE: Normal external nose present GENERAL EAR: hearing grossly impaired EXTERNAL EAR: Yes external ears normal Eye: COMMON NORMALS: Equal, round and reactive pupils present, EOMs intact bilaterally, conjunctivae normal and no scleral icterus GENERAL EYE: appearance normal, both eyes and all related structures EYELID: eyelids normal CONJUNCTIVA: Yes conjunctivae normal SCLERA: sclerae normal PUPIL: Yes Equal, round and reactive pupils present Neck/C-Spine: COMMON NORMALS: full ROM, supple and no JVD GENERAL: Yes normal visual inspection Lymph: LYMPHATIC: no lymphadenopathy noted and no lymphedema noted Chest: COMMONS NORMALS: normal inspection of the chest Resp: COMMON NORMALS: normal respiratory effort, No retractions and No use of accessory muscles Cardio: COMMON NORMALS: no JVD, regular rate and regular rhythm RATE: regular rate RHYTHM: regular rhythm GI: COMMON NORMALS: Normal to inspection, nondistended, normoactive bowel sounds present : COMMON NORMALS: Yes no CVA tenderness BLADDER/KIDNEY EXAM: Yes no CVA tenderness Back/Pelvis: COMMON NORMALS: no CVA tenderness and thoracic and lumbar spine normal to inspection Extremity: COMMON NORMALS: normal to inspection, full ROM and capillary refill normal GENERAL: Yes normal exam except as noted Neuro: COMMON NORMALS: patient oriented x3, CN's II-XII intact bilaterally, moves all extremities, no focal motor deficits, no sensory deficits noted and gait normal SENSORIUM/ORIENTATION: Yes alert, Yes oriented to person, Yes oriented to place and Yes oriented to time Psych: COMMON NORMALS: mental status grossly normal, Normal thought process present, cooperative and normal affect THOUGHT PROCESS: Normal thought process present Skin: COMMON NORMALS: no rashes or lesions noted and no wounds GENERAL SKIN EXAM: no rashes or lesions noted Course Vital Signs: Vital signs: Vital Signs Pulse Rate 85 06/01/22 15:02 Respiratory Rate 14 06/01/22 15:02 Blood Pressure 92/53 06/01/22 15:02 Pulse Oximetry 92 06/01/22 15:02 Oxygen Delivery Me thod 06/01/22 15:02 MDM - Seizure MDM Narrative Medical decision making narrative: 62-year-old male presenting today for uncertain reason. Patient was seen last night. Review of labs demonstrating no significant abnormality. CT head without a significant abnormality. Repeat CBC and CMP without significant abnormality. Patient was given strict return precautions and recommended routine outpatient follow-up. Lab Data Result diagrams: 06/01/22 15:24 06/01/22 15:24 Labs: Laboratory Results WBC 6.6 10^3/uL (4.0-10.0) 06/01/22 15: RBC 4.26 10^6/uL (4.1-5.3) 06/01/22 15: Hgb 10.7 g/dL (11.7-16.6) L 06/01/22 15: Hct 34.5 % (42.0-52.0) L 06/01/22 15: MCV 81.0 fl (80-94) 06/01/22 15:24 MCH 25.1 pg (28.0-34.0) L 06/01/22 15:24 MCHC 31.0 g/dL (30.0-36.0) 06/01/22 15: RDW 17.3 % (12.1-15.1) H 06/01/22 15:24 Plt Count 196 10^3/cmm (130-400) 06/01/22 15: MPV 10.8 fL (7.4-10.4) H 06/01/22 15:24 Neut % (Auto) 60.0 % 06/01/22 15:24 Lymph % (Auto) 23.2 % 06/01/22 15:24 [place] % (Auto) 12.8 % 06/01/22 15: Eos % (Auto) 2.0 % 06/01/22 15: Baso % (Auto) 0.6 % 06/01/22 15:24 Neut # (Auto) 3.98 10^3/uL (1.8-7.7) 06/01/22 15: Lymph # (Auto) 1.5 10^3/uL (0.8-4.8) 06/01/22 15:24 [place] # (Auto) 0.9 10^3/uL (0.2-0.9) 06/01/22 15:24 Eos # (Auto) 0.1 10^3/uL (0.0-0.8) 06/01/22 15:24 Baso # (Auto) 0.0 10^3/uL (0.0-0.1) 06/01/22 15:24 Nucleated RBC % (auto) 0 % 06/01/22 15:24 Nucleated RBCs # 0.0 /100WBC 06/01/22 15:24 Sodium 137 mmol/L (136-145) 06/01/22 15:24 Potassium 3.9 mmol/L (3.5-5.1) 06/01/22 15:24 Chloride 103 mmol/L (98-107) 06/01/22 15:24 Anion Gap 16.9 (5-19) 06/01/22 15:24 Creatinine 0.7 mg/dL (0.7-1.2) 06/01/22 15:24 GFR Calculation 114.6 mL/min (90-130) 06/01/22 15:24 Glucose 96 mg/dL (65-115) 06/01/22 15:24 Calcium 9.0 mg/dL (8.5-10.5) 06/01/22 15:24 Total Bilirubin 0.3 mg/dL (0.15-1.2) 06/01/22 15:24 AST 34 U/L (0-40) 06/01/22 15:24 ALT 29 U/L (0-41) 06/01/22 15:24 Alkaline Phosphatase 113 U/L (40-130) 06/01/22 15:24 Total Protein 6.6 g/dL (6.6-8.7) 06/01/22 15:24 Albumin 3.7 g/dL (3.5-5.2) 06/01/22 15:24 Globulin 2.9 g/dL (1.3-4.6) 06/01/22 15:24 Discharge Plan Discharge Patient Disposition: Home Clinical Impression: Orthostatic hypotension Condition: Stable Prescriptions: No Action doxepin 50 mg capsule 50 mg PO DAILY PRN ondansetron 4 mg tablet,disintegrating 4 mg PO Q8H PRN spironolactone 25 mg tablet 12.5 mg PO DAILY Qty: 45 3RF Eliquis 2.5 mg tablet 2.5 mg PO BID Qty: 180 3RF pregabalin [Lyrica] 50 mg capsule 50 mg PO BID Qty: 60 3RF tramadol 50 mg tablet 50 mg PO Q4H PRN (Reason: Pain) albuterol sulfate 90 mcg/actuation HFA aerosol inhaler 2 puff INHALATION QID PRN (Reason: Shortness Of Breath) cyanocobalamin (vitamin B-12) 1,000 mcg/mL solution 1,000 mcg IM Q30D ergocalciferol (vitamin D2) 1,250 mcg (50,000 unit) capsule 50,000 unit PO Q7D Rx Instructions: ON THU tamsulosin 0.4 mg capsule 0.4 mg PO BID 30 Days Qty: 60 3RF pantoprazole 40 mg tablet,delayed release (DR/EC) 40 mg PO BID 30 Days Qty: 60 3RF magnesium L-lactate [Magtab] 84 mg Tablet Extended Release 84 mg PO DAILY 30 Days Qty: 30 3RF multivitamin with folic acid [Thera] 400 mcg Tablet 1 tab PO DAILY 30 Days Qty: 30 3RF atorvastatin 40 mg Tablet 40 mg PO BEDTIME Qty: 90 0RF ropinirole 1 mg tablet 0.5 mg PO BEDTIME PRN (Reason: Restless Leg(S)) Qty: 0 0RF potassium chloride 10 mEq capsule, extended release 10 meq PO DAILY Qty: 30 0RF Discharge Orders: Discharge ED (Routine); Ordered 06/01/22 Ordered By: Emanuel Prater Referrals: Fredis,HAL Lal [Primary Care Provider] - Coding Level of Care Code ED Supervisor [employer] for Chg Darrell
[2022-06-01 16:30] VITALS: BP 146/94; PULSE 69; RESP 18; O2SAT 96
[2022-06-01] MEDS: tetanus-dipt-pertussis 0.5 mL SDV IM (17:05)
[2022-06-01 17:08] VITALS: BP 158/97; PULSE 67; RESP 13; O2SAT 97
--- NOTE | 2022-06-01 17:20 | XRR_ITS ---
PROCEDURE INFORMATION: Exam: XR Lumbosacral Spine Exam date and time: 06/01/2022 5:38 PM Age: 62 years old Clinical indication: Injury or trauma; Fall; Blunt trauma (contusions or hematomas) TECHNIQUE: Imaging protocol: Radiologic exam of the lumbosacral spine. Views: 2 or 3 views. COMPARISON: CT abdomen pelvis wo con [id number] 12/15/2021 12:03 PM FINDINGS: Bones/joints: Probable osteopenia. Chronic fracture deformity of T12 is again noted without significant change. No acute fracture subluxation. Minimal facet arthropathy at L5-S1. Soft tissues: Unremarkable. Vasculature: Diffuse aortic calcifications. Other findings: Three views submitted. XR/XR lumbar spine 2-3V* [id number] IMPRESSION: No acute findings.
--- NOTE | 2022-06-01 17:21 | XRR_ITS ---
PROCEDURE INFORMATION: Exam: XR Cervical Spine Exam date and time: 06/01/2022 5:38 PM Age: 62 years old Clinical indication: Injury or trauma; Fall; Blunt trauma TECHNIQUE: Imaging protocol: Radiologic exam of the cervical spine. Views: 2 or 3 views. COMPARISON: CT cervical spin wo con* [id number] 12/14/2021 11:51 PM FINDINGS: Bones/joints: Probable osteopenia. There is hyper lordosis however there is no obvious acute fracture or subluxation. Soft tissues: Unremarkable. Other findings: Four views submitted. XR/XR cervical spine 3V* [id number] IMPRESSION: No acute findings.
[2022-06-01 18:00] VITALS: BP 143/97; PULSE 72; RESP 14; O2SAT 98
== END 2022-06-01 19:08 | disposition home or self-care (01) ==
PROVIDERS: Emergency Provider Emergency Medicine; PCP Nurse Practitioner Family
DX: I95.1 Orthostatic hypotension (principal); Z23 Encounter for immunization
CPT/HCPCS: 36415; 72040; 72100; 80053; 85025; 90471; 90715; 99284

== ENCOUNTER → 2022-06-05 14:22 | Outpatient (BNVA) | payer MEDICARE, MEDICAID, SELFPAY | PROVIDERS: PCP Nurse Practitioner Family; Visit Provider Surgery | DX: Z09 Encounter for follow-up examination after completed treatment for conditions other than malignant neoplasm (principal); R93.3 Abnormal findings on diagnostic imaging of other parts of digestive tract; K25.9 Gastric ulcer, unspecified as acute or chronic, without hemorrhage or perforation | CPT/HCPCS: 99212 ==

== ENCOUNTER 2022-06-19 10:06 | Day surgery (SDC) | payer MEDICARE, MEDICAID, SELFPAY ==
[2022-06-18 12:32] VITALS: BMI 24.0
[2022-06-19 10:24] VITALS: BP 125/76; PULSE 78; RESP 18; TEMP 36.5; O2SAT 95
--- NOTE | 2022-06-19 10:24 | W.PM.OPSFHP ---
Same Day Surgery H&P Indication for Procedure/HPI DATE OF PROCEDURE: June 19, 2022 CHIEF COMPLAINT/INDICATIONFOR SURGICAL PROCEDURE: Bowel issues PREOP DIAGNOSIS: Gastric ulcer PLANNED PROCEDURE: Operation Date: 06/19/22 11:30 Proposed Procedures p EGD 60395,R93.3(Not Applicable) - Chuckie Jeffries MD 03/18/2022 This is a pleasant 62 years old gentleman well-known to me from previous clinical encounters yet the patient was not seen in my office for the past 3 years or so, patient was last seen back in 2018 for evaluation for hiatal hernia and other conditions.? He was able to stop alcohol ingestion and he continues to smoke but is planning to stop smoking as well.? Patient comes today escorted by his son and recent CT scan of the abdomen pelvis was done back in December 29 that did show 1. Negative for focal acute inflammatory process in the abdomen or pelvis. 2. Emphysematous changes. 3. Trace bilateral pleural effusions. 4. Left lower lobe atelectasis versus minimal infiltrate. 5.?Moderate hiatal hernia. 6. Coronary artery atherosclerotic calcifications. 7. Cholecystectomy. 8. Several bilateral nonobstructing renal calyceal stones. 9. Bilateral renal cysts, some of which appear hyperdense suggestive of hemorrhagic cysts, similar to prior exam, negative for follow-up advised. 10. Diverticulosis without diverticulitis. 11. Small amount nonspecific free fluid in the pelvis. 12. T12 vertebral body chronic compression fracture without retropulsion of bony fragments. Patient reports that he does have some epigastric discomfort and mostly towards the left upper quadrant.? Concerning that the hiatal hernia could be the cause for that.? There is no available recent upper GI studies done, he does encounter pain when he eats too much otherwise with smaller frequent meals does not seem to have issues.? Also patient reports history of strokes. Interim history 06/05/2022 Patient has a follow-up today via telehealth status post upper GI study that did show 1. Poor esophageal motility. 2. Fundus of stomach herniated into left chest. 3. Gastroesophageal reflux. 4. Chronic peptic ulcer disease. ? Interim history 06/19/2022 Patient comes today for diagnostic EGD. ROS All systems have been reviewed negative except as for the above or per problem list. Medications/Allergies* Home Medications Medication Instructions Recorded Confirmed Type albuterol sulfate 90 mcg/actuation 2 puff inhalation QID PRN 11/01/19 06/19/22 History aerosol inhaler Shortness Of Breath tramadol 50 mg tablet 50 mg PO Q4H PRN Pain 11/01/19 06/19/22 History cyanocobalamin (vitamin B-12) 1,000 mcg IM Q30D 03/22/21 06/19/22 History 1,000 mcg/mL injection solution ergocalciferol (vitamin D2) 1,250 50,000 unit PO Q7D 03/22/21 06/19/22 History mcg (50,000 unit) capsule doxepin 50 mg capsule 50 mg PO DAILY PRN prn 03/27/22 06/19/22 History ondansetron 4 mg disintegrating 4 mg PO Q8H PRN Nausea 03/27/22 06/19/22 History tablet Allergies/Adverse Reactions Allergy/AdvReac Type Severity Reaction Status Date / Time ativan Allergy Unknown Uncoded 06/19/22 11:10 Pertinent History/Comorbid Conditions* Medical History (Updated 06/09/22 @ 00:01 by ) Acute hypokalemia Acute hyponatremia Alcohol abuse Alcoholism Anemia Ascites Atrial flutter, paroxysmal BPH (benign prostatic hyperplasia) C. difficile diarrhea Cervical radiculopathy CHF (congestive heart failure), NYHA class III COPD (chronic obstructive pulmonary disease) COPD (chronic obstructive pulmonary disease) Diverticulosis DVT (deep venous thrombosis) Elevated bilirubin Encephalopathy Enterocolitis ETOH abuse Fall GERD (gastroesophageal reflux disease) Hepatic steatosis Hepatitis C Hiatal hernia History of colon polyps Hypertension Incarcerated hernia Light headedness Neck pain Neuropathy Pulmonary emboli Pulmonary embolism Restless leg syndrome Seizure-like activity Thromboembolic stroke Tobacco abuse Surgical History (Updated 06/08/21 @ 00:00 by ) History of cholecystectomy History of colonoscopy with polypectomy (~2016) 2019- dr. jeffries History of right shoulder replacement (~12/2019) Status post left shoulder hemiarthroplasty Family History (Updated 03/22/21 @ 18:24 by Festus Holden MD) Denies family history of Chronic kidney disease (CKD) Social History Smoking and tobacco status: never smoked Second hand smoke exposure: Yes Alcohol intake: former Year of sobriety/quit date alcohol: 2021 Former alcohol use details: stopped October 2021 Desire information about alcohol rehabilitation?: No Caregiver/support person: Yes (family) Lives independently: Yes Household members: family Housing: House Marital status: / Current occupational status: unemployed History of recent travel: No Current gender identity: Male Pertinent Exam Findings alert, oriented x 3, regular rate & rhythm and procedure specific exam findings (Abdominal exam nontender nondistended) Recommendations Surgery/Procedure today (EGD with possible biopsy) Coding Level of Care Code Acute [employer] for [employer]g Ramírez
[2022-06-19] MEDS: sodium chloride 0.9% 1,000 ML 30 ML IV (10:33)
--- NOTE | 2022-06-19 11:18 | ANES.PREANE2 ---
Pre-Anesthetic Assessment Height/Weight: Height 1.73 m Weight 71.668 kg Temp Pulse Resp BP Pulse Ox O2 Del Method 97.7 F 78 18 125/76 95 06/19/22 10:24 06/19/22 10:24 06/19/22 10:24 06/19/22 10:24 06/19/22 10:24 06/19/22 10:24 Preop Diagnosis: Gastric ulcer Operation Date: 06/19/22 11:30 Proposed Procedures p EGD 42350,R93.3(Not Applicable) - Chuckie Jeffries MD Was Beta Dominique taken within 24 hours: N/A Was Clonidine taken within 24 hours: N/A Last intake: Intake Last Liquid Date 06/18/22 Last Liquid Time 19:00 Last Solid Date 06/18/22 Last Solid Time 19:00 Social Alcohol and Tobacco Quit drinking in November Exam alert, oriented x 3, clear to auscultation bilaterally and regular rate & rhythm Airway Submandibular: within normal limits Cervical ROM: within normal limits Mallampati: Class II Dentition: false History/ROS No significant history except as noted and No significant complaints Pulmonary Chronic Obstructive Pulmonary Disease, Cough, Exertional Dyspnea and Shortness of Breath Hx PE CV/HEM Hx flutter None reported Hepatic Cirrhosis and Hepatitis GI Gastroesophageal Reflux Disease and Peptic Ulcer Disease Metabolic None reported Musc/skel None reported Neuropsych Cerebrovascular Accident Anesthetic Plan ASA status: 4 Anesthesia: Anesthesia Evaluation and MAC Risk of > 500 ml blood loss (7ml/kg in children): No Medications/Allergies Home Medications Medication Instructions Recorded Confirmed Last Taken Type albuterol sulfate 90 mcg/actuation 2 puff inhalation QID PRN 11/01/19 06/19/22 05/29/22 History aerosol inhaler Shortness Of Breath tramadol 50 mg tablet 50 mg PO Q4H PRN Pain 11/01/19 06/19/22 06/18/22 History cyanocobalamin (vitamin B-12) 1,000 mcg IM Q30D 03/22/21 06/19/22 06/18/22 History 1,000 mcg/mL injection solution ergocalciferol (vitamin D2) 1,250 50,000 unit PO Q7D 03/22/21 06/19/22 06/18/22 History mcg (50,000 unit) capsule multivitamin with folic acid 400 1 tab PO DAILY 30 days #30 tabs 04/27/22 11/10/22 11/09/22 Rx mcg tablet (Thera) pantoprazole 40 mg tablet,delayed 40 mg PO BID 30 days #60 tabs 12/04/21 06/19/22 06/18/22 Rx release tamsulosin 0.4 mg capsule 0.4 mg PO BID 30 days #60 caps 12/04/21 06/19/22 06/18/22 Rx atorvastatin 40 mg tablet 40 mg PO BEDTIME #90 tabs 12/16/21 06/19/22 06/18/22 Rx potassium chloride 10 mEq 10 meq PO DAILY #30 caps 12/16/21 06/19/22 06/18/22 Rx capsule,extended release ropinirole 1 mg tablet 0.5 mg PO BEDTIME PRN Restless 12/16/21 06/19/22 06/18/22 Rx Leg(S) #0 tabs apixaban 2.5 mg tablet (Eliquis) 2.5 mg PO BID #180 tabs 03/27/22 06/19/22 06/18/22 Rx doxepin 50 mg capsule 50 mg PO DAILY PRN prn 03/27/22 06/19/22 06/18/22 History ondansetron 4 mg disintegrating 4 mg PO Q8H PRN Nausea 03/27/22 06/19/22 Unknown History tablet spironolactone 25 mg tablet 12.5 mg PO DAILY #45 tabs 03/27/22 06/19/22 06/18/22 Rx pregabalin 50 mg capsule (Lyrica) 50 mg PO BID #60 caps 05/28/22 06/19/22 06/18/22 Rx Allergies Allergy/AdvReac Type Severity Reaction Status Date / Time ativan Allergy Unknown Uncoded 06/19/22 11:10 Current Medications Generic Name Dose Route Start Last Admin Trade Name Freq PRN Reason Stop Dose Admin Sodium Chloride 1,000 mls @ 30 mls/hr 06/19/22 10:15 06/19/22 10:33 Sodium Chloride 0.9% IV 06/20/22 10:14 30 mls/hr .Q24H VICKEY Administration PFSH Anesthesia Medical History Acute hypokalemia Acute hyponatremia Alcohol abuse Alcoholism Anemia Ascites Atrial flutter, paroxysmal BPH (benign prostatic hyperplasia) C. difficile diarrhea Cervical radiculopathy CHF (congestive heart failure), NYHA class III COPD (chronic obstructive pulmonary disease) COPD (chronic obstructive pulmonary disease) Diverticulosis DVT (deep venous thrombosis) Elevated bilirubin Encephalopathy Enterocolitis ETOH abuse Fall GERD (gastroesophageal reflux disease) Hepatic steatosis Hepatitis C Hiatal hernia History of colon polyps Hypertension Incarcerated hernia Light headedness Neck pain Neuropathy Pulmonary emboli Pulmonary embolism Restless leg syndrome Seizure-like activity Thromboembolic stroke Tobacco abuse Surgical History History of cholecystectomy History of colonoscopy with polypectomy (~2016) 2019- dr. jeffries History of right shoulder replacement (~12/2019) Status post left shoulder hemiarthroplasty Family History Denies family history of Chronic kidney disease (CKD) Social History Smoking and tobacco status: never smoked Second hand smoke exposure: Yes Alcohol intake: former Year of sobriety/quit date alcohol: 2021 Former alcohol use details: stopped October 2021 Desire information about alcohol rehabilitation?: No Caregiver/support person: Yes (family) Lives independently: Yes Household members: family Housing: House Marital status: / Current occupational status: unemployed History of recent travel: No Current gender identity: Male Data Anesthesia Cardiac Studies: Echocardiogram 12/02/21 Transesophageal Echocardiogram 12/03/21 Sestamibi Stress Test (Cardiology) 05/07/22 Cardiac Event Monitor 12/26/21
[2022-06-19 12:32] VITALS: BP 105/64; PULSE 75; RESP 18; TEMP 36.1; O2SAT 96
[2022-06-19 12:49] VITALS: BP 108/62; PULSE 70; RESP 18; O2SAT 96
--- NOTE | 2022-06-19 15:23 | ANE.PACU2 ---
Inpatient post-anesthesia follow up: Airway intact: Yes Vital signs: Temperature 97.0 F Pulse Rate 70 Respiratory Rate 18 Blood Pressure 108/62 Pulse Oximetry 96 Oxygen Delivery Me thod Room Air Oxygen Flow Rate 4 Fraction of Inspir ed Oxygen Hydration adequate: Yes Nausea and vomiting: No Pain level: 1 Mental status: Baseline
== END 2022-06-19 12:53 | disposition home or self-care (01) ==
PROVIDERS: PCP Nurse Practitioner Family; Visit Provider Surgery
PROC: 0DJ08ZZ Inspection of Upper Intestinal Tract, Via Natural or Artificial Opening Endoscopic (ICD-10-PCS; CPT 43235; principal; 2022-06-19 11:30)
DX: R93.3 Abnormal findings on diagnostic imaging of other parts of digestive tract (principal); K21.00 Gastro-esophageal reflux disease with esophagitis, without bleeding; K44.9 Diaphragmatic hernia without obstruction or gangrene; K29.70 Gastritis, unspecified, without bleeding; N40.0 Benign prostatic hyperplasia without lower urinary tract symptoms; I11.0 Hypertensive heart disease with heart failure; I50.9 Heart failure, unspecified; J44.9 Chronic obstructive pulmonary disease, unspecified; Z86.718 Personal history of other venous thrombosis and embolism; K21.9 Gastro-esophageal reflux disease without esophagitis; Z86.19 Personal history of other infectious and parasitic diseases
CPT/HCPCS: 43239; 88305; J2704; J7030

== ENCOUNTER → 2022-06-25 08:03 | Outpatient (BNVA) | payer MEDICARE, MEDICAID, SELFPAY | PROVIDERS: PCP Nurse Practitioner Family; Visit Provider Nurse Practitioner | DX: G40.909 Epilepsy, unspecified, not intractable, without status epilepticus (principal); G62.9 Polyneuropathy, unspecified; I70.90 Unspecified atherosclerosis; F17.210 Nicotine dependence, cigarettes, uncomplicated | CPT/HCPCS: 99213 ==

== ENCOUNTER → 2022-06-26 15:28 | Outpatient (BNVA) | payer MEDICARE, MEDICAID, SELFPAY | PROVIDERS: PCP Nurse Practitioner Family; Visit Provider Surgery | DX: K29.70 Gastritis, unspecified, without bleeding (principal); K44.9 Diaphragmatic hernia without obstruction or gangrene | CPT/HCPCS: 99212 ==

== ENCOUNTER → 2022-07-02 15:51 | Outpatient (BNVA) | payer MEDICARE, MEDICAID, SELFPAY | PROVIDERS: PCP Nurse Practitioner Family; Visit Provider Nurse Practitioner Family | DX: I11.0 Hypertensive heart disease with heart failure (principal); I50.9 Heart failure, unspecified; I48.92 Unspecified atrial flutter; Z79.01 Long term (current) use of anticoagulants; G47.33 Obstructive sleep apnea (adult) (pediatric); F17.210 Nicotine dependence, cigarettes, uncomplicated | CPT/HCPCS: 99214 ==

== ENCOUNTER → 2022-07-09 13:45 | Outpatient (BNVA) | payer MEDICARE, MEDICAID, SELFPAY | PROVIDERS: PCP Nurse Practitioner Family; Visit Provider Surgery | DX: K44.9 Diaphragmatic hernia without obstruction or gangrene (principal); K29.70 Gastritis, unspecified, without bleeding | CPT/HCPCS: 99213 ==

== ENCOUNTER 2022-07-17 07:48 | Outpatient (CLI) | payer MEDICARE, MEDICAID, SELFPAY ==
--- NOTE | 2022-07-17 08:00 | MR_ITS ---
WS: [id number] MRI CERVICAL SPINE NONCONTRAST AND CONTRAST TECHNIQUE: Sagittal T1, T2 and STIR imaging. Axial T2, gradient, and fiesta imaging. Post gadolinium imaging was obtained with fat saturation technique. Images degraded by motion artifact. CLINICAL INFORMATION: M54.12 - Radiculopathy, cervical region COMPARISON: CT cervical December 14, 2021 FINDINGS: Some images degraded by motion artifact. Slight exaggeration normal cervical lordosis. Mild disc bulging worse at C3-C4, C5-C6, and C6-C7. Sli ght retrolisthesis C3 on C4. C2-C3: Normal. C3-C4: Slight retrolisthesis C3 on C4. Mild facet arthropathy. Mild bilateral bony foraminal narrowin g. Spinal canal is patent. C4-C5: Mild facet arthropathy. Mild bilateral bony foraminal narrowing. Spinal canal is patent. C5-C6: Mild disc osteophytic ridging. Mild LEFT greater than RIGHT bony foraminal narrowing. Moderate facet arthropathy. Spinal canal is patent. C6-C7: Mild disc osteophytic ridging. Images degraded due to patient motion at this level. Mild LEFT greater than RIGHT bony foraminal narrowing. Mild facet arthropathy. Spinal canal is patent. C7-T1: Normal. Visualized brain stem structures: Normal. Prevertebral soft tissues: Normal. No abnormal gadolinium enhancement. MR/MR cervical spine wo/w [id number] IMPRESSION: Somewhat limited examination due to motion. 1. Slight exaggeration normal cervical lordosis. Cord signal is normal. 2. Multilevel mild bony foraminal narrowing worse at LEFT C3-C4, LEFT C4-C5, L EFT C5-C6 and LEFT C6-C7. 3. Moderate facet arthropathy throughout the cervical spine. 4. No abnormal gadolinium enhancement.
[2022-07-17] MEDS: gadobenate dimeglumine 20 mL vial IV (08:56)
== END 2022-07-17 07:49 | disposition home or self-care (01) ==
PROVIDERS: PCP Nurse Practitioner Family; Visit Provider Nurse Practitioner
DX: M54.12 Radiculopathy, cervical region (principal); M47.812 Spondylosis without myelopathy or radiculopathy, cervical region
CPT/HCPCS: 72156; A9577

== ENCOUNTER → 2022-07-29 13:05 | Outpatient (BNVA) | payer MEDICARE, MEDICAID, SELFPAY | PROVIDERS: PCP Nurse Practitioner Family; Visit Provider Nurse Practitioner Family | DX: M25.511 Pain in right shoulder (principal); G89.29 Other chronic pain | CPT/HCPCS: 73030; 99214 ==

== ENCOUNTER → 2022-08-22 12:57 | Outpatient (BNVA) | payer MEDICARE, MEDICAID, SELFPAY | PROVIDERS: PCP Nurse Practitioner Family; Visit Provider Nurse Practitioner | DX: G62.89 Other specified polyneuropathies (principal); D47.2 Monoclonal gammopathy; M54.16 Radiculopathy, lumbar region | CPT/HCPCS: 99213 ==

== ENCOUNTER 2022-09-02 10:42 | Outpatient (CLI) | payer MEDICARE, MEDICAID, SELFPAY ==
--- NOTE | 2022-09-02 10:54 | MR_ITS ---
WS: [id number] MRI LUMBAR SPINE NONCONTRAST HISTORY: M54.16 - Radiculopathy, lumbar region COMPARISON: Radiograph 09/01/2021 and lumbar spine MRI 11/18/2016 TECHNIQUE: Sagittal and axial multisequence imaging is submitted. Increase in thoracic kyphosis. Mild increase in the lumbar lordosis. New 50% compression fracture without retropulsion at L1. There is marrow edema throughout a large portion of the L1 vertebral body. No extension of marrow edema int o the posterior elements. Remote 50% compression fracture at T12. Mild disc desiccation throughout the lumbar spine. Conus terminates normally at L1. L1-L2: Mild facet arthritis. No stenosis. L2-L3: Mild bilateral facet joint arthritis and foraminal narrowing. No disc protrusions. L3-L4: Mild annular disc bulging with a central disc protrusion and annular fissure. Mild ligamentum flavum and facet arthritis. Mild central and bilateral subarticular recess stenosis and mild foramina l stenosis. Disc contacts and displaces the traversing L4 nerve roots bilaterally. L4-L5: Moderate annular disc bulge with a central disc protrusion. Mild ligamentum flavum hypertrophy and facet arthritis. Mild central and bilateral subarticular recess stenosis. Disc contacts and disp laces the traversing L5 nerve roots. L5-S1: Mild disc bulging. Small central disc protrusion. Very slight encroachment upon the RIGHT S1 n erve root but no stenosis. Bilateral renal cysts. MR/MR lumbar spine wo con* [id number] IMPRESSION: 1. New acute L1 compression fracture by 50%. No retropulsion. Fracture was not present on the radiographs from 06/01/2022. 2. Mild central and bilateral subarticular recess and foraminal stenosis at L3 -4 with a disc contacting and minimally displacing the traversing L4 nerve root s. 3. Mild central and bilateral subarticular recess stenosis with disc contactin g and displacing the traversing L5 nerve roots. 4. Minimal disc encroachment upon the RIGHT S1 nerve root.
== END 2022-09-02 10:43 | disposition home or self-care (01) ==
LOC: RAD 10:43
PROVIDERS: PCP Nurse Practitioner Family; Visit Provider Nurse Practitioner
DX: M48.56XA Collapsed vertebra, not elsewhere classified, lumbar region, initial encounter for fracture (principal); M48.061 Spinal stenosis, lumbar region without neurogenic claudication; M53.3 Sacrococcygeal disorders, not elsewhere classified
CPT/HCPCS: 72148